=== PATIENT | female | born 1960 | race Caucasian/White ===

== ENCOUNTER → 2018-04-25 00:46 | Outpatient (CLI) | payer BC, SELFPAY ==
[2018-04-25 21:35] LABS: T3,Free 3.3 pg/ml (2.8-5.3)
== END ==
PROVIDERS: Visit Provider Family Medicine
DX: E03.9 Hypothyroidism, unspecified (principal)
CPT/HCPCS: 36415; 84481

== ENCOUNTER 2018-06-17 20:38 | Emergency (ER) | payer BC, SELFPAY ==
[2018-06-17 20:40] VITALS: BP 174/93; PULSE 75; RESP 18; TEMP 36.6; O2SAT 99
[2018-06-17 20:57] LABS: Bilirubin Negative (Negative); Blood Trace-intact (Negative); Clarity Clear; Glucose Negative (Negative); Ketones Negative (Negative); Leukocyte Esterase Moderate (Negative); Nitrite Negative (Negative); Urobilinogen 0.2 EU/dL (Up TO 0.2); pH 5.5 (5-8)
--- NOTE | 2018-06-17 21:00 | DI.RAD_ITS ---
SYMPTOM/DIAGNOSIS: SOB FOR 6 WEEKS PA AND LATERAL CHEST: The heart is normal in size. The lungs are clear. The mediastinal structures and pleura appear intact. CONCLUSION: Normal chest. No evidence of acute cardiopulmonary disease.
[2018-06-17 21:21] LABS: Bacteria Negative HPF (Negative); C & S Indicated? No/Sq. Contamination; Casts Negative LPF (Negative); Crystals Negative HPF (Negative); Epithelial Cells Many HPF (Negative); Mucus Negative (Negative); Other Cells Few Renal (Negative); RBC Negative (0-2)
[2018-06-17 21:30] LABS: Abs Immature Grans 0.02 k/cumm (0.0-0.09); Absolute Basophil Count 0.04 k/cumm (0.0-0.2); Absolute Lymphocyte Count 3.04 k/cumm (1.2-3.4); Absolute Monocyte Count 0.57 k/cumm (0.11-0.7); Basophils % 0.4; Eosinophils % 2.2; HCT 42.8 % (36.0-46.0); HGB 13.4 g/dL (12.0-15.5); Immature Grans % 0.2; Lymphocytes % 33.5; Mean Corp. HGB Concentration 31.3 g/dL (32.0-36.0); Mean Corpuscular Hemoglobin 29.2 pg (27.0-33.0); Mean Corpuscular Volume 93.2 fL (80-95); Mean Platelet Volume 10.7 fL (8.0-11.0); Monocytes % 6.3; Neutrophils % 57.4; Platelet Count 282 x1000/uL (130-400); RBC 4.59 m/cumm (4.00-5.20); RBC Distribution Width 16.1 % (11.7-14.6); White Blood Cell Count 9.07 k/cumm (4.4-10.8)
[2018-06-17 21:51] LABS: ALT 18 U/L (12-78); AST 15 U/L (15-37); Albumin 3.8 g/dL (3.4-5.0); Alkaline Phosphatase 87 U/L (46-116); Anion Gap 10.2 mmol/L (3-11); BUN 18 mg/dL (7-18); Bilirubin, Total 0.3 mg/dL (0.2-1.0); CO2 28.8 mmol/L (21.0-32.0); CREATININE 1.22 mg/dL (0.55-1.02); Calcium 9.1 mg/dL (8.5-10.1); Chloride 102 mmol/L (98-107); Estimated GFR 44.96 (mL/min/1.73m2); Glucose 110 mg/dL (70-100); Magnesium 2.1 mg/dL (1.8-2.4); Potassium 3.9 mmol/L (3.5-5.1); Sodium 141 mmol/L (136-145); TSH 70.96 uIU/mL (0.358-3.74); Total Protein 7.9 g/dL (6.4-8.2); Troponin I < 0.02 ng/mL (0.00-0.06)
[2018-06-17] MEDS: Normal Saline 1,000 ML 1000 ML IV (21:55)
--- NOTE | 2018-06-17 22:09 | DI.VRAD_ITS ---
EXAM: XR Chest, 2 Views CLINICAL HISTORY: 58 years old, female; Signs and symptoms; Other: SOB for 6 weeks TECHNIQUE: Frontal and lateral views of the chest. COMPARISON: [facility] PORTABLE CHEST ONE VIEW 11/23/2016 6:04 PM FINDINGS: Lungs: Lungs are mildly hyperinflated but clear of an acute process. Pleural space: Unremarkable. No pneumothorax. Heart: Heart size and pulmonary vasculature are upper limits of normal. Mediastinum: Unremarkable. Bones/joints: Degenerative changes noted throughout the spine. Vasculature: Atherosclerotic calcification of the aorta without aneurysm. IMPRESSION: No acute intrathoracic process. Dictated and Authenticated by: Manpreet Miller MD. Ordering:TRACY RUIZ MD
--- NOTE | 2018-06-17 22:32 | ED.GENADUL_ITS ---
Discharge Plan Disposition Patient Disposition: HOME Condition: Good Discharge Details Chief Complaint: GenMedical Clinical Impression: Hypothyroid, Acute UTI, Fatigue Primary Care Provider: Paula Flores ED Provider: Blaine Guan Home Meds and New Rx's Prescriptions: New cephalexin 250 mg tablet 250 mg PO Q12H Qty: 7 RF: 0 No Action nystatin 15 GM cream 5 gm Topical BID Qty: 2 RF: 2 nystatin [Nystop] 60 GM powder 5 gm Topical BID Qty: 1 RF: 1 bupropion HCl [Wellbutrin XL] 300 MG tablet extended release 24 hr 150 mg PO HS RF: 0 trazodone 100 MG tablet 100 mg PO HS Qty: 30 RF: 0 lorazepam [Ativan] 2 MG tablet 1 tab PO DAILY Qty: 30 RF: 0 lamotrigine 100 MG tablet 100 mg PO HS Qty: 30 RF: 0 lurasidone [Latuda] 20 MG tablet 40 mg PO DAILY RF: 0 levothyroxine [Synthroid] 137 MCG tablet 137 mcg PO DAILY Qty: 90 RF: 1 acetaminophen [Mapap Extra Strength] 500 MG tablet 1,000 mg PO Q6H 5 Days Qty: 60 RF: 0 amoxicillin-pot clavulanate 1 TAB tablet 1 ea PO BID Qty: 14 RF: 0 Ibuprofen [Motrin Ib] 200 MG Tablet 600 mg PO Q6H 5 Days Qty: 60 RF: 0 Discharge Instructions Instructions: Urinary Tract Infection in Women (ED), Hypothyroidism (ED) Additional Instructions: Please take the antibiotic as directed. Please follow-up with your primary care as soon as possible for reassessment for management of your thyroid. If you notice any worsening of your symptoms, or any new symptoms such as vomiting , diarrhea, fever, chills, shortness of breath, chest pain, numbness, weakness, or fainting , please return immediately to the emergency department for reevaluation. Please follow up with your primary care provider as soon as possible for reassessment and reevaluation. As always, it was a pleasure participating in your medical care today. Referrals: Paula Flores, RN [facility] [Primary Care Provider] - Medical Decision Making This is a 58-year-old female with a past medical history of thyroid disease, obesity, bipolar depression who presents today for 6 weeks of fatigue, urinary frequency, and one day of mild right flank pain. Physical exam demonstrates no acute abnormalities. EKG demonstrates relatively benign EKG, no ST elevations or depressions. Chest x-ray is negative for any acute process. Laboratory workup demonstrates no signs of anemia, normal white count , slightly elevated creatinine at 1.22, however this is near her baseline. Troponin is normal. The patient's TSH has returned extremely elevated at 70.96. I feel that this indicates that she has suboptimal levothyroxine dosing. Urinalysis does show evidence of moderate leuk esterase, and 10-20 WBCs , no RBCs. This does suggest a mild urinary tract infection. With no evidence of cardiac etiology, no acute chest process, normal hemoglobin, normal vital signs no evidence of a myxedema coma, I feel that she can be safely discharged home with close follow-up with her PCP. We will contact the patient's clinic, to try to get a more prompt follow-up appointment. Currently she does have an appointment in 2 weeks, however I feel she would benefit from something earlier. We will hold off on altering her levothyroxine dose, leave this or for her primary care provider for their preferred management plan of her thyroid dysfunction. Patient was also be treated for urinary tract infection. She will be given 1 dose antibiotic here, and then the remainder of her antibiotic as a prescription for home use. We discussed red flags for which to return the patient understands. I have extensively reviewed the treatment plan and discharge instructions with the patient. I have addressed all patient concerns at this time. The patient was made aware of what symptoms to monitor for that would warrant a return to the emergency department. Discussed the plan with the patient, they demonstrate verbal understanding and agreement with our assessment and plan at this time. EKG 21: 11 Rate 75, intervals normal, sinus rhythm, no ST elevations or depressions. No significant T wave inversions. Small Q waves in lead III. T wave flattening in V2. Chest x-ray per virtual radiology no acute intrathoracic process HPI General Date/Time Provider Initiated Documentation: 06/17/18 20:59 . HPI Narrative: This is a 58-year-old female who presents today for evaluation of 6 weeks of fatigue, associated shortness of breath, and urinary frequency for the last 3 weeks. She states that today she had mild right-sided flank pain, some mild dysuria. Past medical history is positive for bipolar depression and thyroid disease. The patient denies any chest pain, shoulder pain, neck pain, or arm pain. She denies any cardiac history. She denies any family history of cardiac disease. She denies any vomiting, diarrhea, numbness , tingling, or weakness. She denies any significant swelling of her extremities. She states that she has had no recent increases or decreases in her levothyroxine she has been taking these as directed. She denies any other complaints at this time. She denies any recent surgeries, pertinent family history. She denies any IV or illicit drug use. Related Data Home Medications Medication Instructions Recorded Confirmed nystatin 5 gm TOPICAL BID #2 tube 11/05/17 nystatin [Nystop] 5 gm TOPICAL BID #1 bottle 11/05/17 bupropion HCl [Wellbutrin XL] 150 mg PO HS 01/20/18 03/30/18 lamotrigine 100 mg PO HS #30 tab-cap 01/30/18 lorazepam [Ativan] 1 tab PO DAILY #30 tab 01/30/18 trazodone 100 mg PO HS #30 tab 01/30/18 lurasidone [Latuda] 40 mg PO DAILY 02/11/18 03/30/18 Ibuprofen [Motrin Ib] 600 mg PO Q6H 5 Days #60 tablet 03/30/18 acetaminophen [Tylenol Extra 1,000 mg PO Q6H 5 Days #60 tab 03/30/18 Strength] amoxicillin-pot clavulanate 1 ea PO BID #14 tab 03/30/18 levothyroxine [Synthroid] 137 mcg PO DAILY #90 tab-cap 04/07/18 cephalexin 250 mg PO Q12H #7 tab 06/17/18 Previous Rx's Medication Instructions Recorded nystatin 5 gm TOPICAL BID #2 tube 11/05/17 nystatin [Nystop] 5 gm TOPICAL BID #1 bottle 11/05/17 lamotrigine 100 mg PO HS #30 tab-cap 01/30/18 lorazepam [Ativan] 1 tab PO DAILY #30 tab 01/30/18 trazodone 100 mg PO HS #30 tab 01/30/18 Ibuprofen [Motrin Ib] 600 mg PO Q6H 5 Days #60 tablet 03/30/18 acetaminophen [Tylenol Extra 1,000 mg PO Q6H 5 Days #60 tab 03/30/18 Strength] amoxicillin-pot clavulanate 1 ea PO BID #14 tab 03/30/18 levothyroxine [Synthroid] 137 mcg PO DAILY #90 tab-cap 04/07/18 cephalexin 250 mg PO Q12H #7 tab 06/17/18 Allergies Allergy/AdvReac Type Severity Reaction Status Date / Time Iodinated Contrast- Oral and Allergy Severe COULDN'T Unverified 06/17/18 20:44 IV Dye BREATHE [Iodinated Contrast Media - IV Dye] divalproex sodium Allergy Intermediate HIVES Unverified 06/17/18 20:44 General Stated Complaint: GenMedical CHELA: 4 Review of Systems Review of Systems All systems reviewed & are unremarkable except as noted in HPI and below PFSH Family History Mother No problems noted. Father No problems noted. Sister No problems noted. Brother No problems noted. Grandfather Diabetes Grandfather No problems noted. Grandmother Heart disease Grandmother Heart disease Sister No problems noted. Sister No problems noted. Brother No problems noted. Son Substance abuse Daughter No problems noted. Daughter No problems noted. Family History Depression Cancer Social History Smoking/Tobacco Use Status: Former Tobacco Use Surgical History Cholecystectomy (01/27/14) Exam Narrative Exam Narrative: 1.Const: Well-nourished, Well-developed, appearing stated age 2.Eyes: PERRL, no conjunctival injection, and symmetrical lids. 3.ENT: Atraumatic external nose and ears. Moist MM. Neck: Symmetric, trachea midline, No thyromegaly. 4.CVS: +S1/S2, No murmurs or gallops. Peripheral pulses 2+ and equal in all extremities. Brisk capillary refill in all extremities. 5.RESP: Unlabored respiratory effort. Clear to auscultation bilaterally. No wheezes rales or rhonchi 6.GI: Soft, Nontender/Nondistended, No hepatosplenomegaly. No guarding or rebound. 7.MSK: Normocephalic/Atraumatic, Extremities w/o deformity or ttp No cyanosis or clubbing, Normal movement of all extremities. No Edema. 8.Skin: Warm, Dry. No rashes or lesions. 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 Sensation grossly intact, no focal neurologic deficits. 10.Psych: (AAO) x3. Appropriate mood and affect Course Vital Signs Temperature 36.6 C 06/17/18 20:40 Pulse 75 06/17/18 20:40 Respiratory Rate 18 06/17/18 20:40 Blood Pressure 174/93 H 06/17/18 20:40 Pulse Oximetry 99 06/17/18 20:40 Temperature 36.6 C 06/17/18 20:40 Temperature Source Temporal Artery Scan 06/17/18 20:40 Pulse 75 06/17/18 20:40 Respiratory Rate 18 06/17/18 20:40 Blood Pressure 174/93 H 06/17/18 20:40 Pulse Oximetry 99 06/17/18 20:40 Oxygen Delivery Method Room Air 06/17/18 20:40 Oxygen Flow Rate 0 06/17/18 20:40 Pain Level 0 06/17/18 20:40 Lab/Test Results Lab/Test Results: Laboratory Tests Range/Units 06/17/18 06/17/18 06/17/18 20:47 21:25 21:25 WBC (4.4-10.8) k/cumm 9.07 RBC (4.00-5.20) m/cumm 4.59 Hgb (12.0-15.5) g/dL 13.4 Hct (36.0-46.0) % 42.8 MCV (80-95) fL 93.2 MCH (27.0-33.0) pg 29.2 MCHC (32.0-36.0) g/dL 31.3 L RDW (11.7-14.6) % 16.1 H Plt Count (130-400) x1000/uL 282 MPV (8.0-11.0) fL 10.7 Immature Gran % 0.2 Neutrophils % 57.4 Lymphocytes % 33.5 Monocytes % 6.3 Eosinophils % 2.2 Basophils % 0.4 Absolute Neutrophils (1.2-6.7) k/cumm 5.20 Absolute Lymphocytes (1.2-3.4) k/cumm 3.04 Absolute Monocytes (0.11-0.7) k/cumm 0.57 Absolute Eosinophils (0.0-0.7) k/cumm 0.20 Absolute Basophils (0.0-0.2) k/cumm 0.04 Sodium (136-145) mmol/L 141 Potassium (3.5-5.1) mmol/L 3.9 Chloride (98-107) mmol/L 102 Carbon Dioxide (21.0-32.0) mmol/L 28.8 Anion Gap (3-11) mmol/L 10.2 BUN (7-18) mg/dL 18 Creatinine (0.55-1.02) mg/dL 1.22 H Estimated GFR/1.73 m2 (mL/min/1.73m2) 44.96 Glucose (70-100) mg/dL 110 H Calcium (8.5-10.1) mg/dL 9.1 Magnesium (1.8-2.4) mg/dL 2.1 Total Bilirubin (0.2-1.0) mg/dL 0.3 AST (15-37) U/L 15 ALT (12-78) U/L 18 Alkaline Phosphatase (46-116) U/L 87 Troponin I (0.00-0.06) ng/mL < 0.02 Total Protein (6.4-8.2) g/dL 7.9 Albumin (3.4-5.0) g/dL 3.8 TSH (0.358-3.74) uIU/mL 70.96 H Urine Color (Yellow) Yellow Urine Clarity Clear Urine pH (5-8) 5.5 Ur Specific Carnation (1.005-1.025) 1.010 Urine Protein (Negative) mg/dL Negative Urine Ketones (Negative) mg/dL Negative Urine Blood (Negative) Trace-intact H Urine Nitrite (Negative) Negative Urine Bilirubin (Negative) Negative Urine Urobilinogen (Up TO 0.2) EU/dL 0.2 Ur Leukocyte Esterase (Negative) Moderate H Urine RBC (0-2) Negative Urine WBC (0-5) HPF 10-20 Ur Epithelial Cells (Negative) HPF Many Urine Crystals (Negative) HPF Negative Urine Bacteria (Negative) HPF Negative Urine Casts (Negative) LPF Negative Urine Mucus (Negative) Negative Urine Other (Negative) Few renal Ur Culture Indicated? No/sq. contamination Urine Glucose (Negative) mg/dL Negative
== END 2018-06-17 22:40 | disposition home or self-care (01) ==
PROVIDERS: Emergency Provider Student in an Organized Health Care Education/Training Program
DX: E03.9 Hypothyroidism, unspecified (principal); N39.0 Urinary tract infection, site not specified; R53.83 Other fatigue; T38.1X6A Underdosing of thyroid hormones and substitutes, initial encounter; R06.02 Shortness of breath
CPT/HCPCS: 36415; 80053; 93005; 96360; 99285; 71046; 81003; 81015; 83735; 84443; 84484; 85025; 93010

== ENCOUNTER 2018-06-20 01:07 | Outpatient (CLI) | payer BC, SELFPAY ==
[2018-06-20 11:17] LABS: Anion Gap 11.7 mmol/L (3-11); BUN 14 mg/dL (7-18); CO2 26.3 mmol/L (21.0-32.0); CREATININE 1.13 mg/dL (0.55-1.02); Chloride 104 mmol/L (98-107); Estimated GFR 49.12 (mL/min/1.73m2); FREE T4 0.92 ng/dL (0.76-1.46); Glucose 97 mg/dL (70-100); Potassium 4.2 mmol/L (3.5-5.1); Sodium 142 mmol/L (136-145); TSH (W/Ref FT4) 42.99 uIU/mL (0.358-3.74)
== END 2018-06-20 01:27 ==
DX: E03.9 Hypothyroidism, unspecified (principal); R53.83 Other fatigue
CPT/HCPCS: 36415; 80048; 84439; 84443; 84481

== ENCOUNTER 2018-06-26 19:00 | Outpatient (REF) | payer BC, SELFPAY ==
[2018-06-26 20:51] LABS: Bilirubin Negative (Negative); Blood Trace-intact (Negative); Clarity Sl Cloudy; Glucose Negative (Negative); Ketones Negative (Negative); Leukocyte Esterase Large (Negative); Nitrite Negative (Negative); Specific Gravity 1.015 (1.005-1.025); Urobilinogen 0.2 EU/dL (Up TO 0.2); pH 5.5 (5-8)
[2018-06-26 21:22] LABS: Bacteria Many HPF (Negative); C & S Indicated? No/Sq. Contamination; Casts Negative LPF (Negative); Crystals Negative HPF (Negative); Epithelial Cells Many HPF (Negative); Mucus Negative (Negative); Other Cells Negative (Negative); RBC Negative (0-2); WBC >50 HPF (0-5)
== END 2018-06-26 19:20 ==
LOC: LBN 19:00
DX: R35.0 Frequency of micturition (principal)
CPT/HCPCS: 81003; 81015

== ENCOUNTER 2018-07-04 01:51 | Outpatient (CLI) | payer BC, SELFPAY ==
[2018-07-04 12:43] LABS: HCT 39.7 % (36.0-46.0); HGB 12.6 g/dL (12.0-15.5); Mean Corp. HGB Concentration 31.7 g/dL (32.0-36.0); Mean Corpuscular Hemoglobin 29.6 pg (27.0-33.0); Mean Corpuscular Volume 93.4 fL (80-95); Platelet Count 289 x1000/uL (130-400); RBC 4.25 m/cumm (4.00-5.20); RBC Distribution Width 15.7 % (11.7-14.6); White Blood Cell Count 7.86 k/cumm (4.4-10.8)
[2018-07-04 13:09] LABS: ALT 19 U/L (12-78); AST 10 U/L (15-37); Albumin 3.6 g/dL (3.4-5.0); Alkaline Phosphatase 92 U/L (46-116); BUN 13 mg/dL (7-18); Bilirubin, Total 0.4 mg/dL (0.2-1.0); CREATININE 1.09 mg/dL (0.55-1.02); Calcium 8.9 mg/dL (8.5-10.1); Chloride 103 mmol/L (98-107); Glucose 108 mg/dL (70-100); Potassium 4.2 mmol/L (3.5-5.1); Sodium 140 mmol/L (136-145); TSH (W/Ref FT4) 6.22 uIU/mL (0.358-3.74); Total Protein 7.1 g/dL (6.4-8.2)
== END 2018-07-04 02:11 ==
DX: E03.9 Hypothyroidism, unspecified (principal); K58.2 Mixed irritable bowel syndrome; G43.909 Migraine, unspecified, not intractable, without status migrainosus; R55 Syncope and collapse; K80.50 Calculus of bile duct without cholangitis or cholecystitis without obstruction; R74.8 Abnormal levels of other serum enzymes
CPT/HCPCS: 36415; 80053; 85027; 84439; 84443

== ENCOUNTER 2018-08-15 01:14 | Outpatient (CLI) | payer BC, SELFPAY ==
[2018-08-15 17:21] LABS: ALT 18 U/L (12-78); AST 9 U/L (15-37); Albumin 3.5 g/dL (3.4-5.0); Alkaline Phosphatase 93 U/L (46-116); BUN 16 mg/dL (7-18); Bilirubin, Total 0.3 mg/dL (0.2-1.0); CREATININE 1.08 mg/dL (0.55-1.02); Calcium 9.2 mg/dL (8.5-10.1); Chloride 103 mmol/L (98-107); Estimated GFR 51.75 (mL/min/1.73m2); Glucose 98 mg/dL (70-100); Potassium 4.2 mmol/L (3.5-5.1); Sodium 142 mmol/L (136-145); TSH (W/Ref FT4) 1.27 uIU/mL (0.358-3.74); Total Protein 7.1 g/dL (6.4-8.2)
[2018-08-18 16:57] LABS: Lamotrigine 2.4 mcg/mL (2.5 - 15.0)
== END 2018-08-15 01:34 ==
DX: E03.9 Hypothyroidism, unspecified (principal); K58.2 Mixed irritable bowel syndrome; G43.909 Migraine, unspecified, not intractable, without status migrainosus; Z00.00 Encounter for general adult medical examination without abnormal findings; R53.83 Other fatigue; Z51.81 Encounter for therapeutic drug level monitoring; R74.8 Abnormal levels of other serum enzymes; Z87.440 Personal history of urinary (tract) infections
CPT/HCPCS: 36415; 80053; 80175; 84443

== ENCOUNTER 2018-08-27 10:16 | Outpatient (CLI) | payer BC, SELFPAY ==
--- NOTE | 2018-07-11 10:53 | DI.US_ITS ---
SYMPTOMS/DIAGNOSIS: DIFFICULTY REGULATING TSH/FREE T4 THYROID ULTRASOUND: Thyroid ultrasound was performed according to the usual protocol. The right thyroid lobe measures 45 x 19 x 18 mm and left thyroid lobe measures 49 x 15 x 15 mm. Thyroid tissue appears heterogeneous throughout. No focal mass lesion identified. CONCLUSION: Findings consistent with multi-nodular goiter. There is significant acoustic shadowing through much of the thyroid parenchyma and internal details are not well visualized. Mass not absolutely excluded. No definite lesion identified, but if there is a clinical suspicion of thyroid mass , additional evaluation with CT would be recommended.
--- NOTE | 2018-08-27 17:30 | DI.MAMMO_ITS ---
SYMPTOMS/DIAGNOSIS: SCREENING, Z12.31 BILATERAL SCREENING MAMMOGRAM: Mammograms were interpreted according to the usual protocol including computer analysis with CAD system, tomosynthesis and C view imaging. Comparison is made with exams from 2010 through 2017. The breasts are composed of scattered fibroglandular densities, breast density category B. No suspicious masses or suspicious microcalcifications are seen. There has been no significant change. IMPRESSION: Category 1B, negative mammogram. Yearly screening mammography is recommended. [facility] ASSESSMENT OF FINDINGS: Negative. Category 1. Patient will receive a letter notifying them of these results. BI-RADS category B. There are scattered areas of fibroglandular density.
== END 2018-08-27 10:36 ==
DX: E04.2 Nontoxic multinodular goiter (principal); Z12.31 Encounter for screening mammogram for malignant neoplasm of breast
CPT/HCPCS: 77063; 77067; 76536

== ENCOUNTER 2018-10-09 02:05 | Outpatient (CLI) | payer BC, SELFPAY ==
[2018-10-09 13:27] LABS: TSH (W/Ref FT4) 0.79 uIU/mL (0.358-3.74)
== END 2018-10-09 02:25 ==
DX: E03.9 Hypothyroidism, unspecified (principal); G47.00 Insomnia, unspecified
CPT/HCPCS: 36415; 84443

== ENCOUNTER 2018-12-10 02:00 | Outpatient (CLI) | payer BC, SELFPAY ==
[2018-12-10 12:46] LABS: Abs Immature Grans 0.01 k/cumm (0.0-0.09); Absolute Basophil Count 0.04 k/cumm (0.0-0.2); Absolute Eosinophil Count 0.22 k/cumm (0.0-0.7); Absolute Lymphocyte Count 2.36 k/cumm (1.2-3.4); Absolute Neutrophil Count 5.27 k/cumm (1.2-6.7); Basophils % 0.5; Eosinophils % 2.6; HCT 40.1 % (36.0-46.0); HGB 12.6 g/dL (12.0-15.5); Immature Grans % 0.1; Lymphocytes % 28.1; Mean Corp. HGB Concentration 31.4 g/dL (32.0-36.0); Mean Corpuscular Hemoglobin 27.9 pg (27.0-33.0); Mean Corpuscular Volume 88.9 fL (80-95); Mean Platelet Volume 10.4 fL (8.0-11.0); Neutrophils % 62.7; Platelet Count 339 x1000/uL (130-400); RBC 4.51 m/cumm (4.00-5.20); RBC Distribution Width 15.7 % (11.7-14.6)
[2018-12-10 13:44] LABS: ALT 16 U/L (12-78); AST 11 U/L (15-37); Albumin 3.6 g/dL (3.4-5.0); Alkaline Phosphatase 95 U/L (46-116); Anion Gap 10.2 mmol/L (3-11); BUN 13 mg/dL (7-18); Bilirubin, Total 0.4 mg/dL (0.2-1.0); CO2 26.8 mmol/L (21.0-32.0); CREATININE 0.96 mg/dL (0.55-1.02); Calcium 9.4 mg/dL (8.5-10.1); Chloride 102 mmol/L (98-107); Estimated GFR 59.28 (mL/min/1.73m2); Glucose 89 mg/dL (70-100); Potassium 4.3 mmol/L (3.5-5.1); Sodium 139 mmol/L (136-145); TSH (W/Ref FT4) 0.84 uIU/mL (0.358-3.74)
[2018-12-11 04:58] LABS: Vitamin D 25 Total 18.2 ng/ml (30-100)
== END 2018-12-10 02:20 ==
PROVIDERS: Visit Provider Nurse Practitioner Family
DX: R53.83 Other fatigue (principal); E03.9 Hypothyroidism, unspecified
CPT/HCPCS: 36415; 80053; 82306; 84443; 85025

== ENCOUNTER 2018-12-17 20:45 | Outpatient (REF) | payer BC, SELFPAY | END 2018-12-17 21:05 | LOC: LBN 20:45 | PROVIDERS: Visit Provider Nurse Practitioner Family | DX: R30.0 Dysuria (principal) | CPT/HCPCS: 87086; 87480; 87510; 87660 ==

== ENCOUNTER 2018-12-21 21:19 | Emergency (ER) | payer BC, SELFPAY ==
[2018-12-21 21:23] VITALS: BP 163/91; PULSE 69; RESP 20; TEMP 36.3; O2SAT 98
--- NOTE | 2018-12-21 21:36 | W.ED.GENAD ---
Discharge Plan Disposition Patient Disposition: HOME Condition: Improving Discharge Details Chief Complaint: Nk/Back Pain Clinical Impression: Odontalgia, Lumbago syndrome Primary Care Provider: Paula Flores ED Provider: Rohan Costa Home Meds and New Rx's Prescriptions: New amoxicillin 500 mg capsule 500 mg PO TID Qty: 20 RF: 0 Continued triamcinolone acetonide 0.1 % ointment 1 applic TP BID Qty: 30 RF: 1 lurasidone 40 mg tablet 40 mg PO DAILY RF: 0 lorazepam 1 mg tablet 1 mg PO DAILY PRNRF: 0 nystatin 15 GM cream 5 gm Topical BID Qty: 2 RF: 2 nystatin [Nystop] 60 GM powder 5 gm Topical BID Qty: 1 RF: 1 trazodone 100 MG tablet 100 mg PO HS Qty: 30 RF: 0 lamotrigine 200 mg tablet 200 mg PO DAILY Qty: 30 RF: 11 levothyroxine 137 mcg tablet 137 mcg PO DAILY Qty: 90 RF: 3 cholecalciferol (vitamin D3) 50,000 unit capsule 50,000 unit PO QWEEK Qty: 8 RF: 0 cholecalciferol (vitamin D3) 2,000 unit capsule 2,000 unit PO DAILY Qty: 90 RF: 4 acetaminophen [Mapap Extra Strength] 500 MG tablet 1,000 mg PO Q6H 5 Days Qty: 60 RF: 0 Discharge Instructions Instructions: Low Back Strain (ED), Toothache (ED) Additional Instructions: Remove the Lidoderm patch in 12 hours time. Home to rest. Small, frequent sips of fluids to maintain hydration. Follow-up with dentistry as planned. Follow-up with Paula Flores for recheck if not improving in 3 days to Medical Decision Making 58-year-old female presents emerged department with numerous complaints. She is right upper dental pain and concern for developing infection with plans for extraction dentistry this week. She also had a question of cystitis in the office with positive leuk esterase but negative nitrates and unremarkable urine culture from December 17. She is well-appearing in no acute distress. Likely does have a developing apical tooth infection. Also with a question of cystitis on previous urine this week; I will treat with a course of amoxicillin. She understands homecare as well as return precautions. Given Lidoderm patch for the night for mild right low back strain HPI General Mode of arrival: ambulatory. Date/Time Provider Initiated Documentation: 12/21/18 21:20. Limitations to Documentation: no limitations. Information obtained by: patient. History of Present Illness 58 year old F presents to the emergency department with the chief complaint of Numerous complaints. Tooth pain and right back pain, question cystitis, described as moderate, Quality is described as aching, and is localized to the back and right. Patient reports no radiation. Patient started experiencing this day(s) and it has been intermittent. No relieving factors improve symptom(s), No exacerbating factors reported . Patient notes no other symptoms.. Patient did receive the following treatments prior to arrival, NSAID Related Data Home Medications Medication Instructions Recorded Confirmed nystatin 5 gm TOPICAL BID #2 tube 11/05/17 12/17/18 nystatin [Nystop] 5 gm TOPICAL BID #1 bottle 11/05/17 12/17/18 trazodone 100 mg PO HS #30 tab 01/30/18 12/17/18 acetaminophen [Mapap Extra 1,000 mg PO Q6H 5 Days #60 tab 03/30/18 12/17/18 Strength] lorazepam 1 mg tablet 1 mg PO DAILY PRN tab 07/07/18 12/17/18 triamcinolone acetonide 0.1 % 1 applic TP BID #30 gm 07/08/18 12/17/18 topical ointment lamotrigine 200 mg tablet 200 mg PO DAILY #30 tab 08/25/18 12/17/18 levothyroxine 137 mcg tablet 137 mcg PO DAILY #90 tab 10/24/18 12/17/18 lurasidone 40 mg tablet 40 mg PO DAILY 11/28/18 12/17/18 cholecalciferol (vitamin D3) 2,000 2,000 unit PO DAILY #90 cap 12/11/18 12/17/18 unit capsule cholecalciferol (vitamin D3) 50,000 unit PO QWEEK #8 cap 12/11/18 12/17/18 50,000 unit capsule amoxicillin 500 mg PO TID #20 cap 12/21/18 Previous Rx's Medication Instructions Recorded nystatin 5 gm TOPICAL BID #2 tube 11/05/17 nystatin [Nystop] 5 gm TOPICAL BID #1 bottle 11/05/17 trazodone 100 mg PO HS #30 tab 01/30/18 acetaminophen [Mapap Extra 1,000 mg PO Q6H 5 Days #60 tab 03/30/18 Strength] triamcinolone acetonide 0.1 % 1 applic TP BID #30 gm 07/08/18 topical ointment lamotrigine 200 mg tablet 200 mg PO DAILY #30 tab 08/25/18 levothyroxine 137 mcg tablet 137 mcg PO DAILY #90 tab 10/24/18 cholecalciferol (vitamin D3) 2,000 2,000 unit PO DAILY #90 cap 12/11/18 unit capsule cholecalciferol (vitamin D3) 50,000 unit PO QWEEK #8 cap 12/11/18 50,000 unit capsule amoxicillin 500 mg PO TID #20 cap 12/21/18 Allergies Allergy/AdvReac Type Severity Reaction Status Date / Time Iodinated Contrast- Oral and Allergy Severe COULDN'T Verified 12/21/18 21:30 IV Dye BREATHE [Iodinated Contrast Media - IV Dye] divalproex sodium Allergy Intermediate HIVES Verified 12/21/18 21:30 General Stated Complaint: Nk/Back Pain CHELA: 4 Review of Systems Review of Systems Achy right low back pain, question cystitis in office. [facility] Medical History Vitamin D deficiency (Chronic ~11/2018) Surgical History Cholecystectomy (01/27/14) Family History Mother No problems noted. Father No problems noted. Sister No problems noted. Brother No problems noted. Grandfather Diabetes Grandfather No problems noted. Grandmother Heart disease Grandmother Heart disease Sister No problems noted. Sister No problems noted. Brother No problems noted. Son Substance abuse Daughter No problems noted. Daughter No problems noted. 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 Pleasant, well groomed, interactive. HEAD: Normocephalic, atraumatic ENT: Mucous membranes moist, oropharynx with poor dentition and dental caries right with right premolar maxillary tenderness without buccal or lingual swelling or fluctuance, uvula midline, External ear exam unremarkable EYES: PERRL, EOMI NECK: Full ROM, no CODIE, no menigismus CHEST/RESP: Nontender, clear to auscultation bilateral, no wheeze/rhonchi/rales CARDIOVASCULAR: RRR, no murmur, rub shellie. 2+ Rad pulse bilateral ABDOMEN: Soft, nontender, no mass. +Bowel sounds Back: Right paraspinous muscular mild tenderness and question mild spasm. No midline tenderness, step-off, or deform ready. EXT: Full ROM, no edema, no rash Neuro: Grossly normal neurologic exam, conversant, interactive. Psych: Speech fluent, thoughts congruent, affect normal Course Vital Signs Temperature 36.3 C L 12/21/18 21:23 Pulse 69 12/21/18 21:23 Respiratory Rate 20 12/21/18 21:23 Blood Pressure 163/91 H 12/21/18 21:23 Pulse Oximetry 98 12/21/18 21:23 Temperature 36.3 C L 12/21/18 21:23 Temperature Source Skin 12/21/18 21:23 Pulse 69 12/21/18 21:23 Respiratory Rate 20 12/21/18 21:23 Respiratory Effort Non-Labored 12/21/18 21:33 Blood Pressure 163/91 H 12/21/18 21:23 Blood Pressure Position Sitting 12/21/18 21:23 Pulse Oximetry 98 12/21/18 21:23 Oxygen Delivery Method Room Air 12/21/18 21:23 Oxygen Flow Rate 0 12/21/18 21:23 Pain Level 8 12/21/18 21:33
--- NOTE | 2018-12-21 21:39 | ED.GENADUL_ITS ---
Discharge Plan Disposition Patient Disposition: HOME Condition: Improving Discharge Details Chief Complaint: Nk/Back Pain Clinical Impression: Odontalgia, Lumbago syndrome Primary Care Provider: Paula Flores ED Provider: Rohan Costa Home Meds and New Rx's Prescriptions: New amoxicillin 500 mg capsule 500 mg PO TID Qty: 20 RF: 0 Continued triamcinolone acetonide 0.1 % ointment 1 applic TP BID Qty: 30 RF: 1 lurasidone 40 mg tablet 40 mg PO DAILY RF: 0 lorazepam 1 mg tablet 1 mg PO DAILY PRNRF: 0 nystatin 15 GM cream 5 gm Topical BID Qty: 2 RF: 2 nystatin [Nystop] 60 GM powder 5 gm Topical BID Qty: 1 RF: 1 trazodone 100 MG tablet 100 mg PO HS Qty: 30 RF: 0 lamotrigine 200 mg tablet 200 mg PO DAILY Qty: 30 RF: 11 levothyroxine 137 mcg tablet 137 mcg PO DAILY Qty: 90 RF: 3 cholecalciferol (vitamin D3) 50,000 unit capsule 50,000 unit PO QWEEK Qty: 8 RF: 0 cholecalciferol (vitamin D3) 2,000 unit capsule 2,000 unit PO DAILY Qty: 90 RF: 4 acetaminophen [Mapap Extra Strength] 500 MG tablet 1,000 mg PO Q6H 5 Days Qty: 60 RF: 0 Discharge Instructions Instructions: Low Back Strain (ED), Toothache (ED) Additional Instructions: Remove the Lidoderm patch in 12 hours time. Home to rest. Small, frequent sips of fluids to maintain hydration. Follow-up with dentistry as planned. Follow-up with Paula Flores for recheck if not improving in 3 days to Medical Decision Making 58-year-old female presents emerged department with numerous complaints. She is right upper dental pain and concern for developing infection with plans for extraction dentistry this week. She also had a question of cystitis in the office with positive leuk esterase but negative nitrates and unremarkable urine culture from December 17. She is well-appearing in no acute distress. Likely does have a developing apical tooth infection. Also with a question of cystitis on previous urine this week; I will treat with a course of amoxicillin. She understands homecare as well as return precautions. Given Lidoderm patch for the night for mild right low back strain HPI General Mode of arrival: ambulatory . Date/Time Provider Initiated Documentation: 12/21/18 21:20 . Limitations to Documentation: no limitations . Information obtained by: patient . History of Present Illness 58 year old F presents to the emergency department with the chief complaint of Numerous complaints. Tooth pain and right back pain, question cystitis, described as moderate, Quality is described as aching, and is localized to the back and right. Patient reports no radiation. Patient started experiencing this day(s) and it has been intermittent. No relieving factors improve symptom(s), No exacerbating factors reported . Patient notes no other symptoms.. Patient did receive the following treatments prior to arrival, NSAID Related Data Home Medications Medication Instructions Recorded Confirmed nystatin 5 gm TOPICAL BID #2 tube 11/05/17 12/17/18 nystatin [Nystop] 5 gm TOPICAL BID #1 bottle 11/05/17 12/17/18 trazodone 100 mg PO HS #30 tab 01/30/18 12/17/18 acetaminophen [Mapap Extra 1,000 mg PO Q6H 5 Days #60 tab 03/30/18 12/17/18 Strength] lorazepam 1 mg tablet 1 mg PO DAILY PRN tab 07/07/18 12/17/18 triamcinolone acetonide 0.1 % 1 applic TP BID #30 gm 07/08/18 12/17/18 topical ointment lamotrigine 200 mg tablet 200 mg PO DAILY #30 tab 08/25/18 12/17/18 levothyroxine 137 mcg tablet 137 mcg PO DAILY #90 tab 10/24/18 12/17/18 lurasidone 40 mg tablet 40 mg PO DAILY 11/28/18 12/17/18 cholecalciferol (vitamin D3) 2,000 2,000 unit PO DAILY #90 cap 12/11/18 12/17/18 unit capsule cholecalciferol (vitamin D3) 50,000 unit PO QWEEK #8 cap 12/11/18 12/17/18 50,000 unit capsule amoxicillin 500 mg PO TID #20 cap 12/21/18 Previous Rx's Medication Instructions Recorded nystatin 5 gm TOPICAL BID #2 tube 11/05/17 nystatin [Nystop] 5 gm TOPICAL BID #1 bottle 11/05/17 trazodone 100 mg PO HS #30 tab 01/30/18 acetaminophen [Mapap Extra 1,000 mg PO Q6H 5 Days #60 tab 03/30/18 Strength] triamcinolone acetonide 0.1 % 1 applic TP BID #30 gm 07/08/18 topical ointment lamotrigine 200 mg tablet 200 mg PO DAILY #30 tab 08/25/18 levothyroxine 137 mcg tablet 137 mcg PO DAILY #90 tab 10/24/18 cholecalciferol (vitamin D3) 2,000 2,000 unit PO DAILY #90 cap 12/11/18 unit capsule cholecalciferol (vitamin D3) 50,000 unit PO QWEEK #8 cap 12/11/18 50,000 unit capsule amoxicillin 500 mg PO TID #20 cap 12/21/18 Allergies Allergy/AdvReac Type Severity Reaction Status Date / Time Iodinated Contrast- Oral and Allergy Severe COULDN'T Verified 12/21/18 21:30 IV Dye BREATHE [Iodinated Contrast Media - IV Dye] divalproex sodium Allergy Intermediate HIVES Verified 12/21/18 21:30 General Stated Complaint: Nk/Back Pain CHELA: 4 Review of Systems Review of Systems Achy right low back pain, question cystitis in office. [facility] Medical History Vitamin D deficiency (Chronic ~11/2018) Surgical History Cholecystectomy (01/27/14) Family History Mother No problems noted. Father No problems noted. Sister No problems noted. Brother No problems noted. Grandfather Diabetes Grandfather No problems noted. Grandmother Heart disease Grandmother Heart disease Sister No problems noted. Sister No problems noted. Brother No problems noted. Son Substance abuse Daughter No problems noted. Daughter No problems noted. 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 Pleasant, well groomed, interactive. HEAD: Normocephalic, atraumatic ENT: Mucous membranes moist, oropharynx with poor dentition and dental caries right with right premolar maxillary tenderness without buccal or lingual swelling or fluctuance, uvula midline, External ear exam unremarkable EYES: PERRL, EOMI NECK: Full ROM, no CODIE, no menigismus CHEST/RESP: Nontender, clear to auscultation bilateral, no wheeze/rhonchi/rales CARDIOVASCULAR: RRR, no murmur, rub shellie. 2+ Rad pulse bilateral ABDOMEN: Soft, nontender, no mass. +Bowel sounds Back: Right paraspinous muscular mild tenderness and question mild spasm. No midline tenderness, step-off, or deform ready. EXT: Full ROM, no edema, no rash Neuro: Grossly normal neurologic exam, conversant, interactive. Psych: Speech fluent, thoughts congruent, affect normal Course Vital Signs Temperature 36.3 C L 12/21/18 21:23 Pulse 69 12/21/18 21:23 Respiratory Rate 20 12/21/18 21:23 Blood Pressure 163/91 H 12/21/18 21:23 Pulse Oximetry 98 12/21/18 21:23 Temperature 36.3 C L 12/21/18 21:23 Temperature Source Skin 12/21/18 21:23 Pulse 69 12/21/18 21:23 Respiratory Rate 20 12/21/18 21:23 Respiratory Effort Non-Labored 12/21/18 21:33 Blood Pressure 163/91 H 12/21/18 21:23 Blood Pressure Position Sitting 12/21/18 21:23 Pulse Oximetry 98 12/21/18 21:23 Oxygen Delivery Method Room Air 12/21/18 21:23 Oxygen Flow Rate 0 12/21/18 21:23 Pain Level 8 12/21/18 21:33
[2018-12-21] MEDS: Amoxicillin 500 MG CAP PO (21:41)
[2018-12-21] MEDS: Lidocaine 5% Patch 1 PATCH TP (21:42)
== END 2018-12-21 21:51 | disposition home or self-care (01) ==
LOC: ER 21:47
PROVIDERS: Emergency Provider Emergency Medicine
DX: K08.89 Other specified disorders of teeth and supporting structures (principal); M54.5 Low back pain
CPT/HCPCS: 99283

== ENCOUNTER 2019-06-19 02:44 | Outpatient (CLI) | payer BC, SELFPAY | END 2019-06-19 03:04 | PROVIDERS: PCP Internal Medicine; Visit Provider Nurse Practitioner Family | DX: R53.83 Other fatigue (principal); R42 Dizziness and giddiness; Z79.899 Other long term (current) drug therapy | CPT/HCPCS: 93005; 93010 ==

== ENCOUNTER 2019-06-19 10:01 | Outpatient (CLI) | payer BC, SELFPAY ==
[2019-06-19 13:06] LABS: Abs Immature Grans 0.02 k/cumm (0.0-0.09); Absolute Basophil Count 0.04 k/cumm (0.0-0.2); Absolute Eosinophil Count 0.19 k/cumm (0.0-0.7); Absolute Lymphocyte Count 1.87 k/cumm (1.2-3.4); Absolute Monocyte Count 0.44 k/cumm (0.11-0.7); Absolute Neutrophil Count 5.46 k/cumm (1.2-6.7); Basophils % 0.5; Eosinophils % 2.4; HCT 40.4 % (36.0-46.0); HGB 12.6 g/dL (12.0-15.5); Immature Grans % 0.2; Lymphocytes % 23.3; Mean Corp. HGB Concentration 31.2 g/dL (32.0-36.0); Mean Corpuscular Hemoglobin 27.9 pg (27.0-33.0); Mean Corpuscular Volume 89.6 fL (80-95); Mean Platelet Volume 10.8 fL (8.0-11.0); Monocytes % 5.5; Neutrophils % 68.1; Platelet Count 327 x1000/uL (130-400); RBC 4.51 m/cumm (4.00-5.20); RBC Distribution Width 16.1 % (11.7-14.6); White Blood Cell Count 8.02 k/cumm (4.4-10.8)
[2019-06-19 13:28] LABS: ALT 20 U/L (14-59); AST 10 U/L (15-37); Albumin 3.5 g/dL (3.4-5.0); Alkaline Phosphatase 92 U/L (46-116); Anion Gap 9.6 mmol/L (3-11); BUN 13 mg/dL (7-18); Bilirubin, Total 0.5 mg/dL (0.2-1.0); CO2 26.4 mmol/L (21.0-32.0); CREATININE 1.26 mg/dL (0.55-1.02); Calcium 9.1 mg/dL (8.5-10.1); Calculated LDL 122 mg/dL; Chloride 104 mmol/L (98-107); Cholesterol 188 mg/dL (50-200); Estimated GFR 43.17 (mL/min/1.73m2); Glucose 97 mg/dL (70-100); HDL Cholesterol 43 mg/dL (40-60); Potassium 4.3 mmol/L (3.5-5.1); Sodium 140 mmol/L (136-145); TSH 5.22 uIU/mL (0.36-3.74); Total Protein 7.2 g/dL (6.4-8.2); Triglyceride 118 mg/dL (30-150)
[2019-06-23 10:29] LABS: FREE T4 1.23 ng/dL (0.76-1.46)
[2019-06-23 22:41] LABS: T3, Total 107 ng/dl (97-169)
[2019-06-26 15:44] LABS: 25-Hydroxy D Total 42 ng/mL; 25-Hydroxy D2 <4.0 ng/mL; 25-Hydroxy D3 42 ng/mL
== END 2019-06-19 10:21 ==
PROVIDERS: PCP Internal Medicine; Visit Provider Nurse Practitioner Family
DX: F31.9 Bipolar disorder, unspecified (principal); Z79.899 Other long term (current) drug therapy; R42 Dizziness and giddiness; R53.81 Other malaise; R53.83 Other fatigue
CPT/HCPCS: 36415; 80053; 80061; 82306; 84439; 84443; 84480; 85025

== ENCOUNTER 2019-08-18 01:38 | Outpatient (CLI) | payer BC, SELFPAY ==
[2019-08-18 13:04] LABS: CREATININE 1.09 mg/dL (0.55-1.02); Estimated GFR 51.03 (mL/min/1.73m2); TSH (W/Ref FT4) 5.06 uIU/mL (0.36-3.74)
[2019-08-18 14:02] LABS: FREE T4 1.14 ng/dL (0.76-1.46)
== END 2019-08-18 01:58 ==
PROVIDERS: PCP Internal Medicine; Visit Provider Internal Medicine
DX: E03.9 Hypothyroidism, unspecified (principal); R79.89 Other specified abnormal findings of blood chemistry
CPT/HCPCS: 82306; 82565; 84439; 84443

== ENCOUNTER 2020-01-05 14:53 | Emergency (ER) | payer BC, SELFPAY ==
[2020-01-05 15:08] VITALS: BP 133/73; PULSE 85; RESP 16; TEMP 36.3; O2SAT 98
--- NOTE | 2020-01-05 15:19 | DI.CT_ITS ---
EXAM: CT ABDOMEN PELVIS WO CLINICAL HISTORY: Upper abdominal pain. TECHNIQUE: Imaging Protocol: Axial computed tomography images with coronal and sagittal reformatted images were created and reviewed. COMPARISON: ABD PELVIS WO CONTRAST from 01/27/2014 FINDINGS: ABDOMEN: Lung Bases: Scarring or atelectasis is seen in the lung bases. Liver: Normal density. No measurable mass. Gallbladder and biliary tract: Status post cholecystectomy. There is no biliary ductal dilatation. Pancreas: Normal density, no abnormal calcifications or inflammatory process. Spleen: Normal. Kidneys: Normal size, contour and axis. No radiodense stones or obstructive uropathy. No masses seen. Adrenal glands: No masses seen. Lymph nodes: Subcentimeter short axis lymph nodes are seen in the mesentery. No significant adenopat hy. Abdominal Aorta: Abdominal portion non-dilated. Mild atherosclerosis. PELVIS: Bladder: Symmetric distention, no gross wall thickening. Bowel: No obstruction or bowel wall thickening. The appendix is normal in size without evidence of ad jacent mesenteric fat stranding or adjacent fluid collection. Peritoneal cavity: No ascites or focal fluid collection is present. There is increased attenuation i n the mesentery. Reproductive organs: There is a calcification in the uterus suggesting a fibroid. Bones: Age appropriate degenerative changes are seen in the spine. Soft Tissues: There is a fat containing moderate-sized umbilical hernia. IMPRESSION: 1. Increased attenuation in the mesentery with shotty lymph nodes present. This may reflect mesenter itis or panniculitis. DATA REPOSITORY: All CT scans at this facility are submitted to the National Radiology Data Registry (NRDR) Dose Index Registry (DIR) with the [employer] (ACR). RADIATION OPTIMIZATION: All CT scans at this facility use at least one of these dose optimization te chniques: automated exposure control; mA and/or kV adjustment per patient size (includes targeted exa ms where dose is matched to clinical indication); or iterative reconstruction.
--- NOTE | 2020-01-05 15:22 | ED.GENADUL_ITS ---
Discharge Plan Disposition Patient Disposition: HOME Condition: Stable Discharge Details Chief Complaint: Abd Prob Clinical Impression: Hernia, umbilical, Abdominal pain Primary Care Provider: Dipti Matute ED Provider: Monica Dinh Home Meds and New Rx's Prescriptions: Continued strain 16 probiotic PO DAILY RF: 0 tumeric PO DAILY RF: 0 nystatin [Nystop] 100,000 unit/gram powder 1 applic Topical BID PRN (Reason: intertrigo) Qty: 1 RF: 5 lorazepam 1 mg tablet 2 mg PO DAILY PRNRF: 0 magnesium oxide 500 mg tablet 500 mg PO DAILY RF: 0 nizatidine 150 mg capsule 150 mg PO BID Qty: 60 RF: 2 lamotrigine 200 mg tablet 200 mg PO DAILY Qty: 30 RF: 11 levothyroxine 137 mcg tablet 137 mcg PO DAILY Qty: 90 RF: 3 trazodone 150 mg tablet 150 mg PO QHS RF: 0 omeprazole 20 mg capsule,delayed release(DR/EC) 20 mg PO DAILY Qty: 30 RF: 0 acetaminophen [Mapap Extra Strength] 500 MG tablet 1,000 mg PO Q6H 5 Days Qty: 60 RF: 0 Discharge Instructions Instructions: Umbilical Hernia (ED), Abdominal Pain (ED) Additional Instructions: Follow up with primary care provider in 3-5 days. Return to ED sooner if any worsening or concerns. Increase oral fluids. Continue taking previously prescribed medications. Follow-up with general surgery in 3 to 5 days. Return if any vomiting, fever or worsening abdominal pain not relieved by medications. Referrals: Lawanda Al MD [ [facility]FF [facility]YSICIAN] - Discharge Data Discharge Date/Time-TO BE ENTERED AT DEPARTURE: 01/05/20 17:15 Medical Decision Making <Monica Dinh - Last Filed: 01/08/20 07:55> 59-year-old female presents with upper midepigastric abdominal pain for the last 3 days. Patient states that has had chronic nausea. Denies diarrhea, constipation fever cough. She was recently started on omeprazole which does not seem to be helping. She does have a history of cholecystectomy. 1527: Initial work-up ordered including CBC, CMP lipase, UA and EKG. CT abdomen pelvis with no contrast ordered. Due to patient report being allergic to IV dye. Differential diagnosis includes [place], gastroenteritis, ulcer, small bowel obstruction, pancreatitis. TECHNIQUE: Imaging protocol: Computed tomography of the abdomen and pelvis without contrast. Radiation optimization: All CT scans at this facility use at least one of these dose optimization techniques: automated exposure control; mA and/or kV adjustment per patient size (includes targeted exams where dose is matched to clinical indication); or iterative reconstruction. COMPARISON: CT ABD PELVIS WO CONTRAST 01/27/2014 4:05 AM FINDINGS: Lungs: Subsegmental atelectasis versus scarring at the bases. Liver: Normal. No mass. Gallbladder and bile ducts: Cholecystectomy. Pancreas: Normal. No ductal dilation. Spleen: Normal. No splenomegaly. Adrenals: Normal. No mass. Kidneys and ureters: Normal. No hydronephrosis. Stomach and bowel: Unremarkable. No obstruction. No mucosal thickening. Appendix: No evidence of appendicitis. Intraperitoneal space: Unremarkable. No free air. No significant fluid collection. Vasculature: See Reproductive finding. Lymph nodes: Ground-glass appearance of the mesentery with shotty lymph nodes measuring subcentimeter in short axis suggesting panniculitis or mesenteritis. Bladder: Unremarkable as visualized. KAVITA ANDERSON Preliminary Radiology Report Reproductive: 1 cm calcified uterine fibroid. Minimal atherosclerosis. Bones/joints: Degenerative changes in the spine. Soft tissues: Umbilical hernia containing fat, uncomplicated. IMPRESSION: Ground-glass appearance of the mesentery with shotty lymph nodes measuring subcentimeter in short axis suggesting panniculitis or mesenteritis. Umbilical hernia containing fat, uncomplicated. 1 cm calcified uterine fibroid. Minimal atherosclerosis. Surgery Paged: Spoke with Dr. Al who recommends outpatient follow up in her office. At this time it is safe to discharge patient to home. Generalized findings noted on CT. Differential diagnosis: Gastroenteritis, IBS, IBD, Umbilical hernia, <RUDY Mccollum - Last Filed: 01/05/20 19:35> My name was added to chart in error. Did not see the patient. HPI <Monica Dinh - Last Filed: 01/08/20 07:55> General Mode of arrival: ambulatory . Date/Time Provider Initiated Documentation: 01/05/20 15:10 . Limitations to Documentation: no limitations . Information obtained by: patient . HPI Narrative: 59-year-old female presents with upper midepigastric abdominal pain for the last 3 days. Patient states that has had chronic nausea. Denies diarrhea, constipation fever cough. She was recently started on omeprazole which does not seem to be helping. She does have a history of cholecystectomy. Related Data Home Medications Medication Instructions Recorded Confirmed acetaminophen [Mapap Extra 1,000 mg PO Q6H 5 Days #60 tab 03/30/18 01/05/20 Strength] lorazepam 1 mg tablet 2 mg PO DAILY PRN tab 07/07/18 01/05/20 lamotrigine 200 mg tablet 200 mg PO DAILY #30 tab 08/25/18 01/05/20 nystatin 100,000 unit/gram topical 1 applic TOPICAL BID PRN #1 gm 02/03/1901/04 powder strain 16 probiotic PO DAILY 02/03/19 12/30/19 tumeric PO DAILY 02/03/19 12/30/19 levothyroxine 137 mcg tablet 137 mcg PO DAILY #90 tab 10/13/19 01/05/20 magnesium oxide 500 mg tablet 500 mg PO DAILY 10/14/19 01/05/20 trazodone 150 mg tablet 150 mg PO QHS 12/25/19 01/05/20 nizatidine 150 mg capsule 150 mg PO BID #60 cap 12/30/19 01/05/20 omeprazole 20 mg capsule,delayed 20 mg PO DAILY #30 cap 12/31/19 01/05/20 release Previous Rx's Medication Instructions Recorded acetaminophen [Mapap Extra 1,000 mg PO Q6H 5 Days #60 tab 03/30/18 Strength] lamotrigine 200 mg tablet 200 mg PO DAILY #30 tab 08/25/18 nystatin 100,000 unit/gram topical 1 applic TOPICAL BID PRN #1 gm 02/03/19 powder levothyroxine 137 mcg tablet 137 mcg PO DAILY #90 tab 10/13/19 nizatidine 150 mg capsule 150 mg PO BID #60 cap 12/30/19 omeprazole 20 mg capsule,delayed 20 mg PO DAILY #30 cap 12/31/19 release Allergies Allergy/AdvReac Type Severity Reaction Status Date / Time Iodinated Contrast Media Allergy Severe COULDN'T Verified 01/05/20 15:17 [Iodinated Contrast Media - BREATHE IV Dye] divalproex sodium Allergy Intermediate HIVES Verified 01/05/20 15:17 General Stated Complaint: Abd Prob CHELA: 3 Review of Systems <Monica Carmona Last Filed: 01/08/20 07:55> Narrative: Constitutional: Negative for weight loss, alert and oriented, well groomed, obese body habitus, appears uncomfortable. HEENT: Denies trauma, headaches, blurry vision, nasal discharge, sore throat, trouble swallowing. Chest: Denies chest pain, palpitations, irregular rhythm, hypertension. Respiratory: Denies Shortness of breath, cough, hemoptysis. GI: Denies nausea, vomiting, diarrhea, constipation. Positive midepigastric abdominal pain. : Denies dysuria, hematuria, flank pain, rectal bleeding. Neuro: Denies dizziness, blurry vision, weakness, syncope, headache or facial numbness. Hematologic: Denies easy bruising, intolerance to heat or cold, hair loss. PFSH <Monica Dinh - Last Filed: 01/08/20 07:55> Medical History Vitamin D deficiency (Chronic ~11/2018) Surgical History Cholecystectomy (01/27/14) Family History Mother No problems noted. Father No problems noted. Sister No problems noted. Brother No problems noted. Grandfather Diabetes Grandfather No problems noted. Grandmother Heart disease Grandmother Heart disease Sister No problems noted. Sister No problems noted. Brother No problems noted. Son Substance abuse Daughter No problems noted. Daughter No problems noted. 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 Pets and animals: Yes Pets and animals: cat(s) What is your relationship status?: How often do you talk on the phone with friends or family?: three or more times per week Panel score (0-1 are the most socially isolated patients): 2 What type of physical activity do you participate in: none Thuy/Protestant: Latter-Day Special thuy needs: No Seatbelt use: always Helmet use: Yes Helmet use: always 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 Appears stated age. Obese body habitus. Head: Normocephalic, no trauma. Eyes: Pupils PERRLA, Red reflex noted, EOM's intact. Eyelids symmetrical without lesions, discharge, or swelling. ENT: Bilateral TM's WNL, External ear normal to inspection, no mastoid TTP, swelling, or erythema, Nasal turbinates WNL, no nasal discharge. Normal dentition, Posterior pharynx WNL, no exudate. Chest: RRR, Normal S1, S2, distal pulses intact. Resp: Lungs clear to auscultation bilaterally, no wheezes, rales, or rhonchi. Abdominal: Midepigastric abdominal pain tender to palpation. Hypoactive bowel sounds all 4 quadrants. Abdomen is soft. Musculoskeletal: Normal gait, 5/5 strength to all four extremities. Skin: No suspicious rashes or lesions. Capillary refill less than 2 sec. Neurologic: Cranial nerves II-XII intact. Alert and oriented x 3. DTR's intact. Hematologic/Lymphatic: No ecchymosis, no lymphadenopathy. Course <Monica Dinh - [facility] Filed: 01/08/20 07:55> Vital Signs Vital signs: Vital Signs Temperature 36.3 C L 01/05/20 15:08 Pulse 85 01/05/20 15:08 Respiratory Rate 16 01/05/20 15:08 Blood Pressure 133/73 01/05/20 15:08 Pulse Oximetry 98 01/05/20 15:08 Temperature 36.3 C L 01/05/20 15:08 Temperature Source Oral 01/05/20 15:08 Pulse 85 01/05/20 15:08 Respiratory Rate 16 01/05/20 15:08 Respiratory Effort 01/05/20 15:08 Blood Pressure 133/73 01/05/20 15:08 Pulse Oximetry 98 01/05/20 15:08 Oxygen Delivery Method Room Air 01/05/20 15:08 Oxygen Flow Rate 0 01/05/20 15:08 Pain Level 98 01/05/20 15:08
[2020-01-05 15:53] LABS: Abs Immature Grans 0.02 k/cumm (0.0-0.09); Absolute Basophil Count 0.03 k/cumm (0.0-0.2); Absolute Eosinophil Count 0.18 k/cumm (0.0-0.7); Absolute Lymphocyte Count 2.29 k/cumm (1.2-3.4); Absolute Neutrophil Count 6.08 k/cumm (1.2-6.7); Basophils % 0.3; HCT 41.8 % (36.0-46.0); Immature Grans % 0.2 %; Lymphocytes % 24.9; Mean Corp. HGB Concentration 31.1 g/dL (32.0-36.0); Mean Corpuscular Hemoglobin 28.3 pg (27.0-33.0); Mean Corpuscular Volume 91.1 fL (80-95); Mean Platelet Volume 9.9 fL (8.0-11.0); Monocytes % 6.5; Neutrophils % 66.1; Platelet Count 329 x1000/uL (130-400); RBC 4.59 m/cumm (4.00-5.20); RBC Distribution Width 16.2 % (11.7-14.6)
[2020-01-05 16:06] LABS: Bilirubin Negative (Negative); Blood Negative (Negative); Clarity Clear (Clear); Glucose Negative (Negative); Ketones Negative (Negative); Leukocyte Esterase Small (Negative); Nitrite Negative (Negative); Specific Gravity 1.025 (1.005-1.025)
[2020-01-05 16:11] LABS: ALT 25 U/L (14-59); AST 19 U/L (15-37); Albumin 3.6 g/dL (3.4-5.0); Alkaline Phosphatase 104 U/L (46-116); Anion Gap 7.6 mmol/L (3-11); BUN 14 mg/dL (7-18); Bilirubin, Total 0.4 mg/dL (0.2-1.0); CO2 30.4 mmol/L (21.0-32.0); CREATININE 1.19 mg/dL (0.55-1.02); Calcium 9.2 mg/dL (8.5-10.1); Chloride 104 mmol/L (98-107); Estimated GFR 46.11 (mL/min/1.73m2); Glucose 117 mg/dL (74-106); Potassium 4.1 mmol/L (3.5-5.1); Sodium 142 mmol/L (136-145); Total Protein 8.1 g/dL (6.4-8.2)
[2020-01-05 16:15] LABS: Lipase 97 U/L (73-393); Magnesium 2.2 mg/dL (1.8-2.4)
[2020-01-05 16:19] LABS: Troponin I < 0.05 ng/Ml (<0.06)
--- NOTE | 2020-01-05 16:21 | DI.VRAD_ITS ---
PROCEDURE INFORMATION: Exam: CT Abdomen And Pelvis Without Contrast Exam date and time: 01/05/2020 4:05 PM Age: 59 years old Clinical indication: Other: Upper abdominal pain TECHNIQUE: Imaging protocol: Computed tomography of the abdomen and pelvis without contrast. Radiation optimization: All CT scans at this facility use at least one of these dose optimization techniques: automated exposure control; mA and/or kV adjustment per patient size (includes targeted exams where dose is matched to clinical indication); or iterative reconstruction. COMPARISON: CT ABD PELVIS WO CONTRAST 01/27/2014 4:05 AM FINDINGS: Lungs: Subsegmental atelectasis versus scarring at the bases. Liver: Normal. No mass. Gallbladder and bile ducts: Cholecystectomy. Pancreas: Normal. No ductal dilation. Spleen: Normal. No splenomegaly. Adrenals: Normal. No mass. Kidneys and ureters: Normal. No hydronephrosis. Stomach and bowel: Unremarkable. No obstruction. No mucosal thickening. Appendix: No evidence of appendicitis. Intraperitoneal space: Unremarkable. No free air. No significant fluid collection. Vasculature: See Reproductive finding. Lymph nodes: Ground-glass appearance of the mesentery with shotty lymph nodes measuring subcentimeter in short axis suggesting panniculitis or mesenteritis. Bladder: Unremarkable as visualized. Reproductive: 1 cm calcified uterine fibroid. Minimal atherosclerosis. Bones/joints: Degenerative changes in the spine. Soft tissues: Umbilical hernia containing fat, uncomplicated. IMPRESSION: Ground-glass appearance of the mesentery with shotty lymph nodes measuring subcentimeter in short axis suggesting panniculitis or mesenteritis. Umbilical hernia containing fat, uncomplicated. 1 cm calcified uterine fibroid. Minimal atherosclerosis. Dictated and Authenticated by: Lupe Champion MD. Ordering:MERNA Anderson MD
[2020-01-05 16:26] LABS: Bacteria Moderate HPF (Negative); C & S Indicated? No/Sq. Contamination; Casts Negative LPF (Negative); Crystals Negative HPF (Negative); Epithelial Cells Many HPF (Negative); Mucus Negative (Negative); Other Cells Negative (Negative); RBC Negative HPF (0-2); WBC 20-50 HPF (0-5)
== END 2020-01-05 17:15 | disposition home or self-care (01) ==
LOC: ER 17:14
PROVIDERS: Emergency Provider Registered Nurse Emergency; PCP Internal Medicine
DX: K42.9 Umbilical hernia without obstruction or gangrene (principal); R10.13 Epigastric pain
CPT/HCPCS: 80053; 83690; 99284; 74176; 81003; 81015; 83735; 84484; 85025

== ENCOUNTER 2020-01-19 00:59 | Outpatient (CLI) | payer BC, SELFPAY ==
[2020-01-20 09:11] LABS: COVID-19 RT-PCR UVMMC Result Negative (Negative)
== END 2020-01-19 01:19 ==
PROVIDERS: PCP Internal Medicine; Visit Provider Surgery
DX: Z11.59 Encounter for screening for other viral diseases (principal); Z01.818 Encounter for other preprocedural examination
CPT/HCPCS: U0003

== ENCOUNTER 2020-01-19 08:32 | Outpatient (CLI) | payer BC, SELFPAY ==
[2020-01-19 11:21] LABS: Anion Gap 6.5 mmol/L (3-11); BUN 13 mg/dL (7-18); CO2 28.5 mmol/L (21.0-32.0); CREATININE 1.08 mg/dL (0.55-1.02); Calcium 9.2 mg/dL (8.5-10.1); Chloride 105 mmol/L (98-107); Estimated GFR 51.58 (mL/min/1.73m2); Glucose 109 mg/dL (74-106); Potassium 3.9 mmol/L (3.5-5.1); Sodium 140 mmol/L (136-145)
[2020-01-19 11:35] LABS: C-Reactive Protein 3.01 mg/dL (0.0-0.3); LDH 180 U/L (81-234); TSH (W/Ref FT4) 5.97 uIU/mL (0.36-3.74)
[2020-01-19 11:44] LABS: ESR 47 mm/hr (0-30)
== END 2020-01-19 08:52 ==
PROVIDERS: PCP Internal Medicine; Visit Provider Surgery
DX: E03.9 Hypothyroidism, unspecified (principal); R03.0 Elevated blood-pressure reading, without diagnosis of hypertension; R79.9 Abnormal finding of blood chemistry, unspecified; R10.13 Epigastric pain
CPT/HCPCS: 36415; 80048; 85652; 83615; 84439; 84443; 86140

== ENCOUNTER 2020-01-25 06:10 | Day surgery (SDC) | payer BC, SELFPAY ==
[2020-01-25 06:42] VITALS: BP 147/82; PULSE 83; RESP 18; TEMP 36.7; O2SAT 18
[2020-01-25] MEDS: Lactated Ringers 1,000 ML 80 ML IV (07:03)
--- NOTE | 2020-01-25 07:51 | W.PM.DSUDISC ---
Discharge Plan Disposition Patient Disposition: HOME Condition: Good Discharge Details Reason For Visit: EGD Attending Provider: Lawanda Al Primary Care Provider: Dipti Matute Home Meds and New Rx's Prescriptions: New sucralfate 1 gram tablet 1 gm PO QACHS Qty: 120 RF: 1 Continued strain 16 probiotic PO DAILY RF: 0 tumeric PO DAILY RF: 0 nystatin [Nystop] 100,000 unit/gram powder 1 applic Topical BID PRN (Reason: intertrigo) Qty: 1 RF: 5 bismuth subsalicylate [Peptic Relief] 262 mg tablet,chewable 2 tab PO Q30-60M PRNRF: 0 tobramycin-dexamethasone 0.3-0.05 % drops,suspension 1 drp OP Q6H RF: 0 phenazopyridine [Pyridium] 100 mg tablet 100 mg PO TID PRN (Reason: pain) Qty: 6 RF: 0 lorazepam 1 mg tablet 2 mg PO DAILY PRNRF: 0 lamotrigine 200 mg tablet 200 mg PO DAILY Qty: 30 RF: 11 levothyroxine 137 mcg tablet 137 mcg PO DAILY Qty: 90 RF: 3 trazodone 150 mg tablet 150 mg PO QHS RF: 0 omeprazole 20 mg capsule,delayed release(DR/EC) 20 mg PO DAILY Qty: 30 RF: 0 acetaminophen [Mapap Extra Strength] 500 MG tablet 1,000 mg PO Q6H 5 Days Qty: 60 RF: 0 Discontinued Excedrin Migraine 250-250-65 mg tablet 1 tab PO ONCE RF: 0 Discharge Instructions Additional Instructions: Findings: Your stomach showed inflammation (gastritis). This may be related to taking Excedrine, which has aspirin. Follow up: Continue omeprazole and take the carafate for two months to heal the stomach. My office will contact you with routine biopsy results. Please call if you develop: fevers >101.5 Nausea or Vomiting Abdominal pain that is not transient DAY SURGERY UNIT POST EGD INSTRUCTIONS 1. Because there will be medication in your system for the next 24 hours, you may feel a little sleepy. Your coordination will be affected. Therefore: a. Do not drive or operate dangerous equipment for 24 hours. b. Do not drink alcohol beverages for 24 hours (not even beer). c. Plan to go home and rest for the day. 2. Generally there are no restrictions on your activity after a day or so has gone by, but you may feel a bit fatigued for a few days. 3 After you arrive home you may have a light meal and return to a normal diet as you can tolerate it without feeling sick to your stomach. 4. After surgery, you may feel pain or discomfort. This should be only transient, but if it persists please contact your doctor. 5. If there are any questions regarding the findings of your procedure, please feel free to contact your doctor. 6. If you are unable to contact your doctor with a problem, contact the hospital at [phone]. 7. Continue all your regular medications unless directed otherwise. I understand the above instructions and have no questions. Signature of Patient or Responsible Adult Escort Date/Time Name of Responsible Adult Escort Signature of Nurse Date/Time Activity:: Activity as Tolerated Diet:: As Tolerated Discharge Orders Discharge Orders: Discharge Order (Routine); Ordered 01/25/20 Ordered By: Lawanda Al DS: Diagnosis Discharge Diagnosis (1) Gastritis: Status: Acute
--- NOTE | 2020-01-25 08:00 | STOM_PTH ---
PATIENT: Leyla Johnson LOC: [facility] U#:[id number] AGE/SX: 59/F ROOM: RE01/25/[address]: Lawanda Al MD : [id number] BED: DIS: 01/25/2020 SPEC #: [id number] RECD: 01/25/20 12:46 STATUS: BER[facility]AND REQ #: [id number] PROMISE: 01/25/20 08:[address]: Lawanda Al DEPT: Surgical Specimen RECD BY: Sergey Sanford ENTERED: 01/25/20 12:49 SP TYPE: STOMACH OTHR DR: Dipti Matute MD Tissues: 1 - STOMACH BIOPSY 2 - STOMACH BIOPSY Procedures: GROSS AND MICRO LEVEL 4 Comments: [id number]
[2020-01-25 08:20] VITALS: BP 135/79; PULSE 83; RESP 19; TEMP 36.5; O2SAT 93
[2020-01-25 08:25] VITALS: BP 132/79; PULSE 82; RESP 20; TEMP 36.5; O2SAT 93
[2020-01-25 08:30] VITALS: BP 132/79; PULSE 82; RESP 20; TEMP 36.5; O2SAT 93
--- NOTE | 2020-01-25 08:30 | W.PM.ENDDOP ---
Date of service: 01/25/20 Time of Service: 08:30 Endoscopy Report DATE OF PROCEDURE: 01/25/20 PRE-OP DIAGNOSIS: Epigastric pain POST-OP DIAGNOSIS: other (Gastritis) PROCEDURE: EGD with gastric and duodenal biopsy SURGEON: Lawanda Al ANESTHESIA: GETA DISPOSITION: PACU INDICATIONS: This patient presented with a few months of nausea. She also has epigastric pain that will wake her up at night. CT showed an umbilical hernia with fat present and mesenteric stranding. PROCEDURE DESCRIPTION: The patient was placed in the left lateral position after induction of general anesthetic. The endoscope was advanced into the esophagus under direct visualization. The scope was passed through the stomach and into the duodenum. There was no duodenitis or ulceration noted. Biopsies were taken from the second portion of the duodenum to evaluate for celiac disease. The stomach itself showed moderate inflammation in the antrum. Biopsies were taken from the region. Retroflexed view of the fundus and lesser curvature were normal. The GE junction was inspected and showed no significant stricture, inflammation, masses or Barretts. The scope was slowly withdrawn with no other esophageal lesions found. The patient tolerated the procedure well and was stable to recovery. She will be advised to stop her Excedrine and take Carafate along with her PPI.
[2020-01-25 09:20] VITALS: BP 129/68; PULSE 80; RESP 18; TEMP 36.3; O2SAT 94
== END 2020-01-25 09:50 | disposition home or self-care (01) ==
PROVIDERS: PCP Internal Medicine; Visit Provider Surgery
PROC: 0DJ68ZZ Inspection of Stomach, Via Natural or Artificial Opening Endoscopic (ICD-10-PCS; CPT 43235; principal; 2020-01-25 07:30)
DX: R10.13 Epigastric pain (principal); R11.0 Nausea; K29.60 Other gastritis without bleeding; K31.89 Other diseases of stomach and duodenum
CPT/HCPCS: 43239; 88305; J2001; J2704

== ENCOUNTER 2020-03-31 10:31 | Emergency (ER) | payer BC, SELFPAY ==
[2020-03-31 10:39] VITALS: BP 162/94; PULSE 92; RESP 20; TEMP 36.6; O2SAT 95
--- NOTE | 2020-03-31 12:06 | W.ED.GENAD ---
Discharge Plan Disposition Patient Disposition: HOME Condition: Stable Discharge Details Chief Complaint: Abd Prob Clinical Impression: Constipation, Abdominal pain Primary Care Provider: Dipti Matute ED Provider: Lanie Cruz Home Meds and New Rx's Prescriptions: New magnesium citrate Solution 150 ml PO BID PRNQty: 300 RF: 0 polyethylene glycol 3350 [Miralax] 17 gram/dose powder 17 gm PO DAILY PRN (Reason: constipation) Qty: 238 RF: 0 Continued strain 16 probiotic PO DAILY RF: 0 nystatin [Nystop] 100,000 unit/gram powder 1 applic Topical BID PRN (Reason: intertrigo) Qty: 1 RF: 5 bismuth subsalicylate [Peptic Relief] 262 mg tablet,chewable 2 tab PO Q30-60M PRNRF: 0 tobramycin-dexamethasone 0.3-0.05 % drops,suspension 1 drp OP Q6H RF: 0 ondansetron HCl 8 mg tablet 8 mg PO Q8H PRN (Reason: nausea and vomiting) Qty: 20 RF: 0 lamotrigine 200 mg tablet 200 mg PO DAILY Qty: 30 RF: 11 levothyroxine 137 mcg tablet 137 mcg PO DAILY Qty: 90 RF: 3 trazodone 150 mg tablet 150 mg PO QHS RF: 0 lorazepam 2 mg tablet See Rx Instructions PO DAILY PRNRF: 0 acetaminophen [Mapap Extra Strength] 500 MG tablet 1,000 mg PO Q6H 5 Days Qty: 60 RF: 0 Discharge Instructions Instructions: Constipation (ED), Abdominal Pain (ED) Additional Instructions: Drink plenty of fluids and get plenty of rest. Continue your stool softeners as directed. Try [id number] MiraLAX or magnesium citrate or suppositories as needed and directed for your constipation. Be sure to try each treatment option separately and allow several hours or days in between each treatment option. Follow-up with your primary care doctor in 1 week. Return to the emergency department with any worsening or new concerning symptoms. Discharge Data Discharge Date/Time-TO BE ENTERED AT DEPARTURE: 03/31/20 15:46 Discharge Physician: Lanie Cruz Medical Decision Making 1100 -- 60-year-old female with a history of hypothyroidism, migraine, sleep apnea and cholecystectomy presents for constipation for a few weeks and constant sharp upper abdominal pain and dry heaving since yesterday. Patient is obese. Her abdomen is soft but tenderness across the upper abdomen and suprapubic region. She is afebrile and appears nontoxic. No rigidity or guarding. Differential diagnosis includes gastroenteritis, gastritis, bowel obstruction, cholelithiasis, cholecystitis, appendicitis, diverticulitis. Will place an IV, bolus IV fluids, screening labs and CT abdomen and pelvis. Patient has a history of allergy to IV dye so we will only give p.o. She is declining any pain medication. 1410 --patient reassessed, nausea still mildly present and still complaining of some low level of pain. Will give a dose of IV Toradol and Compazine and reassess. Labs reviewed and unremarkable. CT pending. 1630 --CT reviewed and negative for acute findings but does note a moderate amount of stool. Patient feels better and feels good to go home. We will send with prescription for magnesium citrate and MiraLAX. Advised on the importance of drinking plenty of water and a diet that can support regularity. Advised to follow up with the primary care doctor for re-evaluation. Usual and customary return precautions given prior to discharge. Medical Records Medical records reviewed: Yes I reviewed the patient's medical records. Imaging Data Radiologic Study: Radiologist's impression: CT ABDOMEN PELVIS WO CLINICAL HISTORY: diffuse abd pain, nausea, constipation. TECHNIQUE: Imaging Protocol: Axial computed tomography images with coronal and sagittal reformatted images were created and reviewed. Oral: yes / COMPARISON: No exams were available for comparison FINDINGS: ABDOMEN: Lung Bases: Normal where visualized. Liver: Enlarged fatty liver.. No measurable mass. Gallbladder and biliary tract: Status post cholecystectomy. No biliary dilatation. Pancreas: Normal density, no abnormal calcifications or inflammatory process. Spleen: Normal. Kidneys: Normal size, contour and axis. No radiodense stones or obstructive uropathy. No masses seen. Adrenal glands: No masses seen. Abdominal Aorta: Abdominal portion non-dilated. A fatty containing umbilical hernia is again noted. There is again noted to be mild haziness of the med mesentery and tiny mesenteric lymph nodes. PELVIS: Bladder: Symmetric distention, no gross wall thickening. Bowel: No obstruction or bowel wall thickening. Normal appendix. Moderate quantity of stool. Peritoneal cavity: No ascites, collection or mesenteric inflammatory response. Reproductive organs: Small calcified uterine fibroid. Bones: Degenerative disc changes in the spine.. IMPRESSION: Stable appearance increased mesenteric attenuation with shoddy lymph nodes. No acute abnormality. No evidence of bowel obstruction . Lab Data Lab results reviewed: Yes I reviewed the patient's lab results. Labs: Laboratory Tests Range/Units 03/31/20 03/31/20 03/31/20 11:35 11:35 11:35 WBC (4.4-10.8) k/cumm 7.65 RBC (4.00-5.20) m/cumm 4.46 Hgb (12.0-15.5) g/dL 12.5 Hct (36.0-46.0) % 40.1 MCV (80-95) fL 89.9 MCH (27.0-33.0) pg 28.0 MCHC (32.0-36.0) g/dL 31.2 L RDW (11.7-14.6) % 16.3 H Plt Count (130-400) x1000/uL 365 MPV (8.0-11.0) fL 10.1 Immature Gran % % 0.3 Neutrophils % 68.0 Lymphocytes % 23.0 Monocytes % 6.3 Eosinophils % 2.1 Basophils % 0.3 Absolute Neutrophils (1.2-6.7) k/cumm 5.21 Absolute Lymphocytes (1.2-3.4) k/cumm 1.76 Absolute Monocytes (0.11-0.7) k/cumm 0.48 Absolute Eosinophils (0.0-0.7) k/cumm 0.16 Absolute Basophils (0.0-0.2) k/cumm 0.02 Sodium (136-145) mmol/L 139 Potassium (3.5-5.1) mmol/L 3.8 Chloride (98-107) mmol/L 103 Carbon Dioxide (21.0-32.0) mmol/L 28.0 Anion Gap (3-11) mmol/L 8.0 BUN (7-18) mg/dL 11 Creatinine (0.55-1.02) mg/dL 1.12 H Estimated GFR/1.73 m2 (mL/min/1.73m2) 49.29 Glucose (74-106) mg/dL 103 Calcium (8.5-10.1) mg/dL 9.2 Magnesium (1.8-2.4) mg/dL 2.0 Total Bilirubin (0.2-1.0) mg/dL 0.5 AST (15-37) U/L 14 L ALT (14-59) U/L 21 Alkaline Phosphatase (46-116) U/L 88 Troponin I (<0.06) ng/mL < 0.05 Total Protein (6.4-8.2) g/dL 7.9 Albumin (3.4-5.0) g/dL 3.6 Lipase (73-393) U/L 74 TSH (0.36-3.74) uIU/mL 2.53 Urine Color (Yellow) Urine Clarity (Clear) Urine pH (5-8) Ur Specific [place] (1.005-1.025) Urine Protein (Negative) mg/dL Urine Ketones (Negative) mg/dL Urine Blood (Negative) Urine Nitrite (Negative) Urine Bilirubin (Negative) Urine Urobilinogen (Up TO 0.2) EU/dL Ur Leukocyte Esterase (Negative) Urine Glucose (Negative) mg/dL Range/Units 03/31/20 13:20 WBC (4.4-10.8) k/cumm RBC (4.00-5.20) m/cumm Hgb (12.0-15.5) g/dL Hct (36.0-46.0) % MCV (80-95) fL MCH (27.0-33.0) pg MCHC (32.0-36.0) g/dL RDW (11.7-14.6) % Plt Count (130-400) x1000/uL MPV (8.0-11.0) fL Immature Gran % % Neutrophils % Lymphocytes % Monocytes % Eosinophils % Basophils % Absolute Neutrophils (1.2-6.7) k/cumm Absolute Lymphocytes (1.2-3.4) k/cumm Absolute Monocytes (0.11-0.7) k/cumm Absolute Eosinophils (0.0-0.7) k/cumm Absolute Basophils (0.0-0.2) k/cumm Sodium (136-145) mmol/L Potassium (3.5-5.1) mmol/L Chloride (98-107) mmol/L Carbon Dioxide (21.0-32.0) mmol/L Anion Gap (3-11) mmol/L BUN (7-18) mg/dL Creatinine (0.55-1.02) mg/dL Estimated GFR/1.73 m2 (mL/min/1.73m2) Glucose (74-106) mg/dL Calcium (8.5-10.1) mg/dL Magnesium (1.8-2.4) mg/dL Total Bilirubin (0.2-1.0) mg/dL AST (15-37) U/L ALT (14-59) U/L Alkaline Phosphatase (46-116) U/L Troponin I (<0.06) ng/mL Total Protein (6.4-8.2) g/dL Albumin (3.4-5.0) g/dL Lipase (73-393) U/L TSH (0.36-3.74) uIU/mL Urine Color (Yellow) Yellow Urine Clarity (Clear) Clear Urine pH (5-8) 5.5 Ur Specific [place] (1.005-1.025) 1.010 Urine Protein (Negative) mg/dL Negative Urine Ketones (Negative) mg/dL Negative Urine Blood (Negative) Negative Urine Nitrite (Negative) Negative Urine Bilirubin (Negative) Negative Urine Urobilinogen (Up TO 0.2) EU/dL 0.2 Ur Leukocyte Esterase (Negative) Negative Urine Glucose (Negative) mg/dL Negative HPI General Mode of arrival: ambulatory. Date/Time Provider Initiated Documentation: 03/31/20 10:53. Limitations to Documentation: no limitations. Information obtained by: patient. HPI Narrative: Patient is a 60-year-old female with a history of hypothyroidism, migraine, cholecystectomy who presents with constipation for the past few weeks and diffuse abdominal pain and dry heaving since yesterday. She states the abdominal pain is constant, sharp, mainly within her upper abdomen with radiation around to her back. She states she has had constipation for weeks not relieved with Colace, Dulcolax. Patient states she is now having abdominal pain with nausea and dry heaving and she called her primary care doctor and they advised she come to the ER for further evaluation. Patient states her primary also advised that she consider an enema for constipation, but she states that she is unable to administer this to herself. She denies any fever, chest pain, shortness of breath, vomiting, urinary symptoms. Related Data Home Medications Medication Instructions Recorded Confirmed acetaminophen [Mapap Extra 1,000 mg PO Q6H 5 Days #60 tab 03/30/18 03/31/20 Strength] lamotrigine 200 mg tablet 200 mg PO DAILY #30 tab 08/25/18 03/31/20 nystatin 100,000 unit/gram topical 1 applic TOPICAL BID PRN #1 gm 02/03/19 03/31/20 powder strain 16 probiotic PO DAILY 02/03/19 03/09/20 levothyroxine 137 mcg tablet 137 mcg PO DAILY #90 tab 10/13/19 03/31/20 trazodone 150 mg tablet 150 mg PO QHS 12/25/19 03/31/20 bismuth subsalicylate 262 mg 2 tab PO Q30-60M PRN 01/11/20 03/31/20 chewable tablet tobramycin 0.3 %-dexamethasone 1 drp OP Q6H 01/11/20 03/31/20 0.05 % eye drops,suspension lorazepam 2 mg tablet See Rx Instructions PO DAILY PRN 02/22/20 03/31/20 ondansetron HCl 8 mg tablet 8 mg PO Q8H PRN #20 tab 03/09/20 03/31/20 magnesium citrate 150 ml PO BID PRN #300 ml 03/31/20 polyethylene glycol 3350 [Miralax] 17 gm PO DAILY PRN #238 gm 03/31/20 Previous Rx's Medication Instructions Recorded acetaminophen [Mapap Extra 1,000 mg PO Q6H 5 Days #60 tab 03/30/18 Strength] lamotrigine 200 mg tablet 200 mg PO DAILY #30 tab 08/25/18 nystatin 100,000 unit/gram topical 1 applic TOPICAL BID PRN #1 gm 02/03/19 powder levothyroxine 137 mcg tablet 137 mcg PO DAILY #90 tab 10/13/19 ondansetron HCl 8 mg tablet 8 mg PO Q8H PRN #20 tab 03/09/20 magnesium citrate 150 ml PO BID PRN #300 ml 03/31/20 polyethylene glycol 3350 [Miralax] 17 gm PO DAILY PRN #238 gm 03/31/20 Allergies Allergy/AdvReac Type Severity Reaction Status Date / Time Iodinated Contrast Media Allergy Severe COULDN'T Verified 03/31/20 10:45 [Iodinated Contrast Media - BREATHE IV Dye] divalproex sodium Allergy Intermediate HIVES Verified 03/31/20 10:45 venlafaxine [From Effexor] Allergy Unknown Verified 03/31/20 10:45 topiramate [From Topamax] AdvReac Unknown anxiety Verified 03/31/20 10:45 citalopram AdvReac stomach Verified 03/31/20 10:45 distress General Stated Complaint: Abd Prob CHELA: 3 Review of Systems All systems reviewed & are unremarkable except as noted in HPI and below Constitutional Constitutional: Reports as per HPI, Denies chills and Denies fever(s) Eyes Eyes: Denies blurry vision ENT Ears, Nose, Mouth, and Throat: Denies dizziness, Denies sore throat and Denies throat swelling Cardiovascular Cardiovascular: Denies chest pain and Denies dyspnea Respiratory Respiratory: Denies cough and Denies dyspnea Gastrointestinal Gastrointestinal: Denies abdominal pain, Denies diarrhea and Denies vomiting Genitourinary Genitourinary: Denies hematuria and Denies dysuria Musculoskeletal Musculoskeletal: Denies back pain and Denies numbness Integumentary/Breasts Skin/Breast: Denies lesions and Denies rash Neurologic Neurologic: Denies dizziness, Denies localized weakness and Denies numbness Allergic/Immunologic Allergic/Immunologic: Denies throat swelling PFSH Social History Smoking/Tobacco Use Status: Former Tobacco Use Tobacco: How many years used: 4 Alcohol Intake: current Alcohol Intake frequency: holidays/special occasions only Alcohol type: wine Drug use: Never Substance use type: does not use Household members: spouse and other Details: 3 Housing: house Number of Children: 3 Communication Needs: None Education Level: college 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, 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 Pets and animals: Yes Pets and animals: cat(s) What is your relationship status?: How often do you talk on the phone with friends or family?: three or more times per week Panel score (0-1 are the most socially isolated patients): 2 What type of physical activity do you participate in: none Thuy/Tenriism: Evangelical Special thuy needs: No Seatbelt use: always Helmet use: Yes Helmet use: always Drive intox or ride w/intox public transit bus driver: No Working smoke detector in home: Yes Fire extinguisher in home: Yes Carbon monox detector in home: Yes Firearms in home: Yes Do you feel safe at home: Yes Do you feel safe in your relationship?: Yes Victim of physical abuse: No Victim of emotional abuse: No Victim of sexual abuse: No Exam Const General: cooperative and no acute distress Orientation: alert, awake and oriented x3 HENMT Head: normal to inspection Face and sinus: normal facial exam Eyes General: appearance normal, both eyes and all related structures EOM: EOM intact bilaterally Neck Neck: normal visual inspection and No submandibular swelling Lymphatic: no lymphadenopathy noted Chest Chest: normal inspection of the chest and no tenderness Resp Effort & Inspection: normal respiratory effort and able to speak in complete sentences Auscultation: clear to auscultation bilaterally Cardio Rate: regular rate Rhythm: regular rhythm GI Inspection: normal to inspection and obesity Palpation: soft, not firm, not rigid and tender (diffuse, worse in upper abdomen and suprapubic) Auscultation: hypoactive bowel sounds Skin General skin exam: no rashes or lesions noted Neuro General: patient alert, patient awake and patient oriented x3 Cognition: normal cognition Speech: speech normal Motor: muscle tone normal throughout Sensory Exam: no sensory deficits noted Extrem General: normal to inspection, full ROM, capillary refill normal, no calf tenderness bilaterally and no edema Psych Appearance: grossly normal Mental Status: mental status grossly normal Speech and Movement: speech and movement normal Affect: normal affect Course Vital Signs Vital signs: Vital Signs Temperature 97.9 F 03/31/20 10:39 Pulse 92 H 03/31/20 10:39 Respiratory Rate 03/31/20 10:39 Blood Pressure 162/94 H 03/31/20 10:39 Pulse Oximetry 95 03/31/20 10:39 Temperature 97.9 F 03/31/20 10:39 Temperature Source Skin 03/31/20 10:39 Pulse 92 H 03/31/20 10:39 Respiratory Rate 20 03/31/20 10:39 Blood Pressure 162/94 H 03/31/20 10:39 Blood Pressure Position Sitting 03/31/20 10:39 Pulse Oximetry 95 03/31/20 10:39 Oxygen Delivery Method Room Air 03/31/20 10:39 Oxygen Flow Rate 0 03/31/20 10:39 Pain Level 4 03/31/20 10:39
[2020-03-31] MEDS: Normal Saline 500 ML IV (12:09)
[2020-03-31] MEDS: Ondansetron 4 MG/2 ML VIAL IVP (12:10)
[2020-03-31 12:14] LABS: Abs Immature Grans 0.02 k/cumm (0.0-0.09); Absolute Basophil Count 0.02 k/cumm (0.0-0.2); Absolute Eosinophil Count 0.16 k/cumm (0.0-0.7); Absolute Lymphocyte Count 1.76 k/cumm (1.2-3.4); Absolute Monocyte Count 0.48 k/cumm (0.11-0.7); Absolute Neutrophil Count 5.21 k/cumm (1.2-6.7); Basophils % 0.3; Eosinophils % 2.1; HCT 40.1 % (36.0-46.0); HGB 12.5 g/dL (12.0-15.5); Immature Grans % 0.3 %; Mean Corp. HGB Concentration 31.2 g/dL (32.0-36.0); Mean Corpuscular Volume 89.9 fL (80-95); Mean Platelet Volume 10.1 fL (8.0-11.0); Monocytes % 6.3; Platelet Count 365 x1000/uL (130-400); RBC 4.46 m/cumm (4.00-5.20); RBC Distribution Width 16.3 % (11.7-14.6); White Blood Cell Count 7.65 k/cumm (4.4-10.8)
[2020-03-31 12:29] LABS: ALT 21 U/L (14-59); AST 14 U/L (15-37); Albumin 3.6 g/dL (3.4-5.0); Alkaline Phosphatase 88 U/L (46-116); BUN 11 mg/dL (7-18); Bilirubin, Total 0.5 mg/dL (0.2-1.0); CREATININE 1.12 mg/dL (0.55-1.02); Calcium 9.2 mg/dL (8.5-10.1); Chloride 103 mmol/L (98-107); Estimated GFR 49.29 (mL/min/1.73m2); Glucose 103 mg/dL (74-106); Lipase 74 U/L (73-393); Potassium 3.8 mmol/L (3.5-5.1); Sodium 139 mmol/L (136-145); Total Protein 7.9 g/dL (6.4-8.2)
[2020-03-31 12:31] LABS: Troponin I < 0.05 ng/mL (<0.06)
[2020-03-31 12:37] LABS: TSH (W/Ref FT4) 2.53 uIU/mL (0.36-3.74)
[2020-03-31 13:32] LABS: Bilirubin Negative (Negative); Blood Negative (Negative); Clarity Clear (Clear); Glucose Negative (Negative); Ketones Negative (Negative); Leukocyte Esterase Negative (Negative); Nitrite Negative (Negative); Urobilinogen 0.2 EU/dL (Up TO 0.2); pH 5.5 (5-8)
--- NOTE | 2020-03-31 14:09 | DI.CT_ITS ---
EXAM: CT ABDOMEN PELVIS WO CLINICAL HISTORY: diffuse abd pain, nausea, constipation. TECHNIQUE: Imaging Protocol: Axial computed tomography images with coronal and sagittal reformatted images were created and reviewed. Oral: yes / COMPARISON: No exams were available for comparison FINDINGS: ABDOMEN: Lung Bases: Normal where visualized. Liver: Enlarged fatty liver.. No measurable mass. Gallbladder and biliary tract: Status post cholecystectomy. No biliary dilatation. Pancreas: Normal density, no abnormal calcifications or inflammatory process. Spleen: Normal. Kidneys: Normal size, contour and axis. No radiodense stones or obstructive uropathy. No masses seen. Adrenal glands: No masses seen. Abdominal Aorta: Abdominal portion non-dilated. A fatty containing umbilical hernia is again noted. There is again noted to be mild haziness of the med mesentery and tiny mesenteric lymph nodes. PELVIS: Bladder: Symmetric distention, no gross wall thickening. Bowel: No obstruction or bowel wall thickening. Normal appendix. Moderate quantity of stool. Peritoneal cavity: No ascites, collection or mesenteric inflammatory response. Reproductive organs: S mall calcified uterine fibroid. Bones: Degenerative disc changes in the spine.. IMPRESSION: Stable appearance increased mesenteric attenuation with shoddy lymph nodes. No acute abnormality. N o evidence of bowel obstruction . RADIATION DOSE DELIVERED: Total DLP DATA REPOSITORY: All CT scans at this facility are submitted to the National Radiology Data Registry (NRDR) Dose Index Registry (DIR) with the [employer] (A[employer]). RADIATION OPTIMIZATION: All CT scans at this facility use at least one of these dose optimization te chniques: automated exposure control; mA and/or kV adjustment per patient size (includes targeted exa ms where dose is matched to clinical indication); or iterative reconstruction.
[2020-03-31 14:20] VITALS: BP 123/78
[2020-03-31] MEDS: Normal Saline 50 ML 200 ML (14:42)
[2020-03-31] MEDS: Ketorolac 30 MG/ML VIAL IVP (14:42)
[2020-03-31] MEDS: Prochlorperazine 10 MG/2 ML VIAL IVP (14:42)
== END 2020-03-31 15:46 | disposition home or self-care (01) ==
PROVIDERS: Emergency Provider Physician Assistant; PCP Internal Medicine
DX: K59.00 Constipation, unspecified (principal); R10.10 Upper abdominal pain, unspecified; R11.0 Nausea
CPT/HCPCS: 36415; 80053; 83690; 96361; 96374; 96375; 99284; 74176; 81003; 83735; 84443; 84484; 85025; J0780; J1885; J2405

== ENCOUNTER 2020-04-12 07:36 | Outpatient (CLI) | payer BC, SELFPAY ==
[2020-04-17 09:55] LABS: SARS-CoV-2 RNA Undetected (Undetected); SARS-CoV-2 Specimen Source Nasopharynx
== END 2020-04-12 07:56 ==
PROVIDERS: PCP Internal Medicine; Visit Provider Nurse Practitioner Adult Health
DX: Z11.59 Encounter for screening for other viral diseases (principal)
CPT/HCPCS: U0003

== ENCOUNTER 2020-04-14 13:32 | Outpatient (REF) | payer BC, SELFPAY ==
[2020-04-15 11:24] LABS: Campylobacter PCR Negative (Negative); Salmonella PCR Negative (Negative); Shiga Toxin PCR Negative (Negative); Shigella/Enteroinvasive Ecoli Negative (Negative)
[2020-04-18 19:17] LABS: Calprotectin <15.6 mcg/g
== END 2020-04-14 13:52 ==
LOC: LBN 13:32
PROVIDERS: PCP Internal Medicine; Visit Provider Internal Medicine
DX: R19.7 Diarrhea, unspecified (principal); R11.2 Nausea with vomiting, unspecified
CPT/HCPCS: 87329; 87505; 83993; 86674; 87324

== ENCOUNTER 2020-04-21 03:15 | Outpatient (CLI) | payer BC, SELFPAY ==
[2020-04-21 15:11] LABS: Bilirubin Negative (Negative); Blood Negative (Negative); Clarity Sl Cloudy (Clear); Glucose Negative (Negative); Ketones Negative (Negative); Leukocyte Esterase Small (Negative); Nitrite Negative (Negative); Specific Gravity 1.015 (1.005-1.025); Urobilinogen 0.2 EU/dL (Up TO 0.2)
[2020-04-21 15:25] LABS: Bacteria Few HPF (Negative); C & S Indicated? No/Sq. Contamination; Casts Negative LPF (Negative); Crystals Negative HPF (Negative); Epithelial Cells Many HPF (Negative); Mucus Negative (Negative); WBC 0-2 HPF (0-5)
== END 2020-04-21 03:35 ==
PROVIDERS: PCP Internal Medicine; Visit Provider Internal Medicine
DX: R30.0 Dysuria (principal)
CPT/HCPCS: 81003; 81015

== ENCOUNTER 2020-05-12 09:42 | Outpatient (REF) | payer BC, SELFPAY | END 2020-05-12 10:02 | LOC: LBN 09:42 | PROVIDERS: PCP Internal Medicine; Visit Provider Internal Medicine | DX: R30.0 Dysuria (principal) | CPT/HCPCS: 87086 ==

== ENCOUNTER 2020-05-13 07:43 | Outpatient (CLI) | payer BC, SELFPAY ==
[2020-05-14 14:53] LABS: COVID-19 RT-PCR Result NEGATIVE (Negative)
== END 2020-05-13 08:03 ==
PROVIDERS: PCP Internal Medicine; Visit Provider Surgery
DX: Z11.59 Encounter for screening for other viral diseases (principal); Z01.818 Encounter for other preprocedural examination
CPT/HCPCS: U0003

== ENCOUNTER 2020-05-17 09:11 | Day surgery (SDC) | payer BC, SELFPAY ==
[2020-05-17 09:35] VITALS: BP 129/78; PULSE 87; RESP 16; TEMP 36.7; O2SAT 95
--- NOTE | 2020-05-17 09:40 | W.PM.DSUDISC ---
Discharge Plan Disposition Patient Disposition: HOME Condition: Good Discharge Details Reason For Visit: EGD, Colonoscopy Attending Provider: Lawanda Al Primary Care Provider: Dipti Matute Home Meds and New Rx's Prescriptions: Continued strain 16 probiotic 1 tab PO DAILY RF: 0 nystatin [Nystop] 100,000 unit/gram powder 1 applic Topical BID PRN (Reason: intertrigo) Qty: 1 RF: 5 bismuth subsalicylate [Peptic Relief] 262 mg tablet,chewable 2 tab PO Q30-60M PRNRF: 0 tobramycin-dexamethasone 0.3-0.05 % drops,suspension 1 drp OP Q6H RF: 0 ondansetron HCl 8 mg tablet 8 mg PO Q8H PRN (Reason: nausea and vomiting) Qty: 20 RF: 0 lamotrigine 200 mg tablet 200 mg PO DAILY Qty: 30 RF: 11 levothyroxine 137 mcg tablet 137 mcg PO DAILY Qty: 90 RF: 3 trazodone 150 mg tablet 150 mg PO QHS RF: 0 lorazepam 2 mg tablet See Rx Instructions PO DAILY PRNRF: 0 rizatriptan 5 mg tablet 5 mg PO ONCE PRNRF: 0 Lactobacillus acidophilus Capsule 100 mg PO DAILY RF: 0 acetaminophen [Mapap Extra Strength] 500 MG tablet 1,000 mg PO Q6H 5 Days Qty: 60 RF: 0 Discontinued polyethylene glycol 3350 17 gram/dose powder 238 g PO ONCE Qty: 238 RF: 0 bisacodyl [Dulcolax (bisacodyl)] 5 mg tablet,delayed release (DR/EC) 5 mg PO ONCE Qty: 4 RF: 0 Discharge Instructions Additional Instructions: Findings: Your upper endoscopy showed some mild stomach inflammation. This is slightly better than earlier this year. Three small polyps were removed from the colon. My office will contact you with biopsy results. I did not see any visible reason for constipation. Make sure to take in 30 grams of fiber daily and walk twice a day for 20 minutes (or more) Follow up: You may need a colonoscopy in 5 years if the biopsy shows adenomatous polyps. Please call if you develop: fevers >101.5 Nausea or Vomiting Abdominal pain that is not transient DAY SURGERY UNIT POST EGD/COLONOSCOPY INSTRUCTIONS 1. Because there will be medication in your system for the next 24 hours, you may feel a little sleepy. Your coordination will be affected. Therefore: a. Do not drive or operate dangerous equipment for 24 hours. b. Do not drink alcohol beverages for 24 hours (not even beer). c. Plan to go home and rest for the day. 2. Generally there are no restrictions on your activity after a day or so has gone by, but you may feel a bit fatigued for a few days. 3 After you arrive home you may have a light meal and return to a normal diet as you can tolerate it without feeling sick to your stomach. 4. After surgery, you may feel pain or discomfort. This should be only transient, but if it persists please contact your doctor. 5. If there are any questions regarding the findings of your procedure, please feel free to contact your doctor. 6. If you are unable to contact your doctor with a problem, contact the hospital at [phone]. 7. Continue all your regular medications unless directed otherwise. I understand the above instructions and have no questions. Signature of Patient or Responsible Adult Escort Date/Time Name of Responsible Adult Escort Signature of Nurse Date/Time Activity:: Activity as Tolerated Diet:: As Tolerated Discharge Orders Discharge Orders: Discharge Order (Routine); Ordered 05/17/20 Ordered By: Lawanda Al DS: Diagnosis Discharge Diagnosis (1) Gastritis: Status: Acute (2) Colon polyps: Status: Acute
--- NOTE | 2020-05-17 09:42 | W.COLOREPORT ---
Date of service: 05/17/20 Time of Service: 11:12 Colonoscopy Report Date of procedure: 05/17/20 Pre-op diagnosis general: Nausea, colon cancer screening Post-op diagnosis procedure note: other (Mild gastritis, colon polyps) Procedure: EGD with biopsy Colonoscopy with polypectomy Surgeon: Lawanda Al Anesthesia proc note operative: MAC Indications: This 60 year old woman presents for evaluation of persistent nausea and constipation. She had an EGD earlier this year that showed gastritis. Her last colonoscopy was about 11 years ago. Procedure Description: The patient was placed in the left lateral position and propofol titrated to sedation. The endoscope was advanced into the esophagus under direct visualization. The scope was passed through the stomach and into the duodenum. There was no duodenitis or ulceration noted. The stomach itself showed mild gastritis in the antrum which was improved from earlier this year. The remainder of the stomach was normal including on retroflexed view of the fundus and lesser curvature. Biopsies were taken from the gastric antrum. The GE junction was inspected and showed no significant stricture, inflammation, masses or Barretts. The scope was slowly withdrawn with no other esophageal lesions found. Digital rectal examination revealed no abnormalities. The scope was advanced to the cecum without difficulty. The ileocecal valve and appendiceal orifice were clearly identified. The prep was good. The scope was slowly withdrawn over the course of greater than 6 minutes with no abnormalities seen in the ascending, transverse, descending colon. In the sigmoid colon, two polyps near together were removed with snare polypectomy and sent in the same specimen container. A diminuitive polyp seen on retroflexed view was removed with the snare from the rectum. The patient tolerated the procedure well and was stable to recovery. If the polyp is adenomatous, she will need a colonoscopy in 5 years.
[2020-05-17] MEDS: Lactated Ringers 1,000 ML 80 ML IV (09:48)
--- NOTE | 2020-05-17 10:23 | BOWEL_PTH ---
PATIENT: Leyla Johnson LOC: [facility] U#:[id number] AGE/SX: 60/F ROOM: RE05/17/[address]: Lawanda Al MD : 1960 BED: DIS: 05/17/2020 SPEC #: [id number] RECD: 05/17/20 12:37 STATUS: BERTRAND REQ #: [id number] PROMISE: 05/17/20 10:[address]: Lawanda Al DEPT: Surgical Specimen RECD BY: Alcira Parsons ENTERED: 05/17/20 12:38 SP TYPE: Bowel OTHR DR: Dipti Matute MD Tissues: 1 - STOMACH BIOPSY 2 - BIOPSY BOWEL 3 - BIOPSY BOWEL Procedures: GROSS AND MICRO LEVEL 4 Comments:
[2020-05-17 11:32] VITALS: BP 141/80; PULSE 79; RESP 22; TEMP 36.4; O2SAT 94
== END 2020-05-17 12:05 | disposition home or self-care (01) ==
PROVIDERS: PCP Internal Medicine; Visit Provider Surgery
PROC: (CPT 45385; principal; 2020-05-17 10:00)
DX: K59.00 Constipation, unspecified (principal); K31.89 Other diseases of stomach and duodenum; K63.5 Polyp of colon; Z12.11 Encounter for screening for malignant neoplasm of colon; R11.0 Nausea; K29.00 Acute gastritis without bleeding
CPT/HCPCS: 45385; 43239; 88305; J2001

== ENCOUNTER 2020-05-20 13:43 | Outpatient (REF) | payer BC, SELFPAY ==
--- NOTE | 2020-05-20 13:20 | PAPFT_PTH ---
PATIENT: Leyla Johnson LOC: [facility] U#:[id number] AGE/SX: 60/F ROOM: RE05/20/[address]: JASON Kramer : 1960 BED: DIS: 05/20/2020 SPEC #: [id number] RECD: 05/20/20 18:13 STATUS: SOUDory REQ #: [id number] PROMISE: 05/20/20 13:[address]: Tessie Light DEPT: [facility] Cytology RECD BY: Alcira Parsons ENTERED: 05/20/20 18:13 SP TYPE: PAPFT OTHR DR: Dipti Matute MD Tissues: 1 - CX/ENDOCX FOR PAP SMEARS Procedures: PAP THIN PREP/UVM Screening HPV DNA PROBE Comments: [id number]
== END 2020-05-20 14:03 ==
LOC: LBN 13:43
PROVIDERS: PCP Internal Medicine; Visit Provider Nurse Practitioner Family
DX: R87.610 Atypical squamous cells of undetermined significance on cytologic smear of cervix (ASC-US) (principal); Z11.51 Encounter for screening for human papillomavirus (HPV)
CPT/HCPCS: 88142; 87624

== ENCOUNTER 2020-06-07 03:49 | Outpatient (CLI) | payer BC, SELFPAY ==
[2020-06-07 13:00] LABS: Anion Gap 6.2 mmol/L (3-11); BUN 10 mg/dL (7-18); C-Reactive Protein 4.11 mg/dL (0.0-0.3); CO2 29.8 mmol/L (21.0-32.0); Calcium 9.7 mg/dL (8.5-10.1); Chloride 102 mmol/L (98-107); Estimated GFR 50.33 (mL/min/1.73m2); Glucose 106 mg/dL (74-106); Potassium 4.5 mmol/L (3.5-5.1); Sodium 138 mmol/L (136-145)
[2020-06-07 16:15] LABS: ESR 65 mm/hr (0-30)
== END 2020-06-07 04:09 ==
PROVIDERS: PCP Internal Medicine; Visit Provider Internal Medicine
DX: R10.13 Epigastric pain (principal); R03.0 Elevated blood-pressure reading, without diagnosis of hypertension; R79.9 Abnormal finding of blood chemistry, unspecified
CPT/HCPCS: 36415; 80048; 85652; 86140

== ENCOUNTER 2020-06-13 00:20 | Outpatient (CLI) | payer BC, SELFPAY ==
--- NOTE | 2020-06-13 16:00 | DI.MAMMO_ITS ---
EXAM: MG MAMMO SCREENING CLINICAL HISTORY: screening TECHNIQUE: Bilateral full field digital CC and MLO mammographic images were obtained with 3D tomosyn thesis and utilizing computer aided detection (CAD). COMPARISON: Available for comparison. FINDINGS: Masses/Architectural Distortion: None seen. Microcalcifications: No suspicious pleomorphic-type are seen. Skin Thickening/Nipple Retraction: None. IMPRESSION: 1. No significant interval change with no specific features of malignancy noted. 2. Unless there is more urgent need, screening mammography is recommended, as per [place] [employer] guidelines. BI-RADS Category 1 - Negative Breast Density - Category B - Scattered areas of fibroglandular density A negative radiographic report should not delay biopsy if a dominant or clinically suspicious mass is present. Up to ten percent of cancers are not identified on mammography. A negative report may reinforce clinical impression. Adenosis and dense breasts may obscure an underlying neoplasm. False positive reports average 6 to 10%. Patient will receive a letter notifying them of these results.
== END 2020-06-13 00:40 ==
PROVIDERS: PCP Internal Medicine; Visit Provider Nurse Practitioner Family
DX: Z12.31 Encounter for screening mammogram for malignant neoplasm of breast (principal)
CPT/HCPCS: 77063; 77067

== ENCOUNTER 2020-07-20 04:01 | Outpatient (CLI) | payer BC, SELFPAY ==
[2020-07-20 17:30] LABS: Abs Immature Grans 0.02 10^3/uL (0.0-0.06); Absolute Basophil Count 0.04 10^3/uL (0.0-0.2); Absolute Eosinophil Count 0.22 10^3/uL (0.0-0.7); Absolute Lymphocyte Count 2.44 10^3/uL (1.2-3.4); Absolute Monocyte Count 0.55 10^3/uL (0.1-0.8); Absolute Neutrophil Count 6.46 10^3/uL (1.2-6.7); Basophils % 0.4; Eosinophils % 2.3; HCT 40.3 % (36.0-46.0); HGB 12.4 g/dL (11.2-15.7); Immature Grans % 0.2; Lymphocytes % 25.1; MCH 27.7 pg (27.0-33.0); MCHC 30.8 % (32.0-36.0); MCV 90.2 fL (80-95); MPV 10.6 fL (8.0-11.0); Monocytes % 5.7; Neutrophils % 66.3; Nucleated RBC 0 %; Platelet Count 259 10^3/uL (130-400); RBC 4.47 10^6/uL (3.93-5.22); RDW 15.9 % (11.7-14.6); RDW-SD 52.6 fL; WBC 9.73 10^3/uL (4.4-10.8)
[2020-07-20 17:52] LABS: Hemoglobin A1C 5.4 % (<5.7)
[2020-07-20 18:11] LABS: Iron 32 ug/dL (50-170); Total Iron Binding Capacity 255 ug/dL (250-450); Transferrin Sat 13 % (15-50)
[2020-07-20 18:25] LABS: ALT 20 U/L (14-59); AST 12 U/L (15-37); Albumin 3.8 g/dL (3.4-5.0); Alkaline Phosphatase 93 U/L (46-116); Anion Gap 9.6 mmol/L (3-11); BUN 11 mg/dL (7-18); Bilirubin, Total 0.4 mg/dL (0.2-1.0); CO2 27.4 mmol/L (21.0-32.0); CREATININE 1.13 mg/dL (0.55-1.02); Calcium 9.4 mg/dL (8.5-10.1); Calculated LDL 131 mg/dL (<100); Chloride 103 mmol/L (98-107); Cholesterol 200 mg/dL (<200); Estimated GFR 48.79 (mL/min/1.73m2); Ferritin 89 ng/mL (8-252); Glucose 88 mg/dL (74-106); HDL Cholesterol 44 mg/dL (40-60); Potassium 4.4 mmol/L (3.5-5.1); Sodium 140 mmol/L (136-145); TSH 2.74 uIU/mL (0.36-3.74); Total Protein 7.4 g/dL (6.4-8.2); Triglyceride 129 mg/dL (<150)
[2020-07-21 04:32] LABS: Vitamin D 25 Total 30.7 ng/ml (30-100)
[2020-07-26 14:29] LABS: T3, Total 114 ng/dL (97-169); T3,Free 2.6 pg/mL (2.8-5.3)
[2020-07-28 10:14] LABS: Thyroglobulin Antibody >500 U/mL (<or=60); Thyroperoxidase Antibody >1300 U/mL (<or=60)
== END 2020-07-20 04:21 ==
PROVIDERS: PCP Internal Medicine; Visit Provider Naturopath
DX: E03.9 Hypothyroidism, unspecified (principal); R53.83 Other fatigue; E55.9 Vitamin D deficiency, unspecified; R94.4 Abnormal results of kidney function studies
CPT/HCPCS: 36415; 80053; 80061; 82306; 83695; 82565; 82728; 83036; 83540; 83550; 84156; 84439; 84443; 84480; 84481; 85025; 86376; 86800

== ENCOUNTER 2020-07-25 03:31 | Outpatient (CLI) | payer BC, SELFPAY ==
[2020-07-26 16:29] LABS: Lipoprotein (a) 49 mg/dL (<=30)
== END 2020-07-25 03:51 ==
PROVIDERS: PCP Internal Medicine; Visit Provider Naturopath
DX: Z13.220 Encounter for screening for lipoid disorders (principal)
CPT/HCPCS: 36415; 80061; 83695

== ENCOUNTER 2020-08-03 04:33 | Outpatient (CLI) | payer BC, SELFPAY ==
[2020-08-03 18:54] LABS: Folate 15.3 ng/mL (8.6-20.0); Vitamin B12 665 pg/mL (193-986)
[2020-08-04 04:46] LABS: Vitamin D 25 Total 36.1 ng/ml (30-100)
[2020-08-05 15:44] LABS: Lipoprotein (a) 50 mg/dL (<=30)
[2020-08-08 16:41] LABS: Thyroglobulin Antibody >500 U/mL (<=60); Thyroperoxidase Antibody >1300 U/mL (<=60)
[2020-08-15 17:35] LABS: T3, Total 95 ng/dL (80-200); T3,Free 2.6 pg/mL (2.8-4.4)
== END 2020-08-03 04:53 ==
PROVIDERS: PCP Internal Medicine; Visit Provider Naturopath
DX: E55.9 Vitamin D deficiency, unspecified (principal); E03.9 Hypothyroidism, unspecified; R94.4 Abnormal results of kidney function studies; Z13.220 Encounter for screening for lipoid disorders; R53.83 Other fatigue
CPT/HCPCS: 36415; 82306; 83695; 82607; 82746; 84480; 84481; 86376; 86800

== ENCOUNTER 2020-08-11 15:59 | Outpatient (REF) | payer BC, SELFPAY ==
[2020-08-11 18:43] LABS: Total Volume 2600 ml
[2020-08-11 18:49] LABS: Creatinine,24hr Ur 1.06 g/24hr (0.60-1.80); Creatinine,Urine 40.85 mg/dL
[2020-08-11 20:33] LABS: PROTEIN < 6.0 mg/dL (0.0-11.9)
== END 2020-08-11 16:19 ==
LOC: LBN 15:59
PROVIDERS: PCP Internal Medicine; Visit Provider Naturopath
DX: R94.4 Abnormal results of kidney function studies (principal)
CPT/HCPCS: 81050; 82570; 84155

== ENCOUNTER 2020-09-25 08:32 | Emergency (ER) | payer BC, SELFPAY ==
[2020-09-25 08:36] VITALS: BP 141/70; PULSE 82; RESP 20; TEMP 36.4; O2SAT 97
--- NOTE | 2020-09-25 09:14 | ED.GENADUL_ITS ---
Discharge Plan Disposition Patient Disposition: HOME Condition: Stable Discharge Details Clinical Impression: Urinary tract infection, Right foot pain Primary Care Provider: Dipti Matute ED Provider: Shahbaz Pierre Home Meds and New Rx's Prescriptions: New cephalexin [Keflex] 500 mg capsule 500 mg PO BID Qty: 13 RF: 0 Continued strain 16 probiotic 1 tab PO DAILY RF: 0 bismuth subsalicylate [Peptic Relief] 262 mg tablet,chewable 2 tab PO Q30-60M PRNRF: 0 ondansetron HCl 8 mg tablet 8 mg PO Q8H PRN (Reason: nausea and vomiting) Qty: 20 RF: 0 estradiol [Estrace] 0.01 % (0.1 mg/gram) cream 1 g VG .COMPLEX Qty: 42.5 RF: 4 lamotrigine 200 mg tablet 200 mg PO DAILY Qty: 30 RF: 11 lorazepam 2 mg tablet See Rx Instructions PO DAILY PRNRF: 0 rizatriptan 5 mg tablet 5 mg PO ONCE PRNRF: 0 trazodone 150 mg tablet 150 mg PO QHS RF: 0 levothyroxine 137 mcg tablet 137 mcg PO DAILY Qty: 90 RF: 3 cyanocobalamin (vitamin B-12) [Vitamin B-12] 500 mcg Tablet 500 mcg PO BID RF: 0 cholecalciferol (vitamin D3) [Vitamin D3] 25 mcg (1,000 unit) Tablet 25 mcg PO DAILY RF: 0 Bepreve 1.5 % drops 1 drp ophthalmic (eye) BID RF: 0 Thyroxine 1 PO BID RF: 0 acetaminophen [Mapap Extra Strength] 500 MG tablet 1,000 mg PO Q6H PRNRF: 0 No Action terconazole 0.4 % cream 1 appful vaginal DAILY Qty: 45 RF: 0 nystatin [Nystop] 100,000 unit/gram powder 1 applic Topical BID PRN (Reason: intertrigo) Qty: 1 RF: 5 Discharge Instructions Instructions: Urinary Tract Infection in Women (ED) Additional Instructions: Please follow-up with podiatry if your foot discomfort continues. Please take full course of antibiotic for urinary tract infection. Please follow-up with your veterinary practice manager-call tomorrow to schedule follow-up appointment. A Covid test was performed today. Please maintain a home isolation and minimize contact with others until test result is negative. Return to the ER for any worsening or new concerning symptoms. Referrals: [facility] [Provider Group] Discharge Data Discharge Date/Time-TO BE ENTERED AT DEPARTURE: 09/25/20 10:33 Medical Decision Making 60-year-old female here with dysuria and increased urinary frequency for the past 3 days with associated malaise and general fatigue. Suspect urinary tract infection. Urinalysis was reviewed: Nitrite negative and no leukocyte esterase. Given symptoms I will send urine culture and initiate treatment with Keflex. Patient was instructed to follow-up with her veterinary practice manager. Consider COVID-19. I will send Covid test. Patient also with 3 weeks of right foot discomfort. No trauma. Foot examined and no inflammatory changes. No significant tenderness. Advised her to rest her foot and if symptoms persist to follow-up with podiatry. She has seen Dr. Jha in the past and does plan to follow-up with him. HPI General Mode of arrival: ambulatory . Date/Time Provider Initiated Documentation: 09/25/20 08:37 . Limitations to Documentation: no limitations . Information obtained by: patient . HPI Narrative: 60-year-old female here with chief complaint of urinary discomfort. Patient notes burning urinary for the past 3 days. She notes it feels like a urinary tract infection. She has increased urinary frequency. No hematuria. No flank pain. She does have nausea and general malaise. No fever. Patient also notes 3 weeks of right foot pad discomfort. She states it feels like there is a firm nodule in her foot. No trauma. Related Data Home Medications Medication Instructions Recorded Confirmed lamotrigine 200 mg tablet 200 mg PO DAILY #30 tab 08/25/18 09/25/20 strain 16 probiotic 1 tab PO DAILY 02/03/19 09/25/20 bismuth subsalicylate 262 mg 2 tab PO Q30-60M PRN 01/11/20 09/25/20 chewable tablet lorazepam 2 mg tablet See Rx Instructions PO DAILY PRN 02/22/20 09/25/20 rizatriptan 5 mg tablet 5 mg PO ONCE PRN 04/27/20 09/25/20 ondansetron HCl 8 mg tablet 8 mg PO Q8H PRN #20 tab 05/05/20 09/25/20 estradiol 1 g VG .COMPLEX #42.5 gm 06/30/20 09/25/20 trazodone 150 mg tablet 150 mg PO QHS tab 08/05/20 09/25/20 levothyroxine 137 mcg tablet 137 mcg PO DAILY #90 tab 09/19/20 09/25/20 Bepreve 1 drp OPHTHALMIC (EYE) BID 09/25/20 09/25/20 Thyroxine 1 PO BID 09/25/20 acetaminophen [Mapap Extra 1,000 mg PO Q6H PRN 09/25/20 09/25/20 Strength] cephalexin [Keflex] 500 mg PO BID #13 cap 09/25/20 cholecalciferol (vitamin D3) 25 mcg PO DAILY 09/25/20 09/25/20 [Vitamin D3] cyanocobalamin (vitamin B-12) 500 mcg PO BID 09/25/20 09/25/20 [Vitamin B-12] terconazole 0.4 % vaginal cream 1 appful VAGINAL DAILY #45 g 09/29/20 09/29/20 nystatin 100,000 unit/gram topical 1 applic TOPICAL BID PRN #1 gm 10/07/20 powder Previous Rx's Medication Instructions Recorded lamotrigine 200 mg tablet 200 mg PO DAILY #30 tab 08/25/18 ondansetron HCl 8 mg tablet 8 mg PO Q8H PRN #20 tab 05/05/20 estradiol 1 g VG .COMPLEX #42.5 gm 06/30/20 levothyroxine 137 mcg tablet 137 mcg PO DAILY #90 tab 09/19/20 cephalexin [Keflex] 500 mg PO BID #13 cap 09/25/20 terconazole 0.4 % vaginal cream 1 appful VAGINAL DAILY #45 g 09/29/20 nystatin 100,000 unit/gram topical 1 applic TOPICAL BID PRN #1 gm 10/07/20 powder Allergies Allergy/AdvReac Type Severity Reaction Status Date / Time Iodinated Contrast Media Allergy Severe COULDN'T Verified 09/29/20 15:26 [Iodinated Contrast Media - BREATHE IV Dye] divalproex sodium Allergy Intermediate HIVES Verified 09/29/20 15:26 venlafaxine [From Effexor] Allergy Unknown Verified 09/29/20 15:26 topiramate [From Topamax] AdvReac Unknown anxiety Verified 09/29/20 15:26 citalopram AdvReac stomach Verified 09/29/20 15:26 distress General Stated Complaint: Urinary CHELA: 3 Review of Systems All systems reviewed & are unremarkable except as noted in HPI and below Constitutional Constitutional: Reports fatigue, Denies fever(s) and Reports lethargy Gastrointestinal Gastrointestinal: Reports abdominal pain (Chronic unchanged) and Reports nausea Genitourinary Genitourinary: Denies vaginal discharge Endocrine Endocrine: Reports fatigue [facility] Medical History (Updated 09/25/20 @ 09:22 by Shahbaz Pierre MD) Hypothyroidism (acquired) (08/22/04) Manic behavior (08/22/99) HX of catatonia; hospitalized [facility] and [place] Bipolar - followed by [facility] Migraine Obstructive sleep apnea C-PAP Vitamin D deficiency (~11/2018) Surgical History Cholecystectomy (01/27/14) Family History Mother No problems noted. Father No problems noted. Sister No problems noted. Brother No problems noted. Grandfather Diabetes Grandfather No problems noted. Grandmother Heart disease Grandmother Heart disease Sister No problems noted. Sister No problems noted. Brother No problems noted. Son Substance abuse Daughter No problems noted. Daughter No problems noted. 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 Pets and animals: Yes Pets and animals: cat(s) What is your relationship status?: How often do you talk on the phone with friends or family?: three or more times per week Panel score (0-1 are the most socially isolated patients): 2 What type of physical activity do you participate in: none Thuy/Christian: Yazdanism Special thuy needs: No Seatbelt use: always Helmet use: Yes Helmet use: always Drive intox or ride w/intox water tanker driver: No Working smoke detector in home: Yes Fire extinguisher in home: Yes Carbon monox detector in home: Yes Firearms in home: Yes Do you feel safe at home: Yes Do you feel safe in your relationship?: Yes Victim of physical abuse: No Victim of emotional abuse: No Victim of sexual abuse: No Exam Const General: cooperative and no acute distress HENMT Mouth: moist mucous membranes Eyes Conjunctivae: normal conjunctivae Sclera: normal sclerae Resp Auscultation: clear to auscultation bilaterally, no rales, no rhonchi and no wheezes Cardio Rate: regular rate and not tachycardic Rhythm: regular rhythm GI Palpation: soft, not firm, no guarding, no masses, not rigid and tender in the epigastrum (Patient notes chronic) and suprapubicly; with no rebound tenderness Skin General skin exam: no rashes or lesions noted Neuro General: patient alert, patient awake, patient oriented x3 and tone normal Extrem General: no edema Psych Appearance: grossly normal Mental Status: mental status grossly normal Course Vital Signs Vital signs: Vital Signs Temperature 36.4 C L 09/25/20 08:36 Pulse 82 09/25/20 08:36 Respiratory Rate 20 09/25/20 08:36 Blood Pressure 141/70 H 09/25/20 08:36 Pulse Oximetry 97 09/25/20 08:36 Temperature 36.4 C L 09/25/20 08:36 Temperature Source Skin 09/25/20 08:36 Pulse 82 09/25/20 08:36 Respiratory Rate 20 09/25/20 08:36 Respiratory Effort Non-Labored 09/25/20 08:53 Blood Pressure 141/70 H 09/25/20 08:36 Pulse Oximetry 97 09/25/20 08:36 Oxygen Delivery Method Room Air 09/25/20 08:36 Oxygen Flow Rate 0 09/25/20 08:36 Pain Level 4 09/25/20 08:53
[2020-09-25 09:19] LABS: Bilirubin Negative (Negative); Blood Negative (Negative); Clarity Clear (Clear); Glucose Negative (Negative); Ketones Negative (Negative); Leukocyte Esterase Negative (Negative); Nitrite Negative (Negative); Urobilinogen 0.2 EU/dL (Up TO 0.2); pH 6.5 (5-8)
[2020-09-25] MEDS: Cephalexin 500 MG CAP PO (09:36)
[2020-09-25 09:52] LABS: Abs Immature Grans 0.02 10^3/uL (0.0-0.06); Absolute Basophil Count 0.05 10^3/uL (0.0-0.2); Absolute Eosinophil Count 0.17 10^3/uL (0.0-0.7); Absolute Lymphocyte Count 1.45 10^3/uL (1.2-3.4); Absolute Monocyte Count 0.38 10^3/uL (0.1-0.8); Absolute Neutrophil Count 5.77 10^3/uL (1.2-6.7); Basophils % 0.6; Eosinophils % 2.2; HCT 42.2 % (36.0-46.0); HGB 13.1 g/dL (11.2-15.7); Immature Grans % 0.3; Lymphocytes % 18.5; MCH 27.5 pg (27.0-33.0); MCV 88.5 fL (80-95); MPV 9.8 fL (8.0-11.0); Monocytes % 4.8; Neutrophils % 73.6; Nucleated RBC 0 %; Platelet Count 319 10^3/uL (130-400); RBC 4.77 10^6/uL (3.93-5.22); RDW 15.6 % (11.7-14.6); RDW-SD 50.9 fL; WBC 7.84 10^3/uL (4.4-10.8)
[2020-09-25 10:13] LABS: ALT 21 U/L (14-59); AST 11 U/L (15-37); Albumin 3.7 g/dL (3.4-5.0); Alkaline Phosphatase 96 U/L (46-116); Anion Gap 6.5 mmol/L (3-11); BUN 17 mg/dL (7-18); Bilirubin, Total 0.4 mg/dL (0.2-1.0); CO2 29.5 mmol/L (21.0-32.0); CREATININE 0.93 mg/dL (0.55-1.02); Calcium 9.6 mg/dL (8.5-10.1); Chloride 103 mmol/L (98-107); Glucose 107 mg/dL (74-106); Potassium 3.9 mmol/L (3.5-5.1); Sodium 139 mmol/L (136-145); Total Protein 8.1 g/dL (6.4-8.2)
[2020-09-25 10:32] VITALS: BP 136/79; PULSE 71; O2SAT 96
[2020-09-27 09:53] LABS: COVID-19 RT-PCR Result NEGATIVE (Negative)
--- NOTE | 2020-09-28 09:35 | NUR.NOTE ---
09/28/20 0933 left message for patient to return call.
== END 2020-09-25 10:33 | disposition home or self-care (01) ==
PROVIDERS: Emergency Provider Student in an Organized Health Care Education/Training Program; PCP Internal Medicine; Referring Provider Naturopath
DX: N39.0 Urinary tract infection, site not specified (principal); M25.571 Pain in right ankle and joints of right foot; Z03.818 Encounter for observation for suspected exposure to other biological agents ruled out
CPT/HCPCS: 36415; 80053; 99283; U0003; 81003; 85025; 87086

== ENCOUNTER → 2020-10-17 05:08 | Outpatient (CLI) | payer BC, SELFPAY ==
[2020-10-20 07:11] LABS: 25-Hydroxy D Total 63 ng/mL; 25-Hydroxy D2 <4.0 ng/mL; 25-Hydroxy D3 63 ng/mL
== END ==
PROVIDERS: PCP Internal Medicine; Visit Provider Naturopath
DX: E55.9 Vitamin D deficiency, unspecified (principal)
CPT/HCPCS: 36415; 82306

== ENCOUNTER 2020-10-27 03:51 | Outpatient (CLI) | payer BC, SELFPAY ==
[2020-10-27 13:16] LABS: C-Reactive Protein 1.26 mg/dL (0.0-0.3)
[2020-10-27 17:25] LABS: Rheumatoid Factor <8.6 IU/mL (<12.0)
[2020-10-28 07:43] LABS: ESR 60 mm/hr (<30)
[2020-10-28 10:37] LABS: Cyclic Citrullinated Peptide <2.5 U/mL (<5.0)
[2020-10-28 14:08] LABS: ANA Interpretation Positive (Negative); ANA Titer Pattern 1:320 Speckled
== END 2020-10-27 03:52 | disposition home or self-care (01) ==
LOC: LOS 03:51
PROVIDERS: PCP Internal Medicine; Visit Provider Naturopath
DX: M25.59 Pain in other specified joint (principal)
CPT/HCPCS: 36415; 85652; 86200; 86038; 86140; 86431

== ENCOUNTER 2020-12-06 01:58 | Emergency (ER) | payer BC, SELFPAY ==
[2020-12-06 02:03] VITALS: BP 136/73; PULSE 74; RESP 15; TEMP 36.4; O2SAT 96
--- NOTE | 2020-12-06 02:15 | DI.CT_ITS ---
EXAM: CT ABDOMEN PELVIS WO INDICATION: lower abdominal discomfort. COMPARISON: CT CT ABDOMEN PELVIS WO from 03/31/2020 TECHNIQUE: FINDINGS: CT examination of the abdomen and pelvis was performed without contrast administration. Images obtained through the lung bases are unremarkable. Trace pericardial effusion noted. The liver is unremarkable in appearance. Gallbladder has been surgically removed. No biliary dilatation. Pancreas appears normal. Spleen is unremarkable in appearance. There is mild wall thickening of the duodenum, particularly in its 3rd to 4th portion, with mild mese nteric increased attenuation, findings could represent inflammatory process. Duodenal wall appeared intact on prior examination of March 2020 but there was mild mesenteric increased attenuation also pre sent at that time. Adrenals appear normal. The kidneys are unremarkable with no evidence of hydronephrosis, nephrolithiasis, or renal mass.. Ur inary bladder unremarkable. Abdominal aorta is of normal diameter and no major vascular abnormality is seen. Large ventral hernia noted, no gross change from March 2020. No bowel involvement. No abdominal or pelvic adenopathy. There is a probable calcified uterine fibroid. No other specific abnormality of commercial representative structures ident ified in this postmenopausal patient. Ovaries are not specifically visualized. Appendix is normal. No evidence of diverticulitis or bowel obstruction. IMPRESSION: Mild duodenal wall thickening, consider inflammatory process or infectious process. Please correlate clinically. RADIATION DOSE DELIVERED: 1,603.7mGy.cm Total DLP 1,603.7mGy.cm Total DLP
--- NOTE | 2020-12-06 02:19 | W.ED.GENAD ---
Discharge Plan Disposition Patient Disposition: HOME Condition: Stable Discharge Details Clinical Impression: Abdominal bloating, Abdominal pain Primary Care Provider: Dipti Matute ED Provider: Jorgito Marino Home Meds and New Rx's Prescriptions: Continued strain 16 probiotic 1 tab PO DAILY RF: 0 bismuth subsalicylate [Peptic Relief] 262 mg tablet,chewable 2 tab PO Q30-60M PRNRF: 0 ondansetron HCl 8 mg tablet 8 mg PO Q8H PRN (Reason: nausea and vomiting) Qty: 20 RF: 0 estradiol [Estrace] 0.01 % (0.1 mg/gram) cream 1 g VG .COMPLEX Qty: 42.5 RF: 4 lamotrigine 200 mg tablet 200 mg PO DAILY Qty: 30 RF: 11 lorazepam 2 mg tablet See Rx Instructions PO DAILY PRNRF: 0 rizatriptan 5 mg tablet 5 mg PO ONCE PRNRF: 0 trazodone 150 mg tablet 200 mg PO QHS RF: 0 levothyroxine 137 mcg tablet 137 mcg PO DAILY Qty: 90 RF: 3 nystatin [Nystop] 100,000 unit/gram powder 1 applic Topical BID PRN (Reason: intertrigo) Qty: 1 RF: 5 lamotrigine 25 mg tablet 50 mg PO HS RF: 0 cyanocobalamin (vitamin B-12) [Vitamin B-12] 500 mcg Tablet 500 mcg PO BID RF: 0 cholecalciferol (vitamin D3) [Vitamin D3] 25 mcg (1,000 unit) Tablet 25 mcg PO DAILY RF: 0 Bepreve 1.5 % drops 1 drp ophthalmic (eye) BID RF: 0 Thyroxine 1 PO BID RF: 0 acetaminophen [Mapap Extra Strength] 500 MG tablet 1,000 mg PO Q6H PRNRF: 0 Discharge Instructions Additional Instructions: Your lab work and cat scan did not show a clear cause for your pain follow up with your obgyn as scheduled tomorrow you can take 1000mg tylenol and 600mg ibuprofen every 6 hours for pain as needed if you feel more ill or have persistent vomit return to the emergency department Medical Decision Making 60 yo female with hx of hypothyoidism, migraine, who has had issues with abdominal bloating for a year and the past few months has had pelvic pain of unknown etiology. She has seen obgyn and had u/s showing no acute findings and no clear reason for her pain. She states she came in because pain has worsened gradually. She denies vomit, fevers, chills, chest pain, dyspnea, urinary symptoms, diarrhea, vaginal bleeding or discharge. She has not used any otc meds for her pain. She localizes the pain to the lower abdomen both right and left under the panniculus, no erythema or rashes, no guarding on exam. Unclear on exam cause of her pain on exam, given continued pain and location of her pain will obtain ct to evaluate for hernia, less likely colitis given lack of diarrhea. No severe pain or pain out of proportion to exam to suggest mesenteric ischemia. She has listed a contrast media allergy where she couldn't breath, my suspicion her pain is due to vascular abnormalities such as mesenteric ischemia and dissection is low so will proceed with noncontrast ct labs and imaging unremarkable awaiting ua. She remains stable and is ambulating with steady gait without evidence of pain at this time. Will reasses after UA UA also unremarkable. She is sitting on the edge of the bed with unchanged exam and given lack of guarding and reassuring workup feel she is safe for discharge. I did advise her importance of following up as scheduled this week with her obgyn for endometrial biopsy and she was given standard return precautions as well Differential Diagnosis Differential Diagnosis: hernia, cyst, colitis Medical Records Medical records reviewed: Yes I reviewed the patient's medical records. Imaging Data Radiologic Study: Attestation: I personally reviewed and interpreted this imaging study as follows: Imaging: CT Scan Radiologist's impression: no acute findings Lab Data Lab results reviewed: Yes I reviewed the patient's lab results. HPI General Mode of arrival: ambulatory. Date/Time Provider Initiated Documentation: 12/06/20 01:59. Limitations to Documentation: no limitations. Information obtained by: patient. History of Present Illness 60 year old F presents to the emergency department with the chief complaint of lower abdomen/pelvis pain, described as moderate, Patient started experiencing this week(s) (8) and it has been constant. No relieving factors improve symptom(s), No exacerbating factors reported . Related Data Home Medications Medication Instructions Recorded Confirmed lamotrigine 200 mg tablet 200 mg PO DAILY #30 tab 08/25/18 09/25/20 strain 16 probiotic 1 tab PO DAILY 02/03/19 09/25/20 bismuth subsalicylate 262 mg 2 tab PO Q30-60M PRN 01/11/20 09/25/20 chewable tablet lorazepam 2 mg tablet See Rx Instructions PO DAILY PRN 02/22/20 09/25/20 rizatriptan 5 mg tablet 5 mg PO ONCE PRN 04/27/20 09/25/20 ondansetron HCl 8 mg tablet 8 mg PO Q8H PRN #20 tab 05/05/20 12/06/20 estradiol 1 g VG .COMPLEX #42.5 gm 06/30/20 09/25/20 trazodone 150 mg tablet 200 mg PO QHS tab 08/05/20 12/06/20 levothyroxine 137 mcg tablet 137 mcg PO DAILY #90 tab 09/19/20 09/25/20 Bepreve 1 drp OPHTHALMIC (EYE) BID 09/25/20 09/25/20 Thyroxine 1 PO BID 09/25/20 acetaminophen [Mapap Extra 1,000 mg PO Q6H PRN 09/25/20 09/25/20 Strength] cholecalciferol (vitamin D3) 25 mcg PO DAILY 09/25/20 09/25/20 [Vitamin D3] cyanocobalamin (vitamin B-12) 500 mcg PO BID 09/25/20 09/25/20 [Vitamin B-12] nystatin 100,000 unit/gram topical 1 applic TOPICAL BID PRN #1 gm 10/07/20 powder lamotrigine 25 mg tablet 50 mg PO HS tab 10/24/20 Previous Rx's Medication Instructions Recorded lamotrigine 200 mg tablet 200 mg PO DAILY #30 tab 08/25/18 ondansetron HCl 8 mg tablet 8 mg PO Q8H PRN #20 tab 05/05/20 estradiol 1 g VG .COMPLEX #42.5 gm 06/30/20 levothyroxine 137 mcg tablet 137 mcg PO DAILY #90 tab 09/19/20 nystatin 100,000 unit/gram topical 1 applic TOPICAL BID PRN #1 gm 10/07/20 powder Allergies Allergy/AdvReac Type Severity Reaction Status Date / Time Iodinated Contrast Media Allergy Severe COULDN'T Verified 11/03/20 15:25 [Iodinated Contrast Media - BREATHE IV Dye] divalproex sodium Allergy Intermediate HIVES Verified 11/03/20 15:25 venlafaxine [From Effexor] Allergy Unknown Verified 11/03/20 15:25 topiramate [From Topamax] AdvReac Unknown anxiety Verified 11/03/20 15:25 citalopram AdvReac stomach Verified 11/03/20 15:25 distress General Stated Complaint: GenMedical CHELA: 3 Review of Systems All systems reviewed & are unremarkable except as noted in HPI and below Constitutional Constitutional: Denies chills, Denies fever(s) and Denies weakness Cardiovascular Cardiovascular: Denies chest pain and Denies dyspnea Respiratory Respiratory: Denies cough and Denies dyspnea Gastrointestinal Gastrointestinal: Denies vomiting Neurologic Neurologic: Denies weakness [facility] Medical History (Updated 12/06/20 @ 03:13 by Jorgito Marino MD) Abdominal bloating Decreased sense of well-being x1yr. Various somatic complaints w/o clear etiology. Endometrial thickening on ultrasound 11/16/20. Incidental finding. No PMB. No plans for further evaluation. Hypothyroidism (acquired) (08/22/04) Manic behavior (08/22/99) HX of catatonia; hospitalized [facility] and [facility] - followed by Paco MERAZ Migraine Obstructive sleep apnea C-PAP Vaginal burning Vitamin D deficiency (~11/2018) Surgical History Cholecystectomy (01/27/14) Family History Mother No problems noted. Father No problems noted. Sister No problems noted. Brother No problems noted. Grandfather Diabetes Grandfather No problems noted. Grandmother Heart disease Grandmother Heart disease Sister No problems noted. Sister No problems noted. Brother No problems noted. Son Substance abuse Daughter No problems noted. Daughter No problems noted. 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 Pets and animals: Yes Pets and animals: cat(s) What is your relationship status?: How often do you talk on the phone with friends or family?: three or more times per week Panel score (0-1 are the most socially isolated patients): 2 What type of physical activity do you participate in: none Thuy/Taoism: Zoroastrian Special thuy needs: No Seatbelt use: always Helmet use: Yes Helmet use: always Drive intox or ride w/intox 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 Exam Const General: no acute distress Orientation: alert HENMT Head: normal to inspection Ears: external ears normal General nose exam: external nose normal Mouth: moist mucous membranes Eyes General: appearance normal, both eyes and all related structures Neck Neck: normal visual inspection Resp Effort & Inspection: normal respiratory effort and able to speak in complete sentences Cardio Rate: regular rate GI Palpation: soft, not firm, no guarding and not rigid Skin General skin exam: no rashes or lesions noted Neuro General: patient alert and patient oriented x3 Extrem General: normal to inspection Psych Mental Status: mental status grossly normal Course Vital Signs Vital signs: Vital Signs Temperature 36.4 C L 12/06/20 02:03 Pulse 74 12/06/20 02:03 Respiratory Rate 15 12/06/20 02:03 Blood Pressure 136/73 12/06/20 02:03 Pulse Oximetry 96 12/06/20 02:03 Temperature 36.4 C L 12/06/20 02:03 Temperature Source Tympanic 12/06/20 02:03 Pulse 74 12/06/20 02:03 Respiratory Rate 15 12/06/20 02:03 Respiratory Effort Non-Labored 12/06/20 02:11 Respiratory Depth Normal 12/06/20 02:11 Respiratory Pattern Normal 12/06/20 02:11 Blood Pressure 136/73 12/06/20 02:03 Blood Pressure Position Sitting 12/06/20 02:03 Pulse Oximetry 96 12/06/20 02:03 Oxygen Delivery Method Room Air 12/06/20 02:03 Oxygen Flow Rate 0 12/06/20 02:03
[2020-12-06] MEDS: Ketorolac 15 MG/ML VIAL IVP (02:29)
[2020-12-06 02:32] LABS: Abs Immature Grans 0.03 10^3/uL (0.0-0.06); Absolute Basophil Count 0.05 10^3/uL (0.0-0.2); Absolute Eosinophil Count 0.21 10^3/uL (0.0-0.7); Absolute Lymphocyte Count 3.32 10^3/uL (1.2-3.4); Absolute Monocyte Count 0.55 10^3/uL (0.1-0.8); Absolute Neutrophil Count 5.54 10^3/uL (1.2-6.7); Basophils % 0.5; Eosinophils % 2.2; HCT 38.8 % (36.0-46.0); HGB 11.8 g/dL (11.2-15.7); Immature Grans % 0.3; Lymphocytes % 34.2; MCH 27.3 pg (27.0-33.0); MCHC 30.4 % (32.0-36.0); MCV 89.6 fL (80-95); MPV 10.1 fL (8.0-11.0); Monocytes % 5.7; Neutrophils % 57.1; Nucleated RBC 0 %; Platelet Count 297 10^3/uL (130-400); RBC 4.33 10^6/uL (3.93-5.22); RDW 15.9 % (11.7-14.6); RDW-SD 52.1 fL
[2020-12-06 02:45] LABS: ALT 18 U/L (14-59); AST 7 U/L (15-37); Albumin 3.2 g/dL (3.4-5.0); Alkaline Phosphatase 92 U/L (46-116); BUN 17 mg/dL (7-18); Bilirubin, Direct 0.1 mg/dL (0.0-0.2); Bilirubin, Total 0.4 mg/dL (0.2-1.0); CREATININE 1.3 mg/dL (0.55-1.02); Calcium 9.1 mg/dL (8.5-10.1); Chloride 101 mmol/L (98-107); Glucose 104 mg/dL (74-106); Lipase 125 U/L (73-393); Sodium 138 mmol/L (136-145); Total Protein 7.2 g/dL (6.4-8.2)
--- NOTE | 2020-12-06 03:06 | DI.VRAD_ITS ---
PROCEDURE INFORMATION: Exam: CT Abdomen And Pelvis Without Contrast Exam date and time: 12/06/2020 2:19 AM Age: 60 years old Clinical indication: Abdominal pain; Localized; Prior surgery; Surgery date: 6+ months; Surgery type: Cholecysectomy; Patient HX: Pelvic pain, lower abdominal, vaginal burning, general malaise TECHNIQUE: Imaging protocol: Computed tomography of the abdomen and pelvis without contrast. Radiation optimization: All CT scans at this facility use at least one of these dose optimization techniques: automated exposure control; mA and/or kV adjustment per patient size (includes targeted exams where dose is matched to clinical indication); or iterative reconstruction. COMPARISON: CT ABDOMEN PELVIS WO 03/31/2020 2:03 PM FINDINGS: Liver: Normal. No mass. Gallbladder and bile ducts: The patient is status post cholecystectomy. Pancreas: Normal. No ductal dilation. Spleen: Normal. No splenomegaly. Adrenal glands: Normal. No mass. Kidneys and ureters: Normal. No hydronephrosis. Stomach and bowel: Unremarkable. No obstruction. No mucosal thickening. Appendix: No evidence of appendicitis. Intraperitoneal space: Unremarkable. No free air. No significant fluid collection. Vasculature: Unremarkable. No abdominal aortic aneurysm. Lymph nodes: Nonspecific small mesenteric lymph nodes are noted. Urinary bladder: Unremarkable as visualized. Reproductive: Unremarkable as visualized. Bones/joints: Unremarkable. No acute fracture. Soft tissues: Fat containing umbilical hernia is noted. IMPRESSION: No acute findings Dictated and Authenticated by: Nomi Mcafdden MD. Ordering:EVERETTE Bull MD
[2020-12-06 03:25] LABS: Bilirubin Negative (Negative); Blood Negative (Negative); Clarity Sl Cloudy (Clear); Glucose Negative (Negative); Ketones Negative (Negative); Leukocyte Esterase Small (Negative); Nitrite Negative (Negative); Urobilinogen 0.2 EU/dL (Up TO 0.2); pH 5.5 (5-8)
[2020-12-06 03:28] LABS: Bacteria Rare HPF (Negative); C & S Indicated? No/Sq. Contamination; Casts Negative LPF (Negative); Crystals Negative HPF (Negative); Epithelial Cells Moderate HPF (Negative); Mucus Negative (Negative); RBC 0-2 HPF (0-2)
[2020-12-06 03:38] VITALS: BP 145/56; PULSE 67; RESP 18; TEMP 36.7; O2SAT 97
--- NOTE | 2020-12-06 03:39 | NUR.NOTE ---
Nursing Note: This RN called to pt's room, enters room at 0320. Pt asks this RN to listen to her frustrations of her pelvic discomfort and previous medical visits. Expresses frustration in not being able to find answers from all these tests. This RN stays in room allowing pt to express her emotions and story from [phone]. Dr Marino enters room to discuss results and discharge at approx 0341, this RN stays in room as pt addresses Dr Marino.
== END 2020-12-06 03:45 | disposition home or self-care (01) ==
LOC: ER 03:47
PROVIDERS: Emergency Provider Emergency Medicine; PCP Internal Medicine
DX: R14.0 Abdominal distension (gaseous) (principal); R10.2 Pelvic and perineal pain
CPT/HCPCS: 80053; 83690; 96374; 99285; 74176; 81003; 81015; 82248; 83735; 85025; 99283; J1885

== ENCOUNTER 2020-12-28 03:23 | Outpatient (CLI) | payer BC, SELFPAY ==
[2020-12-28 15:13] LABS: ALT 21 U/L (14-59); AST 11 U/L (15-37); Albumin 3.5 g/dL (3.4-5.0); Alkaline Phosphatase 90 U/L (46-116); Anion Gap 5.9 mmol/L (3-11); BUN 20 mg/dL (7-18); Bilirubin, Total 0.3 mg/dL (0.2-1.0); CO2 31.1 mmol/L (21.0-32.0); CREATININE 1.2 mg/dL (0.55-1.02); Calcium 9.2 mg/dL (8.5-10.1); Chloride 104 mmol/L (98-107); Estimated GFR 45.52 (mL/min/1.73m2); FREE T4 0.82 ng/dL (0.76-1.46); Glucose 119 mg/dL (74-106); Potassium 4.3 mmol/L (3.5-5.1); Sodium 141 mmol/L (136-145); TSH 21.57 uIU/mL (0.36-3.74); Total Protein 6.8 g/dL (6.4-8.2)
[2020-12-28 22:19] LABS: T3,Free 2.5 pg/mL (2.8-5.3)
[2021-01-02 10:10] LABS: 25-Hydroxy D Total 65 ng/mL; 25-Hydroxy D2 <4.0 ng/mL; 25-Hydroxy D3 65 ng/mL
== END 2020-12-28 03:24 | disposition home or self-care (01) ==
LOC: LBO 03:23
PROVIDERS: PCP Internal Medicine; Visit Provider Naturopath
DX: E03.9 Hypothyroidism, unspecified (principal); E55.9 Vitamin D deficiency, unspecified
CPT/HCPCS: 36415; 80053; 82306; 84439; 84443; 84481

== ENCOUNTER 2021-02-10 01:11 | Outpatient (CLI) | payer BC, SELFPAY ==
[2021-02-10 12:45] LABS: FREE T4 0.96 ng/dL (0.76-1.46); TSH 6.26 uIU/mL (0.36-3.74)
[2021-02-11 22:35] LABS: T3, Total 278 ng/dL (97-169)
== END 2021-02-10 01:12 | disposition home or self-care (01) ==
LOC: LOS 01:11
PROVIDERS: PCP Internal Medicine; Visit Provider Naturopath
DX: E03.9 Hypothyroidism, unspecified (principal)
CPT/HCPCS: 36415; 84439; 84443; 84480; 84481

== ENCOUNTER 2021-05-01 03:37 | Outpatient (CLI) | payer MEDICARE, BC, SELFPAY ==
[2021-05-01 13:19] LABS: FREE T4 1.01 ng/dL (0.76-1.46)
[2021-05-01 16:24] LABS: T3, Total 250 ng/dL (97-169)
== END 2021-05-01 03:38 | disposition home or self-care (01) ==
LOC: LOS 03:37
PROVIDERS: PCP Internal Medicine; Visit Provider Internal Medicine Endocrinology, Diabetes & Metabolism
DX: E03.9 Hypothyroidism, unspecified (principal)
CPT/HCPCS: 36415; 84439; 84443; 84480

== ENCOUNTER 2021-06-14 16:26 | Outpatient (REF) | payer MEDICARE, BC, SELFPAY ==
--- NOTE | 2021-06-14 11:30 | PAPFT_PTH ---
PATIENT: Leyla Johnson LOC: [facility] U#:[id number] AGE/SX: 61/F ROOM: RE06/14/[address]: Rachael Mcdaniel MD : 1960 BED: DIS: 06/14/2021 SPEC #: [id number] RECD: 06/14/21 17:50 STATUS: BERTRAND REQ #: [id number] PROMISE: 06/14/21 11:[address]: Rachael Mcdaniel DEPT: [facility] Cytology RECD BY: Alcira Parsons ENTERED: 06/14/21 17:51 SP TYPE: PAPFT OTHR DR: Dipti Matute MD Tissues: 1 - CX/ENDOCX FOR PAP SMEARS Procedures: PAP THIN PREP/UVM Screening HPV DNA PROBE Comments: [id number]
== END 2021-06-14 16:27 | disposition home or self-care (01) ==
LOC: LBN 16:26
PROVIDERS: PCP Internal Medicine; Visit Provider Obstetrics & Gynecology
DX: Z12.4 Encounter for screening for malignant neoplasm of cervix (principal); Z11.51 Encounter for screening for human papillomavirus (HPV); Z01.419 Encounter for gynecological examination (general) (routine) without abnormal findings
CPT/HCPCS: 88142; 87624

== ENCOUNTER 2021-07-17 18:43 | Outpatient (REF) | payer MEDICARE, BC, SELFPAY ==
[2021-07-17 21:49] LABS: Bilirubin Negative (Negative); Blood Negative (Negative); Clarity Clear (Clear); Glucose Negative (Negative); Ketones Negative (Negative); Leukocyte Esterase Negative (Negative); Nitrite Negative (Negative); Specific Gravity 1.015 (1.005-1.025); Urobilinogen 0.2 EU/dL (Up TO 0.2)
[2021-07-19 14:28] LABS: COVID-19 RT-PCR UVMMC Result Negative (Negative)
== END 2021-07-17 18:44 | disposition home or self-care (01) ==
LOC: NCHCN 18:43
PROVIDERS: PCP Nurse Practitioner Family; Visit Provider Physician Assistant
DX: N39.0 Urinary tract infection, site not specified (principal); Z20.822 Contact with and (suspected) exposure to COVID-19
CPT/HCPCS: U0003; U0005; 81003

== ENCOUNTER 2021-07-19 04:25 | Outpatient (CLI) | payer MEDICARE, BC, SELFPAY ==
[2021-07-19 12:41] LABS: Abs Immature Grans 0.02 10^3/uL (0.0-0.06); Absolute Basophil Count 0.06 10^3/uL (0.0-0.2); Absolute Eosinophil Count 0.19 10^3/uL (0.0-0.7); Absolute Lymphocyte Count 1.76 10^3/uL (1.2-3.4); Absolute Monocyte Count 0.58 10^3/uL (0.1-0.8); Basophils % 0.7; Eosinophils % 2.3; HCT 39.9 % (36.0-46.0); HGB 12.4 g/dL (11.2-15.7); Immature Grans % 0.2; Lymphocytes % 20.9; MCH 28.6 pg (27.0-33.0); MCHC 31.1 % (32.0-36.0); MCV 91.9 fL (80-95); MPV 10.5 fL (8.0-11.0); Monocytes % 6.9; Nucleated RBC 0 %; Platelet Count 289 10^3/uL (130-400); RBC 4.34 10^6/uL (3.93-5.22); RDW 15.2 % (11.7-14.6); RDW-SD 51.2 fL; WBC 8.41 10^3/uL (4.4-10.8)
[2021-07-19 13:12] LABS: ALT 20 U/L (14-59); AST 11 U/L (15-37); Albumin 3.6 g/dL (3.4-5.0); Alkaline Phosphatase 75 U/L (46-116); Anion Gap 8.7 mmol/L (3-11); BUN 15 mg/dL (7-18); Bilirubin, Total 0.3 mg/dL (0.2-1.0); CO2 29.3 mmol/L (21.0-32.0); Calcium 9.4 mg/dL (8.5-10.1); Chloride 106 mmol/L (98-107); FREE T4 0.88 ng/dL (0.76-1.46); Glucose 101 mg/dL (74-106); Potassium 4.1 mmol/L (3.5-5.1); Sodium 144 mmol/L (136-145); TSH 17.64 uIU/mL (0.36-3.74); Total Protein 6.7 g/dL (6.4-8.2)
[2021-07-20 15:31] LABS: ANA Interpretation Positive (Negative); ANA Titer Pattern 1:320 Homogeneous
== END 2021-07-19 04:26 | disposition home or self-care (01) ==
PROVIDERS: PCP Nurse Practitioner Family; Visit Provider Physician Assistant
DX: R53.83 Other fatigue (principal)
CPT/HCPCS: 36415; 80053; 84439; 84443; 85025; 86038

== ENCOUNTER 2021-07-20 01:23 | Outpatient (CLI) | payer MEDICARE, BC, SELFPAY ==
--- NOTE | 2021-07-20 08:30 | DI.US_ITS ---
Exam(s) US EXTREMITY VENOUS BI EXAM: US EXTREMITY VENOUS BI CLINICAL HISTORY: leg pain medial and leg swelling bilaterally,M79.89 TECHNIQUE: Grayscale, color, and doppler imaging of the deep venous system of both lower extremities was performed. COMPARISON: US US PELVIS TRANSVAGINAL from 11/16/2020 FINDINGS: There is no evidence of intraluminal thrombus and there is normal compression and augmentation demons trated within the common femoral veins, femoral veins, and popliteal veins of both lower extremities. In the calves the interrogated veins also exhibit normal compression/ augmentation properties. Right greater saphenous vein is patent. However, the left greater saphenous vein is thrombosed in th e calf. There is intraluminal thrombus over distance of approximately 5 millimeters. The distance f rom the top of this thrombus to the saphenofemoral junction is approximately 8 cm. IMPRESSION: 1. No ultrasound evidence of DVT in either lower extremity. 2. However, there is intraluminal thrombus in the left greater saphenous vein in the left thigh, as described above. The distance from the top of the clot to the greater saphenous vein junction with t he femoral is approximately 8 cm. DATA REPOSITORY:
== END 2021-07-20 01:43 ==
PROVIDERS: PCP Nurse Practitioner Family; Visit Provider Physician Assistant
DX: M79.89 Other specified soft tissue disorders (principal); I82.812 Embolism and thrombosis of superficial veins of left lower extremity
CPT/HCPCS: 93970

== ENCOUNTER 2021-08-04 00:55 | Outpatient (CLI) | payer MEDICARE, BC, SELFPAY ==
--- NOTE | 2021-08-04 06:45 | DI.US_ITS ---
Exam(s) US LOWER EXTREMITY VENOUS LT EXAM: US LOWER EXTREMITY VENOUS LT CLINICAL HISTORY: thrombus, left thigh, greater saphenous,? PROGRATION, COMPARE TO RECENT US,. TECHNIQUE: Ultrasound performed using standard protocol. COMPARISON: US US EXTREMITY VENOUS BI from 07/20/2021 FINDINGS: Duplex venous ultrasound was performed according to the usual protocol. The deep veins are freely com pressible throughout and there is normal flow augmentation with manual calf compression. 2D and Doppl er evaluation are unremarkable. IMPRESSION: No evidence of deep venous thrombosis of the left lower extremity. DATA REPOSITORY:
== END 2021-08-04 01:15 ==
PROVIDERS: PCP Nurse Practitioner Family; Visit Provider Physician Assistant
DX: M79.652 Pain in left thigh; I82.812 Embolism and thrombosis of superficial veins of left lower extremity
CPT/HCPCS: 93971

== ENCOUNTER 2021-10-11 02:04 | Outpatient (CLI) | payer MEDICARE, BC, SELFPAY ==
[2021-10-11 08:17] LABS: Hemoglobin A1C 5.2 % (<5.7)
[2021-10-11 09:27] LABS: Calculated LDL 120 mg/dL (<100); Cholesterol 187 mg/dL (<200); HDL Cholesterol 44 mg/dL (40-60); Triglyceride 119 mg/dL (<150)
[2021-10-11 09:40] LABS: FREE T4 1.17 ng/dL (0.76-1.46); TSH 6.06 uIU/mL (0.36-3.74)
[2021-10-11 17:25] LABS: T3, Total 121 ng/dL (97-169)
== END 2021-10-11 02:05 | disposition home or self-care (01) ==
LOC: LBO 02:05
PROVIDERS: PCP Nurse Practitioner Family; Visit Provider Internal Medicine Endocrinology, Diabetes & Metabolism
DX: E03.9 Hypothyroidism, unspecified; R79.9 Abnormal finding of blood chemistry, unspecified
CPT/HCPCS: 36415; 80061; 83036; 84439; 84443; 84480

== ENCOUNTER 2021-10-31 01:59 | Outpatient (CLI) | payer MEDICARE, BC, SELFPAY ==
[2021-10-31 07:46] LABS: HCT 40.1 % (36.0-46.0); HGB 12.5 g/dL (11.2-15.7); MCH 28.3 pg (27.0-33.0); MCHC 31.2 % (32.0-36.0); MCV 90.7 fL (80-95); MPV 10.4 fL (8.0-11.0); Platelet Count 257 10^3/uL (130-400); RBC 4.42 10^6/uL (3.93-5.22); RDW 15.1 % (11.7-14.6); RDW-SD 50.2 fL; WBC 6.55 10^3/uL (4.4-10.8)
[2021-10-31 09:28] LABS: ALT 23 U/L (14-59); AST 12 U/L (15-37); Albumin 3.8 g/dL (3.4-5.0); Alkaline Phosphatase 82 U/L (46-116); Anion Gap 9.7 mmol/L (3-11); BUN 18 mg/dL (7-18); Bilirubin, Total 0.4 mg/dL (0.2-1.0); CO2 27.3 mmol/L (21.0-32.0); CREATININE 0.9 mg/dL (0.55-1.02); Calcium 9.4 mg/dL (8.5-10.1); Chloride 105 mmol/L (98-107); Glucose 90 mg/dL (74-106); Magnesium 2.1 mg/dL (1.8-2.4); Potassium 4.2 mmol/L (3.5-5.1); Sodium 142 mmol/L (136-145); Total Protein 7.5 g/dL (6.4-8.2); Vitamin B12 1925 pg/mL (193-986)
[2021-10-31 09:29] LABS: Folate > 20.0 ng/mL (8.6-20.0)
[2021-11-02 00:14] LABS: Vitamin D 25 Total 48.2 ng/mL (30-100)
== END 2021-10-31 02:00 | disposition home or self-care (01) ==
LOC: LBO 01:59
PROVIDERS: PCP Nurse Practitioner Family; Visit Provider Naturopath
DX: E55.9 Vitamin D deficiency, unspecified (principal); R25.2 Cramp and spasm
CPT/HCPCS: 36415; 80053; 82306; 85027; 82607; 82746; 83735

== ENCOUNTER → 2021-12-26 10:17 | Outpatient (BNVA) | payer MEDICARE, BC, SELFPAY | PROVIDERS: PCP Nurse Practitioner Family; Referring Provider Nurse Practitioner Family; Visit Provider Surgery | DX: K42.9 Umbilical hernia without obstruction or gangrene (principal); E66.01 Morbid (severe) obesity due to excess calories; Z68.42 Body mass index [BMI] 45.0-49.9, adult | CPT/HCPCS: 99203; 99214 ==

== ENCOUNTER 2022-01-05 07:27 | Emergency (ER) | payer MEDICARE, BC, SELFPAY ==
[2022-01-05 07:33] VITALS: BP 141/75; PULSE 74; RESP 18; TEMP 36.6; O2SAT 98
--- NOTE | 2022-01-05 07:45 | DI.CT_ITS ---
Exam(s) CT ABDOMEN PELVIS WO EXAM: CT ABDOMEN PELVIS WO CLINICAL HISTORY: suprapubic abdominal pain, hx of umbilical hernia. TECHNIQUE: Imaging Protocol: Axial computed tomography images with coronal and sagittal reformatted images were created and reviewed. COMPARISON: CT ABD PELVIS WO CONTRAST from 01/27/[address] ABDOMEN PELVIS WO from 01/05/[address] ABDOMEN PELVIS WO from 12/06/2020 FINDINGS: ABDOMEN: Lung Bases: Normal where visualized. Liver: Normal density. No measurable mass. The liver measures 20.4 cm long. Gallbladder and biliary tract: Status post cholecystectomy. No biliary ductal dilatation. Pancreas: Normal density, no abnormal calcifications or inflammatory process. Spleen: Normal. Kidneys: Normal size, contour and axis.No radiodense stones or obstructive uropathy. No masses seen. Adrenal glands: No mass is seen. Lymph nodes: Within normal limits. Abdominal Aorta: Abdominal portion non-dilated. Atherosclerosis is present. PELVIS: Bladder:Symmetric distention, no gross wall thickening. Bowel: No obstruction or bowel wall thickening. Appendix is unremarkable. There is diverticulosis se en in the colon but no evidence of acute diverticulitis. Peritoneal cavity: No ascites or focal fluid collection. There is a persistent stable stacey mesenter ic appearance present. No free air. Reproductive organs: Within normal limits. There is a calcifications seen in the uterus likely reflec ting a calcified uterine fibroid. Bones: Within normal limits. Soft Tissues: There is a moderate size fat containing umbilical hernia. IMPRESSION: 1. Fat containing moderate sized umbilical hernia. 2. Hepatomegaly. 3. Status post cholecystectomy. No biliary ductal dilatation. RADIATION DOSE DELIVERED: 1,548.11mGy.cm Total DLP DATA REPOSITORY: All CT scans at this facility are submitted to the National Radiology Data Registry (NRDR) Dose Index Registry (DIR) with the [employer] (A[employer]). RADIATION OPTIMIZATION: All CT scans at this facility use at least one of these dose optimization te chniques: automated exposure control; mA and/or kV adjustment per patient size (includes targeted exa ms where dose is matched to clinical indication); or iterative reconstruction.
--- NOTE | 2022-01-05 07:50 | W.EDPROG ---
Medical Decision Making 61-year-old female history of obesity, umbilical hernia, cholecystectomy, presents with suprapubic abdominal discomfort over the past several days associate with nausea, without vomiting. Patient had a normal bowel movement earlier today is passing gas. Discharge Plan Disposition Patient Disposition: HOME Condition: Improving Discharge Details Clinical Impression: Abdominal pain, Hernia, umbilical Primary Care Provider: Chay Sheriff ED Provider: Byron Fry Home Meds and New Rx's Prescriptions: No Action strain 16 probiotic 1 tab PO BID 0RF bismuth subsalicylate [Peptic Relief] 262 mg tablet,chewable 2 tab PO Q30-60M PRN0RF Rx Instructions: do not exceed 16 tabs per 24 hrs rizatriptan 5 mg tablet 5 mg PO ONCE PRN (Reason: migraine headache) Qty: 10 3RF ascorbic acid (vitamin C) 1,000 mg tablet 1 g PO DAILY 0RF G Fortify PO DAILY 0RF Rx Instructions: 1 scoop estradiol 0.01 % (0.1 mg/gram) cream 0.25 g vaginal DAILY Qty: 42.5 0RF Rx Instructions: Apply pea-sized amount to vaginal opening nightly x2wks. Then decrease use to twice weekly. levothyroxine 150 mcg tablet 150 mcg PO DAILY 0RF Rx Instructions: Per pt, per Dr. Ziggy aggarwal lamotrigine 200 mg tablet 200 mg PO DAILY Qty: 30 11RF nystatin [Nystop] 100,000 unit/gram powder 1 applic Topical BID PRN (Reason: intertrigo) Qty: 1 5RF Label Comments: PRN cyanocobalamin (vitamin B-12) [Vitamin B-12] 500 mcg Tablet 500 mcg PO BID 0RF cholecalciferol (vitamin D3) [Vitamin D3] 25 mcg (1,000 unit) Tablet 25 mcg PO DAILY 0RF Thyroxine 1 PO BID 0RF Label Comments: pt states its a supplement prescribed by homeopathic doctor Anton Discharge Instructions Instructions: Umbilical Hernia (ED), Abdominal Pain (ED) Additional Instructions: Please be seen by your primary care physician. Please return the emergency department if you develop worsening nausea vomiting abdominal pain constipation or noticed change in color or texture to your hernia or any other abnormal symptomatology Discharge Data Discharge Date/Time-TO BE ENTERED AT DEPARTURE: 01/05/22 10:21
--- NOTE | 2022-01-05 08:00 | ED.GENADUL_ITS ---
Discharge Plan Disposition Patient Disposition: HOME Condition: Improving Discharge Details Chief Complaint: Abd Prob Clinical Impression: Abdominal pain, Hernia, umbilical Primary Care Provider: Chay Sheriff ED Provider: Byron Fry Home Meds and New Rx's Prescriptions: No Action strain 16 probiotic 1 tab PO BID 0RF bismuth subsalicylate [Peptic Relief] 262 mg tablet,chewable 2 tab PO Q30-60M PRN0RF Rx Instructions: do not exceed 16 tabs per 24 hrs rizatriptan 5 mg tablet 5 mg PO ONCE PRN (Reason: migraine headache) Qty: 10 3RF ascorbic acid (vitamin C) 1,000 mg tablet 1 g PO DAILY 0RF G Fortify PO DAILY 0RF Rx Instructions: 1 scoop estradiol 0.01 % (0.1 mg/gram) cream 0.25 g vaginal DAILY Qty: 42.5 0RF Rx Instructions: Apply pea-sized amount to vaginal opening nightly x2wks. Then decrease use to twice weekly. levothyroxine 150 mcg tablet 150 mcg PO DAILY 0RF Rx Instructions: Per pt, per Dr. Ziggy aggarwal lamotrigine 200 mg tablet 200 mg PO DAILY Qty: 30 11RF nystatin [Nystop] 100,000 unit/gram powder 1 applic Topical BID PRN (Reason: intertrigo) Qty: 1 5RF Label Comments: PRN cyanocobalamin (vitamin B-12) [Vitamin B-12] 500 mcg Tablet 500 mcg PO BID 0RF cholecalciferol (vitamin D3) [Vitamin D3] 25 mcg (1,000 unit) Tablet 25 mcg PO DAILY 0RF Thyroxine 1 PO BID 0RF Label Comments: pt states its a supplement prescribed by homeopathic doctor [facility] Discharge Instructions Instructions: Umbilical Hernia (ED), Abdominal Pain (ED) Additional Instructions: Please be seen by your primary care physician. Please return the emergency department if you develop worsening nausea vomiting abdominal pain constipation or noticed change in color or texture to your hernia or any other abnormal symptomatology Medical Decision Making 60-year-old female history of obesity, umbilical hernia, prior cholecystectomy presents with abdominal pain nausea, pain located in the suprapubic region, no palpable mass, umbilical hernia soft nontender no skin changes, patient nontoxic well-hydrated nonperitoneal, afebrile. Must consider abdominal hernia versus UTI versus colitis versus less likely bowel obstruction versus less likely ovarian or uterine in nature. Patient is allergic to iodinated contrast. Have consulted the radiology department and will give oral barium contrast for CT evaluation. Fluids antiemetics analgesia Resting comfortably feeling better no acute distress no vomiting nonperitoneal, fat-containing hernia umbilical nature no evidence of incarceration or strangulation. No evidence of UTI. Patient given home care instructions regarding worsening symptomatology. HPI General Date/Time Provider Initiated Documentation: 01/05/22 07:38 . HPI Narrative: 61-year-old female history of obesity, umbilical hernia, prior cholecystectomy, presents with abdominal pain suprapubic in nature over the past several days associate with mild nausea, endorses normal bowel movement earlier today. Rela mana Data Home Medications Medication Instructions Recorded Confirmed lamotrigine 200 mg tablet 200 mg PO DAILY #30 tab 08/25/18 01/05/22 bismuth subsalicylate 262 mg 2 tab PO Q30-60M PRN 01/11/20 01/05/22 chewable tablet (Peptic Relief) Thyroxine 1 PO BID 09/25/20 12/27/21 cholecalciferol (vitamin D3) 25 25 mcg PO DAILY 09/25/20 01/05/22 mcg (1,000 unit) tablet (Vitamin D3) cyanocobalamin (vitamin B-12) 500 500 mcg PO BID 09/25/20 01/05/22 mcg tablet (Vitamin B-12) nystatin 100,000 unit/gram topical 1 applic TOPICAL BID PRN #1 gm 10/07/20 01/05/22 powder (Nystop) rizatriptan 5 mg tablet 5 mg PO ONCE PRN #10 tab 12/20/20 01/05/22 G Fortify PO DAILY 04/19/21 12/27/21 ascorbic acid (vitamin C) 1,000 mg 1 g PO DAILY tab 04/19/21 01/05/22 tablet strain 16 probiotic 1 tab PO BID 04/19/21 01/01/22 levothyroxine 150 mcg tablet 150 mcg PO DAILY 06/20/21 01/05/22 estradiol 0.25 g VAGINAL DAILY #42.5 g 08/09/21 01/05/22 Previous Rx's Medication Instructions Recorded lamotrigine 200 mg tablet 200 mg PO DAILY #30 tab 08/25/18 nystatin 100,000 unit/gram topical 1 applic TOPICAL BID PRN #1 gm 10/07/20 powder (Nystop) rizatriptan 5 mg tablet 5 mg PO ONCE PRN #10 tab 12/20/20 estradiol 0.25 g VAGINAL DAILY #42.5 g 08/09/21 Allergies Allergy/AdvReac Type Severity Reaction Status Date / Time Iodinated Contrast Media Allergy Severe COULDN'T Verified 01/05/22 07:37 [Iodinated Contrast Media - BREATHE IV Dye] divalproex sodium Allergy Intermediate HIVES Verified 01/05/22 07:37 venlafaxine [From Effexor] Allergy Unknown Verified 01/05/22 07:37 topiramate [From Topamax] AdvReac Unknown anxiety Verified 01/05/22 07:37 citalopram AdvReac stomach Verified 01/05/22 07:37 distress General Stated Complaint: Abd Prob CHELA: 3 Review of Systems Narrative: Review of Systems Constitutional: negative Eyes: negative ENT: negative Cardiovascular: negative Respiratory: negative Gastrointestinal: Abdominal pain : negative Musculoskeletal: negative Skin: negative Neurologic: negative Psych: negative PFSH All Active Problems (Updated 01/05/22 @ 10:11 by Byron Fry MD) Abdominal pain (Acute) Hernia, umbilical (Acute) Morbid obesity with BMI of 45.0-49.9, adult (Acute) Umbilical hernia (Acute) Functional abdominal pain syndrome (Chronic) Anxiety with somatic features (Chronic) Dyspnea on minimal exertion (Acute) Elevated blood pressure reading without diagnosis of hypertension (Acute) Chronic nausea (Acute) Abnormal finding of blood chemistry, unspecified (Acute) Manic behavior (Acute 08/22/99) HX of catatonia; hospitalized [facility] and [facility] - followed by Paco MERAZ Obstructive sleep apnea (Chronic) C-PAP Medical History (Updated 01/05/22 @ 10:11 by Byron Fry MD) Abdominal bloating Accidental fall from chair Back pain Biliary colic a. Unrelenting. Chronic eczema Colon polyps COVID-19 vaccine dose declined Decreased sense of well-being x1yr. Various somatic complaints w/o clear etiology. Elevated C-reactive protein (CRP) Endometrial thickening on ultrasound 11/16/20. Incidental finding. No PMB. No plans for further evaluation. Gastritis Grief at loss of child (03/05/18) Hypothyroidism (acquired) (11/30/04) Intertrigo Irritable bowel syndrome with constipation and diarrhea (12/05/15) Migraine Nausea Perimenopausal atrophic vaginitis Syncope (03/05/18) Tobacco use disorder quit 2005; 04/29 CXR-left base atelec/scar; improved 06/29; Vaginal burning Vaginal dryness Vitamin D deficiency (~11/2018) Surgical History Cholecystectomy (01/27/14) History of Surgical Procedure a. Edematous obstructed gallbladder removal. Family History (Updated 07/31/21 @ 14:48 by Inna Laird) Father Dementia Grandfather Diabetes Grandmother Heart disease Grandmother Heart disease Son , 37 Substance abuse Family History Depression Cancer Social History (Updated 07/31/21 @ 14:46 by Inna Laird) Smoking/Tobacco Use Status: Former Tobacco Use tobacco type: cigarettes Quit Date: 09/23/89 Tobacco: How many years used: 10 Second Hand Exposure: Yes Smoking risk assessment performed?: Yes Alcohol Intake: current Alcohol Intake frequency: holidays/special occasions only Alcohol type: wine Drug use: Never Substance use type: does not use 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 Pets and animals: No Sexually active: No Do you think of yourself as: straight/heterosexual Current gender identity: female What is your relationship status?: How often do you talk on the phone with friends or family?: three or more times per week How often do you get together with friends or relatives?: once per week Do you belong to any clubs or organized social groups?: no Panel score (0-1 are the most socially isolated patients): 2 What type of physical activity do you participate in: walking and aerobic Duration: 15-30 minutes/day Thuy/Presybeterian: Faith Special thuy needs: No Seatbelt use: always Drive intox or ride w/intox school boat 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 Exam Narrative Exam Narrative: Physical Examination General: alert, awake, cooperative, resting comfortably, no acute distress HEENT: normocephalic, atraumatic; PERRL, EOM intact, conjunctiva normal; no nasal discharge; moist mucous membranes, oral and pharyngeal mucosa normal, tolerating secretions Neck: supple, trachea midline; full ROM Chest: normal to inspection Respiratory: normal respiratory effort, speaking in full sentences, clear to auscultation, no wheezing, rales or rhonchi Cardiac: regular rate, regular rhythm, S1S2 intact, no murmurs rubs or gallops GI: abdomen soft, obese, umbilical hernia soft nontender, patient does have point tenderness in suprapubic region around area of abdominal pannus, no overlying skin changes no palpable mass Skin: no lesions, rashes or trauma appreciated Neuro: AAOx3, normal speech, moving all extremities Extremities: Psych: Appropriate mood and affect Course Vital Signs Vital signs: Vital Signs Temperature 36.6 C 01/05/22 07:33 Pulse 74 01/05/22 07:33 Respiratory Rate 18 01/05/22 07:33 Blood Pressure 141/75 H 01/05/22 07:33 Pulse Oximetry 98 01/05/22 07:33 Temperature 36.6 C 01/05/22 07:33 Temperature Source Temporal Artery Scan 01/05/22 07:33 Pulse 74 01/05/22 07:33 Respiratory Rate 18 01/05/22 07:33 Respiratory Effort Non-Labored 01/05/22 07:38 Blood Pressure 141/75 H 01/05/22 07:33 Blood Pressure Position Sitting 01/05/22 07:33 Pulse Oximetry 98 01/05/22 07:33 Oxygen Delivery Method Room Air 01/05/22 07:33 Oxygen Flow Rate 0 01/05/22 07:33
[2022-01-05 08:06] LABS: Abs Immature Grans 0.02 10^3/uL (0.0-0.06); Absolute Basophil Count 0.07 10^3/uL (0.0-0.2); Absolute Eosinophil Count 0.21 10^3/uL (0.0-0.7); Absolute Lymphocyte Count 2.53 10^3/uL (1.2-3.4); Absolute Monocyte Count 0.54 10^3/uL (0.1-0.8); Absolute Neutrophil Count 4.61 10^3/uL (1.2-6.7); Basophils % 0.9; Eosinophils % 2.6; HCT 39.3 % (36.0-46.0); HGB 12.2 g/dL (11.2-15.7); Immature Grans % 0.3; Lymphocytes % 31.7; MCH 28.3 pg (27.0-33.0); MCV 91.2 fL (80-95); MPV 10.3 fL (8.0-11.0); Monocytes % 6.8; Neutrophils % 57.7; Platelet Count 288 10^3/uL (130-400); RBC 4.31 10^6/uL (3.93-5.22); RDW 15.7 % (11.7-14.6); RDW-SD 52.9 fL; WBC 7.98 10^3/uL (4.4-10.8)
[2022-01-05 08:19] LABS: ALT 22 U/L (14-59); AST 12 U/L (15-37); Albumin 3.6 g/dL (3.4-5.0); Alkaline Phosphatase 85 U/L (46-116); BUN 15 mg/dL (7-18); Bilirubin, Total 0.4 mg/dL (0.2-1.0); CREATININE 1.1 mg/dL (0.55-1.02); Calcium 8.8 mg/dL (8.5-10.1); Chloride 105 mmol/L (98-107); Estimated GFR 50.17 (mL/min/1.73m2); Glucose 109 mg/dL (74-106); Potassium 3.8 mmol/L (3.5-5.1); Sodium 142 mmol/L (136-145); Total Protein 7.3 g/dL (6.4-8.2)
[2022-01-05] MEDS: Ondansetron 4 MG/2 ML VIAL IVP (08:20)
[2022-01-05] MEDS: Normal Saline 1,000 ML 1000 ML IV (08:20)
[2022-01-05] MEDS: MORPHine 4 MG/ML SYR 2 MG IVP (08:30)
[2022-01-05 08:37] LABS: Bilirubin Negative (Negative); Blood Negative (Negative); Clarity Clear (Clear); Glucose Negative (Negative); Ketones Negative (Negative); Leukocyte Esterase Negative (Negative); Nitrite Negative (Negative); Urobilinogen 0.2 EU/dL (Up TO 0.2)
[2022-01-05 09:51] VITALS: BP 137/59; PULSE 74; RESP 16; TEMP 36; O2SAT 99
== END 2022-01-05 10:21 | disposition home or self-care (01) ==
PROVIDERS: Emergency Provider Emergency Medicine; PCP Nurse Practitioner Family
DX: R10.30 Lower abdominal pain, unspecified (principal); K42.9 Umbilical hernia without obstruction or gangrene
CPT/HCPCS: 36415; 80053; 96361; 96374; 96375; 99284; 74176; 81003; 85025; J2270; J2405

== ENCOUNTER → 2022-01-12 00:28 | Outpatient (CLI) | payer MEDICARE, BC, SELFPAY ==
--- NOTE | 2022-01-12 07:15 | DI.US_ITS ---
Exam(s) US BREAST LT COMPLETE EXAM: US BREAST LT COMPLETE CLINICAL HISTORY: left breast pain,mastodynia,n64.4,h/o cyst of breast TECHNIQUE: Ultrasound left breast performed using standard protocol. COMPARISON: Standard Screening - Combo from 12/13/2021 FINDINGS: Multiple cysts. 5 millimeter cyst in the retroareolar region. 3 millimeters cyst 9 o'clock 5 cm fro m the nipple. 2 millimeter cyst 10 o'clock 4 cm from the nipple. 4 millimeters cyst 12 o'clock 9 cm from the nipple. 7 millimeter cyst 6 cm from the nipple 2 o'clock position. IMPRESSION: No sonographically suspicious finding. Multiple small cysts. BI-RADS Category 2 - Benign Findings Yearly screening mammography is recommended. DATA REPOSITORY:
== END ==
PROVIDERS: PCP Nurse Practitioner Family; Visit Provider Obstetrics & Gynecology
DX: N64.4 Mastodynia (principal); N60.12 Diffuse cystic mastopathy of left breast
CPT/HCPCS: 76642

== ENCOUNTER 2022-01-25 12:55 | Outpatient (CLI) | payer MEDICARE, BC, SELFPAY ==
--- NOTE | 2022-01-25 12:45 | RT.EKG_ITS ---
APPROVED REPORT Exam: Resting ECG Reason for Exam: Back pain Patient Location: O HR:70 bpm ECG Measurements Heart Rate 70 AXIS IL 146 P 19 QRSd 81 QRS 37 QT 376 T 31 QTc 405 Conclusion Sinus rhythm...normal P axis, V-rate 60- 99 Normal Electrocardiogram
== END 2022-01-25 12:56 | disposition home or self-care (01) ==
LOC: DI.CM 12:56
PROVIDERS: PCP Nurse Practitioner Family; Visit Provider Nurse Practitioner Family
DX: M54.9 Dorsalgia, unspecified (principal)
CPT/HCPCS: 93010

== ENCOUNTER 2022-01-25 13:50 | Emergency (ER) | payer MEDICARE, BC, SELFPAY ==
[2022-01-25 14:22] VITALS: BP 156/81; PULSE 80; RESP 16; TEMP 36.5; O2SAT 98
[2022-01-25 16:13] LABS: ALT 20 U/L (14-59); AST 11 U/L (15-37); Albumin 3.7 g/dL (3.4-5.0); Alkaline Phosphatase 90 U/L (46-116); Anion Gap 7.2 mmol/L (3-11); BUN 14 mg/dL (7-18); Bilirubin, Total 0.4 mg/dL (0.2-1.0); CO2 29.8 mmol/L (21.0-32.0); CREATININE 0.9 mg/dL (0.55-1.02); Calcium 9.1 mg/dL (8.5-10.1); Chloride 105 mmol/L (98-107); Glucose 92 mg/dL (74-106); Potassium 4.4 mmol/L (3.5-5.1); Sodium 142 mmol/L (136-145); Total Protein 7.8 g/dL (6.4-8.2)
[2022-01-25 16:16] LABS: Lipase 56 U/L (73-393); Magnesium 2.5 mg/dL (1.8-2.4); Troponin I < 50 ng/L (<or=60)
[2022-01-25 16:23] LABS: Abs Immature Grans 0.02 10^3/uL (0.0-0.06); Absolute Basophil Count 0.06 10^3/uL (0.0-0.2); Absolute Eosinophil Count 0.15 10^3/uL (0.0-0.7); Absolute Monocyte Count 0.58 10^3/uL (0.1-0.8); Absolute Neutrophil Count 6.14 10^3/uL (1.2-6.7); Basophils % 0.7; Eosinophils % 1.7; HCT 42.4 % (36.0-46.0); Immature Grans % 0.2; Lymphocytes % 22.3; MCH 27.9 pg (27.0-33.0); MCHC 30.7 % (32.0-36.0); MCV 91 fL (80-95); MPV 10.5 fL (8.0-11.0); Monocytes % 6.5; Neutrophils % 68.6; Platelet Count 298 10^3/uL (130-400); RBC 4.66 10^6/uL (3.93-5.22); RDW 15.5 % (11.7-14.6); RDW-SD 51.8 fL; WBC 8.95 10^3/uL (4.4-10.8)
[2022-01-25 16:23] LABS: COVID-19 PCR Negative (Negative); Influenza A PCR Negative (Negative); Influenza B PCR Negative (Negative); RSV PCR Negative (Negative)
[2022-01-25 16:27] LABS: Source Nasopharynx
--- NOTE | 2022-01-25 16:30 | DI.CT_ITS ---
Exam(s) CT ABDOMEN PELVIS WO EXAM: CT ABDOMEN PELVIS WO CLINICAL HISTORY: lower abd pain, r/o sbo, appy, diverticulitis. TECHNIQUE: Imaging Protocol: Axial computed tomography images with coronal and sagittal reformatted images were created and reviewed CONTRAST MATERIAL: Intravenous: none Oral: Yes COMPARISON: CT CT ABDOMEN PELVIS WO from 01/05/2022 FINDINGS: VISUALIZED LUNG BASES: No nodules nor pleural effusions evident. There is a small pericardial effusi on again noted. This has not increased in size when compared to 01/05/2022. Heart size is normal. ABDOMEN: There is no ascites. However, there is again noted a stacey central mesentery around the superior me senteric vessels, associated with multiple small sub cm lymph nodes the mesentery. No associated spl enomegaly. LIVER: There are no obvious focal hepatic lesions evident on this noninfused study. GALLBLADDER/BILIARY: Gallbladder is again noted be surgically absent. CBD is not dilated. PANCREAS: No evidence of pancreatic mass nor dilatation of the pancreatic duct. SPLEEN: Spleen is not enlarged. No obvious intrasplenic lesions. ADRENALS: There are no significant adrenal masses. KIDNEYS:No cysts evident. No solid renal masses. No calculi nor hydronephrosis. . ABDOMINAL AORTA: Abdominal aorta is not enlarged. LYMPH NODES: There is no retroperitoneal nor paraaortic adenopathy. ABDOMINAL WALL: There is a large fat containing midline anterior abdominal wall infraumbilical hernia sac. Essentially unchanged from the prior study. No free air nor free fluid within the sac. No serafin wel loops therein. GI: There is no evidence of bowel obstruction, free air, nor abscess. PELVIS: LYMPH NODES: There is no intrapelvic nor inguinal adenopathy. GI: No evidence of appendicitis.No evidence of significant sigmoid diverticular disease. URINARY BLADDER: No calculi nor obvious masses evident REPRODUCTIVE: Partially calcified right sided myometrial uterine fibroid. No adnexal masses. No michael e fluid in the pelvis. OSSEOUS: No significant osseous lesions. Disc space narrowing L5-S1. IMPRESSION: 1. Compared to the prior CT scan of 01/05/2022 there is again noted a large midline infraumbilical an terior abdominal wall hernia, unchanged. This contains only fat and no bowel loops therein. There i s no bowel obstruction. 2. Stacey central mesentery is again noted, associated with multiple small sub cm lymph nodes. This is unchanged from the prior study. This require appropriate interval follow-up as this can sometimes be seen with early lymphoma. Spleen size is normal. 3. Gallbladder is again noted be surgically absent. 4. Calcified right-sided uterine fibroid again noted. No abnormal adnexal masses nor free fluid in the pelvis. RADIATION DOSE DELIVERED: 1,476.24mGy.cm Total DLP DATA REPOSITORY: All CT scans at this facility are submitted to the National Radiology Data Registry (NRDR) Dose Index Registry (DIR) with the [employer] (A[employer]). RADIATION OPTIMIZATION: All CT scans at this facility use at least one of these dose optimization te chniques: automated exposure control; mA and/or kV adjustment per patient size (includes targeted exa ms where dose is matched to clinical indication); or iterative reconstruction.
--- NOTE | 2022-01-25 16:35 | W.ED.GENAD ---
Discharge Plan Disposition Patient Disposition: HOME Condition: Stable Discharge Details Clinical Impression: Abdominal pain, Umbilical hernia, Atherosclerosis of aorta, Uterine leiomyoma, Constipation, Pericardial effusion Primary Care Provider: Chay Sheriff ED Provider: Shahbaz Pierre Home Meds and New Rx's Prescriptions: Continued strain 16 probiotic 1 tab PO BID 0RF bismuth subsalicylate [Peptic Relief] 262 mg tablet,chewable 2 tab PO Q30-60M PRN0RF Rx Instructions: do not exceed 16 tabs per 24 hrs rizatriptan 5 mg tablet 5 mg PO ONCE PRN (Reason: migraine headache) Qty: 10 3RF ascorbic acid (vitamin C) 1,000 mg tablet 1 g PO DAILY 0RF G Fortify PO DAILY 0RF Rx Instructions: 1 scoop estradiol 0.01 % (0.1 mg/gram) cream 0.25 g vaginal DAILY Qty: 42.5 0RF Rx Instructions: Apply pea-sized amount to vaginal opening nightly x2wks. Then decrease use to twice weekly. levothyroxine 150 mcg tablet 150 mcg PO DAILY 0RF Rx Instructions: Per pt, per Dr. Ziggy aggarwal lamotrigine 200 mg tablet 200 mg PO DAILY Qty: 30 11RF nystatin [Nystop] 100,000 unit/gram powder 1 applic Topical BID PRN (Reason: intertrigo) Qty: 1 5RF Label Comments: PRN cyanocobalamin (vitamin B-12) [Vitamin B-12] 500 mcg Tablet 500 mcg PO BID 0RF cholecalciferol (vitamin D3) [Vitamin D3] 25 mcg (1,000 unit) Tablet 25 mcg PO DAILY 0RF Thyroxine 1 PO BID 0RF Label Comments: pt states its a supplement prescribed by homeopathic doctor [facility] Discharge Instructions Instructions: Oxycodone, Rapid Release (By mouth), Constipation (ED), Umbilical Hernia (ED), Pericardial Effusion (ED) Additional Instructions: You had multiple incidental findings noted on CT imaging today including small pericardial effusion. This is fluid around your heart. Please follow-up with your primary care physician. Call tomorrow to schedule timely follow-up. Please follow-up with Dr. Armstrong. Call her office tomorrow. Take oxycodone 5 mg tablet daily only for severe pain. This medication is addicting and will worsen constipation. Return to the ER immediately for any worsening or new concerning symptoms. Referrals: Chay Sheriff NP [Primary Care Provider] - Laure Armstrong MD [ [facility] STAFF PHYSICIAN] - Discharge Data Discharge Date/Time-TO BE ENTERED AT DEPARTURE: 01/25/22 23:28 Medical Decision Making <Lanie Laxmi Cruz DO - Last Filed: 01/25/22 20:07> 1500 -- 60-year-old female with a history of obesity, hypothyroidism, irritable bowel syndrome, migraine, bipolar disorder, cholecystectomy with a history of chronic abdominal pain which she states is secondary to hernia presents from urgent care for further evaluation of her worsening lower abdominal pain for the past 2 days. Patient appears comfortable and nontoxic. She is afebrile. She is morbidly obese without significant abdominal tenderness. Differential diagnosis includes appendicitis, bowel obstruction, diverticulitis. As we have limited dose of IV contrast, we will proceed with CT abdomen pelvis with p.o. contrast. We will place an IV, bolus IV fluids, screening labs, urinalysis and give a dose of IV Tylenol and Toradol and reassess. 183 --labs reviewed and unremarkable. Normal white blood cell count. Normal electrolytes. Lipase normal. Urinalysis notes trace leukocyte esterase, 3-5 WBCs with few bacteria, urine culture sent. Fluvid negative. 1929 --nursing called me to room to state that patient is feeling like she is having difficulty speaking with difficulty swallowing, feeling spacey and chest tightness. Patient has had an allergy reaction to iodinated contrast so she was given barium sulfate instead of omnipaque due to iodine. She states her previous reaction to iodine has been chest tightness and shortness of breath. She states he does not feel similar to that but does feel spacey with chest tightness. Her vitals are within normal limits. Normal oropharynx. Lungs clear bilaterally. No focal deficits. We will give a dose of Solu-Medrol and Benadryl IV, obtain a stat troponin and EKG. Stat EKG notes a rate of 68, sinus, normal axis, no STEMI nondiagnostic. 1999 --Case endorsed to Dr. Pierre to follow-up on imaging and final disposition. We will plan on repeat troponin at10:30 PM. Medical Records Medical records reviewed: Yes I reviewed the patient's medical records. ECG Data Attestation: I personally reviewed and interpreted this ECG (s) as follows: Interpretation: Rate of 68, sinus, normal axis, low voltage, no STEMI. HPI <Lanie Cruz DO - Last Filed: 01/25/22 20:07> General Mode of arrival: ambulatory. Date/Time Provider Initiated Documentation: 01/25/22 14:40. Limitations to Documentation: no limitations. Information obtained by: patient. HPI Narrative: Patient is a 61-year-old female with a history of morbid obesity, anxiety, hypothyroidism, with bipolar disorder with report of chronic abdominal pain secondary to hernia who presents with lower abdominal pain for the past 2 days. She states she was seen at urgent care for the symptoms and referred here for further evaluation. She states she is unvaccinated for COVID and tested positive for COVID on January 12. She states she mainly had cough and fatigue at that time which is since resolved. He states her abdominal pain is constant, burning and mainly located in the lower abdomen. She states the pain is worse with walking. admits to some nausea but denies any fever, vomiting, diarrhea or urinary symptoms. She has taken Tylenol and ibuprofen for pain without relief. She has not taken any medication today for her symptoms. She states her pain is currently 7/10. Related Data Home Medications Medication Instructions Recorded Confirmed lamotrigine 200 mg tablet 200 mg PO DAILY #30 tab 08/25/18 01/25/22 bismuth subsalicylate 262 mg 2 tab PO Q30-60M PRN 01/11/20 01/25/22 chewable tablet (Peptic Relief) Thyroxine 1 PO BID 09/25/20 12/27/21 cholecalciferol (vitamin D3) 25 25 mcg PO DAILY 09/25/20 01/25/22 mcg (1,000 unit) tablet (Vitamin D3) cyanocobalamin (vitamin B-12) 500 500 mcg PO BID 09/25/20 01/25/22 mcg tablet (Vitamin B-12) nystatin 100,000 unit/gram topical 1 applic TOPICAL BID PRN #1 gm 10/07/20 01/25/22 powder (Nystop) rizatriptan 5 mg tablet 5 mg PO ONCE PRN #10 tab 12/20/20 01/25/22 G Fortify PO DAILY 04/19/21 12/27/21 ascorbic acid (vitamin C) 1,000 mg 1 g PO DAILY tab 04/19/21 01/25/22 tablet strain 16 probiotic 1 tab PO BID 04/19/21 01/01/22 levothyroxine 150 mcg tablet 150 mcg PO DAILY 06/20/21 01/25/22 estradiol 0.25 g VAGINAL DAILY #42.5 g 08/09/21 01/25/22 Previous Rx's Medication Instructions Recorded lamotrigine 200 mg tablet 200 mg PO DAILY #30 tab 08/25/18 nystatin 100,000 unit/gram topical 1 applic TOPICAL BID PRN #1 gm 10/07/20 powder (Nystop) rizatriptan 5 mg tablet 5 mg PO ONCE PRN #10 tab 12/20/20 estradiol 0.25 g VAGINAL DAILY #42.5 g 08/09/21 Allergies Allergy/AdvReac Type Severity Reaction Status Date / Time Iodinated Contrast Media Allergy Severe COULDN'T Verified 01/25/22 14:30 [Iodinated Contrast Media - BREATHE IV Dye] divalproex sodium Allergy Intermediate HIVES Verified 01/25/22 14:30 venlafaxine [From Effexor] Allergy Unknown Verified 01/25/22 14:30 topiramate [From Topamax] AdvReac Unknown anxiety Verified 01/25/22 14:30 citalopram AdvReac stomach Verified 01/25/22 14:30 distress General Stated Complaint: Abd Prob CHELA: 3 Review of Systems <Lanie Cruz DO - Last Filed: 01/25/22 20:07> All systems reviewed & are unremarkable except as noted in HPI and below Constitutional Constitutional: Denies chills, Denies excessive sweating, Denies fatigue, Denies fever(s), Denies weakness and Denies weight loss Eyes Eyes: Reports system reviewed and no additional complaints, except as documented and Denies blurry vision ENT Ears, Nose, Mouth, and Throat: Denies vertigo, Denies dizziness, Denies otalgia, Denies nasal congestion, Denies sore throat and Denies throat swelling Cardiovascular Cardiovascular: Denies chest pain, Denies syncope, Denies rapid heart rate and Denies dyspnea Respiratory Respiratory: Denies chest congestion, Denies cough, Denies pain on inspiration and Denies dyspnea Gastrointestinal Gastrointestinal: Reports abdominal pain, Denies diarrhea, Reports nausea and Denies vomiting Genitourinary Genitourinary: Denies hematuria, Denies dysuria and Denies flank pain Musculoskeletal Musculoskeletal: Denies back pain and Denies joint swelling Integumentary/Breasts Skin/Breast: Denies lesions and Denies rash Neurologic Neurologic: Denies behavioral changes, Denies confusion, Denies vertigo, Denies dizziness, Denies syncope, Denies localized weakness and Denies weakness Psychiatric Psychiatric: Denies behavioral changes, Denies confusion and Denies depression Endocrine Endocrine: Denies excessive sweating and Denies fatigue Hematologic/Lymphatic Hematologic/Lymphatic: Denies easy bruising and Denies lymphadenopathy Allergic/Immunologic Allergic/Immunologic: Denies throat swelling [facility] <Lanie Cruz, - Last Filed: 01/25/22 20:07> All Active Problems (Updated 01/25/22 @ 23:11 by Shahbaz Pierre MD) Abdominal pain (Acute) Umbilical hernia (Acute) Atherosclerosis of aorta (Acute) Uterine leiomyoma (Acute) Constipation (Acute) Pericardial effusion (Acute) Abdominal pain (Acute) Hernia, umbilical (Acute) Morbid obesity with BMI of 45.0-49.9, adult (Acute) Umbilical hernia (Acute) Functional abdominal pain syndrome (Chronic) Anxiety with somatic features (Chronic) Dyspnea on minimal exertion (Acute) Elevated blood pressure reading without diagnosis of hypertension (Acute) Chronic nausea (Acute) Abnormal finding of blood chemistry, unspecified (Acute) Manic behavior (Acute 08/22/99) HX of catatonia; hospitalized [facility] and [facility] - followed by Paco MERAZ Obstructive sleep apnea (Chronic) C-PAP Medical History (Updated 01/25/22 @ 23:11 by Shahbaz Pierre MD) Abdominal bloating Accidental fall from chair Back pain Biliary colic a. Unrelenting. Chronic eczema Colon polyps COVID-19 vaccine dose declined Decreased sense of well-being x1yr. Various somatic complaints w/o clear etiology. Elevated C-reactive protein (CRP) Endometrial thickening on ultrasound 11/16/20. Incidental finding. No PMB. No plans for further evaluation. Gastritis Grief at loss of child (03/05/18) Hypothyroidism (acquired) (08/22/04) Intertrigo Irritable bowel syndrome with constipation and diarrhea (12/05/15) Migraine Nausea Perimenopausal atrophic vaginitis Syncope (03/05/18) Tobacco use disorder quit 2005; 04/29 CXR-left base atelec/scar; improved 06/29; Vaginal burning Vaginal dryness Vitamin D deficiency (~11/2018) Surgical History Cholecystectomy (01/27/14) History of Surgical Procedure a. Edematous obstructed gallbladder removal. Family History (Updated 07/31/21 @ 14:48 by Inna Laird) Father Dementia Grandfather Diabetes Grandmother Heart disease Grandmother Heart disease Son , 37 Substance abuse Family History Depression Cancer Social History (Updated 07/31/21 @ 14:46 by Inna Laird) Smoking/Tobacco Use Status: Former Tobacco Use tobacco type: cigarettes Quit Date: 09/23/89 Tobacco: How many years used: 10 Second Hand Exposure: Yes Smoking risk assessment performed?: Yes Alcohol Intake: current Alcohol Intake frequency: holidays/special occasions only Alcohol type: wine Drug use: Never Substance use type: does not use 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 Pets and animals: No Sexually active: No Do you think of yourself as: straight/heterosexual Current gender identity: female What is your relationship status?: How often do you talk on the phone with friends or family?: three or more times per week How often do you get together with friends or relatives?: once per week Do you belong to any clubs or organized social groups?: no Panel score (0-1 are the most socially isolated patients): 2 What type of physical activity do you participate in: walking and aerobic Duration: 15-30 minutes/day Thuy/Zoroastrianism: Christian Special thuy needs: No Seatbelt use: always Drive intox or ride w/intox industrial truck 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 Exam <Lanie Cruz DO - Last Filed: 01/25/22 20:07> Const General: cooperative Nutritional Appearance: obese morbidly obese Orientation: alert, awake and oriented x3 HENMT Head: normal to inspection Ears: hearing grossly normal bilaterally, external ears normal and TM's normal bilaterally General nose exam: external nose normal Face and sinus: normal facial exam Mouth: oral mucosae normal Teeth and gingiva: dentition normal Throat: posterior oropharynx normal Eyes General: appearance normal, both eyes and all related structures Eyelids: eyelids normal Pupils: PERRL EOM: EOM intact bilaterally Neck Neck: normal visual inspection Lymphatic: no lymphadenopathy noted Chest Chest: normal inspection of the chest Resp Effort & Inspection: normal respiratory effort and able to speak in complete sentences Auscultation: clear to auscultation bilaterally Cardio Rate: regular rate Rhythm: regular rhythm GI Inspection: normal to inspection and obesity Palpation: soft, not firm, no guarding, no hepatosplenomegaly, no masses and nontender Auscultation: normal bowel sounds Back/Spine/Pelvis Back: no CVA tenderness Skin General skin exam: no rashes or lesions noted Neuro General: patient alert and patient awake Cognition: normal cognition Speech: speech normal Gait: normal gait Motor: muscle tone normal throughout Sensory Exam: no sensory deficits noted Extrem General: normal to inspection, full ROM and capillary refill normal Psych Appearance: grossly normal Mental Status: mental status grossly normal Speech and Movement: speech and movement normal Affect: normal affect Thought Process: normal Course <DO Kristine Ray Last Filed: 01/25/22 20:07> Vital Signs Vital signs: Vital Signs Temperature 97.7 F 01/25/22 14:22 Pulse 80 01/25/22 14:22 Respiratory Rate 16 01/25/22 14:22 Blood Pressure 156/81 H 01/25/22 14:22 Pulse Oximetry 98 01/25/22 14:22 Temperature 97.7 F 01/25/22 14:22 Pulse 80 01/25/22 14:22 Respiratory Rate 16 01/25/22 14:22 Respiratory Effort 01/25/22 14:33 Blood Pressure 156/81 H 01/25/22 14:22 Pulse Oximetry 98 01/25/22 14:22 Pain Level 8 01/25/22 14:22 Lab/Test Results Lab/Test Results: Laboratory Tests Range/Units 01/25/22 01/25/22 01/25/22 15:43 15:57 15:57 WBC (4.4-10.8) 10^3/uL RBC (3.93-5.22) 10^6/uL Hgb (11.2-15.7) g/dL Hct (36.0-46.0) % MCV (80-95) fL MCH (27.0-33.0) pg MCHC (32.0-36.0) % RDW (11.7-14.6) % Plt Count (130-400) 10^3/uL MPV (8.0-11.0) fL Immature Gran % Neutrophils % Lymphocytes % Monocytes % Eosinophils % Basophils % Nucleated RBC % (0.0-0.3) % Absolute Neutrophils (1.2-6.7) 10^3/uL Absolute Lymphocytes (1.2-3.4) 10^3/uL Absolute Monocytes (0.1-0.8) 10^3/uL Absolute Eosinophils (0.0-0.7) 10^3/uL Absolute Basophils (0.0-0.2) 10^3/uL Sodium (136-145) mmol/L 142 Potassium (3.5-5.1) mmol/L 4.4 Chloride (98-107) mmol/L 105 Carbon Dioxide (21.0-32.0) mmol/L 29.8 Anion Gap (3-11) mmol/L 7.2 BUN (7-18) mg/dL 14 Creatinine (0.55-1.02) mg/dL 0.9 Estimated GFR/1.73 m2 (mL/min/1.73m2) >= 60.00 Glucose (74-106) mg/dL 92 Calcium (8.5-10.1) mg/dL 9.1 Magnesium (1.8-2.4) mg/dL 2.5 H Total Bilirubin (0.2-1.0) mg/dL 0.4 AST (15-37) U/L 11 L ALT (14-59) U/L 20 Alkaline Phosphatase (46-116) U/L 90 Troponin I (<or=60) ng/L < 50 Total Protein (6.4-8.2) g/dL 7.8 Albumin (3.4-5.0) g/dL 3.7 Lipase (73-393) U/L 56 COVID-19 Source Nasopharynx SARS-CoV-2 (PCR) (Negative) Negative Influenza Type A (PCR) (Negative) Negative Influenza Type B (PCR) (Negative) Negative RSV (PCR) (Negative) Negative Range/Units 01/25/22 15:57 WBC (4.4-10.8) 10^3/uL 8.95 RBC (3.93-5.22) 10^6/uL 4.66 Hgb (11.2-15.7) g/dL 13.0 Hct (36.0-46.0) % 42.4 MCV (80-95) fL 91 MCH (27.0-33.0) pg 27.9 MCHC (32.0-36.0) % 30.7 L RDW (11.7-14.6) % 15.5 H Plt Count (130-400) 10^3/uL 298 MPV (8.0-11.0) fL 10.5 Immature Gran % 0.2 Neutrophils % 68.6 Lymphocytes % 22.3 Monocytes % 6.5 Eosinophils % 1.7 Basophils % 0.7 Nucleated RBC % (0.0-0.3) % 0.0 Absolute Neutrophils (1.2-6.7) 10^3/uL 6.14 Absolute Lymphocytes (1.2-3.4) 10^3/uL 2.00 Absolute Monocytes (0.1-0.8) 10^3/uL 0.58 Absolute Eosinophils (0.0-0.7) 10^3/uL 0.15 Absolute Basophils (0.0-0.2) 10^3/uL 0.06 Sodium (136-145) mmol/L Potassium (3.5-5.1) mmol/L Chloride (98-107) mmol/L Carbon Dioxide (21.0-32.0) mmol/L Anion Gap (3-11) mmol/L BUN (7-18) mg/dL Creatinine (0.55-1.02) mg/dL Estimated GFR/1.73 m2 (mL/min/1.73m2) Glucose (74-106) mg/dL Calcium (8.5-10.1) mg/dL Magnesium (1.8-2.4) mg/dL Total Bilirubin (0.2-1.0) mg/dL AST (15-37) U/L ALT (14-59) U/L Alkaline Phosphatase (46-116) U/L Troponin I (<or=60) ng/L Total Protein (6.4-8.2) g/dL Albumin (3.4-5.0) g/dL Lipase (73-393) U/L COVID-19 Source SARS-CoV-2 (PCR) (Negative) Influenza Type A (PCR) (Negative) Influenza Type B (PCR) (Negative) RSV (PCR) (Negative) Sign Out <Lanie Cruz DO - Last Filed: 01/25/22 20:07> Sign Out Data: Sign Out Comment: Follow-up on CT abdomen and pelvis results. Patient complained of difficulty speaking, swallowing, feeling spacey and chest tightness after near finishing second bottle of oral contrast. Her vitals were within normal limits, normal oropharynx and lungs clear. She was given Solu-Medrol and Benadryl IV. Stat EKG unremarkable. Follow-up on stat troponin with plan for delta troponin at 10:30 PM. If work-up unremarkable and patient feels better, will plan for discharge to home. Last updated by Lanie Cruz DO at 01/25/22 19:57
[2022-01-25] MEDS: Normal Saline 1,000 ML 1000 ML IV (17:01)
[2022-01-25] MEDS: Ketorolac 30 MG/ML VIAL IVP (17:05)
[2022-01-25] MEDS: ACETAMINOPHEN 1,000 MG/100 ML BTL 400 MG IVPB (17:06)
[2022-01-25] MEDS: Ondansetron 4 MG/2 ML VIAL IVP (17:07)
[2022-01-25 17:09] VITALS: BP 146/80; PULSE 67; RESP 18; TEMP 36.7; O2SAT 99
[2022-01-25] MEDS: Barium Sulfate 2% W/V-Berry Smoothie 450 ML BTL PO (17:43)
[2022-01-25 19:16] LABS: Bilirubin Negative (Negative); Blood Negative (Negative); Clarity Clear (Clear); Glucose Negative (Negative); Ketones Negative (Negative); Leukocyte Esterase Trace (Negative); Nitrite Negative (Negative); Specific Gravity 1.015 (1.005-1.025); Urobilinogen 0.2 EU/dL (Up TO 0.2); pH 5.5 (5-8)
[2022-01-25 19:29] VITALS: BP 158/84; PULSE 70; TEMP 36.8; O2SAT 99
--- NOTE | 2022-01-25 19:30 | RT.EKG_ITS ---
APPROVED REPORT Exam: Resting ECG Reason for Exam: chest heavy Patient Location: E HR:68 bpm ECG Measurements Heart Rate 68 AXIS UT 170 P 50 QRSd 84 QRS 25 QT 405 T 28 QTc 431 Conclusion Sinus rhythm...normal P axis, V-rate 60- 99 Low voltage, precordial leads...precordial leads <1.0mV. Sinus. Low voltage. No STEMI. I have reviewed and interpreted ECG and agree with software generated interpretation.
--- NOTE | 2022-01-25 19:30 | RT.EKG_ITS ---
APPROVED REPORT Exam: Resting ECG Reason for Exam: chest tightness Patient Location: E HR:59 bpm ECG Measurements Heart Rate 59 AXIS NE 158 P 38 QRSd 90 QRS 20 QT 428 T 34 QTc 425 Conclusion Sinus bradycardia...rate< 60 Low voltage, precordial leads...precordial leads <1.0mV
--- NOTE | 2022-01-25 19:30 | NUR.NOTE ---
1924: pt rang call joyce to advise of not felling quite right states feels spacy and airy heaviness left side of chest Nursing Note:
[2022-01-25 19:36] LABS: Bacteria Few HPF (Negative); C & S Indicated? Yes; Casts Negative LPF (Negative); Crystals Negative HPF (Negative); Epithelial Cells Negative HPF (Negative); Mucus Negative (Negative)
[2022-01-25] MEDS: Normal Saline Flush 10 ML SYR IVP (19:40)
[2022-01-25] MEDS: diphenhydrAMINE 50 MG/ML VIAL IVP (19:44)
[2022-01-25] MEDS: methylPREDNISolone SUCC 125 MG VIAL IVP (19:44)
[2022-01-25] MEDS: Normal Saline 500 ML IV (19:44)
[2022-01-25 20:06] LABS: Troponin I < 50 ng/L (<or=60)
[2022-01-25] MEDS: Famotidine 20 MG/2 ML VIAL IVP (20:24)
[2022-01-25 20:25] VITALS: BP 151/69; PULSE 79; TEMP 36.7; O2SAT 98
--- NOTE | 2022-01-25 21:03 | DI.VRAD_ITS ---
PROCEDURE INFORMATION: Exam: CT Abdomen And Pelvis Without Contrast Exam date and time: 01/25/2022 8:07 PM Age: 61 years old Clinical indication: Abdominal pain; Localized; Lower; Prior surgery; Surgery date: 6+ months; Surgery type: Cholecystectomy TECHNIQUE: Imaging protocol: Computed tomography of the abdomen and pelvis without contrast. Radiation optimization: All CT scans at this facility use at least one of these dose optimization techniques: automated exposure control; mA and/or kV adjustment per patient size (includes targeted exams where dose is matched to clinical indication); or iterative reconstruction. Other contrast: Oral, barium , 900ml; COMPARISON: CT ABDOMEN PELVIS WO 01/25/2022 5:12 PM FINDINGS: Lungs: The visualized lung bases are within normal limits. Heart: There is a small pericardial effusion. Otherwise the visualized portions of the heart and pericardium appear unremarkable. Liver: The liver is within normal limits. Gallbladder and bile ducts: The patient is status post cholecystectomy. Pancreas: There is slight haziness at the level of the pancreas. This could indicate early pancreatitis. Clinical correlation is recommended. Spleen: The spleen is within normal limits. There is a small splenule. Adrenal glands: The adrenal glands are within normal limits. Kidneys and ureters: The kidneys are within normal limits. Stomach and bowel: There are feces within the colon which could indicate some degree of constipation. Appendix: No evidence of appendicitis. Intraperitoneal space: Unremarkable. No free air. No significant fluid collection. Vasculature: There are arteriosclerotic changes of the aorta. Lymph nodes: No enlarged lymph nodes. Urinary bladder: The urinary bladder is unremarkable. Reproductive: The uterus and ovaries are within normal limits. There is a small calcified uterine leiomyoma. Bones/joints: There are degenerative changes of the thoracic and lumbar spines. There are degenerative changes of both hips. Soft tissues: There is a large fat containing umbilical hernia. IMPRESSION: 1. Question early pancreatitis as above. Clinical correlation is recommended. This also could be secondary a stacey mesentery. 2. Status post cholecystectomy. 3. Arteriosclerotic changes of the aorta. 4. Suspect constipation as above. 5. Osseous findings as above. 6. Large fat containing umbilical hernia. 7. Small calcified uterine leiomyoma. Dictated and Authenticated by: Vazquez Carey MD. Ordering:EMMY Dela Cruz MD
[2022-01-25 22:04] VITALS: BP 124/66; PULSE 60; RESP 20; O2SAT 94
[2022-01-25 22:57] LABS: Troponin I < 50 ng/L (<or=60)
--- NOTE | 2022-01-25 23:09 | W.EDPROG ---
Date of service: 01/25/22 Time of Service: 22:00 Medical Decision Making Question pancreatitis noted on CT. Clinical picture is not consistent with pancreatitis. Lipase normal. Patient reassessed and stable. Feels better. I suspect her pain is result of umbilical hernia. Patient has follow-up with surgery for this and would benefit from more timely outpatient follow-up. All results were discussed with the patient. Plan for discharge with outpatient follow-up with PCP. Disposition decision was made weighing the risks and benefits of hospitalization versus outpatient treatment, the risk for further decompensation, and the patient's wishes. The patient was stable and requested discharge. Prior to discharge, my usual and customary return precautions were reviewed with the patient - this included follow-up instructions and reason to return to the emergency department if condition worsens, does not improve as expected, or other new concerns arise. Imaging Data Radiologic Study: Imaging: CT Scan (abd pelvis) Radiologist's impression: IMPRESSION: 1. Question early pancreatitis as above. Clinical correlation is recommended. This also could be secondary a stacey mesentery. 2. Status post cholecystectomy. 3. Arteriosclerotic changes of the aorta. 4. Suspect constipation as above. 5. Osseous findings as above. 6. Large fat containing umbilical hernia. 7. Small calcified uterine leiomyoma. Lab Data Lab results reviewed: Yes I reviewed the patient's lab results. Sign Out Sign Out Data: Sign Out Comment: Follow-up on CT abdomen and pelvis results. Patient complained of difficulty speaking, swallowing, feeling spacey and chest tightness after near finishing second bottle of oral contrast. Her vitals were within normal limits, normal oropharynx and lungs clear. She was given Solu-Medrol and Benadryl IV. Stat EKG unremarkable. Follow-up on stat troponin with plan for delta troponin at 10:30 PM. If work-up unremarkable and patient feels better, will plan for discharge to home. Last updated by Lanie Cruz DO at 01/25/22 19:57 Discharge Plan Disposition Patient Disposition: HOME Condition: Stable Discharge Details Clinical Impression: Abdominal pain, Umbilical hernia, Atherosclerosis of aorta, Uterine leiomyoma, Constipation, Pericardial effusion Primary Care Provider: Chay Sheriff ED Provider: Shahbaz Pierre Home Meds and New Rx's Prescriptions: Continued strain 16 probiotic 1 tab PO BID bismuth subsalicylate [Peptic Relief] 262 mg tablet,chewable 2 tab PO Q30-60M PRN Rx Instructions: do not exceed 16 tabs per 24 hrs ascorbic acid (vitamin C) 1,000 mg tablet 1 g PO DAILY G Fortify PO DAILY Rx Instructions: 1 scoop estradiol 0.01 % (0.1 mg/gram) cream 0.25 g vaginal DAILY Qty: 42.5 0RF Rx Instructions: Apply pea-sized amount to vaginal opening nightly x2wks. Then decrease use to twice weekly. levothyroxine 150 mcg tablet 150 mcg PO DAILY Rx Instructions: Per pt, per Dr. Ziggy aggarwal lamotrigine 200 mg tablet 200 mg PO DAILY Qty: 30 11RF nystatin [Nystop] 100,000 unit/gram powder 1 applic Topical BID PRN (Reason: intertrigo) Qty: 1 5RF Label Comments: PRN cyanocobalamin (vitamin B-12) [Vitamin B-12] 500 mcg Tablet 500 mcg PO BID cholecalciferol (vitamin D3) [Vitamin D3] 25 mcg (1,000 unit) Tablet 25 mcg PO DAILY Thyroxine 1 PO BID Label Comments: pt states its a supplement prescribed by homeopathic doctor Anton Johnson rizatriptan 5 mg tablet 5 mg PO ONCE MDD 10mg PRN (Reason: migraine headache) Qty: 10 5RF Rx Instructions: Take one tablet at onset of migraine. May take another 2 hours later if CRUZ still persists. Discharge Instructions Additional Instructions: You had multiple incidental findings noted on CT imaging today including small pericardial effusion. This is fluid around your heart. Please follow-up with your primary care physician. Call tomorrow to schedule timely follow-up. Please follow-up with Dr. Armstrong. Call her office tomorrow. Take oxycodone 5 mg tablet daily only for severe pain. This medication is addicting and will worsen constipation. Return to the ER immediately for any worsening or new concerning symptoms. Referrals: Chay Sheriff NP [Primary Care Provider] - Laure Armstrong MD [ [facility] STAFF PHYSICIAN] - Discharge Data Discharge Date/Time-TO BE ENTERED AT DEPARTURE: 01/25/22 23:28
== END 2022-01-25 23:28 | disposition home or self-care (01) ==
PROVIDERS: Physician Assistant; Emergency Provider Student in an Organized Health Care Education/Training Program; PCP Nurse Practitioner Family
DX: R10.30 Lower abdominal pain, unspecified (principal); K42.9 Umbilical hernia without obstruction or gangrene; I70.0 Atherosclerosis of aorta; D25.9 Leiomyoma of uterus, unspecified; K29.00 Acute gastritis without bleeding; I31.3 Pericardial effusion (noninflammatory); R07.89 Other chest pain
CPT/HCPCS: 36415; 80053; 83690; 87637; 93005; 96361; 96374; 96375; 99284; 74176; 81003; 81015; 83735; 84484; 85025; 87086; 93010; J0131; J1200; J1885; J2405; J2930

== ENCOUNTER 2022-01-25 21:22 | Outpatient (REF) | payer MEDICARE, BC, SELFPAY ==
[2022-01-25 21:37] LABS: Bilirubin Negative (Negative); Blood Trace-intact (Negative); Clarity Clear (Clear); Glucose Negative (Negative); Ketones Negative (Negative); Leukocyte Esterase Negative (Negative); Nitrite Negative (Negative); Specific Gravity 1.015 (1.005-1.025); Urobilinogen 0.2 EU/dL (Up TO 0.2); pH 5.5 (5-8)
[2022-01-25 21:39] LABS: Bacteria Negative HPF (Negative); C & S Indicated? No; Casts Negative LPF (Negative); Crystals Negative HPF (Negative); Epithelial Cells Negative HPF (Negative); Mucus Negative (Negative); Other Cells Negative (Negative); RBC 0-2 HPF (0-2); WBC Negative HPF (0-5)
== END 2022-01-25 21:23 | disposition home or self-care (01) ==
LOC: LBN 21:22
PROVIDERS: PCP Nurse Practitioner Family; Visit Provider Nurse Practitioner Family
DX: R10.9 Unspecified abdominal pain (principal); R82.998 Other abnormal findings in urine
CPT/HCPCS: 81003; 81015

== ENCOUNTER → 2022-02-22 01:21 | Outpatient (CLI) | payer MEDICARE, BC, SELFPAY ==
--- NOTE | 2022-02-22 14:58 | DI.US_ITS ---
APPROVED REPORT EXAM: Comprehensive 2D, Doppler, and color-flow Echocardiogram Patient Location: Out-Patient Photograph Tinter: Iva Saleem RDCS (AE) Indications: Pericardial effusion seen on CT. h/o COVID Other Information Study Quality: Adequate. Technically limited study due to body habitus. Conclusion Normal left ventricular wall thickness and chamber size. Estimated ejection fraction is 60%. Wall m otion is normal Right ventricular size and systolic function appear normal Both atria are normal in size The aortic valve was not well visualized There was no other structural or hemodynamically significant valvular disease noted Trivial pericardial effusion Mildly dilated ascending aorta measuring 3.72 cm Wall motion Left Ventricle The left ventricle is normal size. The left ventricular systolic function is normal. The left ventric ular ejection fraction is within the normal range. There is normal left ventricular wall thickness. T here is normal LV segmental wall motion. There is no ventricular septal defect visualized. LVEF is 60 %. Right Ventricle Right ventricle is grossly normal in size. Right ventricular systolic function is grossly normal. The RVSP is 21.4 mmHg. Atria The left atrium size is normal. The right atrium size is normal. The interatrial septum is intact wit h no evidence for an atrial septal defect. Aortic Valve The aortic valve is normal in structure. Number of aortic valve leaflets could not be assessed. There is no aortic valvular stenosis. No aortic regurgitation is present. Mitral Valve The mitral valve is normal in structure. No evidence of mitral valve stenosis. Mild mitral regurgitat ion. Tricuspid Valve The tricuspid valve is normal in structure. There is no tricuspid valve stenosis. Trace tricuspid reg urgitation. Pulmonic Valve The pulmonary valve is normal in structure. There is no pulmonic valvular stenosis. There is no pulmo juan manuel valvular regurgitation. Great Vessels The aortic root is normal in size. The ascending aorta is mildly dilated. Aortic arch is normal in ca liber. IVC is normal in size and collapses >50% with inspiration. Pericardium Trivial pericardial effusion. 2D Dimensions IVSD d PLAX 0.96 cm F: 0.6-1.0 LV Vol A2C d MOD 104.9 mL LVPW d PLAX 0.98 cm F: 0.6 - 1.0 LV Vol A4C d MOD 96.6 mL LVID d PLAX 5.25 cm F: 3.8 - 5.2 LA vol/ BSA A2C s A-L 24.9 mL/m2 LVDs 3.50 cm F: 2.2 - 3.5 LA vol/ BSA A4C s A-L 14.6 mL/m2 Ao Root d 2.95 cm F: 2.7 - 3.3 LA Vol/ BSA Biplane s A-L 19.9 mL/m2 RA Area A4C 18.34 cm2 LA Area A4C s MOD 14.25 cm2 RA Vol/ BSA A4C s A-L 23.2 mL/m2 LA Area A2C s MOD 19.45 cm2 Ao Asc Diam d 3.72 cm F: 2.3 - 3.1 LV EF A4C MOD 60.7 % LV EF Teichholz 61.0 % LV EF A2C MOD 60.8 % LVEF (Regan's) 61.44 % F: 54 - 74 LV EF Biplane MOD 61.4 % LV Volume 74.28 mL F: 46 - 106 SV 63.25 mL LV Volume Index 33.01 mL/m2 F: 29 - 61 SV Index 28.03 mL/m2 LV Vol Biplane MOD 102.9 mL FS 32.90 % M-Mode TAPSE 1.98 cm (M/F) >1.7 LV Diastology MV E' medial 0.110 (>0.07 m/s) E/A Ratio 1.1 LV E/e MED 7.30 (<14) MV E Vmax 0.81 (0.4-1.3 m/s) MV E' lateral 0.103 (>0.1 m/s) MV A Vmax 0.75 (0.4-1.3 m/s) LV E/e LAT 7.80 (<14) MV E/A Ratio 1.01 MV E/E' medial 7.32 MV E/E' lateral 7.84 Aortic Valve LVOT Area 2.99 cm2 AoV Area Vmax 2.39 cm2 LVOT Vmax 1.30 m/s AoV Area/ BSA (Vmax) 1.06 cm2/m2 LVOT Mean Kalia. 0.91 m/s SOLIS Mean Kalia. 2.36 cm2 LVOT Peak Grad 6.7 mmHg SOLIS Mean Kalia. Index 1.05 cm2/m2 LVOT Mean Grad 3.8 mmHg LVOT VTI 0.275 m LVOT Diam s 1.90 cm AoV Vmax 1.62 m/s Velocity Ratio 0.80 AoV Mean Kalia. 1.15 m/s AoV Peak Grad 10.5 mmHg LVOT SV 81.98 mL AoV Mean Grad 5.8 mmHg AoV VTI 0.342 m AoV Area VTI 2.39 cm2 AoV Area/ BSA (VTI) 1.06 cm/m2 Mitral Valve MV DT 232 (160-240 msec) MV PHT 67 msec MV Area PHT 3.27 cm2 MV VTI 0.240 m MV Area VTI 3.42 (4.0-6.0 cm2) Pulmonary Valve PV Vmax 0.86 (0.5-1.5 m/s) RVOT Peak Gr. 2.29 mmHg PV Peak Grad 2.9 mmHg RVOT Mean Gr. 1.25 mmHg PV Mean Grad 1.7 mmHg RVOT VTI 0.123 m PV VTI 0.181 m RVOT Vmax 0.76 m/s Tricuspid Valve TR Peak Grad 18.4 mmHg TR Vmax 2.15 m/s RA Pressure 3.00 mmHg RVSP (TR) 21.4 mmHg
== END ==
PROVIDERS: PCP Nurse Practitioner Family; Visit Provider Family Medicine
DX: I31.3 Pericardial effusion (noninflammatory) (principal)
CPT/HCPCS: 93306

== ENCOUNTER → 2022-02-23 09:34 | Outpatient (BNVA) | payer MEDICARE, BC, SELFPAY | PROVIDERS: PCP Nurse Practitioner Family; Referring Provider Nurse Practitioner Family; Visit Provider Surgery | DX: K42.9 Umbilical hernia without obstruction or gangrene (principal) | CPT/HCPCS: 99213 ==

== ENCOUNTER 2022-02-28 03:46 | Outpatient (CLI) | payer MEDICARE, BC, SELFPAY ==
[2022-02-28 14:29] LABS: FREE T4 1.12 ng/dL (0.76-1.46); TSH 5.45 uIU/mL (0.36-3.74)
== END 2022-02-28 03:47 | disposition home or self-care (01) ==
LOC: LOS 03:46
PROVIDERS: PCP Nurse Practitioner Family; Visit Provider Internal Medicine Endocrinology, Diabetes & Metabolism
DX: E03.9 Hypothyroidism, unspecified (principal)
CPT/HCPCS: 36415; 84439; 84443

== ENCOUNTER 2022-03-05 03:54 | Outpatient (CLI) | payer MEDICARE, BC, SELFPAY ==
[2022-03-05 09:30] LABS: Source Nasal/Nares
[2022-03-05 13:07] LABS: COVID-19 PCR Negative (Negative)
== END 2022-03-05 03:55 | disposition home or self-care (01) ==
LOC: LBO 03:54
PROVIDERS: PCP Nurse Practitioner Family; Visit Provider Surgery
DX: Z20.822 Contact with and (suspected) exposure to COVID-19 (principal); Z01.818 Encounter for other preprocedural examination
CPT/HCPCS: 87635; U0005

== ENCOUNTER 2022-03-07 06:15 | Day surgery (SDC) | payer MEDICARE, BC, SELFPAY ==
[2022-03-07] VITALS (13 sets, daily range): BP systolic 106–149; BP diastolic 69–102; PULSE 57–75; RESP 12–18; TEMP 35.6–36.2; TEMPC 36.3; O2SAT 91–99; BMI 51.0
--- NOTE | 2022-03-07 06:31 | ROE_ITS ---
Date of service: 03/07/22 Time of Service: 09:28 Operative Note Operative Note DATE OF PROCEDURE: 03/07/22 PRE-OP DIAGNOSIS: Umbilical hernia POST-OP DIAGNOSIS: same PROCEDURE: Umbilical hernia repair with mesh SURGEON: Laure Armstrong [employer] JUDGE: Sil Dillon ANESTHESIA TYPE: Local By Surgeon, General LMA/ETT and Primary Nerve Block Refer to Anesthesia Record ESTIMATED BLOOD LOSS: 20 PATHOLOGY: none sent COMPLICATIONS: None Patient was transported to: PACU Patient's condition: stable Implants: Ventrio ST Hernia patch: [id number] [id number] LOT [id number] EXP 2023-02-17 Covidien Reliatack: REF [id number] LOT [id number] EXP 2023-05-23 Indications: Mrs Mateus Merritt is a pleasant 61-year-old female with a number of a local incisional hernia who comes in today to discuss possible repair.? She has been having increased discomfort in the area as well as feeling sick to her stomach.? She noted the hernia about a year after her laparoscopic cholecystectomy.? She also complains of constipation.? Unfortunately her weight has increased since I saw her back in December.? Her BMI has gone from a 48.4 to 50.? We did discuss that she is still at increased risk of recurrence as well as infection due to her weight.? I recommend an open repair as I can feel the small bowel tunneling underneath the skin.? I discussed the procedure with the patient as well as the risks and the complications and she wished to proceed. Risks, benefits and complications have been reviewed. Complications include but are not limited to bleeding, pain, infection, injury to underlying structures like bowel and adverse reaction to the medication.? Questions were entertained and answered to their satisfaction and they wished to proceed. No guarantees were given or implied. Proceed with open incisional hernia repair with mesh. Findings: 5 x 4 cm hernia with a hernia pocket tunneling inferiorly measuring 5 cm in length and 4 cm in width Procedure Description: After informed consent was obtained the patient was taken to the operating room and placed in a supine position. Monitors and SCDs were applied and a timeout was done. The patient's name, date of , procedure type, procedure site, allergies to medications, preoperative antibiotic, and DVT prophylaxis were all reviewed. Fire risk was assessed. Next anesthesia did a bilateral rectus block under ultrasound guidance. Please see their separate dictation. Once anesthesia was done the abdomen was prepped and draped in a sterile surgical fashion. 0.5% Bupivacaine was injected into the dermis just above the umbilicus. An incision was made with a 15 blade over the umbilicus. Dissection was done with cautery through the subcutaneous tissues and through the umbilical stalk down to the fascia. The hernia defect was identified and measured 5 x 4 cm. The peritoneum was swept for adhesions. no adhesions were noted. The omentum was noted to tunnel under the skin at the 6 oclock position for a 5 cm length. The pocket was closed with 0 vicryl interrupted sutures. A 12 x 11 cm oval mesh was then placed under the peritoneum and secured at the 3 and 9 o'clock position with 2-0 Proline. Using a tacker the mesh was secured circumferentialy up to the fascia. Once the mesh was secured the tissues were irrigated with some normal saline. No bleeding was identified. The fascia was closed over the mesh with 0 vicryl running suture. 2-0 Vicryl was used to secure the umbilicus down to the fascia. The subcutaneous tissue was re-approximated with 2-0 vicryl. The dermis was re-approximated with a running 4-0 Vicryl. The skin was cleaned and dried and skin affix was applied. The patient was woken up and taken back to recovery in stable condition. There were no immediate complications. Sponge, instrument and needle counts were correct at the end of the case x2.
--- NOTE | 2022-03-07 06:33 | W.PM.DSUDISC ---
Discharge Plan Disposition Patient Disposition: HOME Condition: Good Discharge Details Reason For Visit: Umbilical hernia Attending Provider: Laure Armstrong Primary Care Provider: Chay Sheriff Home Meds and New Rx's Prescriptions: New oxycodone 5 mg tablet 5 mg PO Q6H PRNQty: 14 0RF Continued strain 16 probiotic 1 tab PO BID bismuth subsalicylate [Peptic Relief] 262 mg tablet,chewable 2 tab PO Q30-60M PRN Rx Instructions: do not exceed 16 tabs per 24 hrs ascorbic acid (vitamin C) 1,000 mg tablet 1 g PO DAILY G Fortify 1 tab PO DAILY Rx Instructions: 1 scoop estradiol 0.01 % (0.1 mg/gram) cream 0.25 g vaginal DAILY Qty: 42.5 0RF Rx Instructions: Apply pea-sized amount to vaginal opening nightly x2wks. Then decrease use to twice weekly. nystatin [Nystop] 100,000 unit/gram powder 1 applic Topical BID PRN (Reason: intertrigo) Qty: 1 5RF Label Comments: PRN cyclobenzaprine 10 mg tablet 10 mg PO Q8H PRN (Reason: muscle spasm) Qty: 30 0RF triamcinolone acetonide 0.1 % cream 1 applic topical BID Qty: 80 0RF Rx Instructions: to affected area levothyroxine 150 mcg tablet 150 mcg PO DAILY Rx Instructions: Per pt, per Dr. Ziggy aggarwal lamotrigine 200 mg tablet 200 mg PO DAILY Qty: 30 11RF rizatriptan 5 mg tablet 5 mg PO ONCE MDD 10mg PRN (Reason: migraine headache) Qty: 10 5RF Rx Instructions: Take one tablet at onset of migraine. May take another 2 hours later if CRUZ still persists. cyanocobalamin (vitamin B-12) [Vitamin B-12] 500 mcg Tablet 500 mcg PO BID cholecalciferol (vitamin D3) [Vitamin D3] 25 mcg (1,000 unit) Tablet 25 mcg PO DAILY Thyroxine 1 tab PO BID Label Comments: pt states its a supplement prescribed by homeopathic doctor Anton trazodone 50 mg Tablet 50 mg PO HS lorazepam [Ativan] 2 mg Tablet 1 - 2 mg PO DAILY PRN Discharge Instructions Additional Instructions: Activity at Home after surgery: 1. Make sure you walk outside at least 4 times per day 2. You should be able to climb a flight of stairs 3. No driving while in pain or taking pain medications 4. No strenuous activity or heavy lifting for 4 weeks (open surgery) Diet, Nutrition, & wound healin. Avoid alcohol until after you are recovered from your surgery 2. Make sure to eat plenty of lean protein (meat, fish, eggs, cottage cheese, beans) 3. Eat a variety of fruits and vegetables. Eat plenty of high fiber foods to avoid constipation. 4. Drink plenty of liquids to stay hydrated and avoid constipation Pain Medications: 1. Tylenol 650mg every 6 hours as needed and Ibuprofen 600 mg every 6 hours as needed. You may alternate between the 2 medications every 3 hours 2. If a narcotic has been prescribed take as directed only for breakthrough pain For Constipation: 1. Take Milk of Magnesia or MiraLax as needed for constipation Other: 1. You may shower daily. Do not scrub the incisions 2. Do not soak the incisions for 1 week 3. You may alternate ice and heat as needed for pain and swelling Wound Care: 1. Keep the incisions clean and dry Please call our office if you develop: 1. Fevers >101.5 2. Nausea or Vomiting 3. Worsening pain 4. Redness and thick discharge from the wounds If after hours please call the Hospital at and ask to speak to the on-call surgeon Referrals: Laure Armstrong MD [ [facility] STAFF PHYSICIAN] - 03/20/22 2:30 pm Activity:: see above Diet:: As Tolerated Discharge Orders Discharge Orders: Discharge Order (Routine); Ordered 03/07/22 Ordered By: Laure Armstrong
[2022-03-07] MEDS: Gabapentin 300 MG CAP 600 MG PO (07:06)
[2022-03-07] MEDS: Celecoxib 200 MG CAP PO (07:06)
[2022-03-07] MEDS: Acetaminophen 500 MG TAB 1000 MG PO (07:06)
[2022-03-07] MEDS: Lactated Ringers 1,000 ML 80 ML IV (07:25)
--- NOTE | 2022-03-07 07:47 | W.ANESPRE ---
General Info Date of Service Date Performed: 03/07/22 Height: 5 ft 4 in Weight: 135 kg Body Mass Index (BMI): 51.0 Surgical Procedure: Operation Date: 03/07/22 08:25 Proposed Procedure Side Surgeon p Herniorrhaphy Umbilical/Incisional w/Mesh Laure Armstrong MD Meds Allergies and Home Medications Allergies Allergy/AdvReac Type Severity Reaction Status Date / Time Iodinated Contrast Media Allergy Severe COULDN'T Verified 03/07/22 06:40 [Iodinated Contrast Media - BREATHE IV Dye] divalproex sodium Allergy Intermediate HIVES Verified 03/07/22 06:40 venlafaxine [From Effexor] Allergy Unknown Verified 03/07/22 06:40 topiramate [From Topamax] AdvReac Unknown anxiety Verified 03/07/22 06:40 citalopram AdvReac stomach Verified 03/07/22 06:40 distress Home Medication Medication Instructions Recorded lamotrigine 200 mg tablet 200 mg PO DAILY mood #30 tabs 08/25/18 bismuth subsalicylate 262 mg 2 tab PO Q30-60M PRN 01/11/20 chewable tablet (Peptic Relief) Thyroxine 1 tab PO BID 09/25/20 cholecalciferol (vitamin D3) 25 25 mcg PO DAILY 09/25/20 mcg (1,000 unit) tablet (Vitamin D3) cyanocobalamin (vitamin B-12) 500 500 mcg PO BID 09/25/20 mcg tablet (Vitamin B-12) G Fortify 1 tab PO DAILY 04/19/21 ascorbic acid (vitamin C) 1,000 mg 1 g PO DAILY 04/19/21 tablet strain 16 probiotic 1 tab PO BID 04/19/21 levothyroxine 150 mcg tablet 150 mcg PO DAILY 06/20/21 estradiol 0.01% (0.1 mg/gram) 0.25 g vaginal DAILY #42.5 grams 08/09/21 vaginal cream rizatriptan 5 mg tablet 5 mg PO ONCE PRN migraine headache 01/31/22 #10 tabs cyclobenzaprine 10 mg tablet 10 mg PO Q8H PRN muscle spasm #30 02/23/22 tabs nystatin 100,000 unit/gram topical 1 applic topical BID PRN 02/23/22 powder (Nystop) intertrigo #1 g triamcinolone acetonide 0.1 % 1 applic topical BID #80 grams 02/23/22 topical cream lorazepam 2 mg tablet (Ativan) 1 - 2 mg PO DAILY PRN 03/06/22 trazodone 50 mg tablet 50 mg PO HS 03/06/22 Current Visit Medications: Current Medications Generic Name Dose Route Start Last Admin Trade Name Freq PRN Reason Stop Dose Admin Acetaminophen 1,000 mg 03/07/22 06:00 03/07/22 07:06 Acetaminophen 500 Mg Tab PO 04/05/22 23:59 1,000 mg PREOP FILEMON Administration Celecoxib 200 mg 03/07/22 06:00 03/07/22 07:06 Celecoxib 200 Mg Cap PO 04/05/22 23:59 200 mg PREOP FILEMON Administration Gabapentin 600 mg 03/07/22 06:00 03/07/22 07:06 Gabapentin 300 Mg Cap PO 04/05/22 23:59 600 mg PREOP FILEMON Administration Ringer's Solution 1,000 mls @ 80 mls/hr 03/07/22 06:00 03/07/22 07:25 IV 04/05/22 23:59 80 mls/hr INFUSION FILEMON Administration Ondansetron HCl 4 mg/ Sodium 52 mls @ 200 mls/hr 03/07/22 06:34 Chloride IVPB Q6H PRN PRN Cefazolin Sodium 3,000 mg/ 100 mls @ 200 mls/hr 03/07/22 06:00 Sodium Chloride IVPB 03/07/22 16:10 PREOP FILEMON IV Miscellaneous Supplies 1 each 03/07/22 06:00 Iv Access IV 04/05/22 23:59 DIRECTED FILEMON Oxycodone HCl 5 mg 03/07/22 06:34 Oxycodone 5 Mg Tab PO Q3H PRN PRN Pain Sodium Chloride 0 ml 03/07/22 06:00 Normal Saline Flush 10 Ml Syr IV 04/05/22 23:59 PRN PRN Sodium Chloride 0 ml 03/07/22 06:00 Normal Saline 10 Ml Vial IJ 04/05/22 23:59 DIRECTED PRN Sterile Water 0 ml 03/07/22 06:00 Water,Injection,Sterile 10 Ml Vial IJ 04/05/22 23:59 DIRECTED PRN PFSH Active Problems Active Problems: Problem Status Onset Code Manic behavior 08/22/99 F30.10 Obstructive sleep apnea G47.33 Chronic nausea R11.0 Morbid obesity with BMI of 45.0-49.9, adult E66.01, Z68.42 Eczema L30.9 Medical History Medical History (Updated 03/07/22 @ 06:40 by Renu Talavera) Abdominal bloating Accidental fall from chair Anxiety with somatic features Back pain Biliary colic a. Unrelenting. Bipolar 2 disorder Chronic eczema Colon polyps COVID-19 12/2021-URI symptoms and malaise. Patient declines vaccine COVID-19 vaccine dose declined Decreased sense of well-being x1yr. Various somatic complaints w/o clear etiology. Elevated blood pressure reading without diagnosis of hypertension Elevated C-reactive protein (CRP) Endometrial thickening on ultrasound 11/16/20. Incidental finding. No PMB. No plans for further evaluation. Gastritis Grief at loss of child (03/05/18) Hypothyroidism (acquired) (08/22/04) Intertrigo Irritable bowel syndrome with constipation and diarrhea (12/05/15) Migraine Nausea Perimenopausal atrophic vaginitis Syncope (03/05/18) Tobacco use disorder quit 2005; 04/29 CXR-left base atelec/scar; improved 06/29; Uterine leiomyoma Vaginal burning Vaginal dryness Vitamin D deficiency (~11/2018) Surgical History Surgical History Cholecystectomy (01/27/14) History of blepharoplasty History of Surgical Procedure a. Edematous obstructed gallbladder removal. Hx of colonoscopy Tobacco Smoking/Tobacco Use Status: Former Tobacco Use Second hand exposure: Yes Alcohol Alcohol Intake: current Alcohol intake frequency: holidays/special occasions only Alcohol type: wine Substance Use Substance use: Never Substance use type: does not use Prental History History 3 Para 3 Hx # Term Pregnancies 3 Multiple births Hx # Pregnancies Ectopic pregnancies AB induced Hx Number of Living Children 2 AB spontaneous Vital Signs and Lab Results Vital Signs Most Recent Vital Signs in EMR: Most Recent Vital Signs Temp Pulse Resp BP Pulse Ox 36.2 C L 75 18 143/80 H 99 03/07/22 06:58 03/07/22 06:58 03/07/22 06:58 03/07/22 06:58 03/07/22 06:58 Lab Results Blood Type / Crossmatch: No Data to Display Complete Blood Count: No Data to Display Complete Metabolic Panel: No Data to Display Liver Function Panel: No Data to Display Coagulation Panel: No Data to Display Cardiac Panel: No Data to Display Arterial Blood Gas: No Data to Display Venous Blood Gas: No Data to Display Pancreas Panel: No Data to Display Thyroid Panel: Thyroid Stimulating Hormone (TSH) 5.45 uIU/mL (0.36-3.74) H 02/28/22 10:17 Infectious Disease: Coronavirus (COVID-19)(PCR) Negative (Negative) 03/05/22 08:40 Coronavirus 2019 Source Nasal/Nares 03/05/22 08:40 Blood Cultures: No Data to Display Toxicology Panel: No Data to Display Anesthesia Assessment and Plan Anesthesia History Personal History: No History of Anesthesia Complications Family History: No Family History of Anesthesia Complications Exercise Tolerance Exercise Tolerance: Metabolic Equivalents>4 Pertinent Negatives Pertinent Negatives: No Symptoms of GERD, No Major Cardiovascular Symptoms or Complaints, No Major Pulmonary Symptoms or Complaints and No History of CVA/TIA Cardiac & Pulmonary Exam Cardiac Exam: Normal S1/S2 Heart Sounds Pulmonary Exam: Clear Bilateral Breath Sounds Implantable Cardiac Device Does patient have a Pacemaker or an ICD?: No Airway Exam Known Difficult Airway: No Mallampati Class: 2 Mouth Opening: Normal (> 3cm) Thyromental Distance: Greater than 3 cm Neck Range of Motion: Full ROM Neck Circumference: Thick Teeth Condition: Normal Dentition ASA Classification ASA Score: ASA 2 Emergency Case?: No NPO Status NPO Status: NPO Clears >2 hours, Solids >8 hours Anesthesia Plan Resuscitation Status: Full Code Anesthesia Technique: General Anesthesia Airway Planned: Endotracheal Tube Monitors Used: Standard Monitors
[2022-03-07] MEDS: ceFAZolin 3,000 MG in Normal Saline 100 ML 200 MG IVPB (08:12)
--- NOTE | 2022-03-07 08:41 | W.ANESNERVE ---
Nerve Block Single Injection Procedure Date and Time Date Performed: 03/07/22 Procedure Start: 08:30 Location Where Procedure Performed Procedure Location: Operating Room Procedure Stop: 08:38 Reason Performed: Postoperative Analgesia Requesting Provider: Laure Armstrong Timeout Performed Timeout Performed: Yes Monitoring Used ECG, Blood Pressure, SpO2 and ETCO2 Sterility Sterility: Hand Hygiene, Surgical Cap, Eye Protection and Chlorhexidine Sedation Given During Procedure Sedation Given (Indicate Dose Given): No Sedation given Patient Mental Status Patient Mental Status: Performed under general anesthesia Nerve Block 1st Nerve Block: Laterality: Bilateral Block Type: TAP Bilateral Needle / Catheter Used: 100mm SonoPlex II Local Anesthetic Bolus (Indicate Dose Given): Injected in 3-5ml increments after negative blood aspiration, Half of Total block solution given into each side, Bupivacaine 0.25% Dose:: 20 ml and Exparel Dose:: 10 ml Additives (Indicate Dose Given): None Ultrasound: Sterile probe cover and gel used Ultrasound Image Saved?: Yes Nerve Stimulator: Not Used Paresthesia: None Procedure Tolerated: No Complications and Patient tolerated well Procedure Outcome: Successful Procedure Comment: Initial plan by this provider was to perform a bilateral rectus sheath block for this patient. Patient had been consented by primary anesthetic team and the consent was for bilateral TAP blocks. TAP blocks performed as per consent. Due to depth of layers (5 cm), visual was very poor and uncertain of quality of block. We will request the surgeon appropriately localize and will assess postoperatively. Performed By: Natanael Joyner
[2022-03-07] MEDS: Bupivacaine 0.25% Pres-Free 10 ML VIAL (09:13)
[2022-03-07] MEDS: oxyCODONE 5 MG TAB PO (10:46)
[2022-03-07] MEDS: LORazepam 1 MG TAB PO ×2 (11:37→12:41)
[2022-03-07] MEDS: Droperidol 5 MG/2 ML VIAL 0.625 MG IVP (12:14)
[2022-03-07] MEDS: Normal Saline Flush 10 ML SYR IV (12:15)
--- NOTE | 2022-03-07 13:03 | W.ANESPOSTOP ---
Postoperative Evaluation Date, Time and Location Date Performed: 03/07/22 Time Performed: 13:04 Patient Location: Day Surgery Unit Vital Signs Most Recent Imported Vital Signs: Most Recent Vital Signs Temp Pulse Resp BP Pulse Ox 36 C L 61 14 136/102 H 96 03/07/22 11:25 03/07/22 11:25 03/07/22 11:25 03/07/22 11:25 03/07/22 11:25 Most Recent Manually Entered Vital Signs: Adult Blood Pressure: 141/81 Heart Rate: 62 Respirations: 12 Oxygen Saturation (%): 95 Temperature (C): 36.3 C Pain Score (0-10 Scale): 2 Pain Score Most Recent Pain Score: Most Recent Pain Score Pain Level 2 03/07/22 11:25 Assessment Mental Status: Awake (Alert & Oriented to Patient Baseline) Airway and Respiratory Function: Patent airway with normal (patient baseline) respiratory exam Cardiovascular Function: Hemodynamically Stable Hydration Status: Adequately Hydrated Nausea & Vomiting: No Nausea or Vomiting Pain: Pain is tolerable per patient (2/10) Peripheral Nerve Block: Patient did not receive a nerve block Teaching Patient Teaching: Discussed Safe Use of Pain Medication Given Likely or Known JULIA and Discussed the importance of using CPAP/BiPAP during any sleep period
== END 2022-03-07 14:15 | disposition home or self-care (01) ==
PROVIDERS: PCP Nurse Practitioner Family; Visit Provider Surgery
PROC: (CPT 49585; principal; 2022-03-07 08:15)
DX: K42.9 Umbilical hernia without obstruction or gangrene (principal); G47.33 Obstructive sleep apnea (adult) (pediatric); E66.01 Morbid (severe) obesity due to excess calories; Z68.43 Body mass index [BMI] 50.0-59.9, adult; F17.210 Nicotine dependence, cigarettes, uncomplicated; E55.9 Vitamin D deficiency, unspecified
CPT/HCPCS: 49585; 76942; C1781; J0131; J0690; J1100; J1790; J1885; J2001; J2250; J2405

== ENCOUNTER → 2022-03-20 14:30 | Outpatient (BNVA) | payer MEDICARE, BC, SELFPAY | PROVIDERS: PCP Nurse Practitioner Family; Referring Provider Nurse Practitioner Family; Visit Provider Surgery | DX: Z48.817 Encounter for surgical aftercare following surgery on the skin and subcutaneous tissue (principal); I10 Essential (primary) hypertension ==

== ENCOUNTER 2022-04-13 16:53 | Outpatient (REF) | payer MEDICARE, BC, SELFPAY | END 2022-04-13 16:54 | disposition home or self-care (01) | LOC: LBN 16:53 | PROVIDERS: PCP Nurse Practitioner Family; Visit Provider Nurse Practitioner Family | DX: R30.0 Dysuria (principal) | CPT/HCPCS: 87086 ==

== ENCOUNTER 2022-04-25 03:37 | Outpatient (CLI) | payer MEDICARE, BC, SELFPAY ==
[2022-04-25 12:29] LABS: HCT 40.3 % (36.0-46.0); HGB 12.5 g/dL (11.2-15.7); MCH 28.3 pg (27.0-33.0); MCV 91 fL (80-95); MPV 10.5 fL (8.0-11.0); Platelet Count 301 10^3/uL (130-400); RBC 4.42 10^6/uL (3.93-5.22); RDW 14.6 % (11.7-14.6); RDW-SD 48.8 fL; WBC 7.67 10^3/uL (4.4-10.8)
[2022-04-25 12:54] LABS: TSH (W/Ref FT4) 0.78 uIU/mL (0.36-3.74)
== END 2022-04-25 03:38 | disposition home or self-care (01) ==
LOC: LOS 03:41
PROVIDERS: PCP Nurse Practitioner Family; Visit Provider Nurse Practitioner
DX: E03.9 Hypothyroidism, unspecified (principal)
CPT/HCPCS: 36415; 85027; 84443

== ENCOUNTER → 2022-06-22 00:59 | Outpatient (CLI) | payer MEDICARE, BC, SELFPAY ==
--- NOTE | 2022-06-22 07:15 | DI.US_ITS ---
Exam(s) US LOWER EXTREMITY VENOUS LT EXAM: US LOWER EXTREMITY VENOUS LT CLINICAL HISTORY: left knee pain, hx DVT in past,m79.605. TECHNIQUE: Ultrasound performed using standard protocol. COMPARISON: No exams were available for comparison FINDINGS: Duplex venous ultrasound was performed according to the usual protocol. The deep veins are freely com pressible throughout and there is normal flow augmentation with manual calf compression. 2D and Doppl er evaluation are unremarkable. IMPRESSION: No evidence of deep venous thrombosis of the left lower extremity. DATA REPOSITORY:
--- NOTE | 2022-06-22 11:20 | DI.RAD_ITS ---
Exam(s) XR KNEE LT 3V AP,LAT,RONALDO EXAM: XR KNEE LT 3V AP,LAT,RONALDO CLINICAL HISTORY: left knee pain,m79.605 TECHNIQUE: COMPARISON: No exams were available for comparison FINDINGS: Three views were obtained. The cartilaginous joint spaces appear fairly well maintained. No joint e ffusion seen on the lateral view. No bony or soft tissue abnormality seen. IMPRESSION: Negative examination of the knee. RADIATION DOSE DELIVERED: Total DLP
== END ==
PROVIDERS: PCP Nurse Practitioner Family; Visit Provider Physician Assistant
DX: M79.605 Pain in left leg (principal)
CPT/HCPCS: 73562; 93971

== ENCOUNTER 2022-06-30 10:27 | Outpatient (CLI) | payer MEDICARE, BC, SELFPAY ==
--- NOTE | 2022-06-30 10:15 | RT.EKG_ITS ---
APPROVED REPORT Exam: Resting ECG Reason for Exam: headache Patient Location: O HR:74 bpm ECG Measurements Heart Rate 74 AXIS [place] 164 P 43 QRSd 93 QRS 41 QT 409 T 23 QTc 454 Conclusion Sinus rhythm...normal P axis, V-rate 50- 99 Supraventricular bigeminy...bigeminy string>4 w/ SV complexes Low voltage, precordial leads...precordial leads <1.0mV Abnormal R-wave progression, early transition...QRS area>0 in V2
== END 2022-06-30 10:28 | disposition home or self-care (01) ==
LOC: DI.CM 10:30
PROVIDERS: PCP Nurse Practitioner Family; Visit Provider Physician Assistant
DX: N39.0 Urinary tract infection, site not specified (principal); R51.9 Headache, unspecified; R94.31 Abnormal electrocardiogram [ECG] [EKG]
CPT/HCPCS: 93010

== ENCOUNTER 2022-06-30 13:23 | Outpatient (REF) | payer MEDICARE, BC, SELFPAY ==
[2022-06-30 17:24] LABS: Bilirubin Negative (Negative); Blood Negative (Negative); Clarity Clear (Clear); Glucose Negative (Negative); Ketones Negative (Negative); Leukocyte Esterase Small (Negative); Nitrite Negative (Negative); Specific Gravity 1.015 (1.005-1.025); Urobilinogen 0.2 EU/dL (Up TO 0.2)
[2022-06-30 17:45] LABS: Bacteria Few HPF (Negative); C & S Indicated? C&S Done As Ordered; Casts Negative LPF (Negative); Crystals Negative HPF (Negative); Epithelial Cells Many HPF (Negative); Mucus Negative (Negative); RBC 0-2 HPF (0-2)
== END 2022-06-30 13:24 | disposition home or self-care (01) ==
LOC: LBN 13:23
PROVIDERS: PCP Nurse Practitioner Family; Visit Provider Physician Assistant
DX: N39.0 Urinary tract infection, site not specified (principal)
CPT/HCPCS: 81003; 81015; 87086

== ENCOUNTER 2022-07-25 03:51 | Outpatient (CLI) | payer MEDICARE, BC, SELFPAY ==
[2022-07-25 13:01] LABS: Vitamin D 25 Total 44.6 ng/mL (30-100)
[2022-07-25 13:02] LABS: Vitamin B12 747 pg/mL (193-986)
[2022-07-26 09:26] LABS: Lyme Ab w Rflx to Lyme Confirm Negative (Negative)
[2022-07-26 14:00] LABS: dsDNA Ab, IgG <12.3 IU/mL (<30.0)
[2022-07-27 18:15] LABS: Anaplasma phagocytophilum Negative (Negative); B. miyamotoi PCR Negative (Negative); Babesia divergens/MO-1 Negative (Negative); Babesia duncani Negative (Negative); Babesia microti Negative (Negative); Ehrlichia chaffeensis Negative (Negative); Ehrlichia ewingii/canis Negative (Negative); Ehrlichia muris eauclairensis Negative (Negative)
== END 2022-07-25 03:52 | disposition home or self-care (01) ==
LOC: LOS 03:52
PROVIDERS: PCP Nurse Practitioner Family; Visit Provider Nurse Practitioner Family
DX: R76.8 Other specified abnormal immunological findings in serum (principal); M25.59 Pain in other specified joint; E66.01 Morbid (severe) obesity due to excess calories; Z68.42 Body mass index [BMI] 45.0-49.9, adult
CPT/HCPCS: 36415; 82306; 87798; 82607; 86225; 86618

== ENCOUNTER 2022-07-27 08:30 | Outpatient (CLI) | payer MEDICARE, BC, SELFPAY ==
--- NOTE | 2022-07-27 12:45 | RT.EKG_ITS ---
APPROVED REPORT Exam: Resting ECG Reason for Exam: [employer], supraventricular bigeminy, abnormalities Patient Location: O HR:77 bpm ECG Measurements Heart Rate 77 AXIS MD 135 P 15 QRSd 90 QRS 34 QT 376 T 31 QTc 426 Conclusion Sinus rhythm...normal P axis, V-rate 50- 99 Normal Electrocardiogram
== END 2022-07-27 08:31 | disposition home or self-care (01) ==
PROVIDERS: PCP Nurse Practitioner Family; Visit Provider Internal Medicine Cardiovascular Disease
DX: R00.8 Other abnormalities of heart beat (principal)
CPT/HCPCS: 93010

== ENCOUNTER → 2022-07-27 12:52 | Outpatient (BNVA) | payer MEDICARE, BC, SELFPAY | PROVIDERS: PCP Nurse Practitioner Family; Referring Provider Nurse Practitioner Family; Visit Provider Internal Medicine Cardiovascular Disease | DX: R00.8 Other abnormalities of heart beat (principal); I10 Essential (primary) hypertension | CPT/HCPCS: 93005; 99202; 99214 ==

== ENCOUNTER → 2022-09-05 02:04 | Outpatient (CLI) | payer MEDICARE, BC, SELFPAY ==
--- NOTE | 2022-09-05 15:00 | DI.MAMMO_ITS ---
Exam(s) MAMMO SCREENING EXAM: MAMMO SCREENING CLINICAL HISTORY: screening TECHNIQUE: Bilateral full field digital CC and MLO mammographic images were obtained with 3D tomosyn thesis and utilizing computer aided detection (CAD). COMPARISON: Available for comparison. FINDINGS: Masses/Architectural Distortion: There appears to be a new nodular density in the retroareolar region of the right breast on the MLO view. Microcalcifications: No suspicious pleomorphic-type are seen. Skin Thickening/Nipple Retraction: None. IMPRESSION: 1. New retroareolar nodule in the right breast. 2. Spot compression views requested. Limited right breast ultrasound is recommended for further eval uation. BI-RADS Category 0 - Assessment Incomplete: Need additional imaging evaluation Breast Density - Category B - Scattered areas of fibroglandular density Breast density category C or D implies that the patient has dense breast tissue. Dense breast tissue is very common and is not abnormal but dense breast tissue can make it harder to find cancer on a ma mmogram. Also, dense breast tissue may increase their breast cancer risk. This information about the result of the mammogram report was provided to the patient to raise their awareness. Use this report when you speak with the patient about their risks for breast cancer, which includes their family hist ory. At that time, you may recommend for more screening tests (Ultrasound or MRI) as they might be us eful based on their risk. A negative radiographic report should not delay biopsy if a dominant or clinically suspicious mass is present. Up to ten percent of cancers are not identified on mammography. A negative report may reinforce clinical impression. Adenosis and dense breasts may obscure an underlying neoplasm. False positive reports average 6 to 10%. Patient will receive a letter notifying them of these results.
== END ==
PROVIDERS: PCP Nurse Practitioner Family; Visit Provider Obstetrics & Gynecology
DX: Z12.31 Encounter for screening mammogram for malignant neoplasm of breast (principal); R92.8 Other abnormal and inconclusive findings on diagnostic imaging of breast
CPT/HCPCS: 77063; 77067

== ENCOUNTER 2022-09-20 01:22 | Outpatient (CLI) | payer MEDICARE, BC, SELFPAY ==
--- NOTE | 2022-09-20 | DI.MAMMO_ITS ---
Exam(s) MG MAMMO SCREEN CALL BACK UNI US BREAST RT LIMITED EXAM: MG MAMMO SCREEN CALL BACK UNI-RIGHT AND COMPLETE RIGHT BREAST ULTRASOUND CLINICAL HISTORY: F/U MAMMO, NEW NODULAR DENSITY, R92.8. TECHNIQUE: Unilateral spot mammographic images obtained with 3D tomosynthesisand utilizing computer aided detection (CAD). . Complete RIGHT breast Ultrasound was also performed, including all 4 quadrants, the retroareolar hanna on, and the ipsilateral axilla. COMPARISON: Prior mammograms were reviewed. This additional imaging was performed due to findings described on the recent screening mammogram of 09/05/2022. FINDINGS: DIAGNOSTIC MAMMOGRAM: Additional mammographic views performed today do not dissipate the nodule which appears to be approxi mately 12 o'clock position. We proceeded with ultrasound. COMPLETE RIGHT BREAST ULTRASOUND: Ultrasound performed today reveals a benign microcyst at 12 o'clock position corresponding to the fin ding on the mammogram. This measures 5 x 4 millimeter. At the 4 o'clock position there is a benign-appearing 3 x 3 millimeter uniformly hyperechoic nodule w hich is consistent with a small benign intramammary lipoma and does not correspond to the finding on the mammogram. There are no other focal findings in all 4 quadrants of the right breast. Scanning of the ipsilateral axilla reveals no significant adenopathy. IMPRESSION: 1. There is a 5 x 4 millimeter microcysts at the 12 o'clock position seen on ultrasound exam which m ost probably corresponds to the finding on the mammogram. No other focal ultrasound findings in the right breast. Appropriate follow-up as discussed by myself with the patient today is repeat mammogram and ultrasoun d of the right breast in 6 months. The patient was informed of these findings and recommendations by myself prior to leaving the departm ent today. BI-RADS Category 3 - 6 month - Probably Benign Finding: Recommend follow-up mammography in 6 months Breast Density - Category B - Scattered areas of fibroglandular density Breast density Category C or D implies that the patient has dense breast tissue. Dense breast tissue can make it harder to find cancer on a mammogram. Dense breast tissue is also associated with an incr eased risk of breast cancer. This information about the result of the mammogram report was provided to the patient to raise their awareness. Use this report when you speak with the patient about their risks for breast cancer, which includes their family history. At that time, you may recommend additional screening tests (Ultrasoun d or MRI) as these tests may add significant information. A negative radiographic report should not delay biopsy if a dominant or clinically suspicious mass is present. Up to ten percent of cancers are not identified on mammography. A negative report may reinforce clinical impression. Adenosis and dense breasts may obscure an underlying neoplasm. False positive reports average 6 to 10%. Patient will receive a letter notifying them of these results.
== END 2022-09-20 01:42 ==
LOC: DI 01:22
PROVIDERS: PCP Nurse Practitioner Family; Visit Provider Obstetrics & Gynecology
DX: N60.01 Solitary cyst of right breast (principal); R92.8 Other abnormal and inconclusive findings on diagnostic imaging of breast; Z12.31 Encounter for screening mammogram for malignant neoplasm of breast
CPT/HCPCS: 76642; 77063; 77067

== ENCOUNTER 2022-12-17 01:49 | Outpatient (CLI) | payer MEDICARE, BC, SELFPAY ==
--- NOTE | 2022-12-17 | DI.US_ITS ---
Exam(s) MG MAMMO DIAGNOSTIC UNI US BREAST LT LIMITED EXAM: MG MAMMO DIAGNOSTIC UNI CLINICAL HISTORY: left breast pain,n64.4. COMPARISON: US US BREAST LT LIMITED from 12/17/2022 TECHNIQUE: Craniocaudal and mediolateral oblique Full Field Digital Mammography views of the left b reast with Computer Aided Diagnosis followed by Tomosynthesis and left breast ultrasound. FINDINGS: Mammography/Tomosynthesis: Masses/Architectural Distortion: None seen. Microcalcifications: No suspicious pleomorphic-type are seen. Skin Thickening/Nipple Retraction: None. Left breast US: Echotexture: Normal appearance of the glandular tissue. Shadowing: No suspicious foci. Cyst: 3 x 2 x 4 millimeters cyst in subareolar region. Solid lesions: None seen. Ductal dilation: None. IMPRESSION: 1. No evidence of malignancy is noted. 2. Unless there is more urgent need, follow-up screening mammography is recommended, as per [place] [employer] guidelines. BI-RADS Category 2 - Benign Findings Breast Density - Category B - Scattered areas of fibroglandular density A negative radiographic report should not delay biopsy if a dominant or clinically suspicious mass is present. Up to ten percent of cancers are not identified on mammography. A negative report may reinforce clinical impression. Adenosis and dense breasts may obscure an underlying neoplasm. False positive reports average 6 to 10%. Patient will receive a letter notifying them of these results.
== END 2022-12-17 02:09 ==
PROVIDERS: PCP Nurse Practitioner Family; Visit Provider Nurse Practitioner Family
DX: N64.4 Mastodynia (principal); N60.02 Solitary cyst of left breast; R92.8 Other abnormal and inconclusive findings on diagnostic imaging of breast
CPT/HCPCS: 76642; 77061; 77065; G0279

== ENCOUNTER 2023-01-02 01:14 | Outpatient (CLI) | payer MEDICARE, BC, SELFPAY ==
--- NOTE | 2023-01-02 07:44 | DI.RAD_ITS ---
Exam(s) XR CHEST 2V PA LATERAL EXAM: XR CHEST 2V PA LATERAL CLINICAL HISTORY: chronic SOB,fatigue,r06.02. TECHNIQUE: 2D digital imaging was performed. COMPARISON: CR XR CHEST 2V PA LATERAL from 06/17/2018 FINDINGS: 2 views: Heart size is upper normal. The mediastinum is not widened. Lungs are clear. No infiltrates nor pleural effusions. IMPRESSION: No acute pulmonary findings. DATA REPOSITORY: RADIATION DOSE DELIVERED:
== END 2023-01-02 01:34 ==
LOC: DI 01:14
PROVIDERS: PCP Nurse Practitioner Family; Visit Provider Nurse Practitioner Family
DX: R06.02 Shortness of breath (principal); R53.83 Other fatigue
CPT/HCPCS: 71046

== ENCOUNTER 2023-01-02 03:02 | Outpatient (CLI) | payer MEDICARE, BC, SELFPAY ==
[2023-01-02 07:38] LABS: Abs Immature Grans 0.04 10^3/uL (0.0-0.06); Absolute Basophil Count 0.05 10^3/uL (0.0-0.2); Absolute Eosinophil Count 0.25 10^3/uL (0.0-0.7); Absolute Lymphocyte Count 2.42 10^3/uL (1.2-3.4); Absolute Monocyte Count 0.53 10^3/uL (0.1-0.8); Basophils % 0.6; Eosinophils % 3.1; HCT 40.8 % (36.0-46.0); HGB 12.8 g/dL (11.2-15.7); Immature Grans % 0.5; Lymphocytes % 29.5; MCH 28.1 pg (27.0-33.0); MCHC 31.4 % (32.0-36.0); MCV 90 fL (80-95); Monocytes % 6.5; Neutrophils % 59.8; Platelet Count 296 10^3/uL (130-400); RBC 4.56 10^6/uL (3.93-5.22); RDW 15.4 % (11.7-14.6); RDW-SD 50.3 fL; WBC 8.19 10^3/uL (4.4-10.8)
[2023-01-02 07:58] LABS: Hemoglobin A1C 5.6 % (<5.7)
[2023-01-02 08:48] LABS: ALT 23 U/L (14-59); AST 12 U/L (15-37); Albumin 3.3 g/dL (3.4-5.0); Alkaline Phosphatase 87 U/L (46-116); Anion Gap 8.6 mmol/L (3-11); BUN 19 mg/dL (7-18); Bilirubin, Total 0.3 mg/dL (0.2-1.0); CO2 29.4 mmol/L (21.0-32.0); CREATININE 1.3 mg/dL (0.55-1.02); Calcium 9.4 mg/dL (8.5-10.1); Calculated LDL 127 mg/dL (<100); Chloride 104 mmol/L (98-107); Cholesterol 196 mg/dL (<200); Estimated GFR 45.92 (mL/min/1.73m2); Glucose 108 mg/dL (74-106); HDL Cholesterol 53 mg/dL (40-60); Potassium 4.2 mmol/L (3.5-5.1); Sodium 142 mmol/L (136-145); TSH (W/Ref FT4) 2.07 uIU/mL (0.36-3.74); Total Protein 7.5 g/dL (6.4-8.2); Triglyceride 81 mg/dL (<150)
== END 2023-01-02 03:03 | disposition home or self-care (01) ==
LOC: LBO 03:02
PROVIDERS: PCP Nurse Practitioner Family; Visit Provider Nurse Practitioner Family
DX: E03.9 Hypothyroidism, unspecified (principal); R53.83 Other fatigue; R73.01 Impaired fasting glucose; R06.02 Shortness of breath; G47.33 Obstructive sleep apnea (adult) (pediatric)
CPT/HCPCS: 36415; 80053; 80061; 71046; 83036; 84443; 85025

== ENCOUNTER 2023-01-07 02:31 | Outpatient (CLI) | payer MEDICARE, BC, SELFPAY ==
[2023-01-07] MEDS: Albuterol HFA 18 GM 200 PUFF INH IH (14:44)
[2023-01-07] MEDS: Inhaler, Assist Device 1 EACH MC (14:45)
--- NOTE | 2023-01-08 09:42 | W.PFT ---
Date of service: 01/07/23 Time of Service: 13:03 Pulmonary Function Test Result Indications: Dyspnea on exertion Interpretation Spirometry: There is no airflow limitation. There is no bronchodilator response. The FVC is low, likely due to obesity. Lung Volumes: Normal lung volumes Diffusion Capacity: Normal diffusion Airway Pressure: Normal airways ressitance Impression Normal pulmonary function testing. Note: When compared to 09/05/11, the FVC is lower, again from an elevated BMI, and this is correlated with an increase in weight. Clinical Correlation therefore is recommended.
== END 2023-01-07 02:32 | disposition home or self-care (01) ==
LOC: RT 02:31
PROVIDERS: PCP Nurse Practitioner Family; Visit Provider Nurse Practitioner Family
DX: R06.09 Other forms of dyspnea (principal)
CPT/HCPCS: 94060; 94726; 94729

== ENCOUNTER 2023-01-11 15:43 | Outpatient (REF) | payer MEDICARE, BC, SELFPAY | END 2023-01-11 15:44 | disposition home or self-care (01) | LOC: LBN 15:43 | PROVIDERS: PCP Nurse Practitioner Family; Visit Provider Nurse Practitioner Family | DX: R35.0 Frequency of micturition (principal) | CPT/HCPCS: 87086 ==

== ENCOUNTER 2023-02-27 11:59 | Emergency (ER) | payer MEDICARE, BC, SELFPAY ==
--- NOTE | 2023-02-27 12:00 | RT.EKG_ITS ---
APPROVED REPORT Exam: Resting ECG Reason for Exam: dizziness Patient Location: E HR:75 bpm ECG Measurements Heart Rate 75 AXIS SD 163 P 31 QRSd 91 QRS 25 QT 374 T 25 QTc 417 Conclusion Sinus rhythm...normal P axis, V-rate 60- 99 Physician: no stemi, minimal ant/lat depressions but unchanged from prior ekg on 07/27/22.
[2023-02-27 12:07] VITALS: BP 166/65; PULSE 87; RESP 20; TEMP 36.6; O2SAT 96
[2023-02-27 12:35] VITALS: RESP 20
--- NOTE | 2023-02-27 12:53 | W.ED.GENAD ---
Discharge Plan Disposition Patient Disposition: Home Discharge Details Clinical Impression: Malaise Primary Care Provider: Scarlet Boyce ED Provider: Alcira Marley Home Meds and New Rx's Prescriptions: Continued strain 16 probiotic 1 tab PO BID bismuth subsalicylate [Peptic Relief] 262 mg tablet,chewable 2 tab PO Q30-60M PRN Rx Instructions: do not exceed 16 tabs per 24 hrs ascorbic acid (vitamin C) 1,000 mg tablet 1 g PO DAILY cyclobenzaprine 10 mg tablet 10 mg PO Q8H PRN (Reason: muscle spasm) Qty: 30 0RF estradiol 0.01 % (0.1 mg/gram) cream 0.25 g vaginal DAILY Qty: 42.5 0RF Rx Instructions: Apply pea-sized amount to vaginal opening nightly x1-2wks. Then decrease use to twice weekly. nystatin [Nystop] 100,000 unit/gram powder 1 applic Topical BID PRN (Reason: intertrigo) Qty: 1 5RF Patient Comments: PRN lamotrigine 200 mg tablet 200 mg PO DAILY lorazepam [Ativan] 2 mg tablet 1 - 2 mg PO DAILY PRN trazodone 150 mg tablet 150 mg PO QHS PRN levothyroxine 150 mcg tablet 150 mcg PO DAILY Qty: 94 3RF Rx Instructions: 05/21/22-per Dr. Trinh 150mcg daily except 300mcg on /pps rizatriptan 5 mg tablet 5 mg PO ONCE MDD 10mg PRN (Reason: migraine headache) Qty: 10 5RF Rx Instructions: Take one tablet at onset of migraine. May take another 2 hours later if CRUZ still persists. cyanocobalamin (vitamin B-12) [Vitamin B-12] 500 mcg Tablet 500 mcg PO BID cholecalciferol (vitamin D3) [Vitamin D3] 25 mcg (1,000 unit) Tablet 25 mcg PO DAILY Discharge Instructions Additional Instructions: Please continue on your prescribed medications Follow-up with your doctor in 1 to 2 days for reassessment Your tests today all are reassuring including your urinalysis Return earlier should you have new or worsening complaints Discharge Data Discharge Date/Time-TO BE ENTERED AT DEPARTURE: 02/27/23 14:41 Medical Decision Making 62-year-old female presents with gradually worsening symptoms over the course of the past several months without acute exacerbation today for further assessment She has been evaluated both by her primary care physician and rheumatology with concern for possible chronic fatigue syndrome She presents here for basic blood work and urinalysis for screening Diagnostic blood work does not show evidence of significant acute abnormality, urinalysis reassuring, no clinical evidence of infection Encouraged to follow-up with primary care physician for further outpatient assessment at their discretion Ambulatory with steady gait, nonfocal neurological exam Return precautions reviewed and patient expressed understanding HPI General Date/Time Provider Initiated Documentation: 02/27/23 12:03. HPI Narrative: This 62-year-old female presents with report of weakness in hand and legs which has been gradual over the course of the past several months with lightheadedness and general fatigue. She states that she had a consultation with a harvest contractor with concern for chronic fatigue syndrome. She denies any acute exacerbation in her symptoms just states that she is sick of feeling this way . Denies any fever or chills. Denies any significant change in symptoms. Related Data Home Medications Medication Instructions Recorded Confirmed bismuth subsalicylate 262 mg 2 tab PO Q30-60M PRN 01/11/20 02/27/23 chewable tablet (Peptic Relief) cholecalciferol (vitamin D3) 25 25 mcg PO DAILY 09/25/20 02/27/23 mcg (1,000 unit) tablet (Vitamin D3) cyanocobalamin (vitamin B-12) 500 500 mcg PO BID 09/25/20 02/27/23 mcg tablet (Vitamin B-12) ascorbic acid (vitamin C) 1,000 mg 1 g PO DAILY 04/19/21 02/27/23 tablet strain 16 probiotic 1 tab PO BID 04/19/21 02/27/23 cyclobenzaprine 10 mg tablet 10 mg PO Q8H PRN muscle spasm #30 02/23/22 02/27/23 tabs levothyroxine 150 mcg tablet 150 mcg PO DAILY #94 tabs 05/25/22 02/27/23 estradiol 0.01% (0.1 mg/gram) 0.25 g vaginal DAILY #42.5 grams 07/24/22 02/27/23 vaginal cream nystatin 100,000 unit/gram topical 1 applic topical BID PRN 07/24/22 02/27/23 powder (Nystop) intertrigo #1 g rizatriptan 5 mg tablet 5 mg PO ONCE PRN migraine headache 09/26/22 02/27/23 #10 tabs lamotrigine 200 mg tablet 200 mg PO DAILY 12/27/22 02/27/23 lorazepam 2 mg tablet (Ativan) 1 - 2 mg PO DAILY PRN 12/27/22 02/27/23 trazodone 150 mg tablet 150 mg PO QHS PRN 12/27/22 02/27/23 Previous Rx's Medication Instructions Recorded cyclobenzaprine 10 mg tablet 10 mg PO Q8H PRN muscle spasm #30 02/23/22 tabs levothyroxine 150 mcg tablet 150 mcg PO DAILY #94 tabs 05/25/22 estradiol 0.01% (0.1 mg/gram) 0.25 g vaginal DAILY #42.5 grams 07/24/22 vaginal cream nystatin 100,000 unit/gram topical 1 applic topical BID PRN 07/24/22 powder (Nystop) intertrigo #1 g rizatriptan 5 mg tablet 5 mg PO ONCE PRN migraine headache 09/26/22 #10 tabs Allergies Allergy/AdvReac Type Severity Reaction Status Date / Time Iodinated Contrast Media Allergy Severe COULDN'T Verified 02/27/23 12:10 [Iodinated Contrast Media - BREATHE IV Dye] divalproex sodium Allergy Intermediate HIVES Verified 02/27/23 12:10 venlafaxine [From Effexor] Allergy Unknown Verified 02/27/23 12:10 topiramate [From Topamax] AdvReac Unknown anxiety Verified 02/27/23 12:10 citalopram AdvReac stomach Verified 02/27/23 12:10 distress General Stated Complaint: [facility] CHELA: 3 PFSH All Active Problems (Updated 02/27/23 @ 14:29 by RUDY Han) Malaise (Acute) Chronic fatigue (Chronic) Obstructive sleep apnea (Chronic) CPAP Bipolar disorder (Chronic) [facility] Psychiatry Hypothyroidism (Chronic) Hypertension (Chronic) Hyperlipidemia (Chronic) Atopic dermatitis (Chronic) Irritable bowel syndrome with constipation and diarrhea (Chronic 12/05/15) Migraine headache (Chronic) Chronic nausea (Chronic) Morbid obesity with BMI of 45.0-49.9, adult (Chronic) Atrophic vulvovaginitis (Chronic) Medical History COVID-19 (~12/2021) Endometrial thickening on ultrasound 11/16/20. Incidental finding. No PMB. No plans for further evaluation. Gastritis Positive GEO (antinuclear antibody) [facility] [place] Rheumatology consult 12/13--no underlying inflammatory disorder suspected Uterine leiomyoma Vitamin D deficiency (~11/2018) Surgical History History of blepharoplasty Hx of colonoscopy Hx of umbilical hernia repair (03/07/22) S/P cholecystectomy S/P hernia repair (~03/07/22) Family History Mother Bipolar disorder Father Dementia Hypothyroidism Sister Hypothyroidism Sister ALS (amyotrophic lateral sclerosis) Brother No problems noted. Brother No problems noted. Daughter No problems noted. Daughter No problems noted. Son , 37 Substance use disorder Maternal Grandfather Heart disease Maternal Grandmother Heart disease Paternal Grandfather Heart disease Paternal Grandmother Heart disease Social History Smoking/Tobacco Use Status: Former Tobacco Use tobacco type: cigarettes Quit Date: 09/23/89 Tobacco: How many years used: 10 Second Hand Exposure: Yes Smoking risk assessment performed?: Yes Alcohol Intake: current Alcohol Intake frequency: holidays/special occasions only Alcohol type: wine Drug use: Never Substance use type: does not use 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 Pets and animals: No Sexually active: No Do you think of yourself as: straight/heterosexual Current gender identity: female What is your relationship status?: How often do you talk on the phone with friends or family?: three or more times per week How often do you get together with friends or relatives?: once per week Do you belong to any clubs or organized social groups?: no Panel score (0-1 are the most socially isolated patients): 2 What type of physical activity do you participate in: walking and aerobic Duration: 15-30 minutes/day Thuy/Denominational: Yazidism Special thuy needs: No Seatbelt use: always Drive intox or ride w/intox 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: No Working smoke detector in home: Yes Fire extinguisher in home: Yes Carbon monox detector in home: Yes Firearms in home: Yes Do you feel safe at home: Yes Do you feel safe in your relationship?: Yes Victim of physical abuse: No Victim of emotional abuse: No Victim of sexual abuse: No Female Reproductive History Menstrual Menopause type: natural (in her 50s) History History 3 Para 3 Hx # Term Pregnancies 3 Multiple births Hx # Pregnancies Ectopic pregnancies AB induced Hx Number of Living Children 2 AB spontaneous Exam Narrative Exam Narrative: Patient is calm and cooperative, ambulatory with steady gait, fully alert and oriented, pupils equal round reactive to light and accommodation, extraocular muscles intact, no meningismus, lungs clear to auscultation bilaterally, cardiac rate rhythm regular, no abdominal tenderness, no pallor, alert and oriented x4, cranial nerves II through XII intact, negative [id number], negative heel pickens, negative pronator drift, ambulatory with steady gait Course Vital Signs Vital signs: Vital Signs Temperature 36.6 C 02/27/23 12:07 Pulse 87 02/27/23 12:07 Respiratory Rate 20 02/27/23 12:07 Blood Pressure 166/65 H 02/27/23 12:07 Pulse Oximetry 96 02/27/23 12:07 Temperature 36.6 C 02/27/23 12:07 Temperature Source Temporal Artery Scan 02/27/23 12:07 Pulse 87 02/27/23 12:07 Respiratory Rate 20 02/27/23 12:35 Respiratory Effort Normal 02/27/23 12:35 Respiratory Depth Normal 02/27/23 12:35 Respiratory Pattern Normal 02/27/23 12:35 Blood Pressure 166/65 H 02/27/23 12:07 Blood Pressure Position Sitting 02/27/23 12:07 Pulse Oximetry 96 02/27/23 12:07 Oxygen Delivery Method Room Air 02/27/23 12:07 Oxygen Flow Rate 0 02/27/23 12:07 Pain Level 0 02/27/23 12:07
[2023-02-27 13:34] LABS: Bilirubin Negative (Negative); Blood Negative (Negative); Clarity Clear (Clear); Glucose Negative (Negative); Ketones Negative (Negative); Leukocyte Esterase Small (Negative); Nitrite Negative (Negative); Specific Gravity 1.015 (1.005-1.025); Urobilinogen 0.2 mg/dL (Up to 0.2); pH 6.5 (5-8)
[2023-02-27 13:49] LABS: Abs Immature Grans 0.03 10^3/uL (0.0-0.06); Absolute Basophil Count 0.05 10^3/uL (0.0-0.2); Absolute Eosinophil Count 0.14 10^3/uL (0.0-0.7); Absolute Lymphocyte Count 2.04 10^3/uL (1.2-3.4); Absolute Monocyte Count 0.44 10^3/uL (0.1-0.8); Absolute Neutrophil Count 6.69 10^3/uL (1.2-6.7); Basophils % 0.5; Eosinophils % 1.5; HCT 43.2 % (36.0-46.0); HGB 13.5 g/dL (11.2-15.7); Immature Grans % 0.3; Lymphocytes % 21.7; MCH 27.8 pg (27.0-33.0); MCHC 31.3 % (32.0-36.0); MCV 89 fL (80-95); MPV 9.8 fL (8.0-11.0); Monocytes % 4.7; Neutrophils % 71.3; Platelet Count 329 10^3/uL (130-400); RBC 4.85 10^6/uL (3.93-5.22); RDW 15.2 % (11.7-14.6); RDW-SD 49.9 fL; WBC 9.39 10^3/uL (4.4-10.8)
[2023-02-27 13:50] LABS: Bacteria Moderate HPF (Negative); C & S Indicated? No/Sq. Contamination; Casts Negative LPF (Negative); Crystals Negative HPF (Negative); Epithelial Cells Many HPF (Negative); Mucus Trace (Negative); RBC 0-2 HPF (0-2)
[2023-02-27 14:13] LABS: ALT 22 U/L (14-59); AST 12 U/L (15-37); Alkaline Phosphatase 96 U/L (46-116); Anion Gap 7.2 mmol/L (3-11); BUN 15 mg/dL (7-18); Bilirubin, Total 0.5 mg/dL (0.2-1.0); CO2 27.8 mmol/L (21.0-32.0); CREATININE 1.1 mg/dL (0.55-1.02); Calcium 9.7 mg/dL (8.5-10.1); Chloride 100 mmol/L (98-107); Estimated GFR 56.11 (mL/min/1.73m2); Glucose 103 mg/dL (74-106); Potassium 3.5 mmol/L (3.5-5.1); Sodium 135 mmol/L (136-145); TSH (W/Ref FT4) 1.23 uIU/mL (0.36-3.74); Total Protein 8.8 g/dL (6.4-8.2)
[2023-02-28 10:26] LABS: Lyme Ab w Rflx to Lyme Confirm Negative (Negative)
[2023-03-02 15:57] LABS: Anaplasma phagocytophilum Negative (Negative); B. miyamotoi PCR Negative (Negative); Babesia divergens/MO-1 Negative (Negative); Babesia duncani Negative (Negative); Babesia microti Negative (Negative); Ehrlichia chaffeensis Negative (Negative); Ehrlichia ewingii/canis Negative (Negative); Ehrlichia muris eauclairensis Negative (Negative)
== END 2023-02-27 14:41 | disposition home or self-care (01) ==
PROVIDERS: Emergency Provider Physician Assistant; PCP Nurse Practitioner Family
DX: R53.81 Other malaise (principal); R53.1 Weakness; R42 Dizziness and giddiness
CPT/HCPCS: 36415; 80053; 87798; 93005; 99283; 81003; 81015; 83735; 84443; 85025; 86618; 93010

== ENCOUNTER → 2023-05-14 08:32 | Outpatient (CLI) | payer MEDICARE, BC, SELFPAY ==
--- NOTE | 2023-05-14 14:00 | DI.US_ITS ---
Exam(s) MAMMO DIAGNOSTIC UNI US BREAST RT COMPLETE EXAM: MAMMO DIAGNOSTIC UNI-RIGHT AND COMPLETE RIGHT BREAST ULTRASOUND CLINICAL HISTORY: 6 month f/u,r92.8. TECHNIQUE: Unilateral spot mammographic images were obtained with 3D tomosynthesis technique and uti lizing computer aided detection (CAD). COMPLETE RIGHT BREAST ULTRASOUND also performed including all 4 quadrants as well as the axillary reg ion. COMPARISON: Prior mammograms were reviewed, the most recent being August 2022. Prior right breast ultrasound also reviewed. FINDINGS: DIAGNOSTIC RIGHT BREAST MAMMOGRAM: The previously described anteriorly located nodule is again eviden t. Other asymmetric densities in the right breast on the mammogram are unchanged from prior studies. COMPLETE RIGHT BREAST ULTRASOUND: Previously described microcyst at 12 o'clock position is unchanged, measuring 6 x 4 mm, unchanged and corresponding to the finding on the mammogram. There are no other focal ultrasound findings in all 4 quadrants of the right breast. Scanning of the right axilla is negative for significant adenopathy. IMPRESSION: 1. Stable benign-appearing right breast findings on mammography and ultrasound Appropriate follow-up is to keep this patient on her yearly mammogram schedule, this implying the nex t bilateral mammogram would be in 6 months, with earlier imaging if a self detected breast change is noted.. The patient was informed of the findings and follow-up recommendations prior to leaving the [facility] today. BI-RADS Category 2 - Benign Findings Breast Density - Category B - Scattered areas of fibroglandular density Breast density Category C or D implies that the patient has dense breast tissue. Dense breast tissue can make it harder to find cancer on a mammogram. Dense breast tissue is also associated with an incr eased risk of breast cancer. This information about the result of the mammogram report was provided to the patient to raise their awareness. Use this report when you speak with the patient about their risks for breast cancer, which includes their family history. At that time, you may recommend additional screening tests (Ultrasoun d or MRI) as these tests may add significant information. A negative radiographic report should not delay biopsy if a dominant or clinically suspicious mass is present. Up to ten percent of cancers are not identified on mammography. A negative report may reinforce clinical impression. Adenosis and dense breasts may obscure an underlying neoplasm. False positive reports average 6 to 10%. Patient will receive a letter notifying them of these results.
== END ==
PROVIDERS: PCP Nurse Practitioner Family; Visit Provider Obstetrics & Gynecology
DX: Z12.31 Encounter for screening mammogram for malignant neoplasm of breast (principal); R92.8 Other abnormal and inconclusive findings on diagnostic imaging of breast
CPT/HCPCS: 76642; 77061; 77065; G0279

== ENCOUNTER → 2023-07-08 16:43 | Outpatient (CLI) | payer MEDICARE, BC, SELFPAY ==
--- NOTE | 2023-07-08 10:45 | DI.US_ITS ---
Exam(s) US LOWER EXTREMITY VENOUS RT EXAM: US LOWER EXTREMITY VENOUS RT CLINICAL HISTORY: RT LEG SWELLING, M79.89, evaluate DVT TECHNIQUE: Right lower extremity venous ultrasound performed using grayscale, color-flow, and spectr al Doppler analysis. COMPARISON: No exams were available for comparison FINDINGS: The right common femoral, femoral and popliteal veins demonstrate normal compressibility, augmentatio n, and color Doppler. The posterior tibial and peroneal veins are patent. The saphenofemoral junctio n is unremarkable. There is no evidence of a Armendariz cyst. The soft tissues are unremarkable. IMPRESSION: No evidence of a right lower extremity DVT. DATA REPOSITORY:
== END ==
PROVIDERS: PCP Nurse Practitioner Family; Visit Provider Nurse Practitioner Family
DX: M79.89 Other specified soft tissue disorders (principal)
CPT/HCPCS: 93971

== ENCOUNTER 2023-07-09 02:40 | Outpatient (CLI) | payer MEDICARE, BC, SELFPAY ==
[2023-07-09 13:28] LABS: Ferritin 115 ng/mL (8-252)
== END 2023-07-09 02:41 | disposition home or self-care (01) ==
LOC: LOS 02:40
PROVIDERS: PCP Nurse Practitioner Family; Visit Provider Nurse Practitioner
DX: M25.561 Pain in right knee (principal); G47.33 Obstructive sleep apnea (adult) (pediatric); G47.61 Periodic limb movement disorder
CPT/HCPCS: 36415; 82728

== ENCOUNTER → 2023-09-12 12:32 | Outpatient (CLI) | payer MEDICARE, BC, SELFPAY ==
--- NOTE | 2023-09-12 10:30 | DI.RAD_ITS ---
Exam(s) XR LUMBAR SPINE COMPLETE EXAM: XR LUMBAR SPINE COMPLETE CLINICAL HISTORY: back pain M54.9 DORSALGIA. TECHNIQUE: 2D digital imaging was performed. COMPARISON: No exams were available for comparison FINDINGS: 3 views No evidence of fracture, listhesis, nor pars defects. There is multilevel mild-moderate disc space n arrowing. Most prominent disc space narrowing is at L5-S1 level. Mild facet joint degenerative etienne ges. Mild scoliosis convex left. SI joints appear unremarkable. No osseous lesions. IMPRESSION: Multilevel disc space narrowing. DATA REPOSITORY: RADIATION DOSE DELIVERED:
--- NOTE | 2023-09-12 10:30 | DI.RAD_ITS ---
Exam(s) XR THORACIC SPINE COMPLETE EXAM: XR THORACIC SPINE COMPLETE CLINICAL HISTORY: back pain M54.9 DORSALGIA. TECHNIQUE: 2D digital imaging was performed. COMPARISON: No exams were available for comparison FINDINGS: 3 views No evidence of fracture or listhesis nor abnormal widening of the paraspinal lines. No scoliosis. M ild multilevel degenerative disc disease. IMPRESSION: No acute osseous findings in the thoracic spinal column. DATA REPOSITORY: RADIATION DOSE DELIVERED:
== END ==
PROVIDERS: PCP Nurse Practitioner Family; Visit Provider Physician Assistant
DX: M54.9 Dorsalgia, unspecified (principal); M51.36 Other intervertebral disc degeneration, lumbar region
CPT/HCPCS: 72072; 72110

== ENCOUNTER 2023-10-09 03:02 | Outpatient (CLI) | payer MEDICARE, BC, SELFPAY ==
[2023-10-09 13:24] LABS: Bilirubin Negative (Negative); Blood Negative (Negative); Clarity Clear (Clear); Glucose Negative (Negative); Ketones Negative (Negative); Leukocyte Esterase Moderate (Negative); Nitrite Negative (Negative); Specific Gravity 1.015 (1.005-1.025); Urobilinogen 0.2 mg/dL (Up to 0.2)
[2023-10-09 13:35] LABS: Bacteria Few HPF (Negative); C & S Indicated? No/Sq. Contamination; Casts Negative LPF (Negative); Crystals Negative HPF (Negative); Epithelial Cells Many HPF (Negative); Mucus Negative (Negative); RBC 0-2 HPF (0-2); WBC 20-50 HPF (0-5)
[2023-10-14 15:58] LABS: Mold Panel (MAYO) <0.10 kU/L (<0.70)
== END 2023-10-09 03:03 | disposition home or self-care (01) ==
LOC: LBO 03:03
PROVIDERS: PCP Nurse Practitioner Family; Visit Provider Nurse Practitioner Family
DX: R31.9 Hematuria, unspecified (principal); R53.82 Chronic fatigue, unspecified
CPT/HCPCS: 36415; 86003; 81003; 81015

== ENCOUNTER → 2023-11-11 10:19 | Outpatient (BNVA) | payer MEDICARE, BC, SELFPAY | PROVIDERS: PCP Nurse Practitioner Family; Referring Provider Nurse Practitioner Family; Visit Provider Surgery | DX: R10.32 Left lower quadrant pain (principal); R10.33 Periumbilical pain; R53.82 Chronic fatigue, unspecified; K58.2 Mixed irritable bowel syndrome; E66.01 Morbid (severe) obesity due to excess calories; Z68.42 Body mass index [BMI] 45.0-49.9, adult; R76.8 Other specified abnormal immunological findings in serum | CPT/HCPCS: 99214 ==

== ENCOUNTER → 2023-11-19 01:32 | Outpatient (CLI) | payer MEDICARE, BC, SELFPAY ==
--- NOTE | 2023-11-19 06:45 | DI.NM_ITS ---
APPROVED REPORT Exam: Pharmacologic Patient Location: Out-Patient Room/Bed: Stress Nurse: Isaias Vu RN Ordering Provider:GE VINSON, Contact Number: [phone] BMI: 54.40 Baseline Rhythm: Sinus Rhythm Indications: Chest pain Medical History Medical History: JULIA, HTN, HLD, Morbid obesity, Bipolar. Cardiac Medications: Levothyroxine. Allergies: Citalopram, topamax, venlafaxine, divalproic sodium, iodine. Pretest Chest Pain Characteristics: No chest pain Exercise History: Sedentary Lung Sounds: Clear to auscultation Heart Sounds: Regular Stress Test Details Test: Pharmacologic stress testing performed using 0.4 mg of regadenoson per 5 mL given IV over 10 s econds. Reason for pharmacologic stress test: physical limitation. Nuclear Acquisition: Rest Tc-99m/Stress Tc-99m 1 day Rest Isotope: Tc-99m Sestamibi. Dose: 14 Date: 11/19/2023 Injection Time: 1120 Stress Isotope: Tc-99m Sestamibi. Dose: 45 Date: 11/19/2023 Injection Time: 1312 HR Resting HR Supine: 80 bpm Max Heart Rate (APMHR): 155 bpm Target HR (85% APMHR): 132 bpm Max HR Achieved: 90 bpm % of APMHR: 58 Recovery HR: 75 bpm HR response to stress: Normal HR response to stress BP Resting BP Supine: 152/88 mmHg Max BP: 152/88 mmHg Recovery BP: 132/74 mmHg BP response to stress: Normal blood pressure response to stress. ECG Resting ECG: Sinus Rhythm Ectopy: none Stress ECG: Sinus Rhythm ST Change: No significant ST segment changes noted Arrhythmia: None Recovery ECG: Sinus Rhythm Recovery ST Change: No significant ST segment changes noted Recovery Arrhythmia: None Clinical Reason for Termination: Completion time reached. Angina Score: None Rate Pressure Product: 89179 Stress ECG Conclusion 1. Resting electrocardiogram showed low voltage 2. Patient underwent testing using pharmacologic stress with regadenoson 3. Peak heart rate achieved was 58% of predicted for age 4. Electrocardiographic portion of the test was nondiagnostic 5. See MPI report Stress Test Summary STAGE HR BP SpO2 Symptoms NOTES Supine 80 152/88 1 min post Lexiscan injection 90 132/72 3 min post Lexiscan injection 78 132/72 6 min post Lexiscan injection 75 132/74 MPI Conclusion Myocardial perfusion is normal. There is no ischemia or evidence of prior infarction Ejection fraction is 62% with normal wall motion Radiologist Interpretation Radiologist Interpretation by: Glenroy Holder MD Interpretation Date/Time: 11/20/2023 16:32:39
[2023-11-19] MEDS: Regadenoson 0.4 MG/5 ML SYR IVP (13:43)
== END ==
PROVIDERS: PCP Nurse Practitioner Family; Visit Provider Nurse Practitioner Family
DX: R07.9 Chest pain, unspecified (principal)
CPT/HCPCS: 78452; 93016; 93018; 93017; J2785

== ENCOUNTER 2023-12-05 03:04 | Outpatient (CLI) | payer MEDICARE, BC, SELFPAY ==
[2023-12-05 10:49] LABS: Abs Immature Grans 0.02 10^3/uL (0.0-0.06); Absolute Basophil Count 0.03 10^3/uL (0.0-0.2); Absolute Eosinophil Count 0.18 10^3/uL (0.0-0.7); Absolute Lymphocyte Count 1.83 10^3/uL (1.2-3.4); Absolute Monocyte Count 0.48 10^3/uL (0.1-0.8); Absolute Neutrophil Count 5.03 10^3/uL (1.2-6.7); Basophils % 0.4; Eosinophils % 2.4; HCT 37.9 % (36.0-46.0); HGB 11.9 g/dL (11.2-15.7); Immature Grans % 0.3; Lymphocytes % 24.2; MCH 27.9 pg (27.0-33.0); MCHC 31.4 % (32.0-36.0); MCV 89 fL (80-95); MPV 10.3 fL (8.0-11.0); Monocytes % 6.3; Neutrophils % 66.4; Platelet Count 307 10^3/uL (130-400); RBC 4.27 10^6/uL (3.93-5.22); RDW 15.8 % (11.7-14.6); RDW-SD 51.2 fL; WBC 7.57 10^3/uL (4.4-10.8)
[2023-12-05 11:51] LABS: Hemoglobin A1C 5.7 % (<5.7)
[2023-12-05 12:17] LABS: ALT 19 U/L (14-59); AST 11 U/L (15-37); Albumin 3.4 g/dL (3.4-5.0); Alkaline Phosphatase 95 U/L (46-116); Anion Gap 11.1 mmol/L (3-11); BUN 18 mg/dL (7-18); Bilirubin, Total 0.5 mg/dL (0.2-1.0); CO2 26.9 mmol/L (21.0-32.0); CREATININE 1.1 mg/dL (0.55-1.02); Calcium 9.3 mg/dL (8.5-10.1); Chloride 103 mmol/L (98-107); Estimated GFR 55.76 (mL/min/1.73m2); Glucose 99 mg/dL (74-106); Sodium 141 mmol/L (136-145); TSH (W/Ref FT4) 4.99 uIU/mL (0.36-3.74); Total Protein 7.5 g/dL (6.4-8.2)
[2023-12-05 12:31] LABS: Vitamin D 25 Total 45.4 ng/mL (30-100)
[2023-12-05 19:24] LABS: Hepatitis C Ab w Rflx HCV PCR Negative (Negative)
== END 2023-12-05 03:05 | disposition home or self-care (01) ==
LOC: LBO 03:04
PROVIDERS: PCP Nurse Practitioner Family; Visit Provider Nurse Practitioner Family
DX: Z00.00 Encounter for general adult medical examination without abnormal findings (principal)
CPT/HCPCS: 36415; 80053; 82306; 86803; 83036; 84439; 84443; 85025

== ENCOUNTER 2023-12-21 14:09 | Outpatient (REF) | payer MEDICARE, BC, SELFPAY ==
[2023-12-21 17:04] LABS: Bilirubin Negative (Negative); Blood Negative (Negative); Clarity Clear (Clear); Glucose Negative (Negative); Ketones Negative (Negative); Leukocyte Esterase Moderate (Negative); Nitrite Negative (Negative); Urobilinogen 0.2 mg/dL (Up to 0.2); pH 6.5 (5-8)
[2023-12-21 17:31] LABS: Bacteria Few HPF (Negative); C & S Indicated? Yes; Casts Negative LPF (Negative); Crystals Negative HPF (Negative); Epithelial Cells Few HPF (Negative); Mucus Negative (Negative); RBC 0-2 HPF (0-2)
== END 2023-12-21 14:10 | disposition home or self-care (01) ==
LOC: LBN 14:09
PROVIDERS: PCP Nurse Practitioner Family; Visit Provider Nurse Practitioner Family
DX: N39.0 Urinary tract infection, site not specified (principal); B96.89 Other specified bacterial agents as the cause of diseases classified elsewhere
CPT/HCPCS: 81003; 81015; 87086

== ENCOUNTER → 2023-12-25 03:19 | Outpatient (CLI) | payer MEDICARE, BC, SELFPAY ==
--- NOTE | 2023-12-25 07:15 | DI.US_ITS ---
Exam(s) US RENAL EXAM: US RENAL CLINICAL HISTORY: evaluate for renal stone,UTI,urinary retention, urgency, dysuria. TECHNIQUE: Nam scale, color and spectral Doppler were used. COMPARISON: No priors for comparison. FINDINGS: Renal size in cm: Right: 11.7. Left: 11.8. Echogenicity: Normal. Hydronephrosis: No. Cyst or mass: No. Nephrolithiasis: No. Other findings: None. Bladder:There is diffuse bladder wall thickening up to 5.9 mm. Ureteral jets: Right: Not definitely visualized on this examination. Left: Visualized and unremarkable. Prevoid vol:203 cc Postvoid vol:112 cc Renal color flow: Symmetric and within normal limits. IMPRESSION: 1. No evidence of nephrolithiasis or hydronephrosis. 2. Diffuse thickening of the wall of the urinary bladder with a large postvoid urinary bladder volume . This may reflect chronic bladder outlet obstruction or infection. Please correlate clinically and follow-up as appropriate. DATA REPOSITORY:
== END ==
PROVIDERS: PCP Nurse Practitioner Family; Visit Provider Nurse Practitioner Family
DX: R30.0 Dysuria (principal); R39.15 Urgency of urination; R33.9 Retention of urine, unspecified; N39.0 Urinary tract infection, site not specified; N32.89 Other specified disorders of bladder
CPT/HCPCS: 76770

== ENCOUNTER 2023-12-27 07:31 | Emergency (ER) | payer MEDICARE, BC, SELFPAY ==
[2023-12-27 07:35] VITALS: BP 187/77; PULSE 91; RESP 18; TEMP 37; O2SAT 97
[2023-12-27 07:41] VITALS: BP 187/77; PULSE 91; RESP 18; TEMP 37; O2SAT 97
--- NOTE | 2023-12-27 07:45 | RT.EKG_ITS ---
APPROVED REPORT Exam: Resting ECG Reason for Exam: weakness Patient Location: E HR:80 bpm ECG Measurements Heart Rate 80 AXIS VT 179 P 64 QRSd 90 QRS 28 QT 381 T 32 QTc 439 Conclusion Sinus rhythm...normal P axis, V-rate 60- 99 Low voltage, precordial leads...precordial leads <1.0mV Sinus Rhythm. No change from 02/27/23. WD
--- NOTE | 2023-12-27 08:02 | W.ED.GENAD ---
Discharge Plan Disposition Patient Disposition: Home Condition: Stable Discharge Details Clinical Impression: Weakness, Abdominal wall hernia Primary Care Provider: Scarlet Boyce ED Provider: Lawanda Negro Home Meds and New Rx's Prescriptions: No Action strain 16 probiotic 1 tab PO BID bismuth subsalicylate [Peptic Relief] 262 mg tablet,chewable 2 tab PO Q30-60M PRN Rx Instructions: do not exceed 16 tabs per 24 hrs ascorbic acid (vitamin C) 1,000 mg tablet 1 g PO DAILY estradiol 0.01 % (0.1 mg/gram) cream 0.25 g vaginal DAILY Qty: 42.5 0RF Rx Instructions: Apply pea-sized amount to vaginal opening nightly x1-2wks. Then decrease use to twice weekly. nystatin [Nystop] 100,000 unit/gram powder 1 applic Topical BID PRN (Reason: intertrigo) Qty: 1 5RF Patient Comments: PRN lamotrigine 200 mg tablet 200 mg PO DAILY trazodone 100 mg tablet 200 mg PO DAILY ropinirole 1 mg tablet 1 mg PO QHS triamcinolone acetonide 0.1 % cream 1 applic topical BID Qty: 15 0RF bupropion HCl 75 mg tablet 75 mg PO DAILY rizatriptan 5 mg tablet 5 mg PO ONCE MDD 10mg PRN (Reason: migraine headache) Qty: 10 5RF Rx Instructions: Take one tablet at onset of migraine. May take another 2 hours later if CRUZ still persists. levothyroxine 175 mcg tablet 175 mcg PO DAILY Qty: 90 0RF cyanocobalamin (vitamin B-12) [Vitamin B-12] 500 mcg Tablet 500 mcg PO BID cholecalciferol (vitamin D3) [Vitamin D3] 25 mcg (1,000 unit) Tablet 25 mcg PO DAILY Discharge Instructions Instructions: Weakness (ED), Ventral Hernia (ED) Referrals: Scarlet Boyce NP [Primary Care Provider] - 2 days Discharge Data Discharge Physician: Lawanda Negro [facility] General Date/Time Provider Initiated Documentation: 12/27/23 07:33. HPI Narrative: 63-year-old female with history of thyroid disease presents for evaluation of not feeling well. Patient states that she chronically does not feel well however she feels worse than usual. She believes that she may be suffering from chronic fatigue syndrome for the last 14 to 16 months. She was recently seen at urgent care for possible urinary tract infection. Urinalysis at that time was negative. She states that she received an outpatient ultrasound of bladder and kidneys which reportedly said she may have chronic urinary tract infection versus obstruction. She states that she has had nausea and decreased appetite for the last week. She has an occasional cough without sputum production. She denies any fevers or chills. She does have some pain in her abdomen. She feels like she is unable to stand up secondary to weakness. She has had some constipation. Denies any bright red blood per rectum. She has had colonoscopy in the past which was reportedly unremarkable. She denies any history of diverticulosis or diverticulitis. She has had cholecystectomy and umbilical hernia repair. She occasionally has some dysuria. Denies any bright red blood per rectum. She occasionally pees a lot. Denies any history of diabetes, high blood pressure, high cholesterol. She states that she has had stress test in the past which were unremarkable. She does have history of thyroid disease and her medication was adjusted several weeks ago. She has not had her thyroid level rechecked since that time. Related Data Home Medications Medication Instructions Recorded Confirmed bismuth subsalicylate 262 mg 2 tab PO Q30-60M PRN 01/11/20 12/27/23 chewable tablet (Peptic Relief) cholecalciferol (vitamin D3) 25 25 mcg PO DAILY 09/25/20 12/27/23 mcg (1,000 unit) tablet (Vitamin D3) cyanocobalamin (vitamin B-12) 500 500 mcg PO BID 09/25/20 12/27/23 mcg tablet (Vitamin B-12) ascorbic acid (vitamin C) 1,000 mg 1 g PO DAILY 04/19/21 12/27/23 tablet strain 16 probiotic 1 tab PO BID 04/19/21 12/27/23 estradiol 0.01% (0.1 mg/gram) 0.25 g vaginal DAILY #42.5 grams 07/24/22 12/27/23 vaginal cream nystatin 100,000 unit/gram topical 1 applic topical BID PRN 07/24/22 12/27/23 powder (Nystop) intertrigo #1 g lamotrigine 200 mg tablet 200 mg PO DAILY 12/27/22 12/27/23 trazodone 100 mg tablet 200 mg PO DAILY 03/04/23 12/27/23 ropinirole 1 mg tablet 1 mg PO QHS 07/26/23 12/27/23 rizatriptan 5 mg tablet 5 mg PO ONCE PRN migraine headache 07/30/23 12/27/23 #10 tabs triamcinolone acetonide 0.1 % 1 applic topical BID #15 grams 09/11/23 12/27/23 topical cream bupropion HCl 75 mg tablet 75 mg PO DAILY 11/14/23 12/27/23 levothyroxine 175 mcg tablet 175 mcg PO DAILY #90 tabs 12/05/23 12/27/23 Previous Rx's Medication Instructions Recorded estradiol 0.01% (0.1 mg/gram) 0.25 g vaginal DAILY #42.5 grams 07/24/22 vaginal cream nystatin 100,000 unit/gram topical 1 applic topical BID PRN 07/24/22 powder (Nystop) intertrigo #1 g rizatriptan 5 mg tablet 5 mg PO ONCE PRN migraine headache 07/30/23 #10 tabs triamcinolone acetonide 0.1 % 1 applic topical BID #15 grams 09/11/23 topical cream levothyroxine 175 mcg tablet 175 mcg PO DAILY #90 tabs 12/05/23 Allergies Allergy/AdvReac Type Severity Reaction Status Date / Time Iodinated Contrast Media Allergy Severe COULDN'T Verified 12/27/23 07:49 [Iodinated Contrast Media - BREATHE IV Dye] divalproex sodium Allergy Intermediate HIVES Verified 12/27/23 07:49 venlafaxine [From Effexor] Allergy Unknown Pt does Verified 12/27/23 07:49 not remember topiramate [From Topamax] AdvReac Unknown anxiety Verified 12/27/23 07:49 citalopram AdvReac stomach Verified 12/27/23 07:49 distress General Stated Complaint: Urinary CHELA: 3 Review of Systems Narrative: Remainder of review of systems otherwise negative except for as noted in the HPI x 10. Exam Narrative Exam Narrative: General: non-toxic, no respiratory distress, tearful HEENT: normocephalic, atraumatic, lids and lashes normal, PERRL, EOMI, anicteric sclera, no conjunctival injection, moist oral mucosa Card: regular rate and rhythm, S1S2, no murmurs, rubs, or gallops Lungs: good air entry, clear to auscultation bilaterally. no wheezes, rales, rhonchi, or retractions Abd: soft, diffusely tender, non-distended, normal bowel sounds, no rebound or guarding, no peritoneal signs, no CVAT Musculoskeletal: full range of motion of arms and legs, no tenderness to palpation. no clubbing, cyanosis, or edema Neurologic: appropriate for age, strength normal Psych: alert and oriented Skin: no petechiae, no lesions, warm and dry Course Vital Signs Vital signs: Vital Signs Temperature 37.0 C 12/27/23 07:35 Pulse 91 H 12/27/23 07:35 Respiratory Rate 18 12/27/23 07:35 Blood Pressure 187/77 H 12/27/23 07:35 Pulse Oximetry 97 12/27/23 07:35 Temperature 37.0 C 12/27/23 07:41 Temperature Source Temporal Artery Scan 12/27/23 07:41 Pulse 91 H 12/27/23 07:41 Respiratory Rate 18 12/27/23 07:41 Respiratory Effort Normal 12/27/23 07:44 Blood Pressure 187/77 H 12/27/23 07:41 Blood Pressure Position Sitting 12/27/23 07:41 Pulse Oximetry 97 12/27/23 07:41 Oxygen Delivery Method Room Air 12/27/23 07:41 Oxygen Flow Rate 0 12/27/23 07:41 Lab/Test Results Lab/Test Results: 12/27/23 07:56 Blood Blood Culture - Pending 12/27/23 07:56 Blood Blood Culture - Pending Medical Decision Making 63-year-old female presents for evaluation of weakness as well as other multiple medical concerns. On review of records I do not see any documented recent urinary tract infections. Bladder scan was done and she is not showing any signs of retention. Laboratory studies, EKG, imaging ordered. Unfortunately patient declines IV. Patient received IM Toradol for pain. Laboratory studies were obtained and unremarkable. UA does show some small amount of blood and leukocytes however there are many skin cells and I do believe this is contaminant. CT of abdomen pelvis was obtained and shows large abdominal hernia which is increasing in size. Results were discussed with patient. Her thyroid level is within normal range at this time. It is unclear why patient has been having ongoing weakness. I do not see any signs of acute infection at this time. Patient is agreeable with discharge home. She will keep follow-up with primary care. She understands indications to return. ECG Data Interpretation: 12 lead EKG performed at 8: 14 Indication: Weakness Rhythm: Normal sinus rhythm Rate: 80 [place]:Normal Intervals: Normal QRS: Normal ST segments: Normal T Waves: Normal INTERPRETATION: Sinus rhythm Comparison to old EKG: No change from prior 02/27/2023 The 12 lead EKG was interpreted by myself Quality:SDOH Health Related Social Needs: No Data to Display [facility] All Active Problems (Updated 12/27/23 @ 09:46 by Lawanda Negro MD) Abdominal wall hernia (Acute) Weakness (Acute) Chronic fatigue (Chronic) Obstructive sleep apnea (Chronic) CPAP Bipolar disorder (Chronic) [facility] Psychiatry Hypothyroidism (Chronic) Hypertension (Chronic) Hyperlipidemia (Chronic) Irritable bowel syndrome with constipation and diarrhea (Chronic) PLMD (periodic limb movement disorder) (Chronic) Migraine headache (Chronic) Chronic nausea (Chronic) Morbid obesity with BMI of 45.0-49.9, adult (Chronic) Atrophic vulvovaginitis (Chronic) Atopic dermatitis (Chronic) Medical History Positive GEO (antinuclear antibody) [facility] Rheumatology consult 12/13--no underlying inflammatory disorder suspected COVID-19 (~12/2021) Uterine leiomyoma Endometrial thickening on ultrasound 11/16/20. Incidental finding. No PMB. No plans for further evaluation. Gastritis Vitamin D deficiency (~11/2018) Surgical History Hx of umbilical hernia repair (03/07/22) S/P cholecystectomy History of blepharoplasty Hx of colonoscopy Family History Mother Bipolar disorder Father Dementia Hypothyroidism Sister Hypothyroidism Sister ALS (amyotrophic lateral sclerosis) Brother No problems noted. Brother No problems noted. Daughter No problems noted. Daughter No problems noted. Son , 37 Substance use disorder Maternal Grandfather Heart disease Maternal Grandmother Heart disease Paternal Grandfather Heart disease Paternal Grandmother Heart disease Social History Smoking/Tobacco Use Status: Former Tobacco Use tobacco type: cigarettes Quit Date: 09/23/89 Tobacco: How many years used: 10 Second Hand Exposure: Yes Smoking risk assessment performed?: Yes Alcohol Intake: current Alcohol Intake frequency: holidays/special occasions only Alcohol type: wine Drug use: Never Substance use type: does not use 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 Pets and animals: No Sexually active: No Do you think of yourself as: straight/heterosexual Current gender identity: female What is your relationship status?: How often do you talk on the phone with friends or family?: three or more times per week How often do you get together with friends or relatives?: once per week Do you belong to any clubs or organized social groups?: no Panel score (0-1 are the most socially isolated patients): 2 What type of physical activity do you participate in: walking and aerobic Duration: 15-30 minutes/day Thuy/Roman Catholic: Voodoo Special thuy needs: No Seatbelt use: always Drive intox or ride w/intox regional 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
--- NOTE | 2023-12-27 08:14 | DI.CT_ITS ---
Exam(s) CT ABDOMEN PELVIS WO EXAM: CT ABDOMEN PELVIS WO CLINICAL HISTORY: lower abd pain. TECHNIQUE: Imaging Protocol: Axial computed tomography images with coronal and sagittal reformatted images were created and reviewed CONTRAST MATERIAL: Intravenous: none Oral: None COMPARISON: CT CT ABDOMEN PELVIS WO from 01/25/2022 FINDINGS: VISUALIZED LUNG BASES: No nodules nor pleural effusions evident. ABDOMEN: There is no ascites. The previously described central mesenteric streaking is unchanged and not asso ciated with a fluid collection in the mesentery nor gross lymphadenopathy LIVER: There are no obvious focal hepatic lesions evident of this noninfused study. GALLBLADDER/BILIARY: The gallbladder is again noted be surgically absent. CBD is not dilated. PANCREAS: No evidence of pancreatic mass nor dilatation of the pancreatic duct. SPLEEN: Spleen is not enlarged. No obvious intrasplenic lesions. ADRENALS: There are no significant adrenal masses. KIDNEYS:No cysts evident. No solid renal masses. No calculi nor hydronephrosis. . ABDOMINAL AORTA: Abdominal aorta is not enlarged. LYMPH NODES: There is no retroperitoneal nor paraaortic adenopathy. ABDOMINAL WALL: Again noted is the an midline and right-sided anterior abdominal wall umbilical-infra umbilical hernia sac. However, this large sac now contains small bowel loops. These do not appear g rossly edematous and there is no obvious bowel obstruction. The hernia sac is multicompartmental wit h all compartments containing bowel loops. The entire measurement of the hernia sac is 14 cm wide by 7 cm craniocaudal by 6.7 cm AP. Appears to contain a wide neck and no fluid within the hernia sac. Also no colon loops therein. PELVIS: LYMPH NODES: There is no intrapelvic nor inguinal adenopathy. GI: No evidence of appendicitis.No evidence of sigmoid diverticulitis. URINARY BLADDER: No calculi nor obvious masses evident REPRODUCTIVE: Right-sided calcified uterine fibroid is unchanged. No abnormal adnexal masses. No fr ee fluid in the pelvis. OSSEOUS: No significant osseous lesions. IMPRESSION: 1. Compared to the prior CT scan of January 2022 there is again noted a large anterior abdominal wall her bhavani. However on the present study it now contains numerous small bowel loops; previously only contai n fat. There is no obvious bowel obstruction evident. 2. Previous cholecystectomy again noted. The biliary tree is not dilated. Discussed with ER physician. RADIATION DOSE DELIVERED: Total DLP DATA REPOSITORY: All CT scans at this facility are submitted to the National Radiology Data Registry (NRDR) Dose Index Registry (DIR) with the [employer] (ACR). RADIATION OPTIMIZATION: All CT scans at this facility use at least one of these dose optimization te chniques: automated exposure control; mA and/or kV adjustment per patient size (includes targeted exa ms where dose is matched to clinical indication); or iterative reconstruction.
[2023-12-27] MEDS: Ketorolac 60 MG/2 ML VIAL IM (08:23)
[2023-12-27 09:04] LABS: Lactate 0.9 mmol/L (0.6-1.4)
[2023-12-27 09:05] LABS: Abs Immature Grans 0.02 10^3/uL (0.0-0.06); Absolute Basophil Count 0.04 10^3/uL (0.0-0.2); Absolute Eosinophil Count 0.34 10^3/uL (0.0-0.7); Absolute Lymphocyte Count 1.16 10^3/uL (1.2-3.4); Absolute Monocyte Count 0.42 10^3/uL (0.1-0.8); Basophils % 0.5; Eosinophils % 4.5; HCT 38.3 % (36.0-46.0); HGB 11.7 g/dL (11.2-15.7); Immature Grans % 0.3; Lymphocytes % 15.3; MCHC 30.5 % (32.0-36.0); MCV 92 fL (80-95); MPV 10.1 fL (8.0-11.0); Monocytes % 5.5; Neutrophils % 73.9; Platelet Count 213 10^3/uL (130-400); RBC 4.18 10^6/uL (3.93-5.22); RDW 15.9 % (11.7-14.6); RDW-SD 53.2 fL; WBC 7.58 10^3/uL (4.4-10.8)
--- NOTE | 2023-12-27 09:10 | DI.RAD_ITS ---
Exam(s) XR CHEST 1V IN DI DEPT EXAM: XR CHEST 1V IN DI DEPT CLINICAL HISTORY: cough. TECHNIQUE: 2D digital imaging was performed. COMPARISON: CR XR CHEST 2V PA LATERAL from 01/02/2023 FINDINGS: Single AP portable view. Heart size remains upper normal. The mediastinum is not widened. Mild increased markings in the lateral left lung base noted. Remainder of the lung garcia are clear and there are no pleural effusions evident on this portable view. No pulmonary edema. No pneumothor ax. IMPRESSION: Mild increased markings in the lateral left lung base costophrenic angle region. DATA REPOSITORY: RADIATION DOSE DELIVERED:
[2023-12-27 09:25] LABS: ALT 17 U/L (14-59); AST 10 U/L (15-37); Albumin 3.4 g/dL (3.4-5.0); Alkaline Phosphatase 85 U/L (46-116); Anion Gap 9.8 mmol/L (3-11); BUN 17 mg/dL (7-18); Bilirubin, Total 0.4 mg/dL (0.2-1.0); CO2 27.2 mmol/L (21.0-32.0); CREATININE 1.1 mg/dL (0.55-1.02); Calcium 9.1 mg/dL (8.5-10.1); Chloride 105 mmol/L (98-107); Estimated GFR 55.76 (mL/min/1.73m2); Glucose 101 mg/dL (74-106); Potassium 4.2 mmol/L (3.5-5.1); Sodium 142 mmol/L (136-145); Total Protein 7.4 g/dL (6.4-8.2); Troponin I < 50 ng/L (< or =60)
[2023-12-27 09:31] LABS: TSH (W/Ref FT4) 3.38 uIU/mL (0.36-3.74)
[2023-12-27 09:49] LABS: Bilirubin Negative (Negative); Blood Trace-intact (Negative); Clarity Clear (Clear); Glucose Negative (Negative); Ketones Negative (Negative); Leukocyte Esterase Moderate (Negative); Nitrite Negative (Negative); Urobilinogen 0.2 mg/dL (Up to 0.2); pH 6.5 (5-8)
[2023-12-27 09:57] LABS: Bacteria Few HPF (Negative); C & S Indicated? No/Sq. Contamination; Casts Negative LPF (Negative); Crystals Negative HPF (Negative); Epithelial Cells Many HPF (Negative); Mucus Negative (Negative); WBC 20-50 HPF (0-5)
== END 2023-12-27 10:54 | disposition home or self-care (01) ==
PROVIDERS: Emergency Provider Emergency Medicine Emergency Medical Services; PCP Nurse Practitioner Family
DX: R53.1 Weakness (principal); K43.9 Ventral hernia without obstruction or gangrene; E03.9 Hypothyroidism, unspecified; I10 Essential (primary) hypertension; E78.5 Hyperlipidemia, unspecified; Z87.891 Personal history of nicotine dependence
CPT/HCPCS: 36410; 80053; 87040; 87426; 93005; 96372; 99285; 71045; 74176; 81003; 81015; 83605; 84443; 84484; 85025; 93010; 99284; J1885

== ENCOUNTER 2023-12-27 20:50 | Observation (INO) | payer MEDICARE, BC, SELFPAY ==
[2023-12-27] VITALS (22 sets, daily range): BP systolic 111–193; BP diastolic 56–78; PULSE 87–116; RESP 20–32; TEMP 37.2; O2SAT 90–96
--- NOTE | 2023-12-27 21:15 | RT.EKG_ITS ---
APPROVED REPORT Exam: Resting ECG Reason for Exam: weakness Patient Location: E HR:102 bpm ECG Measurements Heart Rate 102 AXIS LA 163 P 83 QRSd 94 QRS 41 QT 330 T 43 QTc 430 Conclusion Sinus tachycardia...rate> 99 Narrow complex sinus tachycardia at a rate of 102 bpm. Normal axis. LA and QTc within normal limits . No acute injury pattern. ST segment flattening V2 and V3. Compared to prior dated earlier today ST segment flattening and T wave flattening appears similar. No acute injury pattern. Low voltage l imb and chest wall leads.
--- NOTE | 2023-12-27 21:30 | DI.CT_ITS ---
Exam(s) CT CHEST/ABD/PEL WO EXAM: CT CHEST/ABD/PEL WO CLINICAL HISTORY: vomit, abd pain, fever, sob. TECHNIQUE: Imaging Protocol: Axial computed tomography images with coronal and sagittal reformatted images were created and reviewed CONTRAST MATERIAL: Intravenous: none Oral: None COMPARISON: CT CT ABDOMEN PELVIS WO from 12/27/2023 FINDINGS: CHEST: LUNGS: Mild increased markings in lung bases again noted slightly increased from previous. No promin ent infiltrates. No pleural effusions.. MEDIASTINUM: No obvious hilar nor mediastinal adenopathy. Visualized thyroid unremarkable. CARDIAC: Heart size normal. Small pericardial effusion again noted, unchanged. Maximum thickness is again noted to be on the right side where it measures up to 1.6 cm. Anteriorly there is some mild p ericardial effusion at the apex which exhibits thickness of 6 mm.Caliber of the thoracic aorta is wit hin normal limits. OSSEOUS: No significant osseous lesions.. ABDOMEN: Again noted is the large somewhat bilobed anterior abdominal hernia sac which contains small bowel lo ops. Appearance of the small bowel loops is slightly different from the scan of earlier same date wh ich may be related to interval manual attempt at reduction or peristalsis. The bowel loops proximal to the hernia do not appear grossly distended and the small bowel loops within the hernia sac exhibit diameter 1.2 cm. There is no fluid in the hernia sac. Some overlying skin thickening is noted. Th e colon is not collapsed. There are no ischemic appearing bowel loops. A There is no ascites. Mild streaking in the central mesentery is again noted. LIVER: There are no obvious focal hepatic lesions evident of this noninfused study. GALLBLADDER/BILIARY: Gallbladder is again noted be surgically absent. CBD is not dilated. PANCREAS: No evidence of obvious pancreatic mass nor dilatation of the pancreatic duct. SPLEEN: Spleen is not enlarged. No obvious intrasplenic lesions. ADRENALS: There are no significant adrenal masses. KIDNEYS: No calculi nor hydronephrosis. No obvious solid renal masses. No cysts evident. ABDOMINAL AORTA: Abdominal aorta is not enlarged. LYMPH NODES: There is no retroperitoneal nor para-aortic adenopathy. PELVIS: LYMPH NODES: There is no intrapelvic nor inguinal adenopathy. GI: No evidence of appendicitis.There are sigmoid diverticuli without evidence of acute diverticuliti s. URINARY BLADDER: Unremarkable. REPRODUCTIVE: Right-side calcified uterine fibroid noted. No abnormal adnexal masses. No free fluid in the pelvis. OSSEOUS: No significant osseous lesions. No fractures. IMPRESSION: 1. Large anterior abdominal wall hernia containing small bowel loops again noted. Small bowel loops all exhibit normal calibers and do not appear ischemic/edematous and there is no ascites. No obvious bowel obstruction. Colon is not collapsed. 2. Previous cholecystectomy again noted. The biliary tree is not dilated. 3. Small pericardial effusion again noted. RADIATION DOSE DELIVERED: Total DLP DATA REPOSITORY: All CT scans at this facility are submitted to the National Radiology Data Registry (NRDR) Dose Index Registry (DIR) with the [employer] (ACR). RADIATION OPTIMIZATION: All CT scans at this facility use at least one of these dose optimization te chniques: automated exposure control; mA and/or kV adjustment per patient size (includes targeted exa ms where dose is matched to clinical indication); or iterative reconstruction.
[2023-12-27] MEDS: ACETAMINOPHEN 1,000 MG/100 ML BTL 400 MG IVPB (21:31)
[2023-12-27] MEDS: Normal Saline 1,000 ML 1000 ML IV (21:34)
[2023-12-27 21:35] LABS: Abs Immature Grans 0.05 10^3/uL (0.0-0.06); Absolute Basophil Count 0.01 10^3/uL (0.0-0.2); Absolute Eosinophil Count 0.26 10^3/uL (0.0-0.7); Absolute Lymphocyte Count 0.54 10^3/uL (1.2-3.4); Absolute Monocyte Count 0.43 10^3/uL (0.1-0.8); BE (Venous) 4 mmol/L (-2-3); Basophils % 0.1; Eosinophils % 2.5; HCO3 (Venous) 28 mmol/L (23-28); HCT 40.1 % (36.0-46.0); HGB 12.5 g/dL (11.2-15.7); Immature Grans % 0.5; Lymphocytes % 5.1; MCH 28.1 pg (27.0-33.0); MCHC 31.2 % (32.0-36.0); MCV 90 fL (80-95); MPV 9.6 fL (8.0-11.0); Monocytes % 4.1; Neutrophils % 87.7; O2 Sat (Venous) 88 %; Platelet Count 265 10^3/uL (130-400); RBC 4.45 10^6/uL (3.93-5.22); RDW 15.6 % (11.7-14.6); RDW-SD 51.5 fL; TCO2 (Venous) 25 mmol/L (24-29); WBC 10.49 10^3/uL (4.4-10.8); pCO2 (Venous) 42 mmHg (41-51); pH (Venous) 7.43 (7.31-7.41); pO2 (Venous) 52 mmHg
[2023-12-27 21:37] LABS: Lactate 1.3 mmol/L (0.6-1.4)
[2023-12-27 22:01] LABS: ALT 18 U/L (14-59); AST 21 U/L (15-37); Albumin 3.4 g/dL (3.4-5.0); Alkaline Phosphatase 89 U/L (46-116); Anion Gap 9.4 mmol/L (3-11); BUN 18 mg/dL (7-18); Bilirubin, Total 0.6 mg/dL (0.2-1.0); CO2 26.6 mmol/L (21.0-32.0); CREATININE 1.1 mg/dL (0.55-1.02); Calcium 9.2 mg/dL (8.5-10.1); Chloride 101 mmol/L (98-107); Estimated GFR 55.76 (mL/min/1.73m2); Glucose 120 mg/dL (74-106); Lipase 17 U/L (16-77); Magnesium 1.8 mg/dL (1.8-2.4); Potassium 4.4 mmol/L (3.5-5.1); Sodium 137 mmol/L (136-145); Total Protein 7.5 g/dL (6.4-8.2); Troponin I < 50 ng/L (< or =60)
[2023-12-27 22:13] LABS: Procalcitonin < 0.1 ng/mL
[2023-12-27] MEDS: fentaNYL 100 MCG/2 ML VIAL 75 MCG IVP (22:15)
[2023-12-27] MEDS: Ondansetron 4 MG/2 ML VIAL IVP (22:15)
[2023-12-27] MEDS: PIPERACILLIN/TAZO 4.5 GM in Normal Saline 100 ML IVPB (22:16)
[2023-12-27 22:17] LABS: COVID-19 PCR Negative (Negative); Influenza A PCR Negative (Negative); Influenza B PCR Negative (Negative); RSV PCR Negative (Negative)
[2023-12-27 22:19] LABS: Source Nasopharynx
--- NOTE | 2023-12-27 22:41 | W.ED.GENAD ---
Discharge Plan Disposition Patient Disposition: Admit to [facility] Condition: Stable Discharge Details Clinical Impression: SIRS (systemic inflammatory response syndrome), Bronchitis, Abdominal hernia Admit Date/Time: 12/28/23 01:01 Admit Provider: Natanael Laguna Attending Provider: Natanael Laguna Primary Care Provider: Scarlet Boyce ED Provider: Alcira Marley Discharge Data Discharge Date/Time-TO BE ENTERED AT DEPARTURE: 12/28/23 14:44 HPI General Date/Time Provider Initiated Documentation: 12/27/23 20:59. HPI Narrative: 63-year-old female presents with reports of abdominal pain, nausea, vomiting, fever, history of recent UTI, hypothyroidism, hypertension, hyperlipidemia. Patient states she is on her last day of antibiotics for UTI, she was evaluated earlier today for similar presentation but felt worse tonight which is why presented. Denies history of similar symptoms in the past. States had CTs that reportedly did not show acute abnormality. Denies any falls or injuries. States she feels short of breath. Related Data Home Medications Medication Instructions Recorded Confirmed bismuth subsalicylate 262 mg 2 tab PO Q30-60M PRN 01/11/20 12/28/23 chewable tablet (Peptic Relief) cholecalciferol (vitamin D3) 25 25 mcg PO DAILY 09/25/20 12/28/23 mcg (1,000 unit) tablet (Vitamin D3) cyanocobalamin (vitamin B-12) 500 500 mcg PO BID 09/25/20 12/28/23 mcg tablet (Vitamin B-12) ascorbic acid (vitamin C) 1,000 mg 1 g PO DAILY 04/19/21 12/28/23 tablet strain 16 probiotic 1 tab PO BID 04/19/21 12/28/23 nystatin 100,000 unit/gram topical 1 applic topical BID PRN 07/24/22 12/28/23 powder (Nystop) intertrigo #1 g lamotrigine 200 mg tablet 200 mg PO HS 12/27/22 12/28/23 trazodone 100 mg tablet 200 mg PO HS 03/04/23 12/28/23 ropinirole 1 mg tablet 1 mg PO QHS 07/26/23 12/28/23 rizatriptan 5 mg tablet 5 mg PO ONCE PRN migraine headache 07/30/23 12/28/23 #10 tabs triamcinolone acetonide 0.1 % 1 applic topical BID #15 grams 09/11/23 12/28/23 topical cream bupropion HCl 75 mg tablet 75 mg PO QPM 11/14/23 12/28/23 levothyroxine 175 mcg tablet 175 mcg PO DAILY #90 tabs 12/05/23 12/28/23 acetylcysteine 600 mg capsule 600 mg PO BID 12/28/23 12/28/23 levothyroxine 150 mcg tablet 150 mcg PO DAILY 12/28/23 12/28/23 nitrofurantoin 100 mg PO Q12H 12/28/23 12/28/23 monohydrate/macrocrystals 100 mg capsule Previous Rx's Medication Instructions Recorded nystatin 100,000 unit/gram topical 1 applic topical BID PRN 07/24/22 powder (Nystop) intertrigo #1 g rizatriptan 5 mg tablet 5 mg PO ONCE PRN migraine headache 07/30/23 #10 tabs triamcinolone acetonide 0.1 % 1 applic topical BID #15 grams 09/11/23 topical cream levothyroxine 175 mcg tablet 175 mcg PO DAILY #90 tabs 12/05/23 Allergies Allergy/AdvReac Type Severity Reaction Status Date / Time Iodinated Contrast Media Allergy Severe COULDN'T Verified 12/27/23 20:58 [Iodinated Contrast Media - BREATHE IV Dye] divalproex sodium Allergy Intermediate HIVES Verified 12/27/23 20:58 venlafaxine [From Effexor] Allergy Unknown Pt does Verified 12/27/23 20:58 not remember topiramate [From Topamax] AdvReac Unknown anxiety Verified 12/27/23 20:58 citalopram AdvReac stomach Verified 12/27/23 20:58 distress General Stated Complaint: [facility] CHELA: 3 Course Vital Signs Vital signs: Vital Signs Temperature 37.2 C 12/27/23 20:52 Pulse 116 H 12/27/23 20:52 Respiratory Rate 32 H 12/27/23 20:52 Blood Pressure 193/75 H 12/27/23 20:52 Pulse Oximetry 94 12/27/23 20:52 Temperature 37.2 C 12/27/23 20:52 Temperature Source Oral 12/27/23 20:52 Pulse 116 H 12/27/23 20:52 Pulse 102 H 12/27/23 22:00 Respiratory Rate 20 12/27/23 22:00 Respiratory Effort Normal 12/27/23 21:31 Respiratory Depth Normal 12/27/23 21:31 Respiratory Pattern Normal 12/27/23 21:31 Blood Pressure 193/75 H 12/27/23 20:52 Pulse Oximetry 92 12/27/23 22:00 Oxygen Delivery Method Room Air 12/27/23 20:52 Oxygen Flow Rate 0 12/27/23 20:52 Pain Level 5 12/27/23 20:52 Lab/Test Results Lab/Test Results: Laboratory Tests Range/Units 12/27/23 12/27/23 21:20 21:26 WBC (4.4-10.8) 10^3/uL 10.49 RBC (3.93-5.22) 10^6/uL 4.45 Hgb (11.2-15.7) g/dL 12.5 Hct (36.0-46.0) % 40.1 MCV (80-95) fL 90 MCH (27.0-33.0) pg 28.1 MCHC (32.0-36.0) % 31.2 L RDW (11.7-14.6) % 15.6 H Plt Count (130-400) 10^3/uL 265 MPV (8.0-11.0) fL 9.6 Immature Gran % 0.5 Neutrophils % 87.7 Lymphocytes % 5.1 Monocytes % 4.1 Eosinophils % 2.5 Basophils % 0.1 Nucleated RBC % (0.0-0.3) % 0.0 Absolute Neutrophils (1.2-6.7) 10^3/uL 9.20 H Absolute Lymphocytes (1.2-3.4) 10^3/uL 0.54 L Absolute Monocytes (0.1-0.8) 10^3/uL 0.43 Absolute Eosinophils (0.0-0.7) 10^3/uL 0.26 Absolute Basophils (0.0-0.2) 10^3/uL 0.01 VBG pH (7.31-7.41) 7.43 H VBG pCO2 (41-51) mmHg 42 VBG pO2 mmHg 52 VBG HCO3 (23-28) mmol/L 28 VBG Total CO2 (24-29) mmol/L 25 VBG O2 Saturation % 88 VBG Base Excess (-2-3) mmol/L 4 H VBG Lactate (0.6-1.4) mmol/L 1.3 Sodium (136-145) mmol/L 137 Potassium (3.5-5.1) mmol/L 4.4 Chloride (98-107) mmol/L 101 Carbon Dioxide (21.0-32.0) mmol/L 26.6 Anion Gap (3-11) mmol/L 9.4 BUN (7-18) mg/dL 18 Creatinine (0.55-1.02) mg/dL 1.1 H Est GFR (CKD-EPI 2020) (mL/min/1.73m2) 55.76 Glucose (74-106) mg/dL 120 H Calcium (8.5-10.1) mg/dL 9.2 Magnesium (1.8-2.4) mg/dL 1.8 Total Bilirubin (0.2-1.0) mg/dL 0.6 AST (15-37) U/L 21 ALT (14-59) U/L 18 Alkaline Phosphatase (46-116) U/L 89 Troponin I (< or =60) ng/L < 50 Total Protein (6.4-8.2) g/dL 7.5 Albumin (3.4-5.0) g/dL 3.4 Lipase (16-77) U/L 17 Procalcitonin ng/mL < 0.1 COVID-19 Source Nasopharynx SARS-CoV-2 (PCR) (Negative) Negative Influenza Type A (PCR) (Negative) Negative Influenza Type B (PCR) (Negative) Negative RSV (PCR) (Negative) Negative Medical Decision Making 63-year-old female with history of hypertension, hyperlipidemia, bipolar disorder, hypothyroidism presents with reports of abdominal pain, nausea, vomiting, reassessment from this morning On exam she is exquisitely tender in her abdomen she states she has chronic abdominal pain but this is worse than her typical presentation, she also states she has been unable to eat or drink secondary to nausea and vomiting, I will order repeat CT scan as her pain has dramatically worsened and will also order CT chest this patient is tachypneic Temp of 101.7 orally, patient did become markedly hypoxic post fentanyl dipping down to 82% history of sleep apnea, oxygen placed Tylenol administered, 1 L fluid and initiated Blood cultures were ordered this morning so I did not order repeat blood cultures, lactate is negative, CT is pending at this time Zosyn was initiated secondary to fever and abdominal pain Patient on the last day of antibiotics for urinary tract infection and she feels as though the symptoms have improved CT abdomen and pelvis shows possible pericardial effusion, small, pulmonary edema versus bronchitis, CT abdomen and pelvis does not show incarcerated hernia or obstruction, given fever, temp of 101.7 orally, tachycardia, nausea, vomiting, pain, shortness of breath, will admit overnight for observation, received Zosyn empirically and will continue to observe pending blood cultures Meet SIRS criteria Quality:[facility] Health Related Social Needs: No Data to Display PFSH All Active Problems (Updated 12/29/23 @ 08:56 by RUDY Han) Abdominal hernia (Acute) SIRS (systemic inflammatory response syndrome) (Acute) Acute viral syndrome (Acute) Bronchitis (Acute) Abdominal wall hernia (Chronic) Weakness (Acute) Chronic fatigue (Chronic) Obstructive sleep apnea (Chronic) CPAP Bipolar disorder (Chronic) [facility] Psychiatry Hypothyroidism (Chronic) Hypertension (Chronic) Hyperlipidemia (Chronic) Irritable bowel syndrome with constipation and diarrhea (Chronic) PLMD (periodic limb movement disorder) (Chronic) Migraine headache (Chronic) Chronic nausea (Chronic) Morbid obesity with BMI of 45.0-49.9, adult (Chronic) Atrophic vulvovaginitis (Chronic) Atopic dermatitis (Chronic) Medical History Positive GEO (antinuclear antibody) [facility] Rheumatology consult 12/13--no underlying inflammatory disorder suspected COVID-19 (~12/2021) Uterine leiomyoma Endometrial thickening on ultrasound 11/16/20. Incidental finding. No PMB. No plans for further evaluation. Gastritis Vitamin D deficiency (~11/2018) Surgical History Hx of umbilical hernia repair (03/07/22) S/P cholecystectomy History of blepharoplasty Hx of colonoscopy Family History Mother Bipolar disorder Father Dementia Hypothyroidism Sister Hypothyroidism Sister ALS (amyotrophic lateral sclerosis) Brother No problems noted. Brother No problems noted. Daughter No problems noted. Daughter No problems noted. Son , 37 Substance use disorder Maternal Grandfather Heart disease Maternal Grandmother Heart disease Paternal Grandfather Heart disease Paternal Grandmother Heart disease Social History Smoking/Tobacco Use Status: Former Tobacco Use tobacco type: cigarettes Quit Date: 09/23/89 Tobacco: How many years used: 10 Second Hand Exposure: Yes Smoking risk assessment performed?: Yes Alcohol Intake: current Alcohol Intake frequency: holidays/special occasions only Alcohol type: wine Drug use: Occasionally Substance use type: marijuana Details: uses PO CBD gummies. 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 Pets and animals: No Sexually active: No Do you think of yourself as: straight/heterosexual Current gender identity: female What is your relationship status?: How often do you talk on the phone with friends or family?: three or more times per week How often do you get together with friends or relatives?: once per week Do you belong to any clubs or organized social groups?: no Panel score (0-1 are the most socially isolated patients): 2 What type of physical activity do you participate in: walking and aerobic Duration: 15-30 minutes/day Thuy/Anglican: Shinto Special thuy needs: No Seatbelt use: always Drive intox or ride w/intox mail truck 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
--- NOTE | 2023-12-27 23:32 | DI.VRAD_ITS ---
PROCEDURE INFORMATION: Exam: CT Chest Without Contrast; Diagnostic Exam date and time: 12/27/2023 10:22 PM Age: 63 years old Clinical indication: Fever and nausea and vomiting; Shortness of breath; Patient HX: Vomit, abd pain, fever, SOB TECHNIQUE: Imaging protocol: Diagnostic computed tomography of the chest without contrast. COMPARISON: CT ABDOMEN PELVIS WO 12/27/2023 9:12 AM FINDINGS: Thyroid: The visualized thyroid gland is unremarkable. Lungs: Mild bilateral bronchial wall thickening consistent with bronchitis or bronchial edema. No bronchiectasis. No bronchial occlusions. Mild atelectasis in the lung bases. Interlobular septal thickening in the lung bases and apices with mild basilar juxtapleural interstitial prominence, suspect interstitial pulmonary edema. No gross pulmonary infiltrates or alveolar edema. 4 mm noncalcified pulmonary nodule in the lingular portion of the left upper lobe series 3, image 279. For patients at low risk (minimal or absent history of smoking and of other known risk factors), no routine follow-up is indicated. For patients at high risk (history of smoking or of other known risk factors), consider optional CT at 12 months. (Gino et al., Fleischner Society, 2017). Pleural spaces: No pleural effusions. No pneumothorax. Heart: Heart size normal. Small volume pericardial effusion and suspected mild pericardial thickening with slight adjacent fatty stranding, question pericarditis. Coronary arteries: Moderate coronary artery calcification. Esophagus: The esophagus is largely contracted without gross abnormality. Lymph nodes: No supraclavicular or axillary adenopathy. Mildly enlarged mediastinal nodes in the precarinal, AP window, and subcarinal distributions. Mildly enlarged bilateral hilar nodes. These are nonspecific. Vasculature: The aorta demonstrates mild calcific atherosclerosis. No aneurysm. No mediastinal hematoma. The pulmonary arteries demonstrate no gross abnormality. Bones/joints: No acute osseous abnormalities are identified. Mild thoracic spondylosis. Soft tissues: Soft tissues of the thoracic wall demonstrate no acute abnormality. IMPRESSION: 1. Small pericardial effusion with mild pericardial thickening and slight adjacent fatty stranding, question pericarditis. 2. Mild interstitial pulmonary edema. 3. Mild bilateral bronchial wall thickening suggesting mild changes of bronchitis or bronchial edema. No gross pulmonary infiltrates. 4. Enlarged mediastinal and hilar nodes, nonspecific. 5. Moderate coronary artery calcification. 6. 4 mm nodule in the lingular portion of the left upper lobe. Please see recommendations above. PROCEDURE INFORMATION: Exam: CT Abdomen And Pelvis Without Contrast Exam date and time: 12/27/2023 10:22 PM Age: 63 years old Clinical indication: Fever and nausea and vomiting; Shortness of breath; Patient HX: Vomit, abd pain, fever, SOB TECHNIQUE: Imaging protocol: Computed tomography of the abdomen and pelvis without contrast. COMPARISON: CT ABDOMEN PELVIS WO 12/27/2023 9:12 AM FINDINGS: Esophagus: The visualized distal esophagus is largely contracted without gross abnormality. Liver: Mild hepatomegaly measuring 20 cm craniocaudal. Normal contour. No mass lesions. No intrahepatic biliary ductal dilatation. Gallbladder and bile ducts: Prior cholecystectomy with no significant dilatation of the common bile duct. Pancreas: Moderate fatty atrophy of the pancreas without acute abnormality. No pancreatic ductal dilatation. Spleen: Mild splenomegaly measuring 15.2 cm. No focal splenic lesions. Adrenal glands: Normal. No adrenal mass. Kidneys and ureters: No acute abnormalities. No hydronephrosis or hydroureter. No urinary tract stones are identified. Stomach and bowel: The stomach is largely contracted. The small bowel is nondilated with no gross abnormality. Mild distal colonic diverticulosis without diverticulitis. Distal colon is largely contracted. Appendix: The appendix is normal in caliber and demonstrates no evidence of appendicitis. Intraperitoneal space: No peritoneal free fluid or air. Chronic central mesenteric haziness suggesting chronic mesenteritis/mesenteric panniculitis, unchanged from 01/25/2022. Vasculature: No acute vascular findings. 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 Mild calcific atherosclerosis. Lymph nodes: No adenopathy. Urinary bladder: Unremarkable as visualized. Reproductive: 10 mm chronic calcified uterine fibroid. No gross ovarian abnormalities. Bones/joints: No acute osseous abnormalities. Moderate disc degenerative changes L5-S1. Moderate lumbar spondylosis. Soft tissues: Large periumbilical hernia increased in size from 01/25/2022, now containing a few loops of small bowel in addition to the previous herniated fat. No evidence of bowel obstruction. No gross features of strangulation. Question mild generalized soft tissue stranding/edema in the peripheral subcutaneous tissues suggesting mild volume overload or anasarca. IMPRESSION: 1. No definite acute process. 2. The large periumbilical hernia is increased in size from 01/25/2022 and now contains a few loops of small bowel, however there is no evidence of bowel obstruction or strangulation. 3. Mild hepatosplenomegaly. 4. Mild distal colonic diverticulosis without diverticulitis. 5. Chronic mesenteric panniculitis unchanged. 6. Additional nonemergent findings detailed above. Dictated and Authenticated by: Sonny Olivo MD. Ordering:ELIZABETH Eli MD
[2023-12-28] VITALS (57 sets, daily range): BP systolic 106–161; BP diastolic 49–86; PULSE 67–102; RESP 15–32; TEMP 36.6–37.7; O2SAT 89–98
--- NOTE | 2023-12-28 00:03 | W.PM.HP.N ---
Date of service: 12/28/23 Time of Service: 00:04 Assessment and Plan Assessment and plan (1) Acute viral syndrome: Start date: 12/28/23 Status: Acute Assessment and plan: This is a 63-year-old lady who presents to the ED with 3-week history of not feeling well with acute onset of fever over 101 and nausea and vomiting. She is not having cough though imaging appears to suggest bronchitis. Imaging also suggest possible interstitial edema with CHF but BNP was negative and patient did receive 1 dose of IV Lasix which would not be continued. She does have a multiplicity of chronic issues with fatigue and obesity and is being worked up as an outpatient. Symptomatic care with oral hydration and follow-up labs with initiation of IV antibiotics for bronchitis to be converted to oral therapy as patient improves. He may need it evaluated for assistive devices at home with increased weakness and her obesity. She will be treated for her sleep apnea will be treated while in the hospital. She is a full code. (2) Bronchitis: Start date: 12/28/23 Status: Acute Assessment and plan: IV doxycycline and follow-up clinically. Patient not requiring oxygen. (3) Abdominal wall hernia: Status: Chronic Assessment and plan: This appears to be a periumbilical hernia which is enlarging but showed no signs of obstruction though it does have increased discomfort with vomiting. Symptomatic care and follow-up with PCP and surgeon as needed. This does not appear to be an acute problem. (4) Obstructive sleep apnea: Status: Chronic Assessment and plan: CPAP with home settings while hospitalized. Weight loss is advised. (5) Bipolar disorder: Status: Chronic Assessment and plan: Continue outpatient medical therapy with follow-up with PCP on long-term adjustment. She is having increased fatigue and chronic pain which may improve if she lost weight and more aggressively rehabilitated herself with diet and exercise. This is unlikely. She does have a supportive who is retired and lives at home caring for the patient. Qualifiers: Active/Remission status: currently active Current bipolar episode type: depressed Current episode severity: mild Qualified Code(s): F31.31 - Bipolar disorder, current episode depressed, mild History of Present Illness History of Present Illness Chief Complaint: Not feeling well for 3 weeks with UTI at end of treatment Narrative: This is a 63-year-old female patient who has not felt well for months being diagnosed with chronic fatigue syndrome and fibromyalgia who recently had a UTI diagnosed in the outpatient clinic treated with antibiotic therapy. She is at the end of her antibiotic therapy. She presents to the ED with a fever one 101.7 degrees Fahrenheit and not feeling well. She also had abdominal pain which was more than her usual associate with an umbilical hernia which by CT in the ED showed enlargement but no signs of obstruction. She also has chronic findings on her CT evaluation including some slight evidence of an incisional fluid and bronchitis with bronchial wall changes along with pericardial effusion. She has not had any complaints of cough. She has an inflamed nose in the perihilar region. She has been seen by an outpatient primary care with ongoing evaluation of her chronic symptoms. She was admitted to the ED for observation because of her abdominal pain and fever initiated therapy for bronchitis with cultures performed. She is morbidly obese and does have sleep apnea which will be treated with CPAP with her usual home settings. She is a complicated case with mostly chronic complaints with the acute symptoms most likely viral but she has had a recent UTI. She does not appear septic. She wanders in conversation with increased somatic complaints. She is a full code. Review of Systems Constitutional Comments: 13 point review of systems markedly positive for somatic complaints with patient having body aches, fatigue and generalized weakness as well as worsening obesity and depressed mood. Her abdominal complaints are chronic with discomfort and pain which has had some nausea and vomiting but no signs of obstruction as stated on imaging. He denies any bloating at this time. She has had no hematemesis. She has no focal neurological complaints. Otherwise review of systems stable. [facility] All Active Problems (Updated 12/28/23 @ 11:12 by Natanael Laguna) Acute viral syndrome (Acute) Bronchitis (Acute) Abdominal wall hernia (Chronic) Weakness (Acute) Chronic fatigue (Chronic) Obstructive sleep apnea (Chronic) CPAP Bipolar disorder (Chronic) [facility] Psychiatry Hypothyroidism (Chronic) Hypertension (Chronic) Hyperlipidemia (Chronic) Irritable bowel syndrome with constipation and diarrhea (Chronic) PLMD (periodic limb movement disorder) (Chronic) Migraine headache (Chronic) Chronic nausea (Chronic) Morbid obesity with BMI of 45.0-49.9, adult (Chronic) Atrophic vulvovaginitis (Chronic) Atopic dermatitis (Chronic) Medical History Positive GEO (antinuclear antibody) [facility] [place] 12/13--no underlying inflammatory disorder suspected COVID-19 (~12/2021) Uterine leiomyoma Endometrial thickening on ultrasound 11/16/20. Incidental finding. No PMB. No plans for further evaluation. Gastritis Vitamin D deficiency (~11/2018) Surgical History Hx of umbilical hernia repair (03/07/22) S/P cholecystectomy History of blepharoplasty Hx of colonoscopy Family History Mother Bipolar disorder Father Dementia Hypothyroidism Sister Hypothyroidism Sister ALS (amyotrophic lateral sclerosis) Brother No problems noted. Brother No problems noted. Daughter No problems noted. Daughter No problems noted. Son , 37 Substance use disorder Maternal Grandfather Heart disease Maternal Grandmother Heart disease Paternal Grandfather Heart disease Paternal Grandmother Heart disease Social History Smoking/Tobacco Use Status: Former Tobacco Use tobacco type: cigarettes Quit Date: 09/23/89 Tobacco: How many years used: 10 Second Hand Exposure: Yes Smoking risk assessment performed?: Yes Alcohol Intake: current Alcohol Intake frequency: holidays/special occasions only Alcohol type: wine Drug use: Occasionally Substance use type: marijuana Details: uses PO CBD gummies. 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 Pets and animals: No Sexually active: No Do you think of yourself as: straight/heterosexual Current gender identity: female What is your relationship status?: How often do you talk on the phone with friends or family?: three or more times per week How often do you get together with friends or relatives?: once per week Do you belong to any clubs or organized social groups?: no Panel score (0-1 are the most socially isolated patients): 2 What type of physical activity do you participate in: walking and aerobic Duration: 15-30 minutes/day Thuy/Mosque: L[employer] Day Special thuy needs: No Seatbelt use: always Drive intox or ride w/intox hazardous materials tanker 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 Meds Allergies and Home Medications Allergies Allergy/AdvReac Type Severity Reaction Status Date / Time Iodinated Contrast Media Allergy Severe COULDN'T Verified 12/27/23 20:58 [Iodinated Contrast Media - BREATHE IV Dye] divalproex sodium Allergy Intermediate HIVES Verified 12/27/23 20:58 venlafaxine [From Effexor] Allergy Unknown Pt does Verified 12/27/23 20:58 not remember topiramate [From Topamax] AdvReac Unknown anxiety Verified 12/27/23 20:58 citalopram AdvReac stomach Verified 12/27/23 20:58 distress Home Medications Medication Instructions Recorded Confirmed Type bismuth subsalicylate 262 mg 2 tab PO Q30-60M PRN 01/11/20 12/28/23 History chewable tablet (Peptic Relief) cholecalciferol (vitamin D3) 25 25 mcg PO DAILY 09/25/20 12/28/23 History mcg (1,000 unit) tablet (Vitamin D3) cyanocobalamin (vitamin B-12) 500 500 mcg PO BID 09/25/20 12/28/23 History mcg tablet (Vitamin B-12) ascorbic acid (vitamin C) 1,000 mg 1 g PO DAILY 04/19/21 12/28/23 History tablet strain 16 probiotic 1 tab PO BID 04/19/21 12/28/23 History nystatin 100,000 unit/gram topical 1 applic topical BID PRN 07/24/22 12/28/23 Rx powder (Nystop) intertrigo #1 g lamotrigine 200 mg tablet 200 mg PO HS 12/27/22 12/28/23 History trazodone 100 mg tablet 200 mg PO HS 03/04/23 12/28/23 History ropinirole 1 mg tablet 1 mg PO QHS 07/26/23 12/28/23 History rizatriptan 5 mg tablet 5 mg PO ONCE PRN migraine headache 07/30/23 12/28/23 Rx #10 tabs triamcinolone acetonide 0.1 % 1 applic topical BID #15 grams 09/11/23 12/28/23 Rx topical cream bupropion HCl 75 mg tablet 75 mg PO QPM 11/14/23 12/28/23 History levothyroxine 175 mcg tablet 175 mcg PO DAILY #90 tabs 12/05/23 12/28/23 Rx acetylcysteine 600 mg capsule 600 mg PO BID 12/28/23 12/28/23 History levothyroxine 150 mcg tablet 150 mcg PO DAILY 12/28/23 12/28/23 History nitrofurantoin 100 mg PO Q12H 12/28/23 12/28/23 History monohydrate/macrocrystals 100 mg capsule Exam Narrative Exam Narrative: General: Patient appears appropriate for age, morbidly obese lying in bed with slow monotonous tone to her speech and wandering in conversation. She is alert and oriented x 3. She is in moderate distress from her overall illness and not having abdominal pain at this time of my exam. HEENT: Normocephalic, coarsened facial features, eyes with pupils equal and reactive light symmetric, extraocular movement intact and sclera anicteric. Oropharynx with dry mucosa. Poor dentition. Neck: Supple without JVD. Back: Stooped posture without CVA tenderness. Lungs: Bronchovesicular breath sounds diffusely with no focalizing rales or rhonchi. No expiratory wheeze or increased expiratory phase. Fair to poor aeration diffusely with patient weak and not taking deep inspirations. Breast: Exam deferred. Heart: Regular rate and rhythm with no appreciable murmur or gallop. Abdomen: Obese contour, no tympany to percussion but generally protuberant with obesity. No focal tenderness though she is more uncomfortable with palpation in the mid abdomen around the umbilicus with no palpable reducible hernia but patient hesitant to allow full exam. No palpable hepatosplenomegaly. Bowel sounds positive all quadrants. No rebound. Genitalia/rectal: Exam deferred. Extremities: Without clubbing, cyanosis or grossly pitting edema. Patient is obese. Fair capillary refill. Skin: Normal color, warm and dry. Neuro: Cranial nerves II through XII gross intact, no focal motor deficits or tremor. Psych: Flattened affect with depressed mood and rumination over somatic complaints and chronic fatigue. No abnormal thought processes. Remote and recent memory appear to be grossly intact. Results Imaging Imaging Studies: Exam: CT Chest Without Contrast; Diagnostic Exam date and time: 12/27/2023 10:22 PM Age: 63 years old Clinical indication: Fever and nausea and vomiting; Shortness of breath; Patient HX: Vomit, abd pain, fever, SOB TECHNIQUE: Imaging protocol: Diagnostic computed tomography of the chest without contrast. COMPARISON: CT ABDOMEN PELVIS WO 12/27/2023 9:12 AM FINDINGS: Thyroid: The visualized thyroid gland is unremarkable. Lungs: Mild bilateral bronchial wall thickening consistent with bronchitis or bronchial edema. No bronchiectasis. No bronchial occlusions. Mild atelectasis in the lung bases. Interlobular septal thickening in the lung bases and apices with mild basilar juxtapleural interstitial prominence, suspect interstitial pulmonary edema. No gross pulmonary infiltrates or alveolar edema. 4 mm noncalcified pulmonary nodule in the lingular portion of the left upper lobe series 3, image 279. For patients at low risk (minimal or absent history of smoking and of other known risk factors), no routine follow-up is indicated. For patients at high risk (history of smoking or of other known risk factors), consider optional CT at 12 months. (Gino, et al., Fleischner Society, 2017). Pleural spaces: No pleural effusions. No pneumothorax. Heart: Heart size normal. Small volume pericardial effusion and suspected mild pericardial thickening with slight adjacent fatty stranding, question pericarditis. Coronary arteries: Moderate coronary artery calcification. Esophagus: The esophagus is largely contracted without gross abnormality. Lymph nodes: No supraclavicular or axillary adenopathy. Mildly enlarged mediastinal nodes in the precarinal, AP window, and subcarinal distributions. Mildly enlarged bilateral hilar nodes. These are nonspecific. Vasculature: The aorta demonstrates mild calcific atherosclerosis. No aneurysm. No mediastinal hematoma. The pulmonary arteries demonstrate no gross abnormality. Bones/joints: No acute osseous abnormalities are identified. Mild thoracic spondylosis. Soft tissues: Soft tissues of the thoracic wall demonstrate no acute abnormality. IMPRESSION: 1. Small pericardial effusion with mild pericardial thickening and slight adjacent fatty stranding, question pericarditis. 2. Mild interstitial pulmonary edema. 3. Mild bilateral bronchial wall thickening suggesting mild changes of bronchitis or bronchial edema. No gross pulmonary infiltrates. 4. Enlarged mediastinal and hilar nodes, nonspecific. 5. Moderate coronary artery calcification. 6. 4 mm nodule in the lingular portion of the left upper lobe. Please see recommendations above. PROCEDURE INFORMATION: Exam: CT Abdomen And Pelvis Without Contrast Exam date and time: 12/27/2023 10:22 PM Age: 63 years old Clinical indication: Fever and nausea and vomiting; Shortness of breath; Patient HX: Vomit, abd pain, fever, SOB TECHNIQUE: Imaging protocol: Computed tomography of the abdomen and pelvis without contrast. COMPARISON: CT ABDOMEN PELVIS WO 12/27/2023 9:12 AM FINDINGS: Esophagus: The visualized distal esophagus is largely contracted without gross abnormality. Liver: Mild hepatomegaly measuring 20 cm craniocaudal. Normal contour. No mass lesions. No intrahepatic biliary ductal dilatation. Gallbladder and bile ducts: Prior cholecystectomy with no significant dilatation of the common bile duct. Pancreas: Moderate fatty atrophy of the pancreas without acute abnormality. No pancreatic ductal dilatation. Spleen: Mild splenomegaly measuring 15.2 cm. No focal splenic lesions. Adrenal glands: Normal. No adrenal mass. Kidneys and ureters: No acute abnormalities. No hydronephrosis or hydroureter. No urinary tract stones are identified. Stomach and bowel: The stomach is largely contracted. The small bowel is nondilated with no gross abnormality. Mild distal colonic diverticulosis without diverticulitis. Distal colon is largely contracted. Appendix: The appendix is normal in caliber and demonstrates no evidence of appendicitis. Intraperitoneal space: No peritoneal free fluid or air. Chronic central mesenteric haziness suggesting chronic mesenteritis/mesenteric panniculitis, unchanged from 01/25/2022. Vasculature: No acute vascular findings. 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 Mild calcific atherosclerosis. Lymph nodes: No adenopathy. Urinary bladder: Unremarkable as visualized. Reproductive: 10 mm chronic calcified uterine fibroid. No gross ovarian abnormalities. Bones/joints: No acute osseous abnormalities. Moderate disc degenerative changes L5-S1. Moderate lumbar spondylosis. Soft tissues: Large periumbilical hernia increased in size from 01/25/2022, now containing a few loops of small bowel in addition to the previous herniated fat. No evidence of bowel obstruction. No gross features of strangulation. Question mild generalized soft tissue stranding/edema in the peripheral subcutaneous tissues suggesting mild volume overload or anasarca. IMPRESSION: 1. No definite acute process. 2. The large periumbilical hernia is increased in size from 01/25/2022 and now contains a few loops of small bowel, however there is no evidence of bowel obstruction or strangulation. 3. Mild hepatosplenomegaly. 4. Mild distal colonic diverticulosis without diverticulitis. 5. Chronic mesenteric panniculitis unchanged. 6. Additional nonemergent findings detailed above. Date of Exam: 11/19/23 Exam: Pharmacologic Patient Location: Out-Patient Room/Bed: Stress Nurse: Isaisa Vu RN Ordering Provider:GE VINSON, Contact Number: [phone] BMI: 54.40 Baseline Rhythm: Sinus Rhythm Indications: Chest pain Medical History Medical History: JULIA, HTN, HLD, Morbid obesity, Bipolar. Date: 11/19/2023 Clinical Reason for Termination: Completion time reached. Angina Score: None Rate Pressure Product: [id number] Stress ECG Conclusion 1. Resting electrocardiogram showed low voltage 2. Patient underwent testing using pharmacologic stress with regadenoson 3. Peak heart rate achieved was 58% of predicted for age 4. Electrocardiographic portion of the test was nondiagnostic 5. See MPI report EXAM: Comprehensive 2D, Doppler, and color-flow Echocardiogram Date of exam: 02/22/2022 Patient Location: Out-Patient Baggage Inspector: Iva Saleem RDCS (AE) Indications: Pericardial effusion seen on CT. h/o COVID Other Information Study Quality: Adequate. Technically limited study due to body habitus. Conclusion Normal left ventricular wall thickness and chamber size. Estimated ejection fraction is 60%. Wall motion is normal Right ventricular size and systolic function appear normal Both atria are normal in size The aortic valve was not well visualized There was no other structural or hemodynamically significant valvular disease noted Trivial pericardial effusion Mildly dilated ascending aorta measuring 3.72 cm Labs 04/06/24 07:05 12/28/23 07:05 Labs: Laboratory Results - last 24 hr 12/27/23 12/27/23 21:20 21:26 WBC 10.49 RBC 4.45 Hgb 12.5 Hct 40.1 MCV 90 MCH 28.1 MCHC 31.2 L RDW 15.6 H Plt Count 265 MPV 9.6 Immature Gran % 0.5 Neutrophils % 87.7 Lymphocytes % 5.1 Monocytes % 4.1 Eosinophils % 2.5 Basophils % 0.1 Nucleated RBC % 0.0 Absolute Neutrophils 9.20 H Absolute Lymphocytes 0.54 L Absolute Monocytes 0.43 Absolute Eosinophils 0.26 Absolute Basophils 0.01 VBG pH 7.43 H VBG pCO2 42 VBG pO2 52 VBG HCO3 28 VBG Total CO2 25 VBG O2 Saturation 88 VBG Base Excess 4 H VBG Lactate 1.3 Sodium 137 Potassium 4.4 Chloride 101 Carbon Dioxide 26.6 Anion Gap 9.4 BUN 18 Creatinine 1.1 H Est GFR (CKD-EPI 2020) 55.76 Glucose 120 H Calcium 9.2 Magnesium 1.8 Total Bilirubin 0.6 AST 21 ALT 18 Alkaline Phosphatase 89 Troponin I < 50 Total Protein 7.5 Albumin 3.4 Lipase 17 Procalcitonin < 0.1 COVID-19 Source Nasopharynx SARS-CoV-2 (PCR) Negative Influenza Type A (PCR) Negative Influenza Type B (PCR) Negative RSV (PCR) Negative Last Vital Signs Temp 37.2 C 12/27/23 20:52 Pulse 95 H 12/27/23 23:16 Resp 22 12/27/23 23:20 BP 122/56 L 12/27/23 23:16 Pulse Ox 91 L 12/27/23 23:20 Time Spent Time spent with Patient: >75 minutes Time was spent: preparing to see the patient(eg.review tests), obtaining and/or reviewing separately otained hiistory, ordering medications,tests, procedures, referring, communicating with other health career development director, indepentently interpreting results, counseling the patient, care coordination and other (Reviewing care plan with at bedside)
[2023-12-28] MEDS: Furosemide 20 MG/2 ML VIAL 10 MG IVP (00:15)
[2023-12-28 00:21] LABS: ESR 25 mm/hr (0-30)
[2023-12-28 00:35] LABS: NT-proBNP 270 pg/mL (<300)
[2023-12-28 00:56] LABS: Bilirubin Negative (Negative); Blood Trace-intact (Negative); Clarity Clear (Clear); Glucose Negative (Negative); Ketones Negative (Negative); Leukocyte Esterase Small (Negative); Nitrite Negative (Negative); Specific Gravity 1.015 (1.005-1.025); Urobilinogen 0.2 mg/dL (Up to 0.2)
[2023-12-28 00:59] LABS: Bacteria Few HPF (Negative); C & S Indicated? Yes; Casts Negative LPF (Negative); Crystals Negative HPF (Negative); Epithelial Cells Few HPF (Negative); Mucus Negative (Negative)
[2023-12-28] MEDS: Acetaminophen 325 MG TAB 650 MG PO (00:59)
[2023-12-28 01:52] LABS: Troponin I < 50 ng/L (< or =60)
[2023-12-28] MEDS: DOXYCYCLINE 100 MG in Normal Saline 100 ML IVPB ×2 (03:38→16:42)
[2023-12-28 07:10] LABS: HGB 11.9 g/dL (11.2-15.7); MCH 28.3 pg (27.0-33.0); MCHC 31.3 % (32.0-36.0); MCV 90 fL (80-95); MPV 9.4 fL (8.0-11.0); Platelet Count 247 10^3/uL (130-400); RBC 4.21 10^6/uL (3.93-5.22); RDW 15.9 % (11.7-14.6); RDW-SD 52.7 fL; WBC 9.36 10^3/uL (4.4-10.8)
[2023-12-28 07:22] LABS: ALT 17 U/L (14-59); AST 11 U/L (15-37); Albumin 3.1 g/dL (3.4-5.0); Alkaline Phosphatase 81 U/L (46-116); Anion Gap 7.4 mmol/L (3-11); BUN 15 mg/dL (7-18); Bilirubin, Total 0.8 mg/dL (0.2-1.0); CO2 28.6 mmol/L (21.0-32.0); CREATININE 1.2 mg/dL (0.55-1.02); Calcium 8.7 mg/dL (8.5-10.1); Chloride 103 mmol/L (98-107); Estimated GFR 50.23 (mL/min/1.73m2); Glucose 107 mg/dL (74-106); Magnesium 1.9 mg/dL (1.8-2.4); Sodium 139 mmol/L (136-145)
[2023-12-28] MEDS: Cyanocobalamin 500 MCG TAB PO ×2 (09:28→20:25)
[2023-12-28] MEDS: Acetylcysteine 600 MG CAP PO ×2 (09:29→21:11)
[2023-12-28] MEDS: Ascorbic Acid 500 MG TAB 1000 MG PO (09:30)
[2023-12-28] MEDS: Enoxaparin 40 MG/0.4 ML SYR SC (09:31)
[2023-12-28] MEDS: Cholecalciferol (Vitamin D3) 1,000 UNIT TAB 1000 UNITS PO (09:31)
[2023-12-28] MEDS: Normal Saline Flush 10 ML SYR IVP ×3 (09:43→20:24)
[2023-12-28] MEDS: Lactobacillus Acidophilus CAP 1 CAP PO ×2 (09:54→20:25)
[2023-12-28] MEDS: Rizatriptan 10 MG TAB 5 MG PO ×3 (09:54→21:11)
[2023-12-28] MEDS: Levothyroxine 175 MCG TAB PO (11:24)
[2023-12-28] MEDS: Ondansetron 4 MG/2 ML VIAL IVP (14:43)
[2023-12-28] MEDS: Acetaminophen 325 MG TAB PO (16:42)
[2023-12-28] MEDS: rOPINIRole 1 MG TAB PO (20:25)
[2023-12-28] MEDS: Enoxaparin 60 MG/0.6 ML SYR SC (20:25)
[2023-12-28] MEDS: traZODone 100 MG TAB 200 MG PO (20:25)
[2023-12-28] MEDS: buPROPion 75 MG TAB PO (20:25)
--- NOTE | 2023-12-28 20:49 | RESPIRATORY ---
RT seen pt. for JULIA diagnosis. Pt. states has home CPAP called [employer] 11, has Auto-CPAP 16-18 cm H2O without suplement of O2 but pt. did not bring it here. Pt. has accepted to use the hospital's CPAP machine tonight. DME is [facility].
[2023-12-29] VITALS (7 sets, daily range): BP systolic 118–147; BP diastolic 57–95; PULSE 68–79; RESP 17–22; TEMP 36.3–36.8; O2SAT 92–95
[2023-12-29] MEDS: DOXYCYCLINE 100 MG in Normal Saline 100 ML IVPB (04:00)
[2023-12-29] MEDS: Normal Saline Flush 10 ML SYR IVP ×5 (04:01→15:35)
[2023-12-29] MEDS: Ondansetron 4 MG/2 ML VIAL IVP (05:28)
[2023-12-29] MEDS: Rizatriptan 10 MG TAB 5 MG PO ×3 (05:37→23:21)
[2023-12-29] MEDS: Levothyroxine 175 MCG TAB PO (06:40)
[2023-12-29 06:50] LABS: Abs Immature Grans 0.02 10^3/uL (0.0-0.06); Absolute Basophil Count 0.03 10^3/uL (0.0-0.2); Absolute Eosinophil Count 0.35 10^3/uL (0.0-0.7); Absolute Lymphocyte Count 1.66 10^3/uL (1.2-3.4); Absolute Monocyte Count 0.56 10^3/uL (0.1-0.8); Basophils % 0.5; Eosinophils % 5.4; HCT 37.2 % (36.0-46.0); HGB 11.9 g/dL (11.2-15.7); Immature Grans % 0.3; Lymphocytes % 25.5; MCH 28.1 pg (27.0-33.0); MCV 88 fL (80-95); MPV 9.9 fL (8.0-11.0); Monocytes % 8.6; Neutrophils % 59.7; Platelet Count 206 10^3/uL (130-400); RBC 4.23 10^6/uL (3.93-5.22); RDW 16.1 % (11.7-14.6); RDW-SD 52.5 fL; WBC 6.52 10^3/uL (4.4-10.8)
[2023-12-29] MEDS: Enoxaparin 60 MG/0.6 ML SYR SC ×2 (08:34→21:49)
[2023-12-29] MEDS: Ascorbic Acid 500 MG TAB 1000 MG PO (08:34)
[2023-12-29] MEDS: Cholecalciferol (Vitamin D3) 1,000 UNIT TAB 1000 UNITS PO (08:34)
[2023-12-29] MEDS: Cyanocobalamin 500 MCG TAB PO ×2 (08:34→21:47)
[2023-12-29] MEDS: Acetylcysteine 600 MG CAP PO ×2 (08:34→21:48)
[2023-12-29] MEDS: Lactobacillus Acidophilus CAP 1 CAP PO ×2 (08:34→21:47)
--- NOTE | 2023-12-29 08:55 | INITIAL_ITS ---
Date of service: 12/29/23 Time of Service: 08:55 Care Management Initial Assmt Initial Assessment REASON FOR HOSPITALIZATION:: viral syndrome PREVIOUS FUNCTIONAL STATUS/SOCIAL/FAMILY SUPPORTS:: Leyla lives in [place] with her Peterson. They had 3 children but their son is . Both daughters live out of state; one daughter lives in [place] and the other lives in [place]. Leyla also has 4 grandchildren. 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 She is independent with ADLs but requires assistance with field servicer, shopping etc, which her provides. She does not currently receive any community services. Leyla does use a walker from time to time as her legs are weak, per her report. CURRENT FUNCTIONAL STATUS:: Leyla was sitting up in bed when CM met with her. She was pleasant and engaged well with CM. Leyla informed CM that she sees a psychologist and that she has been told that it is likely she has chronic fatigue syndrome in addition to fibromyalgia. She described her symptoms as life changing as she has no energy to do anything anymore. This has been ongoing for over a year. At times she gets bad headaches, muscle aches and sudden weakness in her extremities. CM inquired if Leyla would be open to going to rehab if it was recommended. She was not sure about that but would consider home health PT if suggested. CM informed Leyla that she has been admitted in observation status and that generally, the hospital stay is less than 2 days. She asked about insurance coverage and CM explained that as she has Medicare and a BC/BS supplement, in most cases there would be no out of pocket expenses, if approved. ADVANCE DIRECTIVES:: [facility] form On file. Glenroy L[place]ywood and Yesenia Camargo co-healthcare agents Has patient been provided with info about the portal/API?: Yes Did the patient sign up for the portal?: Yes CODE STATUS:: Full Code INSURANCE COVERAGE / FINANCIAL ISSUES:: Medicare BC/BS [facility] CURRENT HOME/COMMUNITY SERVICES/EQUIPMENT:: uses a walker occasionally PRIMARY CARE PHYSICIAN:: Scarlet Boyce POTENTIAL DISCHARGE NEEDS:: follow up with community providers PATIENT/FAMILY EDUCATION NEEDS:: Review of discharge instructions, activity, follow up plan, limitations, discuss Ask Me Three TRANSPORTATION:: via private vehicle with family PLAN:: Anticipate Leyla will be discharged home , possibly with new home health services, when medically cleared. She will follow up with her PCP and plan of care and transport with family.CM will continue to support Leyla and her discharge planning needs. [facility] All Active Problems (Updated 12/29/23 @ 12:49 by Shante Alberto NP) Constipation (Acute) Discharge planning issues (Acute) Chronic headache (Acute) Abdominal hernia (Acute) SIRS (systemic inflammatory response syndrome) (Acute) Acute viral syndrome (Acute) Abdominal wall hernia (Chronic) Weakness (Acute) Chronic fatigue (Chronic) Obstructive sleep apnea (Chronic) CPAP Bipolar disorder (Chronic) [facility] Psychiatry Hypothyroidism (Chronic) Hypertension (Chronic) Hyperlipidemia (Chronic) Irritable bowel syndrome with constipation and diarrhea (Chronic) PLMD (periodic limb movement disorder) (Chronic) Migraine headache (Chronic) Chronic nausea (Chronic) Morbid obesity with BMI of 45.0-49.9, adult (Chronic) Atrophic vulvovaginitis (Chronic) Atopic dermatitis (Chronic) Medical History Positive GEO (antinuclear antibody) [facility] [place] Rheumatology consult 12/13--no underlying inflammatory disorder suspected COVID-19 (~12/2021) Uterine leiomyoma Endometrial thickening on ultrasound 11/16/20. Incidental finding. No PMB. No plans for further evaluation. Gastritis Vitamin D deficiency (~11/2018) Surgical History Hx of umbilical hernia repair (03/07/22) S/P cholecystectomy History of blepharoplasty Hx of colonoscopy Family History Mother Bipolar disorder Father Dementia Hypothyroidism Sister Hypothyroidism Sister ALS (amyotrophic lateral sclerosis) Brother No problems noted. Brother No problems noted. Daughter No problems noted. Daughter No problems noted. Son , 37 Substance use disorder Maternal Grandfather Heart disease Maternal Grandmother Heart disease Paternal Grandfather Heart disease Paternal Grandmother Heart disease Social History Smoking/Tobacco Use Status: Former Tobacco Use tobacco type: cigarettes Quit Date: 09/23/89 Tobacco: How many years used: 10 Second Hand Exposure: Yes Smoking risk assessment performed?: Yes Alcohol Intake: current Alcohol Intake frequency: holidays/special occasions only Alcohol type: wine Drug use: Occasionally Substance use type: marijuana Details: uses PO CBD gummies. 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 Pets and animals: No Sexually active: No Do you think of yourself as: straight/heterosexual Current gender identity: female What is your relationship status?: How often do you talk on the phone with friends or family?: three or more times per week How often do you get together with friends or relatives?: once per week Do you belong to any clubs or organized social groups?: no Panel score (0-1 are the most socially isolated patients): 2 What type of physical activity do you participate in: walking and aerobic Duration: 15-30 minutes/day Thuy/Methodist: Buddhist Special thuy needs: No Seatbelt use: always Drive intox or ride w/intox chain saw 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 SDOH(Care Management) Screening Will the Patient Participate in the Screening?: Yes Do you worry about having a steady place to live?: no Problems where you live: no known problems In the past 12 months, have you had to go without electric, gas, oil or water in your home?: no Have you or anyone in your house had to go without enough food to eat?: no Has lack of transportation kept you from medical appointments or from doing things needed for daily living?: no Has anyone in your support network made you feel unsafe for any reason?: no
[2023-12-29] MEDS: Magnesium Citrate 300 ML BTL PO (12:17)
--- NOTE | 2023-12-29 12:40 | W.PM.PROGNOT ---
Date of Service Date of service: 12/29/23 Time of Service: 12:40 Assessment and Plan Assessment and plan (1) Acute viral syndrome: Status: Acute Assessment and plan: Remains hemodynamically stable and afebrile, and asymptomatic with vague complaints of malaise Normal white count normal procalcitonin no evidence of bacterial infection will stop antibiotics (2) Bronchitis: Status: Ruled-out Assessment and plan: Patient not requiring oxygen and with no symptoms Stop antibiotics (3) Abdominal wall hernia: Status: Chronic Assessment and plan: This appears to be a periumbilical hernia which is enlarging but showed no signs of obstruction Symptomatic care and follow-up with PCP and surgeon as needed. (4) Constipation: Status: Acute Assessment and plan: aggressive bowel management Qualifiers: Constipation type: unspecified constipation type Qualified Code(s): K59.00 - Constipation, unspecified (5) Obstructive sleep apnea: Status: Chronic Assessment and plan: CPAP with home settings while hospitalized. Weight loss is advised. (6) Bipolar disorder: Status: Chronic Assessment and plan: Continue home medications, Qualifiers: Active/Remission status: currently active Current bipolar episode type: depressed Current episode severity: mild Qualified Code(s): F31.31 - Bipolar disorder, current episode depressed, mild (7) Chronic headache: Status: Acute Assessment and plan: Continue rizatriptan with maximum daily dose of 20 mg (8) Discharge planning issues: Status: Acute Assessment and plan: PT consult anticipate discharge to home tomorrow discussed with DR Dixon Subjective Subjective Patient reports: no new complaints, no bowel movement (Reporting constipation) and nausea; denies tolerating liquids well, tolerating a regular diet, diarrhea or vomiting Interval history since last seen: Patient with vague complaints of generalized malaise, concerned about O2 sat of 92% stating that her baseline is usually 98. Denies cough or upper respiratory illness symptoms. Stating that her p.o. intake has been poor as she has no appetite has been having nausea and experiencing constipation she has had no fever overnight and is hemodynamically stable she has had no oxygen requirements Exam Narrative Exam Narrative: Morbidly obese female of stated age no acute distress head is atraumatic eyes nonicteric noninjected at oral mucosa moist, neck supple full range of motion respirations even and unlabored cardiovascular regular rate and rhythm abdomen obese, moves all extremities equally, neurologic she is awake alert oriented no focal deficits psychiatric normal mood and affect Objective Last Vital Signs Temp 36.3 C L 12/29/23 11:50 Pulse 75 12/29/23 11:50 Resp 17 12/29/23 11:50 BP 133/64 12/29/23 11:50 Pulse Ox 92 12/29/23 11:50 Laboratory Results - last 24 hr 12/29/23 06:30 WBC 6.52 RBC 4.23 Hgb 11.9 Hct 37.2 MCV 88 MCH 28.1 MCHC 32.0 RDW 16.1 H Plt Count 206 MPV 9.9 Immature Gran % 0.3 Neutrophils % 59.7 Lymphocytes % 25.5 Monocytes % 8.6 Eosinophils % 5.4 Basophils % 0.5 Nucleated RBC % 0.0 Absolute Neutrophils 3.90 Absolute Lymphocytes 1.66 Absolute Monocytes 0.56 Absolute Eosinophils 0.35 Absolute Basophils 0.03 Time Spent with Patient Time Spent with Patient: 25-34 minutes Time was spent: preparing to see the patient(eg.review tests), obtaining and/or reviewing separately otained hiistory, ordering medications,tests, procedures, indepentently interpreting results and counseling the patient
[2023-12-29] MEDS: Normal Saline 1,000 ML 100 ML IV (12:49)
[2023-12-29] MEDS: buPROPion 75 MG TAB PO (21:47)
[2023-12-29] MEDS: lamoTRIgine 100 MG TAB 200 MG PO (21:48)
[2023-12-29] MEDS: Polyethylene Glycol 3350 17 GM PACKET PO (21:48)
[2023-12-29] MEDS: rOPINIRole 1 MG TAB PO (21:48)
[2023-12-29] MEDS: traZODone 100 MG TAB 200 MG PO (23:20)
[2023-12-30 04:13] VITALS: RESP 15
[2023-12-30] MEDS: Levothyroxine 175 MCG TAB PO (05:39)
[2023-12-30 06:46] LABS: Abs Immature Grans 0.02 10^3/uL (0.0-0.06); Absolute Basophil Count 0.05 10^3/uL (0.0-0.2); Absolute Eosinophil Count 0.36 10^3/uL (0.0-0.7); Absolute Monocyte Count 0.58 10^3/uL (0.1-0.8); Absolute Neutrophil Count 4.31 10^3/uL (1.2-6.7); Basophils % 0.7; Eosinophils % 4.8; HCT 37.2 % (36.0-46.0); HGB 11.8 g/dL (11.2-15.7); Immature Grans % 0.3; Lymphocytes % 29.3; MCH 28.2 pg (27.0-33.0); MCHC 31.7 % (32.0-36.0); MCV 89 fL (80-95); MPV 10.2 fL (8.0-11.0); Monocytes % 7.7; Neutrophils % 57.2; Platelet Count 283 10^3/uL (130-400); RBC 4.18 10^6/uL (3.93-5.22); RDW 15.8 % (11.7-14.6); RDW-SD 51.6 fL; WBC 7.52 10^3/uL (4.4-10.8)
[2023-12-30 06:57] LABS: Anion Gap 8.4 mmol/L (3-11); BUN 15 mg/dL (7-18); CO2 27.6 mmol/L (21.0-32.0); Calcium 9.1 mg/dL (8.5-10.1); Chloride 105 mmol/L (98-107); Estimated GFR 62.52 (mL/min/1.73m2); Glucose 97 mg/dL (74-106); Potassium 4.2 mmol/L (3.5-5.1); Sodium 141 mmol/L (136-145)
--- NOTE | 2023-12-30 08:10 | IN_ITS ---
Date of service: 12/30/23 Time of Service: 07:40 PT Notes Visit Reasons: Viral syndrome, bronchitis Date: 12/30/23 Referring Doctor: Shante Alberto PT Orders: PT CONSULT: Non-urgent Precautions: Standard Patient Profile/Admitting Diagnosis: 63 y o female with obesity, chronic fatigue syndrome (CFS), admitted with acute SIRS and acute viral syndrome further exacerbating her CFS. 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 She is now feeling better, and is near end medical treatment course anticipating discharged today. Social History/Home Situation: Lives in a private one level home with her valenciab andPeterson. He has built her a ramp to enter the home. Her does 90% of the home care taking due to Leyla's CFS. She is generally limited to 3-5 min of standing at a time. She occasionally uses a RW, dependent on episodic R LBP and/or her CFS. She is not enrolled in OT or PT prior to admission. She has two daughters that live out of state. Equipment Owned/DME: RW Shower chair - which she states is currently too small of a size for her. Subjective: She feels safe to return home - but is inquiring re: a larger shower chair. Concerns for post exertional fatigue if she attempts any activity, and thus hesitant to consider OT and PT treatment. She can be wiped out for 2-3 days if she does too much activity. Objective: General Observation: Sitting EOB, preparing to eat breakfast. In no distress. Communicates very well, pleasant. Mental Status: A & O x 3 ROM: Right Upper Extremity: Grossly WFL Left Upper Extremity: Grossly WFL Right Lower Extremity: Grossly WFL Left Lower Extremity:Grossly WFL Strength: Right Upper Extremity: Grossly 4/5 Left Upper Extremity: Grossly 4/5 Right Lower Extremity: Grossly 4/5 Left Lower Extremity: Grossly 4/5 Bed Mobility/Transfers: Independent bed mobility Independent reclined bed to sit EOB, and vice versa STS Independent no AD Stand to sit Independent no AD Gait: 40 ft no AD, stable, good mechanics. Patient willing to only achieve room distant given her fatigue. Balance: Static Sitting: Good Dynamic Sitting: Good Static Standing: Good Dynamic Standing: Fair Stage 4 Balance Test Time (seconds) Feet together 10 Partial tandem 10 Tandem Unable One foot 1 sec Special Tests: Mobility Limitations Standardized Measure [facility]-PAC 6 clicks Basic Mobility Inpatient Short Form: 36% disability Informed Consent/Education: Patient instructed in purpose of PT consult and plan of care. Treatment: Initial evaluation [id number] Assessment: Patient is a 63 year old female referred to physical therapy services with reason for PT evaluation of safety for return home, with admitted diagnosis of SIRS and acute viral syndrome, in presence of CFS offering a majority of her functional concerns. Patient presents with with strength, balance, and gait impairments related to acute medical issues. She is anticipated to be discharged home today, and my evaluation deems her appropriate for this but with strong recommendation of home health PT. Her ability to have the energy or strength to physically transport herself can vary on a daily basis, making outpatient an unsafe and unrealistic option at this time. HHOT also strongly recommended for better evaluation of home adaptive equipments, such a bariatric shower chair and grabbers to assist with energy conservation. Impairment level findings: Obesity Mild balance impairment Mild extremity weakness Subject endurance limitations Impairments are contributing to the following functional limitations: Tolerance to only short distance ambulation, of household distance Unpredictable energy levels, and thus functional capabilities Dependent on for all ADL's and some self care Unable to complete community based activities Requires use of shower chair and intermittently RW [facility] 36% disability Patient is assessed as low complexity based on the following: History: See above Examination: impairment and functional limitations as noted above Presentation: Stable Decision Making: Easy Plan of Care/Treatment Plan: Discharge from PT. Discharge home with HHPT and HHOT, per above assessment. TREATMENT CODE/TIME: 94993, 20 min, 7:40-8:00 a.m. Nubia Briceño, MPT [facility]
[2023-12-30 08:16] VITALS: BP 138/76; PULSE 71; RESP 18; TEMP 35.6; O2SAT 96
[2023-12-30] MEDS: Ascorbic Acid 500 MG TAB 1000 MG PO (08:23)
[2023-12-30] MEDS: Cholecalciferol (Vitamin D3) 1,000 UNIT TAB 1000 UNITS PO (08:23)
[2023-12-30] MEDS: Acetylcysteine 600 MG CAP PO (08:24)
[2023-12-30] MEDS: Lactobacillus Acidophilus CAP 1 CAP PO (08:24)
[2023-12-30] MEDS: Cyanocobalamin 500 MCG TAB PO (08:24)
[2023-12-30] MEDS: Polyethylene Glycol 3350 17 GM PACKET PO (09:06)
[2023-12-30] MEDS: Enoxaparin 60 MG/0.6 ML SYR SC (09:07)
[2023-12-30] MEDS: Normal Saline Flush 10 ML SYR IVP (09:07)
[2023-12-30] MEDS: Rizatriptan 10 MG TAB 5 MG PO (09:11)
--- NOTE | 2023-12-30 09:49 | CMPROGNOTE_ITS ---
Date of service: 12/30/23 Care Management Progress Note Progress Note Text Progress Note Text: S/O: Leyla was sitting up on the edge of the bed when talking with CM. She described what she has been experiencing lately with the fatigue, dizziness, nausea and it being something that is hard for some to understand as it is suggested she may only be experiencing her symptoms because of her weight when she describes it is not. Leyla reports her is having surgery this week so with how she is feeling and how he needs some time to recover, she is open to HH PT/OT services and will transition to outpatient at a later time. Leyla reports being happy to be going home. A: Leyla is a 63 year old female admitted to [facility] for Viral syndrome, bronchitis. P: Leyla will discharge when medically ready. She will transport home by a friend. She will follow up with her PCP and discharge plan of care instructions. She will have HH PT/OT. CM following. SDOH(Care Management) Screening Will the Patient Participate in the Screening?: Yes Do you worry about having a steady place to live?: no Problems where you live: no known problems In the past 12 months, have you had to go without electric, gas, oil or water in your home?: no Have you or anyone in your house had to go without enough food to eat?: no Has lack of transportation kept you from medical appointments or from doing things needed for daily living?: no Has anyone in your support network made you feel unsafe for any reason?: no
--- NOTE | 2023-12-30 10:32 | W.PM.DS.N ---
Date of service: 12/30/23 Time of Service: 10:33 DS: Diagnosis Discharge Diagnosis (1) Acute viral syndrome: Status: Acute (2) Bronchitis: Status: Ruled-out (3) Abdominal wall hernia: Status: Chronic (4) Constipation: Status: Acute (5) Obstructive sleep apnea: Status: Chronic (6) Bipolar disorder: Status: Chronic (7) Chronic headache: Status: Acute (8) Discharge planning issues: Status: Acute Discharge Plan Disposition Patient Disposition: Home Condition: Fair Discharge Details Reason For Visit: Viral syndrome, bronchitis Admit Date/Time: 12/28/23 01:01 Admit Provider: Natanael Laguna Attending Provider: Natanael Laguna [facility] Hospital Course: This 63-year-old female patient with a past medical history of chronic fatigue syndrome, morbid obesity, obstructive sleep apnea on CPAP at home, hypertension, hypothyroidism, bipolar disorder, fibromyalgia, recent UTI diagnosed on 12/21/2023 treated with nitrofurantoin presented to the ED at [facility] on 12/27/2023 for evaluation of acute onset of fever over 101, nausea, vomiting and increased abdominal pain. The patient reported not feeling well for months. On arrival to the emergency room her temperature was 10 1.7 ?F. Increased abdominal pain in the emergency room was treated with a small dose of fentanyl upon which the patient dipped her sats to 82% and received oxygen acetaminophen and a liter of IV fluid; hypoxemia resolved. Blood cultures were also ordered in the ED, lactate was negative. Zosyn was initiated secondary to fever and abdominal pain. The chest, abdominal, pelvis CT in the ED showed enlargement of her chronic umbilical hernia without signs of obstruction. Evidence was found of bronchitis versus bronchial edema, a small pericardial effusion, and a small pulmonary nodule of 4 mm in the lingular portion of the left upper lobe. The patient would benefit from an outpatient follow-up with pulmonary medicine. The patient denied cough. Labs in the ED were unremarkable except for a creatinine of 1.2. The hospitalist was called and the patient was admitted as a medical surgical patient for observation for evaluation of abdominal pain, fever and bronchitis. During the stay, the patient received IV antibiotics but as per symptoms improved and blood cultures remain negative, the IV antibiotic were discontinued. This morning the patient is feeling better without further symptoms. The patient is able to tolerate solid and liquid oral intake, having bowel movements, voiding without difficulties and ambulating independently in room without any distress. The patient reported slight nausea without vomiting and will be discharged home today with a short course of as needed oral ondansetron. The patient will have to follow-up with her primary care provider within 7 days of discharge. The patient will discuss a pulmonary follow-up as an outpatient with the primary care provider. Home Meds and New Rx's Prescriptions: New polyethylene glycol 3350 17 gram Powder In Packet 17 g PO DAILY Qty: 14 0RF ondansetron 4 mg tablet,disintegrating 4 mg PO Q8H PRNQty: 12 0RF Continued strain 16 probiotic 1 tab PO BID bismuth subsalicylate [Peptic Relief] 262 mg tablet,chewable 2 tab PO Q30-60M PRN Rx Instructions: do not exceed 16 tabs per 24 hrs ascorbic acid (vitamin C) 1,000 mg tablet 1 g PO DAILY nystatin [Nystop] 100,000 unit/gram powder 1 applic Topical BID PRN (Reason: intertrigo) Qty: 1 5RF Patient Comments: PRN lamotrigine 200 mg tablet 200 mg PO HS Patient Comments: takes 200 mg HS trazodone 100 mg tablet 200 mg PO HS ropinirole 1 mg tablet 1 mg PO QHS triamcinolone acetonide 0.1 % cream 1 applic topical BID Qty: 15 0RF bupropion HCl 75 mg tablet 75 mg PO QPM Patient Comments: takes 75 mg QPM rizatriptan 5 mg tablet 5 mg PO ONCE MDD 10mg PRN (Reason: migraine headache) Qty: 10 5RF Rx Instructions: Take one tablet at onset of migraine. May take another 2 hours later if CRUZ still persists. levothyroxine 175 mcg tablet 175 mcg PO DAILY Qty: 90 0RF cyanocobalamin (vitamin B-12) [Vitamin B-12] 500 mcg Tablet 500 mcg PO BID cholecalciferol (vitamin D3) [Vitamin D3] 25 mcg (1,000 unit) Tablet 25 mcg PO DAILY levothyroxine 150 mcg tablet 150 mcg PO DAILY Patient Comments: TAKE ONE TABLET BY MOUTH EVERY DAY acetylcysteine 600 mg capsule 600 mg PO BID Patient Comments: TAKE ONE CAPSULE BY MOUTH TWICE A DAY Discontinued nitrofurantoin monohyd/m-cryst 100 mg capsule 100 mg PO Q12H Patient Comments: TAKE ONE CAPSULE BY MOUTH EVERY 12 HOURS FOR 5 DAYS, WITH A MEAL Discharge Instructions Referrals: Scarlet Boyce NP [Primary Care Provider] - (Please follow-up with PCP within 7 days ) Activity:: Activity as Tolerated Equipment/Supplies:: No Equipment Needed Diet:: As Tolerated Discharge Orders Discharge Orders: Discharge Order (Routine); Ordered 12/30/23 Ordered By: Allison Mantilla DS: Summary Time Spent with Patient providing and/or coordinating discharge services: Greater than 30 minutes Status at Discharge Functional status at discharge: independent ambulation Overall status at discharge: patient is back to baseline Mental Status: mental status grossly normal Speech and Movement: speech and movement normal Mood: congruent mood Affect: normal affect Quality:SDOH Health Related Social Needs: No Data to Display Exam Narrative Exam Narrative: Constitutional The patient is sitting on bed, well groomed without acute distress HENMT: Head is atraumatic, normocephalic. Facial structures with normal appearance Eyes: Well aligned Neck: Normal ROM, no meningeal signs Neuro:alert and oriented X4. No neurological focal deficit Resp: Normal respiratory pattern, speaks in full sentences, unlabored breathing, clear lung bilaterally Cardio: Distant heart sounds,no murmur, capillary refill<3 sec., bilateral radial and dorsalis pedis pulses are positive GI: Abdomen is not distended, soft and non tender, bowel sounds are present : Negative Costovertebral angle tenderness, no bladder distension Back/spine/Pelvis: No back tenderness, normal alignment Integumentary: No skin lesions or rash Extremities: strength 5/5 to bilateral lower and upper extremities Psych: RASS 0, congruent mood and normal affect. Psych Mental Status: mental status grossly normal Speech and Movement: speech and movement normal Mood: congruent mood Affect: normal affect DS: Data Vitals/I&O Vitals and I&O: Vital Signs Temperature 35.6 C L 12/30/23 08:16 Temperature Source Tympanic 12/30/23 08:16 Pulse 71 12/30/23 08:16 Pulse Rhythm Regular 12/30/23 09:18 Pulse 88 12/28/23 08:23 Respiratory Rate 18 12/30/23 08:16 Respiratory Effort Normal 12/30/23 09:18 Respiratory Depth Normal 12/30/23 09:18 Respiratory Pattern Normal 12/30/23 09:18 Blood Pressure 138/76 12/30/23 08:16 Blood Pressure Mean 92 12/28/23 08:23 Pulse Oximetry 96 12/30/23 08:16 Oxygen Delivery Method Room Air 12/30/23 08:16 Oxygen Flow Rate 0 12/30/23 08:16 Fraction of Inspired Oxygen (FIO2) 21 12/30/23 06:02 Pain Level 0 12/30/23 09:18 Comment 3/10 pain, headache. 12/30/23 08:16 Intake & Output 12/29/23 12/29/23 12/30/23 11:59 23:59 11:59 Intake Total 470 / 933.333 463.333 / 933.333 250 / 250 Output Total 950 / 1950 1000 / 1950 Balance -480 / -1016.667 -536.667 / -1016.667 250 / 250 Weight 142.6 kg Intake: IV 100 / 323.333 223.333 / 323.333 Oral 370 / 610 240 / 610 250 / 250 Output: Urine 950 / 1950 1000 / 1950 Other: Urine Color Yellow Light Teressa Yellow Urine Appearance Clear Clear Clear Urine Odor Normal None Normal Comment pt toilets self independently Patient stated she voided just a little. Voiding Methods Toilet Toilet Toilet Data Completed and Pending Labs on day of discharge: Labs from last 24 hours 12/30/23 06:17 WBC 7.52 RBC 4.18 Hgb 11.8 Hct 37.2 MCV 89 MCH 28.2 MCHC 31.7 L RDW 15.8 H Plt Count 283 MPV 10.2 Immature Gran % 0.3 Neutrophils % 57.2 Lymphocytes % 29.3 Monocytes % 7.7 Eosinophils % 4.8 Basophils % 0.7 Nucleated RBC % 0.0 Absolute Neutrophils 4.31 Absolute Lymphocytes 2.20 Absolute Monocytes 0.58 Absolute Eosinophils 0.36 Absolute Basophils 0.05 Sodium 141 Potassium 4.2 Chloride 105 Carbon Dioxide 27.6 Anion Gap 8.4 BUN 15 Creatinine 1.0 Est GFR (CKD-EPI 2020) 62.52 Glucose 97 Calcium 9.1 Preliminary micro results at discharge 12/28/23 00:45 Urine Culture - Preliminary Urine - Reflex from formerly [facility] All Active Problems (Updated 12/29/23 @ 12:49 by Shante Alberto NP) Constipation (Acute) Discharge planning issues (Acute) Chronic headache (Acute) Abdominal hernia (Acute) SIRS (systemic inflammatory response syndrome) (Acute) Acute viral syndrome (Acute) Abdominal wall hernia (Chronic) Weakness (Acute) Chronic fatigue (Chronic) Obstructive sleep apnea (Chronic) CPAP Bipolar disorder (Chronic) [facility] Psychiatry Hypothyroidism (Chronic) Hypertension (Chronic) Hyperlipidemia (Chronic) Irritable bowel syndrome with constipation and diarrhea (Chronic) PLMD (periodic limb movement disorder) (Chronic) Migraine headache (Chronic) Chronic nausea (Chronic) Morbid obesity with BMI of 45.0-49.9, adult (Chronic) Atrophic vulvovaginitis (Chronic) Atopic dermatitis (Chronic) Medical History Positive GEO (antinuclear antibody) [facility] [place] Rheumatology consult 12/13--no underlying inflammatory disorder suspected COVID-19 (~12/2021) Uterine leiomyoma Endometrial thickening on ultrasound 11/16/20. Incidental finding. No PMB. No plans for further evaluation. Gastritis Vitamin D deficiency (~11/2018) Surgical History Hx of umbilical hernia repair (03/07/22) S/P cholecystectomy History of blepharoplasty Hx of colonoscopy Family History Mother Bipolar disorder Father Dementia Hypothyroidism Sister Hypothyroidism Sister ALS (amyotrophic lateral sclerosis) Brother No problems noted. Brother No problems noted. Daughter No problems noted. Daughter No problems noted. Son , 37 Substance use disorder Maternal Grandfather Heart disease Maternal Grandmother Heart disease Paternal Grandfather Heart disease Paternal Grandmother Heart disease Social History Smoking/Tobacco Use Status: Former Tobacco Use tobacco type: cigarettes Quit Date: 09/23/89 Tobacco: How many years used: 10 Second Hand Exposure: Yes Smoking risk assessment performed?: Yes Alcohol Intake: current Alcohol Intake frequency: holidays/special occasions only Alcohol type: wine Drug use: Occasionally Substance use type: marijuana Details: uses PO CBD gummies. 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 Pets and animals: No Sexually active: No Do you think of yourself as: straight/heterosexual Current gender identity: female What is your relationship status?: How often do you talk on the phone with friends or family?: three or more times per week How often do you get together with friends or relatives?: once per week Do you belong to any clubs or organized social groups?: no Panel score (0-1 are the most socially isolated patients): 2 What type of physical activity do you participate in: walking and aerobic Duration: 15-30 minutes/day Thuy/Zoroastrianism: Pentecostalism Special thuy needs: No Seatbelt use: always Drive 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 or ride w/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 Time Spent with Patient Time Spent with Patient: 70-84 minutes4 Time was spent: preparing to see the patient(eg.review tests), obtaining and/or reviewing separately otained hiistory, ordering medications,tests, procedures, referring, communicating with other health director long term care, indepentently interpreting results, counseling the patient and care coordination
--- NOTE | 2023-12-30 13:41 | CMDISCH_ITS ---
Date of service: 12/30/23 LACE Index Scoring Tool Questions: Length of Stay (in days): 2 Was the patient admitted via the E.D.?: Yes E.D. Visits: 1 Answers: Total Score: 6 Risk of Readmission: Low Risk Care Management Discharge Plan Reason for Hospitalization: viral syndrome Discharge Plan: Leyla will discharge home when medically ready, per MD. She will transport home via private vehicle with a friend. She will follow up with her PCP and discharge plan of care instructions. She will have new orders for HH PT/OT through [facility]. Patient/Family Education Needs: Review discharge instructions and plan of care as prescribed. Discussion of Ask Me Three Services Needed at Discharge: Home Health Care Services ([facility]), Occupational Therapy and Physical Therapy SDOH Health Related Social Needs: No Data to Display Disposition Transport via of: Private Vechicle
--- NOTE | 2023-12-31 15:35 | PDOC.HHF2F ---
Home Health Referral Home Health Orders Clinical synopsis of why skilled professionals are needed: 63 years old female patient admitted for acute viral syndrome, bronchitis. Discharged home with physical therapy recommendations for home health physical therapy and home health occupational therapy as described in the physical therapy note the patient's ability to have energy or strength to physically transport to self can vary on a daily basis making out patient unsafe and unrealistic as an option. Home health OT home health occasional therapy also strongly recommended for better evaluation of home adaptive equipments such as bariatric shower chair, grab bars to assist with energy conservation as described in physical therapist note. Medical diagnosis necessitation home health referral: 63 years old female patient admitted for acute viral syndrome, bronchitis. Discharged home with physical therapy recommendations for home health physical therapy and home health occupational therapy as described in the physical therapy note the patient's ability to have energy or strength to physically transport to self can vary on a daily basis making out patient unsafe and unrealistic as an option. Home health OT home health occasional therapy also strongly recommended for better evaluation of home adaptive equipments such as bariatric shower chair, grab bars to assist with energy conservation as described in physical therapist note. Physical Therapist: Check all that apply Increase strength & endurance for safe mobility at home: Ordered To design/establish home maintenance program: Ordered Fall reduction therapy program for patient with history of frequent falls: Ordered Home safety evaluation and teaching/gait training including stair management (if applicable): Ordered Better Breathing Program: Ordered Occupational Therapist: Evaluate and treat for patient unable to perform ADL/IADL/self-care: Ordered Upper extremity strengthening, range and motion: Ordered Home Bound Status Describe why leaving home would require a considerable and taxing effort: Requires frequent rest periods and Safety Concerns: describe Encounter Date and Reason: I certify that a FTF encounter for this patient was performed on December 31, 2023 and that such encounter was related to the primary reason the patient requires home health services. The encounter was conducted in the following manner: By me as the certifying physician, JUNIOR SALES REPRESENTATIVE, PA or By an inpatient physician, JUNIOR SALES REPRESENTATIVE or PA during an inpatient stay who communicated findings to me, Certification And Authentication I certify that I composed the above information based on my clinical judgment relating to this patient's medical condition and, if applicable, clinical findings communicated to me by the NPP or inpatient physician who performed the FTF encounter. Name of Provider that will be monitoring home health services: Scarlet Boyce
== END 2023-12-30 13:59 | disposition home or self-care (01) ==
LOC: ER 12-28 01:51 → MS 12-28 14:24
PROVIDERS: Family Medicine; Nurse Practitioner Acute Care; Admitting Provider Family Medicine; Emergency Provider Physician Assistant; PCP Nurse Practitioner Family; Visit Provider Family Medicine
DX: R10.9 Unspecified abdominal pain (principal); R50.9 Fever, unspecified; R11.2 Nausea with vomiting, unspecified; B34.9 Viral infection, unspecified; R91.1 Solitary pulmonary nodule; I31.39 Other pericardial effusion (noninflammatory); K42.9 Umbilical hernia without obstruction or gangrene; R53.82 Chronic fatigue, unspecified; F31.31 Bipolar disorder, current episode depressed, mild; G47.33 Obstructive sleep apnea (adult) (pediatric); G89.29 Other chronic pain; E66.01 Morbid (severe) obesity due to excess calories; Z68.43 Body mass index [BMI] 50.0-59.9, adult; E03.9 Hypothyroidism, unspecified; I10 Essential (primary) hypertension; E78.5 Hyperlipidemia, unspecified; K58.0 Irritable bowel syndrome with diarrhea; K58.1 Irritable bowel syndrome with constipation; G47.61 Periodic limb movement disorder; G43.909 Migraine, unspecified, not intractable, without status migrainosus
CPT/HCPCS: 00123; 36410; 36415; 71250; 80048; 80053; 82805; 83690; 84145; 85027; 85652; 87040; 87426; 87637; 93005; 96361; 96365; 96366; 96367; 96372; 96375; 96376; 97161; 99285; J1650; 71045; 74176; 81003; 81015; 83605; 83735; 83880; 84443; 84484; 85025; 87086; 93010; 94660; 99223; 99231; 99239; 99284; G0378; J0131; J1885; J1941; J2405; J2543; J3010; J3490

== ENCOUNTER → 2024-01-21 13:44 | Outpatient (BNVA) | payer MEDICARE, BC, SELFPAY | PROVIDERS: PCP Nurse Practitioner Family; Referring Provider Nurse Practitioner Family; Visit Provider Nurse Practitioner Gerontology | DX: R33.8 Other retention of urine (principal) | CPT/HCPCS: 81003; 99215 ==

== ENCOUNTER → 2024-01-31 00:02 | Outpatient (CLI) | payer MEDICARE, BC, SELFPAY ==
--- NOTE | 2024-01-31 08:00 | DI.DEXA_ITS ---
Exam(s) XR DEXA BONE DENSITY W/WO TRENT EXAM: XR DEXA BONE DENSITY W/WO TRENT CLINICAL HISTORY: osteoporosis screening IN POSTMENOPAUSAL STATUS,Z78.0 TECHNIQUE: [employer] C densitometer analysis of left hip, lumbar spine and left forearm. Lat eral survey image of the thoracic and lumbar spine. COMPARISON: CR XR LUMBAR SPINE COMPLETE from 09/12/2023 FINDINGS: Lateral view of the thoracic and lumbar spine shows no evidence of compression fractures. Bone mineral density measurements of the lumbar spine correspond to a total T-score of 2.7, in the n ormal range Bone mineral density measurements of the left hip correspond to a total T-score of 0.5. The femoral neck T-score is -1.4, in the osteopenic range.. Theleft forearm bone mineral density measurements correspond to a T-score of the distal 3rd of -0.7, in the normal range.. IMPRESSION: Osteopenia of the hip. Normal bone mineral density of the forearm and spine.
--- NOTE | 2024-01-31 08:00 | DI.US_ITS ---
APPROVED REPORT EXAM: Comprehensive 2D, Doppler, and color-flow Echocardiogram Patient Location: Out-Patient Match Up Worker: Iva Saleem RDCS (AE) Indications: Pericardial effusion seen on CT scan Other Information Study Quality: Fair. Technically limited study due to body habitus. Conclusion Technically difficult study Normal left ventricular wall thickness chamber size and systolic function. EF is 60%. Wall motion a ppears normal Normal right ventricular size and function Both atria are normal in size There is no structural or hemodynamically significant valvular disease Estimated right ventricular systolic pressure is 20 mmHg There is no significant pericardial effusion Wall motion Left Ventricle Technically limited parasternal imaging. Patient not able to tolerate compression. The overall left v entricular systolic function appears normal. There is normal LV segmental wall motion. LVEF is 60%. Right Ventricle The right ventricle is normal size. The right ventricular systolic function is normal. Atria The left atrium size is normal. The right atrium size is normal. Aortic Valve The aortic valve is normal in structure. Aortic valve is trileaflet. There is no aortic valvular sten osis. No aortic regurgitation is present. Mitral Valve The mitral valve is normal in structure. No evidence of mitral valve stenosis. Trace mitral regurgita tion. Tricuspid Valve The tricuspid valve is normal in structure. There is no tricuspid valve stenosis. Trace to mild tricu spid regurgitation. The RVSP is 20.4 mmHg. Pulmonic Valve The pulmonary valve is normal in structure. There is no pulmonic valvular stenosis. There is no pulmo juan manuel valvular regurgitation. Great Vessels The aortic root is normal in size. The ascending aorta is mildly dilated. Aortic arch is not well vis ualized. IVC is normal in size and collapses >50% with inspiration. Pericardium Technically limited subcostal imaging. Patient not able to tolerate compression during imaging. 2D Dimensions Ao Root d 2.58 cm F: 2.7 - 3.3 Ao Asc Diam d 3.52 cm F: 2.3 - 3.1 M-Mode TAPSE 2.10 cm (M/F) >1.7 Auto EF LV EDV A4C 112.9 mL LV EDV A2C 129.1 mL LV EDV BP 118.9 mL LV ESV A4C 46.9 mL LV ESV A2C 52.4 mL LV ESV BP 48.9 mL LVEF(%) A4C 58.4 % LVEF(%) A2C 59.4 % LVEF(%) BP 58.9 % LV SV A4C 66.0 ml LV SV A2C 76.7 ml LV SV BP 70.0 ml LV CO A4C 4.8 L/min LV CO A2C 5.5 L/min LV CO BP 5.1 L/min HR A4C 72.29 BPM HR A2C 71.43 BPM LV EDV Index (BP) LA Volume LA Length A4C 5.9 cm LA Length A2C 5.9 cm LA Area A4C s 18.50 cm2 LA Area A2C s 21.13 cm2 LA Vol A4C A-L 49.48 mL LA Vol A2C A-L 63.71 mL LA Vol Biplane A-L 56.5 mL LA Vol/BSA A4C A-L LA Vol/BSA A2C A-L LA Vol/BSA BP A-L 23.6 mL/m2 LA Vol A4C MOD 46.3 mL LA Vol A2C MOD 57.6 mL LA Vol BP MOD 52.0 mL RA Volume RA Area A4C 12.9 cm2 RA ESV A4C (A-L) 32.9mL RA Vol/BSA A4C A-L RA Length A4C 4.3 cm RA ESV A4C (MOD) 29.8mL LV Diastology MV E' medial 0.092 (>0.07 m/s) MV E Vmax 0.92 (0.4-1.3 m/s) MV E/E' MED 9.99 (<14) MV A Vmax 0.95 (0.4-1.3 m/s) MV E' lateral 0.108 (>0.1 m/s) E/A Ratio 1.0 MV E/E' LAT 8.50 (<14) MV E' Average 0.100 m/s MV E/E'(average) 9.19 Aortic Valve AoV Vmax 1.75 m/s LVOT Vmax 1.45 m/s AoV Peak Grad 12.2 mmHg LVOT Peak Grad 8.5 mmHg AoV Area (Vmax) 2.45 cm2 LVOT VTI 0.319 m AoV VTI 0.393 m LVOT Mean Grad 5.1 mmHg AoV Mean Kalia. 1.23 m/s LVOT SV 93.79 mL AoV Mean Grad 6.9 mmHg LVOT Diam s 1.90 cm AoV Area (VTI) 2.39 cm2 Velocity Ratio 0.83 Mitral Valve MV DT 248 (160-240 msec) MV Vmax TIPS 1.00 m/s MV Mean Grad 1.5 (<2mmHg) MV VTI 0.268 m Pulmonary Valve PV Vmax 1.06 (0.5-1.5 m/s) RVOT Vmax 0.65 m/s PV Peak Grad 4.5 mmHg RVOT Peak Gr. 1.7 mmHg PV Mean Kalia 0.83 m/s RVOT VTI 0.158 m PV Mean Grad 2.9 mmHg RVOT Mean Gr. 1.1 mmHg Tricuspid Valve RA Pressure 3.00 mmHg TR Vmax 2.09 m/s TV S' 0.15 m/s TR Peak Grad 17.4 mmHg RVSP (TR) 20.4 mmHg
--- NOTE | 2024-01-31 08:00 | DI.MAMMO_ITS ---
Exam(s) MAMMO SCREENING EXAM: MAMMO SCREENING CLINICAL HISTORY: screening,Z12.39 TECHNIQUE: Mammograms were interpreted according to the usual protocol including computer analysis w [employer] CAD system, tomosynthesis and C-view imaging. COMPARISON: 2015 through 2022 FINDINGS: The breasts are composed of scattered fibroglandular densities, Breast Density category B. No suspicious masses or suspicious microcalcifications are seen. Previously noted right breast nodul e is not evident on today's exam. No skin thickening or abnormal axillary lymph nodes are seen. There has been no significant change from prior exams. IMPRESSION: BI-RADS Category 1, Negative mammogram Yearly screening mammography is recommended. Breast Density - Category B, scattered fibroglandular densities. A negative radiographic report should not delay biopsy if a dominant or clinically suspicious mass is present. Up to ten percent of cancers are not identified on mammography. A negative report may reinforce clinical impression. Adenosis and dense breasts may obscure an underlying neoplasm. False positive reports average 6 to 10%. Patient will receive a letter notifying them of these results.
--- NOTE | 2024-04-23 17:52 | DI.RAD_ITS ---
Exam(s) XR KNEE RT 4V AP,LAT,RONALDO,PAT XR TIB/FIB RT EXAM: XR KNEE RT 4V AP,LAT,RONALDO,PAT and XR tib/fib RT CLINICAL HISTORY: knee pain, injury. TECHNIQUE: 2D digital imaging was performed of the right tib/fib and knee. Six views obtained. [employer], AP, lateral and PA tunnel views were obtained. COMPARISON: No priors for comparison. FINDINGS: BONES: No acute fracture is present. No bony destructive lesion is seen. There is a large enthesophyt e at the posterior calcaneus. JOINTS: There are degenerative changes seen in the knee characterized by mild joint space narrowing i n the medial femoral tibial joint and small osteophytes seen both medially and laterally. No joint e ffusion is seen. SOFT TISSUE: Mild edema in the soft tissues of the lower leg. No radiopaque foreign body is identifi ed. IMPRESSION: No acute fracture or dislocation. DATA REPOSITORY: RADIATION DOSE DELIVERED:
--- NOTE | 2024-04-23 18:18 | DI.VRAD_ITS ---
PROCEDURE INFORMATION: Exam: XR Right Knee Exam date and time: 04/23/2024 5:38 PM Age: 64 years old Clinical indication: Other: Knee pain, injury TECHNIQUE: Imaging protocol: Radiologic exam of the right knee. Views: 4 or more views. COMPARISON: US LOWER EXTREMITY VENOUS RT 08/07/2023 12:52 FINDINGS: Bones/joints: Unremarkable. Soft tissues: Mild edematous changes. IMPRESSION: No evidence for acute bony injury. If clinical symptoms persist recommend followup film in 7-10 days. Dictated and Authenticated by: Sharon Rose MD. Ordering:AMERICA Ludwig MD
--- NOTE | 2024-04-23 18:19 | DI.VRAD_ITS ---
PROCEDURE INFORMATION: Exam: XR Right Tibia and Fibula Exam date and time: 04/23/2024 5:49 PM Age: 64 years old Clinical indication: Other: Knee pain, right TECHNIQUE: Imaging protocol: Radiologic exam of the right tibia and fibula. Views: 2 views. COMPARISON: CR XR KNEE RT 4V AP,LAT,RONALDO,PAT 09/30/2023 17:38 FINDINGS: Bones/joints: Mild edematous changes of the lower leg. No displaced fracture. Posterior calcaneal spur. Soft tissues: Edematous changes. IMPRESSION: No evidence for acute bony injury. If clinical symptoms persist recommend followup film in 7-10 days. Dictated and Authenticated by: Sharon Rose MD. Ordering:AMERICA Ludwig MD
== END ==
PROVIDERS: PCP Nurse Practitioner Family; Visit Provider Nurse Practitioner Family
DX: Z12.31 Encounter for screening mammogram for malignant neoplasm of breast (principal); I31.39 Other pericardial effusion (noninflammatory); Z78.0 Asymptomatic menopausal state; I34.0 Nonrheumatic mitral (valve) insufficiency; I36.1 Nonrheumatic tricuspid (valve) insufficiency
CPT/HCPCS: 77063; 77067; 77080; 93306

== ENCOUNTER → 2024-04-23 17:18 | Outpatient (CLI) | payer MEDICARE, BC, SELFPAY | PROVIDERS: PCP Nurse Practitioner Family; Visit Provider Physician Assistant | DX: M25.561 Pain in right knee (principal) | CPT/HCPCS: 73564; 73590 ==

== ENCOUNTER 2024-05-16 02:22 | Emergency (ER) | payer MEDICARE, BC, SELFPAY ==
[2024-05-16 02:25] VITALS: BP 192/90; PULSE 98; RESP 24; TEMP 36.6; O2SAT 97
[2024-05-16 02:35] VITALS: PULSE 82; RESP 18; O2SAT 97
[2024-05-16 02:37] VITALS: RESP 24
[2024-05-16 02:40] VITALS: PULSE 94; RESP 25
--- NOTE | 2024-05-16 03:05 | W.ED.GENAD ---
Discharge Plan Disposition Patient Disposition: Home Condition: Good Discharge Details Clinical Impression: Cellulitis of leg, right, Localized swelling of right lower leg, Left sided sciatica Primary Care Provider: Scarlet Boyce ED Provider: Blaine Guan Home Meds and New Rx's Prescriptions: New cephalexin 500 mg capsule 500 mg PO QID 7 Days Qty: 28 0RF gabapentin [Neurontin] 300 mg capsule 300 mg PO TID Qty: 90 0RF Rx Instructions: On the first day take 1 pill, on the second day take 1 pill twice daily, on the third day and for the remainder of the prescription take 1 pill 3 times a day. prednisone 50 mg tablet 50 mg PO DAILY Qty: 5 0RF No Action strain 16 probiotic 1 tab PO BID bismuth subsalicylate [Peptic Relief] 262 mg tablet,chewable 2 tab PO Q30-60M PRN Rx Instructions: do not exceed 16 tabs per 24 hrs ascorbic acid (vitamin C) 1,000 mg tablet 1 g PO DAILY lamotrigine 200 mg tablet 200 mg PO HS Patient Comments: takes 200 mg HS levothyroxine 175 mcg tablet 175 mcg PO DAILY Qty: 90 3RF trazodone 100 mg tablet 200 mg PO HS ropinirole 1 mg tablet 1 mg PO QHS bupropion HCl 75 mg tablet 75 mg PO QPM Patient Comments: takes 75 mg QPM nystatin [Nystop] 100,000 unit/gram powder 1 applic Topical BID PRN (Reason: intertrigo) Qty: 1 0RF Patient Comments: PRN ondansetron 4 mg tablet,disintegrating 4 mg PO Q8H PRN (Reason: nausea and vomiting) Qty: 30 1RF rizatriptan 5 mg tablet 5 mg PO ONCE MDD 10mg PRN (Reason: migraine headache) Qty: 30 5RF Rx Instructions: Take one tablet at onset of migraine. May take another 2 hours later if headache still persists. cyanocobalamin (vitamin B-12) [Vitamin B-12] 500 mcg Tablet 500 mcg PO BID cholecalciferol (vitamin D3) [Vitamin D3] 25 mcg (1,000 unit) Tablet 25 mcg PO DAILY acetylcysteine 600 mg capsule 600 mg PO BID Patient Comments: TAKE ONE CAPSULE BY MOUTH TWICE A DAY polyethylene glycol 3350 17 gram Powder In Packet 17 g PO DAILY Qty: 14 0RF Discharge Instructions Instructions: Cellulitis (Skin Infection), Adult ED, Sciatica ED Additional Instructions: At this time there are a few issues that I am concerned with. First your right lower extremity shows swelling edema and redness that is concerning for potential DVT/blood clot. Please take 15 mg of the Xarelto every 12 hours until your ultrasound on Saturday. Please call us here Saturday morning to set up your appointment time. Additionally there is concern that there may be mild skin infection on your right leg. Please take the Keflex to treat this. In regard to the shooting pain in your left buttock and leg, I am concerned that this is reflective of sciatica. You have decided at this time to hold off on any imaging. However I do recommend that you pursue imaging on 8 nonemergent outpatient basis with your family doctor to further evaluate for hip arthritis in the left, as well as lumbar disc problems. Please take the prednisone steroid and the gabapentin nerve pill as prescribed for your pain. Please take all these medications on a full stomach. You can also take 1000 mg of Tylenol every 6 hours as needed for pain. If you notice any worsening of your symptoms, or any new symptoms such as vomiting, diarrhea, fever, chills, shortness of breath, chest pain, numbness, weakness, or fainting , please return immediately to the emergency department for reevaluation. Please follow up with your primary care provider as soon as possible for reassessment and reevaluation. As always, it was a pleasure participating in your medical care today. Referrals: Scarlet Boyce NP [Primary Care Provider] - [facility] General Date/Time Provider Initiated Documentation: 05/16/24 02:34. HPI Narrative: 64-year-old female with a past medical history of hypothyroidism, high cholesterol, bipolar, irritable bowel syndrome, obesity, fibromyalgia, chronic fatigue syndrome, previous superficial blood clot, presents today with complaint in the left and right lower extremity. In the right lower extremity she has noticed for the past few weeks redness swelling and mild edema from the knee down. She denies any pleuritic chest pain. She denies any significant calf tenderness, but does admit to mild achiness in the right lower extremity. She is not on any blood thinners. Additionally she notes tonight that for the last 1 to 2 weeks she has had shooting pain going down from her left buttock to the back of her thigh. She describes it as a shocking shooting like sensation. It is worse when she gets up and walks around but it is also significant when she lies down or sits for too long. She denies any back pain. She denies any falls or trauma recently. 1 month ago she did fall and hit her right knee, x-rays were negative at that time. She denies any numbness or tingling in the foot. Patient denies any saddle anesthesia, numbness or tingling in the groin, change in sensation when wiping. Patient denies any change in sensation during sexual intercourse, bowel or bladder incontinence, leakage, or retention. Patient denies any weakness in the lower extremities, atypical falls or imbalance. No other complaints at this time. No other modifying factors. Related Data Home Medications ?Medication ?Instructions ?Recorded ?Confirmed bismuth subsalicylate 262 mg 2 tab PO Q30-60M PRN 01/11/20 05/16/24 chewable tablet (Peptic Relief) cholecalciferol (vitamin D3) 25 25 mcg PO DAILY 09/25/20 05/16/24 mcg (1,000 unit) tablet (Vitamin D3) cyanocobalamin (vitamin B-12) 500 500 mcg PO BID 09/25/20 05/16/24 mcg tablet (Vitamin B-12) ascorbic acid (vitamin C) 1,000 mg 1 g PO DAILY 04/19/21 05/16/24 tablet strain 16 probiotic 1 tab PO BID 04/19/21 05/16/24 lamotrigine 200 mg tablet 200 mg PO HS 12/27/22 05/16/24 trazodone 100 mg tablet 200 mg PO HS 03/04/23 05/16/24 ropinirole 1 mg tablet 1 mg PO QHS 07/26/23 05/16/24 bupropion HCl 75 mg tablet 75 mg PO QPM 11/14/23 05/16/24 acetylcysteine 600 mg capsule 600 mg PO BID 12/28/23 05/16/24 polyethylene glycol 3350 17 gram 17 g PO DAILY #14 ea 12/30/23 05/16/24 oral powder packet levothyroxine 175 mcg tablet 175 mcg PO DAILY #90 tabs 01/03/24 05/16/24 ondansetron 4 mg disintegrating 4 mg PO Q8H PRN nausea and 03/10/24 05/16/24 tablet vomiting #30 tabs nystatin 100,000 unit/gram topical 1 applic topical BID PRN 04/23/24 05/16/24 powder (Nystop) intertrigo #1 g rizatriptan 5 mg tablet 5 mg PO ONCE PRN migraine headache 04/29/24 05/16/24 #30 tabs cephalexin 500 mg capsule 500 mg PO QID 7 days #28 caps 05/16/24 gabapentin 300 mg capsule 300 mg PO TID #90 caps 05/16/24 (Neurontin) prednisone 50 mg tablet 50 mg PO DAILY #5 tabs 05/16/24 Previous Rx's ?Medication ?Instructions ?Recorded polyethylene glycol 3350 17 gram 17 g PO DAILY #14 ea 12/30/23 oral powder packet levothyroxine 175 mcg tablet 175 mcg PO DAILY #90 tabs 01/03/24 ondansetron 4 mg disintegrating 4 mg PO Q8H PRN nausea and 03/10/24 tablet vomiting #30 tabs nystatin 100,000 unit/gram topical 1 applic topical BID PRN 04/23/24 powder (Nystop) intertrigo #1 g rizatriptan 5 mg tablet 5 mg PO ONCE PRN migraine headache 04/29/24 #30 tabs cephalexin 500 mg capsule 500 mg PO QID 7 days #28 caps 05/16/24 gabapentin 300 mg capsule 300 mg PO TID #90 caps 05/16/24 (Neurontin) prednisone 50 mg tablet 50 mg PO DAILY #5 tabs 05/16/24 Allergies Allergy/AdvReac Type Severity Reaction Status Date / Time Iodinated Contrast Media Allergy Severe COULDN'T Verified 05/16/24 02:32 (Iodinated Contrast Media - BREATHE IV Dye) divalproex sodium Allergy Intermediate HIVES Verified 05/16/24 02:32 venlafaxine (From Effexor) Allergy Unknown Pt does Verified 05/16/24 02:32 not remember topiramate (From Topamax) AdvReac Unknown anxiety Verified 05/16/24 02:32 citalopram AdvReac stomach Verified 05/16/24 02:32 distress General Stated Complaint: GenMedical CHELA: 3 Review of Systems All systems reviewed & are unremarkable except as noted in HPI and below Exam Narrative Exam Narrative: 1.Const: Well-nourished, Well-developed, appearing stated age 2.Eyes: PERRL, no conjunctival injection, and symmetrical lids. 3.ENT: Atraumatic external nose and ears. Moist MM. Neck: Symmetric, trachea midline, No thyromegaly. 4.CVS: +S1/S2, No murmurs or gallops. Peripheral pulses 2+ and equal in all extremities. Brisk capillary refill in all extremities. 5.RESP: Unlabored respiratory effort. Clear to auscultation bilaterally. No wheezes rales or rhonchi 6.GI: Soft, Nontender/Nondistended, No hepatosplenomegaly. No guarding or rebound. 7.MSK: Normocephalic/Atraumatic, Extremities w/o deformity. No cyanosis or clubbing, Normal movement of all extremities. Palpation of the left buttock at the location of the posterior superior iliac spine and the area of the piriformis muscle exacerbate and bring about her symptoms. Right lower extremity demonstrates mild swelling and edema with mild redness and warmth of the skin from the knee down. Mild tenderness in the calf and the medial and anterior aspect of the pickens. No tenderness in the thigh or the foot. Dorsalis pedis and radial pulses +2 bilaterally. No midline tenderness to palpation over the CTLS spine. Normal ROM in flexion, extension, side bend, and rotation. Patient has +5 out of 5 strength in the lower extremities in dorsiflexion and plantarflexion, knee flexion and extension, hip flexion and extension. Normal strength for dorsiflexion and plantar flexion of the great toe bilaterally. There is +2 over 2 dorsalis pedis pulses bilaterally. There is normal sensation to the skin with light touch at the foot, knee, and hip. Normal saddle sensation. Good sensation over the deep sural nerve area bilaterally. Rectal tone intact. Reflexes are present in the patellars bilaterally. +5 out of 5 strength in the medial, ulnar, radial nerve distribution bilaterally in the hands as well as intact light touch sensation to these dermatomes on the hands 8.Skin: Warm, Dry. No rashes or lesions. 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 Sensation grossly intact, no focal neurologic deficits. 10.Psych: (AAO) x3. Appropriate mood and affect Course Vital Signs Vital signs: Vital Signs Temperature 36.6 C 05/16/24 02:25 Pulse 98 H 05/16/24 02:25 Respiratory Rate 24 05/16/24 02:25 Blood Pressure 192/90 H 05/16/24 02:25 Pulse Oximetry 97 05/16/24 02:25 Temperature 36.6 C 05/16/24 02:25 Temperature Source Oral 05/16/24 02:25 Pulse 98 H 05/16/24 02:25 Pulse 94 H 05/16/24 02:40 Respiratory Rate 25 H 05/16/24 02:40 Respiratory Effort Short of Breath 05/16/24 02:37 Respiratory Depth Shallow 05/16/24 02:37 Respiratory Pattern Normal 05/16/24 02:37 Blood Pressure 192/90 H 05/16/24 02:25 Blood Pressure Position Supine 05/16/24 02:25 Pulse Oximetry 97 05/16/24 02:35 Oxygen Delivery Method Room Air 05/16/24 02:25 Oxygen Flow Rate 0 05/16/24 02:25 Pain Level 8 05/16/24 02:39 Medical Decision Making 64-year-old female with a past medical history of hypothyroidism, high cholesterol, bipolar, irritable bowel syndrome, obesity, fibromyalgia, chronic fatigue syndrome, previous superficial blood clot, presents today with complaint in the left and right lower extremity. In the right lower extremity she has noticed for the past few weeks redness swelling and mild edema from the knee down. She denies any pleuritic chest pain. She denies any significant calf tenderness, but does admit to mild achiness in the right lower extremity. She is not on any blood thinners. Additionally she notes tonight that for the last 1 to 2 weeks she has had shooting pain going down from her left buttock to the back of her thigh. She describes it as a shocking shooting like sensation. It is worse when she gets up and walks around but it is also significant when she lies down or sits for too long. She denies any back pain. She denies any falls or trauma recently. 1 month ago she did fall and hit her right knee, x-rays were negative at that time. She denies any numbness or tingling in the foot. Patient denies any saddle anesthesia, numbness or tingling in the groin, change in sensation when wiping. Patient denies any change in sensation during sexual intercourse, bowel or bladder incontinence, leakage, or retention. Patient denies any weakness in the lower extremities, atypical falls or imbalance. No other complaints at this time. No other modifying factors. Exam on the right demonstrates redness swelling and warmth, mild tenderness in the right lower extremity in the calf region. Concern for DVT, but also potential cellulitis. No ultrasonography is available tonight or this weekend. I did offer to transfer the patient to [facility] for ultrasonography but the patient has declined. She would rather wait until Saturday and be on a prophylactic blood thinner in the meantime. Will start her on 15 mg of Xarelto twice daily, we will give the doses here for her for the next 48 hours. Will schedule outpatient ultrasound on Saturday morning. Additionally will treat with Keflex for potential mild cellulitis. In regards to the left lower extremity symptoms show no evidence of trauma, pain at the greater trochanter or knee or midline spine. Symptoms clinically inconsistent with cauda equina syndrome, or significant neurovascular compromise. Instead symptoms do appear consistent and concerning for mild sciatica. The patient has had a 50 pound weight gain over the last year or 2, and I do wonder if this is a component of the symptoms as well. I did offer to get CT imaging of the lower back, as well as x-ray of the hip to evaluate for worsening arthritis, but the patient has declined at this time. I did discuss imaging options for the patient and at this time through notable discussion, weighing the risks and benefits, and a shared decision making process the patient has refused imaging at this time. Patient is of an appropriate age to make decisions. The patient is of sound mind, appears clinically sober, and has capacity to make decisions by my clinical exam. Respecting the patient's wishes we will hold off on imaging. I have recommended that the patient follow-up outpatient known emergently with her primary care provider for further imaging as she has declined it today. In regards to the sciatica we will give Solu-Medrol here, the first dose of gabapentin and Toradol. We we will give a prescription for short steroid burst at home, and continue gabapentin for the nerve pain. Patient stable for discharge otherwise. No evidence of acute life-threatening etiology noted at this time. Discussed red flags for which to return. I have extensively reviewed the treatment plan and discharge instructions with the patient and their family. I have addressed all patient concerns at this time. The patient and family was made aware of what symptoms to monitor for that would warrant a return to the emergency department. Discussed the plan with the patient and family, they demonstrate verbal understanding and agreement with our assessment and plan at this time. The documentation in this chart was dictated using [employer] dictation software. Please excuse any dictation errors. Quality:SDOH Health Related Social Needs: Health related social needs inadequate housing, personal safety Health related social needs details . PFS All Active Problems Left sided sciatica (Acute) Localized swelling of right lower leg (Acute) Cellulitis of leg, right (Acute) Obstructive sleep apnea (Chronic) CPAP Bipolar disorder (Chronic) [facility] Psychiatry Hypothyroidism (Chronic) Hyperlipidemia (Chronic) Chronic fatigue (Chronic) Irritable bowel syndrome with constipation and diarrhea (Chronic) Abdominal wall hernia (Chronic) PLMD (periodic limb movement disorder) (Chronic) Migraine headache (Chronic) Osteopenia (Chronic) Incomplete bladder emptying (Chronic) Chronic nausea (Chronic) Chronic constipation (Chronic) Atrophic vulvovaginitis (Chronic) Atopic dermatitis (Chronic) Class 3 severe obesity with body mass index (BMI) of 50.0 to 59.9 in adult (Chronic) Medical History Chronic headache Positive GEO (antinuclear antibody) [facility] [place] Rheumatology consult 12/13--no underlying inflammatory disorder suspected COVID-19 (~12/2021) Uterine leiomyoma Endometrial thickening on ultrasound 11/16/20. Incidental finding. No PMB. No plans for further evaluation. Gastritis Vitamin D deficiency (~11/2018) Surgical History Hx of umbilical hernia repair (03/07/22) S/P cholecystectomy History of blepharoplasty Hx of colonoscopy Family History Mother Bipolar disorder Father Dementia Hypothyroidism Sister Hypothyroidism Sister ALS (amyotrophic lateral sclerosis) Brother No problems noted. Brother No problems noted. Daughter No problems noted. Daughter No problems noted. Son , 37 Substance use disorder Maternal Grandfather Heart disease Maternal Grandmother Heart disease Paternal Grandfather Heart disease Paternal Grandmother Heart disease Social History Smoking/Tobacco Use Status: Former Tobacco Use tobacco type: cigarettes Quit Date: 09/23/89 Tobacco: How many years used: 5 Second Hand Exposure: Yes Smoking risk assessment performed?: Yes Alcohol Intake: current Alcohol Intake frequency: holidays/special occasions only Alcohol type: wine Drug use: Occasionally Substance use type: marijuana Details: uses PO CBD gummies. 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 Pets and animals: No Sexually active: No Do you think of yourself as: straight/heterosexual Current gender identity: female What is your relationship status?: How often do you talk on the phone with friends or family?: three or more times per week How often do you get together with friends or relatives?: once per week Do you belong to any clubs or organized social groups?: no Panel score (0-1 are the most socially isolated patients): 2 What type of physical activity do you participate in: walking and aerobic Duration: 15-30 minutes/day Thuy/Rastafari: Cheondoism Special thuy needs: No Seatbelt use: always Drive intox or ride w/intox hi lo 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
[2024-05-16] MEDS: Cephalexin 500 MG CAP, 4 CAPS/BTL PO (03:18)
[2024-05-16] MEDS: Ketorolac 30 MG/ML VIAL IM (03:18)
[2024-05-16] MEDS: Gabapentin 300 MG CAP PO (03:18)
[2024-05-16] MEDS: methylPREDNISolone SUCC 125 MG VIAL IM (03:18)
--- NOTE | 2024-05-16 03:19 | NUR.NOTE ---
RLE ultrasound requisition faxed to [facility], patient advised to call [facility] scheduling Saturday05/18/24 after 7am to make appointment for same day. Concern for RLE DVT. Nursing Note:
[2024-05-16] MEDS: Rivaroxaban 15 MG TABLET 60 MG PO (03:39)
== END 2024-05-16 03:41 | disposition home or self-care (01) ==
PROVIDERS: Emergency Provider Student in an Organized Health Care Education/Training Program; PCP Nurse Practitioner Family
DX: L03.115 Cellulitis of right lower limb (principal); R22.41 Localized swelling, mass and lump, right lower limb; M54.32 Sciatica, left side; M79.7 Fibromyalgia; G93.32 Myalgic encephalomyelitis/chronic fatigue syndrome; E78.00 Pure hypercholesterolemia, unspecified; Z87.891 Personal history of nicotine dependence
CPT/HCPCS: 96372; 99284; J1885; J2919

== ENCOUNTER 2024-05-19 02:18 | Outpatient (CLI) | payer MEDICARE, BC, SELFPAY ==
--- NOTE | 2024-05-19 | DI.US_ITS ---
Exam(s) US LOWER EXTREMITY VENOUS RT EXAM: US LOWER EXTREMITY VENOUS RT CLINICAL HISTORY: SWELLING, R22.41, CONCERN FOR DVT TECHNIQUE: Grayscale, color, and doppler imaging of the deep venous system of the right lower extrem ity was performed. COMPARISON: US US ECHOCARDIOGRAM from 01/31/2024 FINDINGS: There is no evidence of intraluminal thrombus and there is normal compression and augmentation demons trated within the common femoral vein, femoral vein, and popliteal vein. In the ipsilateral calf the interrogated veins also exhibit normal compression/ augmentation properti es. The ipsilateral saphenofemoral junction is patent. IMPRESSION: 1. No evidence of DVT in the right lower extremity. DATA REPOSITORY:
== END 2024-05-19 02:38 ==
LOC: DI 02:18
PROVIDERS: PCP Nurse Practitioner Family; Visit Provider Student in an Organized Health Care Education/Training Program
DX: R22.41 Localized swelling, mass and lump, right lower limb (principal)
CPT/HCPCS: 93971

== ENCOUNTER 2024-07-07 01:38 | Outpatient (CLI) | payer MEDICARE, BC, SELFPAY ==
--- NOTE | 2024-07-07 13:05 | DI.MRI_ITS ---
Exam(s) MR LUMBAR SPINE WO EXAM: MR LUMBAR SPINE WO CLINICAL HISTORY: known DJD,now shooting pains,lumbar radiculopathy,m54.16. TECHNIQUE: Multiplanar multisequence MRI of the Lumbar spine was performed. COMPARISON: CR XR LUMBAR SPINE COMPLETE from 09/12/[address] CHEST/ABD/PEL WO from 12/27/2023 CR XR DEXA BONE DENSITY W/WO TRENT from 01/31/2024 FINDINGS: Bones: The last intervertebral disc space is designated the L5/S1 level for the numbering purpose of this examination. The vertebral body heights are well maintained. Alignment is satisfactory. Mild e ndplate degenerative signal changes are present. There endplate osteophytes at multiple levels of th e lumbar spine but particularly at L2-3 and L3-L4. Cord: The conus tip ends at the L1 level. It is of normal size and signal intensity. T12-L1: No disc herniations or bulges are present. No central spinal canal or neural foraminal stenos is. L1-2: No disc herniations or bulges are present. No central spinal canal or neural foraminal stenosis . L2-3: A mild diffuse disc bulge. No central spinal canal or neural foraminal stenosis. L3-4: There is a mild diffuse disc bulge. Degenerative changes of the facets are seen. There is karishma y mild narrowing of the central spinal canal. No significant neural foraminal stenosis is seen. L4-5: There are degenerative changes of the facets and mild hypertrophy of the ligamentum flavum. Th ere is a diffuse disc bulge which extends into the left neural foramen causing mild narrowing of the left neural foramen. No significant central spinal canal or right neural foraminal stenosis is seen. L5-S1: No disc herniations or bulges are present. No central spinal canal or neural foraminal stenosi s.There are degenerative changes seen at the facets. Soft tissues: The visualized SI joints and sacrum are well maintained. The paraspinal soft tissues ar e unremarkable. IMPRESSION: Multilevel degenerative changes. There is mild narrowing of the left neural foramen at L4-L5. DATA REPOSITORY:
== END 2024-07-07 01:58 ==
LOC: DI 01:38
PROVIDERS: PCP Nurse Practitioner Family; Visit Provider Nurse Practitioner Family
DX: M54.16 Radiculopathy, lumbar region (principal)
CPT/HCPCS: 72148

== ENCOUNTER 2024-07-23 18:34 | Emergency (ER) | payer MEDICARE, BC, SELFPAY ==
[2024-07-23 18:41] VITALS: BP 169/81; PULSE 93; TEMP 36.9; O2SAT 95
[2024-07-23 19:33] LABS: Bilirubin Negative (Negative); Blood Negative (Negative); Clarity Clear (Clear); Glucose Negative (Negative); Ketones Negative (Negative); Leukocyte Esterase Negative (Negative); Nitrite Negative (Negative); Specific Gravity 1.015 (1.005-1.025); Urobilinogen 0.2 mg/dL (Up to 0.2)
--- NOTE | 2024-07-23 20:15 | DI.RAD_ITS ---
Exam(s) XR PORTABLE CHEST AP EXAM: XR PORTABLE CHEST AP CLINICAL HISTORY: SOB TECHNIQUE: 2D digital imaging was performed. COMPARISON: CT CT CHEST/ABD/PEL WO from 12/27/2023 CR XR CHEST 1V IN [facility] DEPT from 12/27/2023 FINDINGS: Exam limited by under penetration at the lung bases and overlying abdominal soft tissues. Mild kemal on also present. LUNGS: Basilar infiltrate/atelectasis not excluded. Upper lobes are clear. No pleural abnormality s een. HEART: Normal size. AORTA: Normal diameter. BONES: Unremarkable for age. Soft tissues: Unremarkable. IMPRESSION: Limited exam. No acute findings. DATA REPOSITORY: RADIATION DOSE DELIVERED:
[2024-07-23 20:45] VITALS: BP 142/84; PULSE 88; RESP 16; TEMP 37.1; O2SAT 98
[2024-07-23 20:49] LABS: Abs Immature Grans 0.03 10^3/uL (0.0-0.06); Absolute Basophil Count 0.05 10^3/uL (0.0-0.2); Absolute Eosinophil Count 0.31 10^3/uL (0.0-0.7); Absolute Monocyte Count 0.53 10^3/uL (0.1-0.8); Absolute Neutrophil Count 6.81 10^3/uL (1.2-6.7); Basophils % 0.5 %; Eosinophils % 3.1 %; HCT 39.2 % (36.0-46.0); HGB 12.3 g/dL (11.2-15.7); Immature Grans % 0.3 %; Lymphocytes % 23.7 %; MCH 27.8 pg (27.0-33.0); MCHC 31.4 % (32.0-36.0); MCV 89 fL (80-95); MPV 9.9 fL (8.0-11.0); Monocytes % 5.2 %; Neutrophils % 67.2 %; Platelet Count 305 10^3/uL (130-400); RBC 4.42 10^6/uL (3.93-5.22); RDW 16.5 % (11.7-14.6); RDW-SD 53.9 fL; WBC 10.13 10^3/uL (4.4-10.8)
[2024-07-23 21:03] LABS: ALT 20 U/L (14-59); AST 15 U/L (15-37); Albumin 3.4 g/dL (3.4-5.0); Alkaline Phosphatase 84 U/L (46-116); Anion Gap 9.3 mmol/L (3-11); BUN 19 mg/dL (7-18); Bilirubin, Total 0.34 mg/dL (0.2-1.0); CO2 27.7 mmol/L (21.0-32.0); CREATININE 1.1 mg/dL (0.55-1.02); Calcium 9.4 mg/dL (8.5-10.1); Chloride 106 mmol/L (98-107); Estimated GFR 55.42 (mL/min/1.73m2); Glucose 98 mg/dL (74-106); Magnesium 2.2 mg/dL (1.8-2.4); Potassium 4.1 mmol/L (3.5-5.1); Sodium 143 mmol/L (136-145); Total Protein 7.5 g/dL (6.4-8.2)
--- NOTE | 2024-07-23 21:25 | ED.GENADUL_ITS ---
Discharge Plan Disposition Patient Disposition: Home Condition: Stable Discharge Details Clinical Impression: Chronic fatigue syndrome, Fibromyalgia, Obstructive sleep apnea, Hypertension, Urinary frequency Primary Care Provider: Scarlet Boyce ED Provider: Caroline Schumacher Home Meds and New Rx's Prescriptions: No Action strain 16 probiotic 1 tab PO BID bismuth subsalicylate [Peptic Relief] 262 mg tablet,chewable 2 tab PO Q30-60M PRN Rx Instructions: do not exceed 16 tabs per 24 hrs ascorbic acid (vitamin C) 1,000 mg tablet 1 g PO DAILY lamotrigine 200 mg tablet 200 mg PO HS Patient Comments: takes 200 mg HS gabapentin [Neurontin] 300 mg capsule 300 mg PO TID Qty: 90 0RF trazodone 100 mg tablet 200 mg PO HS ropinirole 1 mg tablet 1 mg PO QHS nystatin [Nystop] 100,000 unit/gram powder 1 applic Topical BID PRN (Reason: intertrigo) Qty: 1 0RF Patient Comments: PRN levothyroxine 175 mcg tablet 175 mcg PO DAILY Qty: 90 3RF torsemide 20 mg tablet 20 mg PO DAILY Qty: 90 0RF ondansetron 4 mg tablet,disintegrating 4 mg PO Q8H PRN (Reason: nausea and vomiting) Qty: 30 1RF rizatriptan 5 mg tablet 5 mg PO ONCE MDD 10mg PRN (Reason: migraine headache) Qty: 30 5RF Rx Instructions: Take one tablet at onset of migraine. May take another 2 hours later if headache still persists. cyanocobalamin (vitamin B-12) [Vitamin B-12] 500 mcg Tablet 500 mcg PO BID cholecalciferol (vitamin D3) [Vitamin D3] 25 mcg (1,000 unit) Tablet 25 mcg PO DAILY acetylcysteine 600 mg capsule 600 mg PO BID Patient Comments: TAKE ONE CAPSULE BY MOUTH TWICE A DAY polyethylene glycol 3350 17 gram Powder In Packet 17 g PO DAILY Qty: 14 0RF Discharge Instructions Instructions: Myalgic encephalomyelitis/chronic fatigue syndrome Additional Instructions: You are seen in the emergency department today for evaluation of general feelings of unwellness, difficulty breathing, and had a full evaluation. There were no abnormalities identified to explain your symptoms, and you need to follow-up with your primary care provider in the next few days to discuss this visit and any symptoms that change, worsen, or persist. He can always return to the emergency department if your breathing worsens, you develop a fever, or any other symptoms that cause you concern. Thank you for allowing us to be part of your care. Discharge Data Discharge Date/Time-TO BE ENTERED AT DEPARTURE: 07/23/24 21:40 HPI General Date/Time Provider Initiated Documentation: 07/23/24 19:00 . Limitations to Documentation: no limitations . Information obtained by: patient, family and old records reviewed . HPI Narrative: HPI: This is a 64-year-old female patient with a past medical history significant for chronic fatigue, fibromyalgia, hypertension, JULIA, bipolar, irritable bowel, and PLMD. She is presenting for evaluation of 1 week of general malaise and increased urinary frequency. The patient reports that she has felt more fatigued than typical, has noted some dyspnea on exertion, and just has not been feeling herself. She states that she has been urinating more frequently than typical but has not noted any dysuria or hematuria. No fevers at home, eating and drinking normally, states that she sometimes feels like this when she has an exacerbation of her chronic fatigue but want to make sure that nothing else was going on to cause the symptoms. Exam: Gen: Awake and alert, in no apparent distress HEENT: Non-icteric sclera, PERRL Neck: Supple, no meningismus Lungs: No apparent respiratory distress, normal respiratory effort. Lung sounds clear and equal bilaterally without wheezes, rhonchi, rales. Mild tachypnea after exertion which resolves. CV: Appears well perfused, heart with regular rate and rhythm, strong and symmetrical distal pulses. Abdomen: Non-distended, soft, nontender MSK: Moves 4 extremities without apparent limitation in ROM. The patient has 1+ peripheral edema to the mid shins bilaterally, reported as baseline. No unilateral calf tenderness Skin: Visualized skin without rashes, cyanosis. Neuro: Normal Gait, no obvious focal deficits or facial asymmetry. Speaks in full, clear sentences. Psych: Appropriate for situation. MDM: This is a 64-year-old female patient presenting for evaluation of general malaise and increased urinary frequency. My differential includes but is not limited to urinary tract infection, hematuria, certainly assertive kidney injury, metabolic and electrolyte derangements, hyperglycemia, anemia, pneumonia, viral upper respiratory infection. The patient is reassuringly hemodynamically appropriate and afebrile at this time. Her chronic conditions could certainly be exacerbated, causing this constellation of symptoms. She has no chest pain to suggest ACS, though I did consider arrhythmia. We will obtain laboratory studies to include CBC, CMP, magnesium, and urinalysis. I will obtain chest x-ray. ED Course: I independently interpreted the laboratory studies, which show no significant leukocytosis, anemia, or thrombocytopenia. The chemistry panel is without evidence of electrolyte abnormality, significant kidney dysfunction, or liver injury. Urinalysis noninfectious. Chest x-ray does not reveal any concerning consolidations for pneumonia, does show mild atelectasis and a question of a hiatal hernia. The patient remained hemodynamically well, and is desiring of discharge to home. I did recommend that she follow-up with her primary care provider if her symptoms persist. She can also return to the emergency department if she has worsening of her respiratory status, fever, altered mental status, or other concerning symptoms. At this time, the patient has had a full medical evaluation and is safe for discharge to home. They are hemodynamically stable, ambulatory, and tolerating PO. They are understanding of the follow-up plan and return precautions. They left our facility without incident. Caroline Schumacher MD Related Data Home Medications ?Medication ?Instructions ?Recorded ?Confirmed bismuth subsalicylate 262 mg 2 tab PO Q30-60M PRN 01/11/20 07/23/24 chewable tablet (Peptic Relief) cholecalciferol (vitamin D3) 25 25 mcg PO DAILY 09/25/20 07/23/24 mcg (1,000 unit) tablet (Vitamin D3) cyanocobalamin (vitamin B-12) 500 500 mcg PO BID 09/25/20 07/23/24 mcg tablet (Vitamin B-12) ascorbic acid (vitamin C) 1,000 mg 1 g PO DAILY 04/19/21 07/23/24 tablet strain 16 probiotic 1 tab PO BID 04/19/21 07/23/24 lamotrigine 200 mg tablet 200 mg PO HS 12/27/22 07/23/24 trazodone 100 mg tablet 200 mg PO HS 03/04/23 07/23/24 ropinirole 1 mg tablet 1 mg PO QHS 07/26/23 07/23/24 acetylcysteine 600 mg capsule 600 mg PO BID 12/28/23 07/23/24 polyethylene glycol 3350 17 gram 17 g PO DAILY #14 ea 12/30/23 07/23/24 oral powder packet ondansetron 4 mg disintegrating 4 mg PO Q8H PRN nausea and 03/10/24 07/23/24 tablet vomiting #30 tabs nystatin 100,000 unit/gram topical 1 applic topical BID PRN 04/23/24 07/23/24 powder (Nystop) intertrigo #1 g rizatriptan 5 mg tablet 5 mg PO ONCE PRN migraine headache 04/29/24 07/23/24 #30 tabs gabapentin 300 mg capsule 300 mg PO TID #90 caps 05/27/24 07/23/24 (Neurontin) levothyroxine 175 mcg tablet 175 mcg PO DAILY #90 tabs 06/25/24 07/23/24 torsemide 20 mg tablet 20 mg PO DAILY #90 tabs 06/25/24 07/23/24 Previous Rx's ?Medication ?Instructions ?Recorded polyethylene glycol 3350 17 gram 17 g PO DAILY #14 ea 12/30/23 oral powder packet ondansetron 4 mg disintegrating 4 mg PO Q8H PRN nausea and 03/10/24 tablet vomiting #30 tabs nystatin 100,000 unit/gram topical 1 applic topical BID PRN 04/23/24 powder (Nystop) intertrigo #1 g rizatriptan 5 mg tablet 5 mg PO ONCE PRN migraine headache 04/29/24 #30 tabs gabapentin 300 mg capsule 300 mg PO TID #90 caps 05/27/24 (Neurontin) levothyroxine 175 mcg tablet 175 mcg PO DAILY #90 tabs 06/25/24 torsemide 20 mg tablet 20 mg PO DAILY #90 tabs 06/25/24 Allergies Allergy/AdvReac Type Severity Reaction Status Date / Time Iodinated Contrast Media Allergy Severe COULDN'T Verified 07/23/24 18:43 (Iodinated Contrast Media - BREATHE IV Dye) divalproex sodium Allergy Intermediate HIVES Verified 07/23/24 18:43 venlafaxine (From Effexor) Allergy Unknown Pt does Verified 07/23/24 18:43 not remember topiramate (From Topamax) AdvReac Unknown anxiety Verified 07/23/24 18:43 citalopram AdvReac stomach Verified 07/23/24 18:43 distress General Stated Complaint: Urinary CHELA: 4 Course Vital Signs Vital signs: Vital Signs Temperature 36.9 C 07/23/24 18:41 Pulse 93 H 07/23/24 18:41 Blood Pressure 169/81 H 07/23/24 18:41 Pulse Oximetry 95 07/23/24 18:41 Temperature 37.1 C 07/23/24 20:45 Temperature Source Temporal Artery Scan 07/23/24 18:41 Pulse 88 07/23/24 20:45 Respiratory Rate 16 07/23/24 20:45 Respiratory Effort Normal, Non-Labored 07/23/24 18:44 Blood Pressure 142/84 H 07/23/24 20:45 Blood Pressure Position Sitting 07/23/24 18:41 Pulse Oximetry 98 07/23/24 20:45 Oxygen Delivery Method Room Air 07/23/24 18:41 Oxygen Flow Rate 0 07/23/24 18:41 Lab/Test Results Lab/Test Results: Laboratory Tests Range/Units 07/23/24 07/23/24 19:16 20:45 WBC (4.4-10.8) 10^3/uL 10.13 RBC (3.93-5.22) 10^6/uL 4.42 Hgb (11.2-15.7) g/dL 12.3 Hct (36.0-46.0) % 39.2 MCV (80-95) fL 89 MCH (27.0-33.0) pg 27.8 MCHC (32.0-36.0) % 31.4 L RDW (11.7-14.6) % 16.5 H Plt Count (130-400) 10^3/uL 305 MPV (8.0-11.0) fL 9.9 Immature Gran % % 0.3 Neutrophils % % 67.2 Lymphocytes % % 23.7 Monocytes % % 5.2 Eosinophils % % 3.1 Basophils % % 0.5 Nucleated RBC % (0.0-0.3) % 0.0 Absolute Neutrophils (1.2-6.7) 10^3/uL 6.81 H Absolute Lymphocytes (1.2-3.4) 10^3/uL 2.40 Absolute Monocytes (0.1-0.8) 10^3/uL 0.53 Absolute Eosinophils (0.0-0.7) 10^3/uL 0.31 Absolute Basophils (0.0-0.2) 10^3/uL 0.05 Sodium (136-145) mmol/L 143 Potassium (3.5-5.1) mmol/L 4.1 Chloride (98-107) mmol/L 106 Carbon Dioxide (21.0-32.0) mmol/L 27.7 Anion Gap (3-11) mmol/L 9.3 BUN (7-18) mg/dL 19 H Creatinine (0.55-1.02) mg/dL 1.1 H Est GFR (CKD-EPI 2020) (mL/min/1.73m2) 55.42 Glucose (74-106) mg/dL 98 Calcium (8.5-10.1) mg/dL 9.4 Magnesium (1.8-2.4) mg/dL 2.2 Total Bilirubin (0.2-1.0) mg/dL 0.34 AST (15-37) U/L 15 ALT (14-59) U/L 20 Alkaline Phosphatase (46-116) U/L 84 Total Protein (6.4-8.2) g/dL 7.5 Albumin (3.4-5.0) g/dL 3.4 Urine Color (Yellow) Yellow Urine Clarity (Clear) Clear Urine pH (5-8) 7.0 Ur Specific [place] (1.005-1.025) 1.015 Urine Protein (Neg-Trace) mg/dL Negative Urine Ketones (Negative) mg/dL Negative Urine Blood (Negative) Negative Urine Nitrite (Negative) Negative Urine Bilirubin (Negative) Negative Urine Urobilinogen (Up to 0.2) mg/dL 0.2 Ur Leukocyte Esterase (Negative) Negative Urine Glucose (Negative) mg/dL Negative Medical Decision Making Quality:SDOH Health Related Social Needs: Health related social needs inadequate housing(Z59.1), problem related to primary support group(Z63.9) Health related social needs details . PFSH All Active Problems (Updated 07/23/24 @ 21:26 by Caroline Schumacher MD) Urinary frequency (Acute) Lower extremity edema (Acute) Bilateral lower leg cellulitis (Acute) Chronic fatigue syndrome (Chronic) Fibromyalgia (Chronic) Hypertension (Chronic) Lumbar radiculopathy (Chronic) Obstructive sleep apnea (Chronic) CPAP Bipolar disorder (Chronic) [facility] Psychiatry Hypothyroidism (Chronic) Hyperlipidemia (Chronic) Irritable bowel syndrome with constipation and diarrhea (Chronic) Abdominal wall hernia (Chronic) PLMD (periodic limb movement disorder) (Chronic) Migraine headache (Chronic) Osteopenia (Chronic) Incomplete bladder emptying (Chronic) Chronic nausea (Chronic) Chronic constipation (Chronic) Atrophic vulvovaginitis (Chronic) Atopic dermatitis (Chronic) Class 3 severe obesity with body mass index (BMI) of 50.0 to 59.9 in adult (Chronic) Medical History Chronic headache Positive GEO (antinuclear antibody[place] [facility] [place]--no underlying inflammatory disorder suspected COVID-19 (~12/2021) Uterine leiomyoma Endometrial thickening on ultrasound 11/16/20. Incidental finding. No PMB. No plans for further evaluation. Gastritis Vitamin D deficiency (~11/2018) Surgical History Hx of umbilical hernia repair (03/07/22) S/P cholecystectomy History of blepharoplasty Hx of colonoscopy Family History Mother Bipolar disorder Father Dementia Hypothyroidism Sister Hypothyroidism Sister ALS (amyotrophic lateral sclerosis) Brother No problems noted. Brother No problems noted. Daughter No problems noted. Daughter No problems noted. Son , 37 Substance use disorder Maternal Grandfather Heart disease Maternal Grandmother Heart disease Paternal Grandfather Heart disease Paternal Grandmother Heart disease Social History Smoking/Tobacco Use Status: Former Tobacco Use tobacco type: cigarettes Quit Date: 09/23/89 Tobacco: How many years used: 5 Second Hand Exposure: Yes Smoking risk assessment performed?: Yes Alcohol Intake: current Alcohol Intake frequency: holidays/special occasions only Alcohol type: wine Drug use: Occasionally Substance use type: marijuana Details: uses PO CBD gummies. 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 Pets and animals: No Sexually active: No Do you think of yourself as: straight/heterosexual Current gender identity: female What is your relationship status?: How often do you talk on the phone with friends or family?: three or more times per week How often do you get together with friends or relatives?: once per week Do you belong to any clubs or organized social groups?: no Panel score (0-1 are the most socially isolated patients): 2 What type of physical activity do you participate in: walking and aerobic Duration: 15-30 minutes/day Thuy/Gnosticism: Temple Special thuy needs: No Seatbelt use: always Drive intox or ride w/intox straddle truck 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 PAWSS Have you Been Recently Intoxicated or Drunk Within the Last 30 days?: No Have you Ever Experienced Previous Episodes of Alcohol Withdrawal?: No Have you ever Experienced Withdrawal Seizures?: No Have you ever Experienced Delirium Tremens(DT)s?: No Have you ever undergone Alcohol Rehabilitation Treatment (i.e, inpt ot outpatient treatment programs)?: No Have you ever Experienced Blackouts?: No Have you ever Combined Alcohol with other Downers within the last 90 days?: No Have you ever Combined Alcohol with any other Substance of Abuse during the last 90 days?: No Positive Blood Alcohol level on Presentation? [PCS.BAL]: No Evidence of Increased Autonomic Activity (i.e. HR>120, tremor, sweating, agitation, nausea)?: No Result: 0
--- NOTE | 2024-07-23 21:43 | DI.VRAD_ITS ---
PROCEDURE INFORMATION: Exam: XR Chest Exam date and time: 07/23/2024 9:05 PM Age: 64 years old Clinical indication: Shortness of breath TECHNIQUE: Imaging protocol: Radiologic exam of the chest. Views: 1 view. Other technique: Portable exam. COMPARISON: CT CHEST/ABD/PEL WO 12/27/2023 10:22 PM FINDINGS: Lungs: Possible increased markings right lung base. Suspect atelectasis. Pleural spaces: Unremarkable. No pleural effusion. No pneumothorax. Heart/Mediastinum: Mild cardiomegaly. There appears to be a double density at the left lung base medially, possible hiatal hernia versus artifact. Bones/joints: Unremarkable. Soft tissues: Overlying soft tissue attenuation slightly limits the exam. IMPRESSION: Possible right lower lobe atelectasis. Possible hiatal hernia. Dictated and Authenticated by: Honey Houser MD. Ordering:RAVINDER Pang MD
== END 2024-07-23 21:40 | disposition home or self-care (01) ==
PROVIDERS: Emergency Provider Emergency Medicine; PCP Nurse Practitioner Family
DX: R53.81 Other malaise (principal); R35.0 Frequency of micturition; I10 Essential (primary) hypertension; G93.32 Myalgic encephalomyelitis/chronic fatigue syndrome; G47.33 Obstructive sleep apnea (adult) (pediatric); M79.7 Fibromyalgia
CPT/HCPCS: 36415; 80053; 99284; 71045; 81003; 83735; 85025

== ENCOUNTER → 2024-08-26 10:14 | Outpatient (BNVA) | payer MEDICARE, BC, SELFPAY | PROVIDERS: PCP Nurse Practitioner Family; Referring Provider Nurse Practitioner Family; Visit Provider Podiatrist | DX: R60.0 Localized edema (principal); I89.0 Lymphedema, not elsewhere classified; I73.89 Other specified peripheral vascular diseases; B35.3 Tinea pedis; L85.3 Xerosis cutis; M79.662 Pain in left lower leg; M79.661 Pain in right lower leg | CPT/HCPCS: 99214 ==

== ENCOUNTER → 2024-08-28 13:13 | Outpatient (BNVA) | payer MEDICARE, BC, SELFPAY | PROVIDERS: PCP Nurse Practitioner Family; Referring Provider Nurse Practitioner Family; Visit Provider Physical Therapy Assistant | DX: I73.9 Peripheral vascular disease, unspecified (principal) | CPT/HCPCS: 93922 ==

== ENCOUNTER → 2024-10-06 09:38 | Outpatient (BNVA) | payer MEDICARE, BC, SELFPAY | PROVIDERS: PCP Nurse Practitioner Family; Referring Provider Nurse Practitioner Family; Visit Provider Podiatrist | DX: R60.0 Localized edema (principal); I89.0 Lymphedema, not elsewhere classified; I73.89 Other specified peripheral vascular diseases; B35.3 Tinea pedis; L85.3 Xerosis cutis; M79.604 Pain in right leg; M79.605 Pain in left leg | CPT/HCPCS: 99213 ==

== ENCOUNTER 2024-12-08 01:53 | Outpatient (CLI) | payer MEDICARE, BC, SELFPAY ==
[2024-12-08 12:18] LABS: HCT 40.2 % (36.0-46.0); HGB 12.3 g/dL (11.2-15.7); MCH 27.2 pg (27.0-33.0); MCHC 30.6 % (32.0-36.0); MCV 89 fL (80-95); MPV 10.6 fL (8.0-11.0); Platelet Count 299 10^3/uL (130-400); RBC 4.52 10^6/uL (3.93-5.22); RDW 16.4 % (11.7-14.6); RDW-SD 53.2 fL; WBC 7.45 10^3/uL (4.4-10.8)
[2024-12-08 12:25] LABS: ESR 45 mm/hr (0-30)
[2024-12-08 12:40] LABS: Hemoglobin A1C 5.6 % (<5.7)
[2024-12-08 13:12] LABS: ALT 20 U/L (14-59); AST 14 U/L (15-37); Albumin 3.5 g/dL (3.4-5.0); Alkaline Phosphatase 85 U/L (46-116); Anion Gap 10.2 mmol/L (3-11); BUN 18 mg/dL (7-18); Bilirubin, Total 0.5 mg/dL (0.2-1.0); CO2 27.8 mmol/L (21.0-32.0); Calcium 9.6 mg/dL (8.5-10.1); Calculated LDL 114 mg/dL (<100); Chloride 105 mmol/L (98-107); Cholesterol 190 mg/dL (<200); Estimated GFR 62.13 (mL/min/1.73m2); Glucose 105 mg/dL (74-106); HDL Cholesterol 54 mg/dL (>or=50); Potassium 4.1 mmol/L (3.5-5.1); Sodium 143 mmol/L (136-145); TSH (W/Ref FT4) 2.29 uIU/mL (0.36-3.74); Total Protein 7.5 g/dL (6.4-8.2); Triglyceride 113 mg/dL (<150); Vitamin D 25 Total 48 ng/mL (30-100)
[2024-12-08 14:03] LABS: C-Reactive Protein 1.87 mg/dL (<or=0.5)
== END 2024-12-08 01:54 | disposition home or self-care (01) ==
LOC: LBN 09:01 → LOS 10:02
PROVIDERS: PCP Nurse Practitioner Family; Visit Provider Nurse Practitioner Family
DX: E03.9 Hypothyroidism, unspecified (principal); E78.5 Hyperlipidemia, unspecified; G47.33 Obstructive sleep apnea (adult) (pediatric)
CPT/HCPCS: 36415; 80053; 80061; 82306; 85027; 85652; 83036; 84443; 86140

== ENCOUNTER 2025-02-11 21:46 | Outpatient (REF) | payer MEDICARE, BC, SELFPAY | END 2025-02-11 21:47 | disposition home or self-care (01) | LOC: LBN 21:46 | PROVIDERS: PCP Nurse Practitioner Family; Visit Provider Physician Assistant | DX: N39.0 Urinary tract infection, site not specified (principal); R82.89 Other abnormal findings on cytological and histological examination of urine | CPT/HCPCS: 87086 ==

== ENCOUNTER 2025-06-29 01:28 | Outpatient (CLI) | payer MEDICARE, BC, SELFPAY ==
--- NOTE | 2025-06-29 07:30 | DI.MAMMO_ITS ---
Exam(s) MAMMO SCREENING EXAM: MAMMO SCREENING CLINICAL HISTORY: screening, Z12.39. TECHNIQUE: Bilateral full field digital CC and MLO mammographic images were obtained with 3D tomosynthesis and utilizing computer aided detection (CAD). COMPARISON: Prior mammograms were reviewed. FINDINGS: There has been no significant change in the appearance and distribution of the fibroglandular tissue. Although nodular density inferiorly in the right breast on the CC view located 9 cm in from the nipple is unchanged from prior mammograms dating back to 2016 and therefore benign. There are no new spiculated masses nor new malignant appearing microcalcification groups. There is no significant architectural distortion nor skin thickening-retraction. IMPRESSION: Stable benign findings. No radiographic evidence of malignancy. BI-RADS Category 2 - Benign Findings Breast Density - Category B - There are scattered areas of fibroglandular density. Breast density Category C or D implies that the patient has dense breast tissue. Dense breast tissue can make it harder to find cancer on a mammogram. Dense breast tissue is also associated with an increased risk of breast cancer. This information about the result of the mammogram report was provided to the patient to raise their awareness. Use this report when you speak with the patient about their risks for breast cancer, which includes their family history. At that time, you may recommend additional screening tests (Ultrasound or MRI) as these tests may add significant information. A negative radiographic report should not delay biopsy if a dominant or clinically suspicious mass is present. Up to ten percent of cancers are not identified on mammography. A negative report may reinforce clinical impression. Adenosis and dense breasts may obscure an underlying neoplasm. False positive reports average 6 to 10%. Patient will receive a letter notifying them of these results.
== END 2025-06-29 01:48 ==
LOC: DI 01:28
PROVIDERS: PCP Nurse Practitioner Family; Visit Provider Nurse Practitioner Family
DX: Z12.31 Encounter for screening mammogram for malignant neoplasm of breast (principal); R92.323 Mammographic fibroglandular density, bilateral breasts
CPT/HCPCS: 77063; 77067

== ENCOUNTER 2025-07-07 00:06 | Outpatient (CLI) | payer MEDICARE, BC, SELFPAY ==
[2025-07-07 16:56] LABS: Vitamin D 25 Total 66 ng/mL (30-100)
== END 2025-07-07 00:07 | disposition home or self-care (01) ==
LOC: LOS 00:06
PROVIDERS: PCP Nurse Practitioner Family; Visit Provider Nurse Practitioner Family
DX: M85.80 Other specified disorders of bone density and structure, unspecified site (principal)
CPT/HCPCS: 36415; 82306

== ENCOUNTER 2025-09-19 10:25 | Emergency (ER) | payer MEDICARE, BC, SELFPAY ==
[2025-09-19 10:33] VITALS: BP 170/80; PULSE 92; RESP 18; TEMP 36.6; O2SAT 96
--- NOTE | 2025-09-19 12:08 | ED.GENADUL_ITS ---
Discharge Plan Disposition Patient Disposition: Home Condition: Stable Discharge Details Clinical Impression: Superficial fungal infection of skin Primary Care Provider: Scarlet Boyce ED Provider: Blaine Lopez Home Meds and New Rx's Prescriptions: New fluconazole 150 mg tablet 150 mg PO QWEEK 28 Days Qty: 4 0RF Continued ketoconazole 2 % cream 1 applic topical DAILY Qty: 120 6RF Rx Instructions: Apply to toenails once daily Magnesium Complex 300 mg magnesium tablet 1 mg PO DAILY cyclosporine 0.1 % dropperette 1 drp ophthalmic (eye) QID Rx Instructions: compress lacrimal sac for 1-2 minutes after instillation ascorbic acid (vitamin C) 1,000 mg capsule 1,000 mg PO DAILY levothyroxine 175 mcg tablet 175 mcg PO DAILY Qty: 90 3RF ondansetron 4 mg tablet,disintegrating 4 mg PO Q8H PRN (Reason: nausea and vomiting) Qty: 30 1RF rizatriptan 5 mg tablet 5 mg PO ONCE MDD 10mg PRN (Reason: migraine headache) Qty: 30 5RF Rx Instructions: Take one tablet at onset of migraine. May take another 2 hours later if headache still persists. clotrimazole 1 % cream 1 applic topical BID Qty: 45 1RF Rx Instructions: Apply to affected areas twice a day for 2-4wks or until resolution cholecalciferol (vitamin D3) 25 mcg/drop ( 1,000 unit/drop) drops 10,000 unit PO DAILY nystatin 100,000 unit/gram powder 1 applic topical TID Qty: 60 0RF polyethylene glycol 3350 17 gram Powder In Packet 17 g PO DAILY Qty: 14 0RF Discharge Instructions Instructions: Fluconazole, Fungal Skin Rash ED Additional Instructions: You were seen in the emergency department for your fungal skin infection that is not responding to topical therapy with nystatin powder. You opted to trial an oral antifungal, prescribed fluconazole tablets to take 1 tablet/week for 4 weeks, while undergoing this oral treatment you need to continue your topical treatments with nystatin, as we discussed you can also try spot treatments with various other antifungals and see if it responds better to those than the nystatin. The [id number] antifungals are clotrimazole, terbinafine, butenafine-please purchase 1 of each and spot treat an area of rash and see whichever it responds to best and go with that. You can also purchase Selsun Blue medicated shampoo and use it as a body wash, lather your entire body and let the menthol sensation sit on your skin for about 5 minutes before washing it off, you can do this every other day in the shower going forward and it will help decolonize your skin from the fungal spores. Please follow-up with your primary care physician, return to the emergency department for any emergent concerns. Stand Alone Forms: Portal Information Referrals: Scarlet Boyce NP [Primary Care Provider, Medicine] Discharge Data Discharge Date/Time-TO BE ENTERED AT DEPARTURE: 09/19/25 12:39 HPI General Date/Time Provider Initiated Documentation: 09/19/25 10:51 . HPI Narrative: 65 year-old female presents to ED today by POV/ambulating with a chief complaint of skin rash, worsening fungal infection to inguinal folds and under breasts, not responding to Nystatin as same condition has in the past with onset over the past couple weeks. Quality described as itchy- wakes her up at night sometimes, no radiation to vaginal discharge or odor, dysuria, fever, purulent drainage under the breast. Severity is described as moderate. Palliating factors include nystatin powder without improvement. Provoking factors include nothing specific. Patient not anticoagulated. Related Data Home Medications ?Medication ?Instructions ?Recorded ?Confirmed polyethylene glycol 3350 17 gram 17 g PO DAILY #14 ea 12/30/23 09/19/25 oral powder packet ketoconazole 2 % topical cream 1 applic topical DAILY #120 grams 08/26/24 09/19/25 cholecalciferol (vitamin D3) 25 10,000 unit PO DAILY 0 05/07/25 09/19/25 mcg/drop (1,000 unit/drop) oral drops ascorbic acid (vitamin C) 1,000 mg 1,000 mg PO DAILY 1 09/19/25 capsule clotrimazole 1 % topical cream 1 applic topical BID #4 5 grams 07/05/25 09/19/25 cyclosporine 0.1 % eye drops in a 1 drp ophthalmic (ey e) QID 07/05/25 09/19/25 dropperette levothyroxine 175 mcg tablet 175 mcg PO DAILY #90 tabs 07/05/25 09/19/25 magnesium carb,citrate,oxide 1 mg PO DAILY 07/05/25 (Magnesium Complex) ondansetron 4 mg disintegrating 4 mg PO Q8H PRN nausea and 07/05/25 09/19/25 tablet vomiting #30 tabs rizatriptan 5 mg tablet 5 mg PO ONCE PRN migraine he adache 07/05/25 09/19/25 #30 tabs nystatin 100,000 unit/gram topical 1 applic topical TI D #60 grams 09/08/25 09/19/25 powder fluconazole 150 mg tablet 150 mg PO QWEEK 4 weeks #4 t abs 09/19/25 Previous Rx's ?Medication ?Instructions ?Recorded polyethylene glycol 3350 17 gram 17 g PO DAILY #14 ea 12/30/23 oral powder packet ketoconazole 2 % topical cream 1 applic topical DAILY #120 grams 08/26/24 clotrimazole 1 % topical cream 1 applic topical BID #4 5 grams 07/05/25 levothyroxine 175 mcg tablet 175 mcg PO DAILY #90 tabs 07/05/25 ondansetron 4 mg disintegrating 4 mg PO Q8H PRN nausea and 07/05/25 tablet vomiting #30 tabs rizatriptan 5 mg tablet 5 mg PO ONCE PRN migraine he adache 07/05/25 #30 tabs nystatin 100,000 unit/gram topical 1 applic topical TI D #60 grams 09/08/25 powder fluconazole 150 mg tablet 150 mg PO QWEEK 4 weeks #4 t abs 09/19/25 Allergies Allergy/AdvReac Type Severity Reaction Status Date / Time Iodinated Contrast Media Allergy Severe COULDN'T Verified 09/19/25 10:38 (Iodinated Contrast Media - BREATHE IV Dye) divalproex sodium Allergy Intermediate HIVES Verified 09/19/25 10:38 venlafaxine (From Effexor) Allergy Unknown Pt does Verified 09/19/25 10:38 not remember topiramate (From Topamax) AdvReac Unknown anxiety Verified 09/19/25 10:38 citalopram AdvReac stomach Verified 09/19/25 10:38 distress General Stated Complaint: RashLesion CHELA: 4 Review of Systems All systems reviewed & are unremarkable except as noted in HPI and below Exam Narrative Exam Narrative: GENERAL APPEARANCE: Obesity, non-toxic, awake and alert, atraumatic, no acute distress. SKIN: Warm, pink, dry, mild macular rash under the breasts, inguinal folds not examined, classic for superficial fungal infection HEAD: Normocephalic, atraumatic, normal hair distribution for gender/age. EYES: Normal conjunctiva, no exudates on lids/lashes. ENT: Nares patent, no circumoral cyanosis, no facial swelling NECK: Supple, trachea midline, painless cervical ROM. LUNGS/CHEST: Non-labored respirations, normal A/P diameter, symmetrical expansion, no chest wall deformity HEART (CV/PV): No peripheral edema, no JVD. ABDOMEN: Soft, non-distended, no guarding. MSK: Normal ROM, no swelling/deformity to bilateral UEs or LEs, moving all extremities without weakness, no cyanosis, spine midline without tenderness, normal curvature. NEURO: Mental Status AAOx4 - alert to person, place, time, events No facial droop, no forehead involvement. Motor: No focal weakness Sensory: sensation intact to light touch globally. Gait normal: patient ambulated without ataxia into ED room. PSYCH: euthymic, cooperative, pleasant, appropriate speech Course Vital Signs Vital signs: Vital Signs Temperature 36.6 C 09/19/25 10:33 Pulse 92 H 09/19/25 10:33 Respiratory Rate 18 09/19/25 10:33 Blood Pressure 170/80 H 09/19/25 10:33 Pulse Oximetry 96 09/19/25 10:33 Temperature 36.6 C 09/19/25 10:33 Temperature Source Oral 09/19/25 10:33 Pulse 92 H 09/19/25 10:33 Respiratory Rate 18 09/19/25 10:33 Blood Pressure 170/80 H 09/19/25 10:33 Blood Pressure Position Sitting 09/19/25 10:33 Pulse Oximetry 96 09/19/25 10:33 Oxygen Delivery Method Room Air 09/19/25 10:33 Oxygen Flow Rate 0 09/19/25 10:33 Medical Decision Making This dictation utilizes [id number] dictation software and may contain unedited grammatical errors. 65 year-old female presents to ED today by POV/ambulating with a chief complaint of skin rash, worsening fungal infection to inguinal folds and under breasts, not responding to Nystatin as same condition has in the past with onset over the past couple weeks. Quality described as itchy- wakes her up at night sometimes, no radiation to vaginal discharge or odor, dysuria, fever, purulent drainage under the breast. Severity is described as moderate. Palliating factors include nystatin powder without improvement. Provoking factors include nothing specific. Patients' medical history: Obesity, chronic headache, fibromyalgia, tinea pedis. Family and social history: Noncontributory. Pertinent exam findings / vital signs include mild macular rash under the breasts, inguinal folds not examined, classic for superficial fungal infection. Differential / pathologies of concern include superficial fungal infection, not septic. Diagnostic studies of: - None. Interventions of: - Discussed various methods of topical treatments and adding in clotrimazole, terbinafine or butenafine and washing with Selsun Blue, patient asked for oral medications I did prescribe 4 weeks of q. weekly fluconazole 150 mg. ED Course/Assessment/Plan: 65-year-old female has yeast infection or other fungus to inverse fold area of her body and is not responding to nystatin powder, her vitals are stable, I spent considerable amount of time counseling her on the lengthy treatment req uired to combat fungal infections as well as decolonize and did prescribe fluconazole, stricture criteria for any signs of sepsis or purulent drainage from the areas. Findings not consistent with SJS or TENS, abscesses. Disposition of superficial fungal infection of skin. Patient verbalized understanding of the plan and return to ED criteria and engaged in shared decision making. Medical Records Medical records reviewed: Yes I reviewed the patient's medical records. Quality:SDOH Health Related Social Needs: Health related social needs lonely/isolated Health related social needs details . PFSH All Active Problems (Updated 09/19/25 @ 12:10 by RUDY Overton) Superficial fungal infection of skin (Acute) Obstructive sleep apnea (Chronic) CPAP Bipolar disorder (Chronic) [facility] Chronic fatigue syndrome (Chronic) Fibromyalgia (Chronic) Hypertension (Chronic) Hypothyroidism (Chronic) Hyperlipidemia (Chronic) Lumbar spondylosis (Chronic) Mechanical low back pain (Chronic) Irritable bowel syndrome with constipation and diarrhea (Chronic) Abdominal wall hernia (Chronic) PLMD (periodic limb movement disorder) (Chronic) Migraine headache (Chronic) Osteopenia (Chronic) Incomplete bladder emptying (Chronic) Chronic nausea (Chronic) Atrophic vulvovaginitis (Chronic) Atopic dermatitis (Chronic) Class 3 severe obesity with body mass index (BMI) of 50.0 to 59.9 in adult (Chronic) Tinea pedis (Chronic) Lymphedema (Chronic) Medical History Chronic headache Positive [place]O [place]antinuclear antibody[place] [facility] [place] 12/13--no underlying inflammatory disorder suspected Uterine leiomyoma Endometrial thickening on ultrasound 11/16/20. Incidental finding. No PMB. No plans for further evaluation. Gastritis Vitamin D deficiency (~11/2018) Surgical History Hx of umbilical hernia repair (03/07/22) S/P cholecystectomy History of blepharoplasty Hx of colonoscopy Family History Mother Bipolar disorder Father Dementia Hypothyroidism Sister Hypothyroidism Sister ALS (amyotrophic lateral sclerosis) Brother No problems noted. Brother No problems noted. Daughter No problems noted. Daughter No problems noted. Son , 37 Substance use disorder Maternal Grandfather Heart disease Maternal Grandmother Heart disease Paternal Grandfather Heart disease Paternal Grandmother Heart disease Social History Smoking/Tobacco Use Status: Former Tobacco Use tobacco type: cigarettes Quit Date: 09/23/89 Tobacco: How many years used: 5 Second Hand Exposure: Yes Smoking risk assessment performed?: Yes Alcohol Intake: current Alcohol Intake frequency: holidays/special occasions only Alcohol type: wine Drug use: Occasionally Substance use type: marijuana Details: uses PO CBD gummies. 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 Pets and animals: No Sexually active: No Do you think of yourself as: straight/heterosexual Current gender identity: female What is your relationship status?: How often do you talk on the phone with friends or family?: three or more times per week How often do you get together with friends or relatives?: once per week Do you belong to any clubs or organized social groups?: no Panel score (0-1 are the most socially isolated patients): 2 What type of physical activity do you participate in: walking and aerobic Duration: 15-30 minutes/day Thuy/Temple: [employer] Special thuy needs: No Seatbelt use: always Drive intox or ride w/intox 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
== END 2025-09-19 12:39 | disposition home or self-care (01) ==
PROVIDERS: Emergency Provider Physician Assistant; PCP Nurse Practitioner Family
DX: B36.8 Other specified superficial mycoses (principal); I10 Essential (primary) hypertension; E78.5 Hyperlipidemia, unspecified; E03.9 Hypothyroidism, unspecified; Z87.891 Personal history of nicotine dependence
CPT/HCPCS: 99283